=== PATIENT | female | born 1965 | race Caucasian/White ===

== ENCOUNTER 2020-05-05 21:25 | Inpatient (IN) | payer MEDICAID, SELFPAY ==
[2020-05-05 21:50] VITALS: BP 163/81; PULSE 86; RESP 20; TEMP 36.8; O2SAT 95; BMI 19.3
--- NOTE | 2020-05-05 22:06 | ECG_ITS ---
Test Reason : GI BLEED Blood Pressure : / mmHG Vent. Rate : 072 BPM Atrial Rate : 072 BPM P-R Int : 142 ms QRS Dur : 104 ms QT Int : 442 ms P-R-T Axes : 081 103 086 degrees QTc Int : 483 ms Normal sinus rhythm Rightward axis Nonspecific T wave abnormality Prolonged QT Abnormal ECG When compared with ECG of 25-SEP-2009 08:42, Nonspecific T wave abnormality now evident in Anterior leads QT has lengthened Referred By: Neeta Centeno Electronically Signed By:SELMA SANTANA MD
--- NOTE | 2020-05-05 22:18 | ED.ABDPAIN ---
HPI - Abdominal Pain General Chief Complaint: Abdominal Pain Stated Complaint: Abdominal pain/Bloody stools Time Seen by Provider: 05/05/20 22:06 Source: patient Mode of arrival: ambulatory History of Present Illness HPI narrative: This is a 54-year-old female with history of COPD and smoking crack yesterday and comes in with onset of multiple episodes of diarrhea that was brown in color this morning associated with significant amount of abdominal cramping but denies any fevers, chills, nausea, vomiting, urinary pain/burning/frequency. She states that she was finally able to go to sleep this afternoon but when she woke up she had significantly increased abdominal cramping and noted that when she used the bathroom ?it was nothing but blood?. Patient denies relief of pain on passing blood/feces and states she does not think that there is pain on passing the blood/feces. She denies any palpitations or history of irregular heartbeat and denies any anticoagulation use. She lives with her who has eaten the same foods and he is not currently having any symptoms and she denies any recent travel. Related Data Allergies Allergy/AdvReac Type Severity Reaction Status Date / Time codeine [CODEINE] Allergy Unknown RASH Verified 05/05/20 21:53 Review of Systems Review of Systems Pertinent positives and negatives as stated in HPI 10 point review of systems is otherwise negative. Physical Exam Vital Signs: Vital Signs: Last Vital Signs Temp 99.1 F 05/06/20 00:00 Pulse 86 05/05/20 21:50 Resp 16 05/06/20 00:00 BP 163/81 H 05/05/20 21:50 Pulse Ox 96 05/06/20 00:00 Body Mass Index 19.3 VITAL SIGNS: Reviewed. GENERAL: Well developed, well nourished, in no acute distress. HEAD: Normocephalic/atraumatic, EYES: PERRLA, EOMI NOSE: Nares patent bilateral OROPHARYNX: no oral lesions noted, posterior pharynx clear NECK: Supple, no adenopathy LUNGS: Normal breath sounds. SpO2<95> CARDIOVASCULAR: Regular rate and rhythm without noted murmurs ABDOMEN: Soft, tenderness crossed mid into left abdomen, non-distended with bowel sounds. ALEX: No evidence of external hemorrhoids, rectal vault empty with minimal gross blood on exam, good rectal tone NEUROLOGIC: Alert and oriented x 4. Course Course Course Narrative: This is a 54-year-old female with history and clinical presentation suggestive of ischemic, diverticular, and less likely infectious etiology for GI bleed. Review of all investigations consistent with infectious colitis with CT scan corroborating this but stating the possibility of some superimposed active hemorrhage. All results and findings were discussed with the patient at bedside, she was provided with antibiotics with blood cultures drawn prior to this. The case was discussed with the inpatient hospitalist team as well as Gastroenterology. Patient will be admitted. Reevaluation(s) Reevaluation #1: I discussed this case with gastroenterology who recommends sending a C. difficile culture and agrees with antibiotic of Zosyn. Time: 01:35 MDM - Abdominal Pain Lab Data Result diagrams: 05/06/20 01:27 05/05/20 22:25 Labs: Lab Results 05/05/20 05/05/20 05/05/20 Range/Units 22:25 22:25 22:25 WBC 13.4 H (4.8-10.8) X10*3/uL RBC 5.49 (4.20-5.50) X10*6/uL Hgb 17.5 H (12.0-16.0) g/dl Hct 51.2 H (37-47) % MCV 93.3 (80-98) fL MCH 31.9 (27.0-33.0) pg MCHC 34.2 (31.0-35.0) g/dl RDW 12.2 (11.0-16.0) % Plt Count 328 (160-400) X10*3/uL MPV 10.1 (9.4-12.3) fL Immature Gran % (Auto) 0.2 (0.0-0.4) % Neut % (Auto) 76.7 H (45-73) % Lymph % (Auto) 14.2 L (20-40) % [place] % (Auto) 7.7 (2-11) % Eos % (Auto) 0.7 (0-4) % Baso % (Auto) 0.5 (0-2) % Lymph # (Auto) 1.9 (1.2-4.9) X10*3/uL [place] # (Auto) 1.0 (0.1-1.2) X10*3/uL Eos # (Auto) 0.1 (0.0-0.4) X10*3/uL Baso # (Auto) 0.1 (0.0-0.2) X10*3/uL Abs Immat Gran (auto) 0.03 (0.00-0.03) X10*3/uL Absolute Neuts (auto) 10.3 H (2.0-8.3) X10*3/uL Absolute Nucleated RBC 0.000 (0.0-0.012) X10*3/uL Nucleated RBC % (auto) 0.0 (0.0-0.2) /100WBC PT (10.8-13.0) SEC INR (0.9-1.1) APTT (24.1-38.0) SEC Sodium 141 (135-145) mmol/L Potassium 3.9 (3.3-5.1) mmol/L Chloride 104 (96-108) mmol/L Carbon Dioxide 27 (22-29) mmol/L Anion Gap 14 (12-20) BUN 12 (9-16) mg/dL Creatinine 0.85 (0.5-1.4) mg/dL Estim Creat Clear Calc 69.1 Estimated GFR > 60 Random Glucose 112 (60-115) mg/dL Calcium 9.3 (8.4-10.2) mg/dL Magnesium 2.6 (1.6-2.6) mg/dL Total Bilirubin 0.6 (0.0-1.0) mg/dL AST 18 (5-31) U/L ALT 21 (0-31) U/L Alkaline Phosphatase 145 H (39-117) U/L Total Protein 7.4 (6.5-8.0) g/dL Albumin 4.6 (3.5-5.0) g/dL Urine Color Urine Appearance Urine pH (5.0-8.0) Ur Specific [place] (1.005-1.025) Urine Protein (NEG-TRACE) MG/DL Urine Glucose (UA) (NEG) MG/DL Urine Ketones (NEG) MG/DL Urine Blood (NEG) Urine Nitrite (NEG) Ur Leukocyte Esterase (NEG) Urine RBC (0) /HPF Urine WBC (0-4) /HPF Ur Squamous Epith Cells /LPF Amorphous Sediment /LPF Urine Bacteria /LPF Granular Casts /LPF Urine Mucus /LPF Stool Occult Blood (NEG) Stool Leukocytes, Qual (NEGATIVE) Urine Opiates Screen (Not Detect) Ur Barbiturates Screen (Not Detect) Ur Phencyclidine Scrn (Not Detect) Ur Amphetamines Screen (Not Detect) U Benzodiazepines Scrn (Not Detect) Urine Cocaine Screen (Not Detect) U Marijuana (THC) Screen (Not Detect) Ethyl Alcohol < 10 mg/dL COVID-19 (TAY) (Negative) COVID-19 Clin Com Blood Type Antibody Screen 05/05/20 05/05/20 05/05/20 Range/Units 22:25 22:25 22:30 WBC (4.8-10.8) X10*3/uL RBC (4.20-5.50) X10*6/uL Hgb (12.0-16.0) g/dl Hct (37-47) % MCV (80-98) fL MCH (27.0-33.0) pg MCHC (31.0-35.0) g/dl RDW (11.0-16.0) % Plt Count (160-400) X10*3/uL MPV (9.4-12.3) fL Immature Gran % (Auto) (0.0-0.4) % Neut % (Auto) (45-73) % Lymph % (Auto) (20-40) % [place] % (Auto) (2-11) % Eos % (Auto) (0-4) % Baso % (Auto) (0-2) % Lymph # (Auto) (1.2-4.9) X10*3/uL [place] # (Auto) (0.1-1.2) X10*3/uL Eos # (Auto) (0.0-0.4) X10*3/uL Baso # (Auto) (0.0-0.2) X10*3/uL Abs Immat Gran (auto) (0.00-0.03) X10*3/uL Absolute Neuts (auto) (2.0-8.3) X10*3/uL Absolute Nucleated RBC (0.0-0.012) X10*3/uL Nucleated RBC % (auto) (0.0-0.2) /100WBC PT 11.6 (10.8-13.0) SEC INR 1.0 (0.9-1.1) APTT 31.3 (24.1-38.0) SEC Sodium (135-145) mmol/L Potassium (3.3-5.1) mmol/L Chloride (96-108) mmol/L Carbon Dioxide (22-29) mmol/L Anion Gap (12-20) BUN (9-16) mg/dL Creatinine (0.5-1.4) mg/dL Estim Creat Clear Calc Estimated GFR Random Glucose (60-115) mg/dL Calcium (8.4-10.2) mg/dL Magnesium (1.6-2.6) mg/dL Total Bilirubin (0.0-1.0) mg/dL AST (5-31) U/L ALT (0-31) U/L Alkaline Phosphatase (39-117) U/L Total Protein (6.5-8.0) g/dL Albumin (3.5-5.0) g/dL Urine Color Urine Appearance Urine pH (5.0-8.0) Ur Specific [place] (1.005-1.025) Urine Protein (NEG-TRACE) MG/DL Urine Glucose (UA) (NEG) MG/DL Urine Ketones (NEG) MG/DL Urine Blood (NEG) Urine Nitrite (NEG) Ur Leukocyte Esterase (NEG) Urine RBC (0) /HPF Urine WBC (0-4) /HPF Ur Squamous Epith Cells /LPF Amorphous Sediment /LPF Urine Bacteria /LPF Granular Casts /LPF Urine Mucus /LPF Stool Occult Blood POS (NEG) Stool Leukocytes, Qual (NEGATIVE) Urine Opiates Screen (Not Detect) Ur Barbiturates Screen (Not Detect) Ur Phencyclidine Scrn (Not Detect) Ur Amphetamines Screen (Not Detect) U Benzodiazepines Scrn (Not Detect) Urine Cocaine Screen (Not Detect) U Marijuana (THC) Screen (Not Detect) Ethyl Alcohol mg/dL COVID-19 (TAY) Negative (Negative) COVID-19 Clin Com See Note Blood Type Antibody Screen 05/05/20 05/05/20 05/05/20 Range/Units 22:30 22:55 23:04 WBC (4.8-10.8) X10*3/uL RBC (4.20-5.50) X10*6/uL Hgb (12.0-16.0) g/dl Hct (37-47) % MCV (80-98) fL MCH (27.0-33.0) pg MCHC (31.0-35.0) g/dl RDW (11.0-16.0) % Plt Count (160-400) X10*3/uL MPV (9.4-12.3) fL Immature Gran % (Auto) (0.0-0.4) % Neut % (Auto) (45-73) % Lymph % (Auto) (20-40) % [place] % (Auto) (2-11) % Eos % (Auto) (0-4) % Baso % (Auto) (0-2) % Lymph # (Auto) (1.2-4.9) X10*3/uL [place] # (Auto) (0.1-1.2) X10*3/uL Eos # (Auto) (0.0-0.4) X10*3/uL Baso # (Auto) (0.0-0.2) X10*3/uL Abs Immat Gran (auto) (0.00-0.03) X10*3/uL Absolute Neuts (auto) (2.0-8.3) X10*3/uL Absolute Nucleated RBC (0.0-0.012) X10*3/uL Nucleated RBC % (auto) (0.0-0.2) /100WBC PT (10.8-13.0) SEC INR (0.9-1.1) APTT (24.1-38.0) SEC Sodium (135-145) mmol/L Potassium (3.3-5.1) mmol/L Chloride (96-108) mmol/L Carbon Dioxide (22-29) mmol/L Anion Gap (12-20) BUN (9-16) mg/dL Creatinine (0.5-1.4) mg/dL Estim Creat Clear Calc Estimated GFR Random Glucose (60-115) mg/dL Calcium (8.4-10.2) mg/dL Magnesium (1.6-2.6) mg/dL Total Bilirubin (0.0-1.0) mg/dL AST (5-31) U/L ALT (0-31) U/L Alkaline Phosphatase (39-117) U/L Total Protein (6.5-8.0) g/dL Albumin (3.5-5.0) g/dL Urine Color YELLOW Urine Appearance HAZY Urine pH 6.5 (5.0-8.0) Ur Specific [place] 1.010 (1.005-1.025) Urine Protein NEG (NEG-TRACE) MG/DL Urine Glucose (UA) NEG (NEG) MG/DL Urine Ketones NEG (NEG) MG/DL Urine Blood 2+ H (NEG) Urine Nitrite NEG (NEG) Ur Leukocyte Esterase NEG (NEG) Urine RBC 5-9 H (0) /HPF Urine WBC 1-4 (0-4) /HPF Ur Squamous Epith Cells 1+ /LPF Amorphous Sediment 3+ /LPF Urine Bacteria TRACE /LPF Granular Casts 1-4 /LPF Urine Mucus 2+ /LPF Stool Occult Blood (NEG) Stool Leukocytes, Qual MOD: 3-9/OIF (NEGATIVE) Urine Opiates Screen (Not Detect) Ur Barbiturates Screen (Not Detect) Ur Phencyclidine Scrn (Not Detect) Ur Amphetamines Screen (Not Detect) U Benzodiazepines Scrn (Not Detect) Urine Cocaine Screen (Not Detect) U Marijuana (THC) Screen (Not Detect) Ethyl Alcohol mg/dL COVID-19 (TAY) (Negative) COVID-19 Clin Com Blood Type B Positive Antibody Screen NEGATIVE 05/05/20 05/06/20 Range/Units 23:04 01:27 WBC 12.4 H (4.8-10.8) X10*3/uL RBC 5.31 (4.20-5.50) X10*6/uL Hgb 17.0 H (12.0-16.0) g/dl Hct 50.0 H (37-47) % MCV 94.2 (80-98) fL MCH 32.0 (27.0-33.0) pg MCHC 34.0 (31.0-35.0) g/dl RDW 12.3 (11.0-16.0) % Plt Count 282 (160-400) X10*3/uL MPV 10.1 (9.4-12.3) fL Immature Gran % (Auto) 0.2 (0.0-0.4) % Neut % (Auto) 79.7 H (45-73) % Lymph % (Auto) 13.2 L (20-40) % [place] % (Auto) 5.7 (2-11) % Eos % (Auto) 0.7 (0-4) % Baso % (Auto) 0.5 (0-2) % Lymph # (Auto) 1.6 (1.2-4.9) X10*3/uL [place] # (Auto) 0.7 (0.1-1.2) X10*3/uL Eos # (Auto) 0.1 (0.0-0.4) X10*3/uL Baso # (Auto) 0.1 (0.0-0.2) X10*3/uL Abs Immat Gran (auto) 0.03 (0.00-0.03) X10*3/uL Absolute Neuts (auto) 9.9 H (2.0-8.3) X10*3/uL Absolute Nucleated RBC 0.000 (0.0-0.012) X10*3/uL Nucleated RBC % (auto) 0.0 (0.0-0.2) /100WBC PT (10.8-13.0) SEC INR (0.9-1.1) APTT (24.1-38.0) SEC Sodium (135-145) mmol/L Potassium (3.3-5.1) mmol/L Chloride (96-108) mmol/L Carbon Dioxide (22-29) mmol/L Anion Gap (12-20) BUN (9-16) mg/dL Creatinine (0.5-1.4) mg/dL Estim Creat Clear Calc Estimated GFR Random Glucose (60-115) mg/dL Calcium (8.4-10.2) mg/dL Magnesium (1.6-2.6) mg/dL Total Bilirubin (0.0-1.0) mg/dL AST (5-31) U/L ALT (0-31) U/L Alkaline Phosphatase (39-117) U/L Total Protein (6.5-8.0) g/dL Albumin (3.5-5.0) g/dL Urine Color Urine Appearance Urine pH (5.0-8.0) Ur Specific [place] (1.005-1.025) Urine Protein (NEG-TRACE) MG/DL Urine Glucose (UA) (NEG) MG/DL Urine Ketones (NEG) MG/DL Urine Blood (NEG) Urine Nitrite (NEG) Ur Leukocyte Esterase (NEG) Urine RBC (0) /HPF Urine WBC (0-4) /HPF Ur Squamous Epith Cells /LPF Amorphous Sediment /LPF Urine Bacteria /LPF Granular Casts /LPF Urine Mucus /LPF Stool Occult Blood (NEG) Stool Leukocytes, Qual (NEGATIVE) Urine Opiates Screen Not Detected (Not Detect) Ur Barbiturates Screen Not Detected (Not Detect) Ur Phencyclidine Scrn Not Detected (Not Detect) Ur Amphetamines Screen Not Detected (Not Detect) U Benzodiazepines Scrn Not Detected (Not Detect) Urine Cocaine Screen POSITIVE H (Not Detect) U Marijuana (THC) Screen Not Detected (Not Detect) Ethyl Alcohol mg/dL COVID-19 (TAY) (Negative) COVID-19 Clin Com Blood Type Antibody Screen ECG Data Attestation: I personally reviewed and interpreted this ECG as follows: Prior ECG tracings: available for review (09/25/2009 no acute changes on comparison) Interpretation: Normal sinus rhythm, HR-72, no evidence of acute ischemia, WA within normal limits, QTC prolonged Discharge Plan Discharge Clinical Impression: Lower GI bleed, Colitis Patient Disposition: Admitted As Inpatient [facility] Past Medical History Source: nursing notes reviewed Medical History Cholecystectomy planned COPD (chronic obstructive pulmonary disease) Surgical History Previous back surgery Tubal ligation status Social History Social History Alcohol intake: never Smoking Status: Current every day smoker Use of substances other than those prescribed or required for medical reasons: Yes Substance Use Type: Crack/Cocaine Substance Use Frequency: Monthly Advance Directives: No Advance Directives Information Provided: Yes
[2020-05-05] MEDS: 0.9 % Sodium Chloride 1,000 ML 999 ML IV (22:26)
--- NOTE | 2020-05-05 22:28 | CT_ITS ---
EXAM: CT OF THE ABDOMEN AND PELVIS WITHOUT AND WITH CONTRAST GI BLEED INDICATION: GI bleed, abdominal pain COMPARISON: 09/25/2009 TECHNIQUE: 85 mL Omnipaque 350 IV contrast was utilized. Multidetector helical imaging was performed through the abdomen and pelvis prior to and following the administration of IV contrast in arterial and delayed phases. Coronal and sagittal reformatted images were created at the technologist workstation. DOSE LOWERING TECHNIQUES: This CT examination was performed using dose optimization techniques as appropriate, variously including the following: - Automated exposure control - Adjustment of mA and/or kV according to patient size (this includes techniques or standardized protocols for targeted exams were dose is matched to indication/reason for exam; i.e. extremities or head) - Use of iterative reconstruction technique DLP: 1217 mGy-cm FINDINGS: The lung bases demonstrate emphysema. The liver is homogeneous in attenuation without intrahepatic biliary ductal dilatation. There is an approximately 2.4 cm lesion in the lateral left hepatic lobe which demonstrates some peripheral nodular enhancement on the arterial phase with partial central fill-in on the delayed phase, favoring a hemangioma; this is also present in 2009. Patient is status post cholecystectomy. The spleen and pancreas appear unremarkable. There are small low-density nodules in the bilateral adrenal glands, favored to reflect benign lipid rich adenomas given their Hounsfield unit measurements. Bilateral nephrograms are symmetric. No hydronephrosis. No obstructing renal or ureteral calculi are present. The urinary bladder is nearly empty and not adequately evaluated. The uterus and adnexa are unremarkable. There is a thick-walled appearance of the colon extending from the mid transverse colon to the proximal descending colon consistent with colitis. This segment of the colon is collapsed, and in the arterial phase of postcontrast imaging there is prominent hyperattenuation along the mucosa favored to reflect enhancement in the setting of inflammation; the possibility of some superimposed active hemorrhage in this region is difficult to entirely exclude given this background abnormal enhancement. No evidence of bowel obstruction. The appendix is unremarkable. No free fluid or free air is present. Scattered atherosclerotic calcifications are present. No retroperitoneal or pelvic lymphadenopathy is seen. Intervertebral disc spacer is present in the spine at L4-L5. CT/CT gi bleed abd pel wo/w con IMPRESSION: 1. Colitis extending from the mid transverse colon to the proximal descending colon. There is prominent mucosal enhancement throughout this collapsed segment, and the possibility of some superimposed active hemorrhage in this segment would be difficult to entirely exclude. 2. Left hepatic lobe hemangioma. 3. Small adrenal nodules, favoring adenomas. 4. Emphysema at the lung bases.
--- NOTE | 2020-05-05 22:36 | PC.NURSE ---
patient a&ox3, iv inserted, labs drawn, covid swab performed, ekg being performed, pt aware we need a urine and that a type and screen will be obtained, will continue to monitor.
[2020-05-05 22:39] LABS: MANUAL DIFF FLAG NO
[2020-05-05 22:40] LABS: Basophils Absolute Auto 0.1 X10*3/uL (0.0-0.2); Basophils Percent Auto 0.5 % (0-2); Eosinophils Absolute Auto 0.1 X10*3/uL (0.0-0.4); Eosinophils Percent Auto 0.7 % (0-4); Hematocrit 51.2 % (37-47); Hemoglobin 17.5 g/dl (12.0-16.0); Imm Gran Abs Auto 0.03 X10*3/uL (0.00-0.03); Imm Gran Pct Auto 0.2 % (0.0-0.4); Lymphocytes Absolute Auto 1.9 X10*3/uL (1.2-4.9); Lymphocytes Percent Auto 14.2 % (20-40); Mean Corpuscular HGB Conc 34.2 g/dl (31.0-35.0); Mean Corpuscular Hemoglobin 31.9 pg (27.0-33.0); Mean Corpuscular Volume 93.3 fL (80-98); Mean Platelet Volume 10.1 fL (9.4-12.3); Monocytes Percent Auto 7.7 % (2-11); Neutrophils Absolute Auto 10.3 X10*3/uL (2.0-8.3); Neutrophils Percent Auto 76.7 % (45-73); Platelet Count 328 X10*3/uL (160-400); Red Blood Count 5.49 X10*6/uL (4.20-5.50); Red Cell Distribution Width 12.2 % (11.0-16.0); White Blood Count 13.4 X10*3/uL (4.8-10.8)
[2020-05-05 22:40] LABS: OBS Int Ctl Valid YES; OBS1 POS (NEG)
[2020-05-05 22:52] LABS: Prothrombin Time 11.6 SEC (10.8-13.0)
[2020-05-05 22:55] LABS: Partial Thromboplastin Time 31.3 SEC (24.1-38.0)
[2020-05-05 22:56] LABS: COVID-19 Test Negative (Negative); IDNOW Serial# 9DD0AD1C
[2020-05-05 23:05] LABS: Leukocytes Stool Qualitative MOD: 3-9/OIF (NEGATIVE)
[2020-05-05 23:05] LABS: Ethanol < 10 mg/dL
[2020-05-05 23:09] LABS: Alanine Aminotransferase 21 U/L (0-31); Albumin Level 4.6 g/dL (3.5-5.0); Alkaline Phosphatase 145 U/L (39-117); Anion Gap 14 (12-20); Aspartate Amino Transferase 18 U/L (5-31); Bilirubin Total 0.6 mg/dL (0.0-1.0); Blood Urea Nitrogen 12 mg/dL (9-16); Calcium 9.3 mg/dL (8.4-10.2); Carbon Dioxide 27 mmol/L (22-29); Chloride 104 mmol/L (96-108); Creatinine Clr Calc Pharmacy 69.1; Estimated Glomerular Filt Rate > 60; Glucose Random 112 mg/dL (60-115); Magnesium 2.6 mg/dL (1.6-2.6); Potassium 3.9 mmol/L (3.3-5.1); Sodium 141 mmol/L (135-145); Total Protein 7.4 g/dL (6.5-8.0)
[2020-05-05 23:12] LABS: Glucose Urine UA NEG (NEG); Leukocyte Esterase Urine NEG (NEG); Nitrite Urine NEG (NEG); PH 6.5 (5.0-8.0); Urine Blood 2+ (NEG); Urine Ketones NEG (NEG); Urine Protein NEG (NEG-TRACE)
[2020-05-05 23:17] LABS: Appearance Urine HAZY; Color Urine YELLOW
--- NOTE | 2020-05-05 23:20 | PC.NURSE ---
Pt ambulatory with steady gait to CT
[2020-05-05] MEDS: iohexoL 350 MG/ML 100 ML INFUS..BTL 85 ML IV (23:28)
[2020-05-05 23:30] LABS: Amorphous Sediment Urine 3+ /LPF; Bacteria Urine TRACE /LPF; Mucus Urine 2+ /LPF; Squamous Epithelial Cell Urine 1+ /LPF
--- NOTE | 2020-05-05 23:41 | PC.NURSE ---
Pt resting in bed, breathing equal and unlabored. Skin warm and well perfused. Remains with abd discomfort. States she attempted to give another stool sample as requested by unable to at this time. Warm blanket provided, requesting to eat/drink. Instructed to remain NPO until CT results. Pt aware and agreeable to plan of care at this time
[2020-05-05 23:44] LABS: Amphetamine Screen Urine Not Detected (Not Detect); Barbiturates, Urine Not Detected (Not Detect); Benzodiazepines Screen Urine Not Detected (Not Detect); Cannabinoid Screen Urine Not Detected (Not Detect); Cocaine Screen Urine POSITIVE (Not Detect); Opiate Screen Urine Not Detected (Not Detect); Phencyclidine Screen Urine Not Detected (Not Detect)
[2020-05-06] VITALS: RESP 16; TEMP 37.3; O2SAT 96
[2020-05-06] MEDS: 0.9 % Sodium Chloride 1,000 ML 999 ML IV (00:56)
[2020-05-06 01:34] LABS: Basophils Absolute Auto 0.1 X10*3/uL (0.0-0.2); Basophils Percent Auto 0.5 % (0-2); Eosinophils Absolute Auto 0.1 X10*3/uL (0.0-0.4); Eosinophils Percent Auto 0.7 % (0-4); Imm Gran Abs Auto 0.03 X10*3/uL (0.00-0.03); Imm Gran Pct Auto 0.2 % (0.0-0.4); Lymphocytes Absolute Auto 1.6 X10*3/uL (1.2-4.9); Lymphocytes Percent Auto 13.2 % (20-40); MANUAL DIFF FLAG NO; Mean Corpuscular Volume 94.2 fL (80-98); Mean Platelet Volume 10.1 fL (9.4-12.3); Monocytes Absolute Auto 0.7 X10*3/uL (0.1-1.2); Monocytes Percent Auto 5.7 % (2-11); Neutrophils Absolute Auto 9.9 X10*3/uL (2.0-8.3); Neutrophils Percent Auto 79.7 % (45-73); Platelet Count 282 X10*3/uL (160-400); Red Blood Count 5.31 X10*6/uL (4.20-5.50); Red Cell Distribution Width 12.3 % (11.0-16.0); White Blood Count 12.4 X10*3/uL (4.8-10.8)
[2020-05-06] MEDS: Piperacillin Sodium/Tazobactam 3.375 GM in 0.9 % Sodium Chloride 50 ML IV ×4 (01:39→20:20)
--- NOTE | 2020-05-06 01:54 | PC.NURSE ---
Hospitalist at bedside for eval
[2020-05-06 02:00] VITALS: BP 150/67; PULSE 84; RESP 16; TEMP 37.2; O2SAT 96
[2020-05-06 02:07] LABS: Lactic Acid 1.2 mmol/L (0.5-2.0)
--- NOTE | 2020-05-06 02:12 | PM.IMHP ---
History of Present Illness Date of Service: 05/06/20 Chief Complaint: Abd pain and bloody stools 54 year old woman presented with crapmy abd pain and bloody bowel movements that started at 5PM on the day of admission. Patient had been in her usual state of health when she began having crampy abd pain and diarrhea episodes. She stated her stools then turned bloody and she was having multiple bloody movements but could not state whether clot was within the stools. Never had any episodes like this before. Pain is diffuse and across her anterior abdomen. No nausea/vomiting. No fevers or chills. No sick contacts-lives with her and they eat the same food and he is not sick. No recent travel. States has family hx of colon cancer and has had a coloscopy in the past. Review of Systems Constitutional: Comments: No fevers, but is having some chills Eyes: Comments: Stated her vision was blurred earlier ENT: Comments: No sore throat or difficulty swallowing Cardiovascular: Comments: No chest pain Respiratory: Comments: No dyspnea or productive cough Gastrointestinal: Gastrointestinal: Reports as per HPI Musculoskeletal: Comments: No pain in joints noted Psychiatric: Comments: No agitation or anxiety Hematologic/Lymphatic: Comments: no burising PMFSH Medical History Cholecystectomy planned COPD (chronic obstructive pulmonary disease) Pertinent family history: Family hx of colon cancer in her father Surgical History (Updated 05/06/20 @ 02:18 by Edward Mcdowell MD) Hx of cholecystectomy Previous back surgery Tubal ligation status Social History Alcohol intake: never Smoking Status: Current every day smoker Use of substances other than those prescribed or required for medical reasons: Yes Substance Use Type: Crack/Cocaine Substance Use Frequency: Monthly Advance Directives: No Advance Directives Information Provided: Yes Meds Allergies Allergy/AdvReac Type Severity Reaction Status Date / Time codeine [CODEINE] Allergy Unknown RASH Verified 05/05/20 21:53 Physical Exam Vital Signs and Narrative: Vital Signs: Last Vital Signs Temp 98.9 F 05/06/20 02:00 Pulse 84 05/06/20 02:00 Resp 16 05/06/20 02:00 BP 150/67 H 05/06/20 02:00 Pulse Ox 96 05/06/20 02:00 Body Mass Index 19.3 Const: Other: Seems to be in a bit of pain General: cooperative and healthy appearing HENMT: Head: Yes normal to inspection Mouth: Normal oral and palatal mucosa present and moist mucous membranes Eyes: Other: No scleral icterus or conjunctival injections Resp: Other: No insp crackles or exp wheezing Effort & Inspection: normal respiratory effort and able to speak in complete sentences Cardio: Rate: regular rate Rhythm: regular rhythm Heart sounds: S1 normal heart sound present and S2 normal heart sound present GI: Other: Bowel sounds present, diffusely tender across lower anterior abdomen, no guarding or rebound tenderness Skin: General skin exam: no rashes or lesions noted Extrem: Other: No leg edema seen Psych: Other: Seems a little anxious Results Labs CBC and Chem 7: 05/06/20 01:27 05/05/20 22:25 Labs: Laboratory Results - last 24 hr 05/05/20 05/05/20 05/05/20 22:25 22:25 22:25 MCV 93.3 MCH 31.9 MCHC 34.2 RDW 12.2 Plt Count 328 MPV 10.1 Immature Gran % (Auto) 0.2 Neut % (Auto) 76.7 H Lymph % (Auto) 14.2 L [place] % (Auto) 7.7 Eos % (Auto) 0.7 Baso % (Auto) 0.5 Lymph # (Auto) 1.9 [place] # (Auto) 1.0 Eos # (Auto) 0.1 Baso # (Auto) 0.1 Abs Immat Gran (auto) 0.03 Absolute Neuts (auto) 10.3 H Absolute Nucleated RBC 0.000 Nucleated RBC % (auto) 0.0 PT INR APTT Anion Gap 14 Estim Creat Clear Calc 69.1 Estimated GFR > 60 Random Glucose 112 Lactic Acid Calcium 9.3 Magnesium 2.6 Total Bilirubin 0.6 AST 18 ALT 21 Alkaline Phosphatase 145 H Total Protein 7.4 Albumin 4.6 Urine Color Urine Appearance Urine pH Ur Specific [place] Urine Protein Urine Glucose (UA) Urine Ketones Urine Blood Urine Nitrite Ur Leukocyte Esterase Urine RBC Urine WBC Ur Squamous Epith Cells Amorphous Sediment Urine Bacteria Granular Casts Urine Mucus Stool Occult Blood Stool Leukocytes, Qual Urine Opiates Screen Ur Barbiturates Screen Ur Phencyclidine Scrn Ur Amphetamines Screen U Benzodiazepines Scrn Urine Cocaine Screen U Marijuana (THC) Screen Ethyl Alcohol < 10 COVID-19 (TAY) COVID-19 Clin Com Blood Type Antibody Screen 05/05/20 05/05/20 05/05/20 22:25 22:25 22:30 MCV MCH MCHC RDW Plt Count MPV Immature Gran % (Auto) Neut % (Auto) Lymph % (Auto) [place] % (Auto) Eos % (Auto) Baso % (Auto) Lymph # (Auto) [place] # (Auto) Eos # (Auto) Baso # (Auto) Abs Immat Gran (auto) Absolute Neuts (auto) Absolute Nucleated RBC Nucleated RBC % (auto) PT 11.6 INR 1.0 APTT 31.3 Anion Gap Estim Creat Clear Calc Estimated GFR Random Glucose Lactic Acid Calcium Magnesium Total Bilirubin AST ALT Alkaline Phosphatase Total Protein Albumin Urine Color Urine Appearance Urine pH Ur Specific [place] Urine Protein Urine Glucose (UA) Urine Ketones Urine Blood Urine Nitrite Ur Leukocyte Esterase Urine RBC Urine WBC Ur Squamous Epith Cells Amorphous Sediment Urine Bacteria Granular Casts Urine Mucus Stool Occult Blood POS Stool Leukocytes, Qual Urine Opiates Screen Ur Barbiturates Screen Ur Phencyclidine Scrn Ur Amphetamines Screen U Benzodiazepines Scrn Urine Cocaine Screen U Marijuana (THC) Screen Ethyl Alcohol COVID-19 (TAY) Negative COVID-19 Clin Com See Note Blood Type Antibody Screen 05/05/20 05/05/20 05/05/20 22:30 22:55 23:04 MCV MCH MCHC RDW Plt Count MPV Immature Gran % (Auto) Neut % (Auto) Lymph % (Auto) [place] % (Auto) Eos % (Auto) Baso % (Auto) Lymph # (Auto) [place] # (Auto) Eos # (Auto) Baso # (Auto) Abs Immat Gran (auto) Absolute Neuts (auto) Absolute Nucleated RBC Nucleated RBC % (auto) PT INR APTT Anion Gap Estim Creat Clear Calc Estimated GFR Random Glucose Lactic Acid Calcium Magnesium Total Bilirubin AST ALT Alkaline Phosphatase Total Protein Albumin Urine Color YELLOW Urine Appearance HAZY Urine pH 6.5 Ur Specific [place] 1.010 Urine Protein NEG Urine Glucose (UA) NEG Urine Ketones NEG Urine Blood 2+ H Urine Nitrite NEG Ur Leukocyte Esterase NEG Urine RBC 5-9 H Urine WBC 1-4 Ur Squamous Epith Cells 1+ Amorphous Sediment 3+ Urine Bacteria TRACE Granular Casts 1-4 Urine Mucus 2+ Stool Occult Blood Stool Leukocytes, Qual MOD: 3-9/OIF Urine Opiates Screen Ur Barbiturates Screen Ur Phencyclidine Scrn Ur Amphetamines Screen U Benzodiazepines Scrn Urine Cocaine Screen U Marijuana (THC) Screen Ethyl Alcohol COVID-19 (TAY) COVID-19 Clin Com Blood Type B Positive Antibody Screen NEGATIVE 05/05/20 05/06/20 05/06/20 23:04 01:27 01:27 MCV 94.2 MCH 32.0 MCHC 34.0 RDW 12.3 Plt Count 282 MPV 10.1 Immature Gran % (Auto) 0.2 Neut % (Auto) 79.7 H Lymph % (Auto) 13.2 L [place] % (Auto) 5.7 Eos % (Auto) 0.7 Baso % (Auto) 0.5 Lymph # (Auto) 1.6 [place] # (Auto) 0.7 Eos # (Auto) 0.1 Baso # (Auto) 0.1 Abs Immat Gran (auto) 0.03 Absolute Neuts (auto) 9.9 H Absolute Nucleated RBC 0.000 Nucleated RBC % (auto) 0.0 PT INR APTT Anion Gap Estim Creat Clear Calc Estimated GFR Random Glucose Lactic Acid 1.2 Calcium Magnesium Total Bilirubin AST ALT Alkaline Phosphatase Total Protein Albumin Urine Color Urine Appearance Urine pH Ur Specific [place] Urine Protein Urine Glucose (UA) Urine Ketones Urine Blood Urine Nitrite Ur Leukocyte Esterase Urine RBC Urine WBC Ur Squamous Epith Cells Amorphous Sediment Urine Bacteria Granular Casts Urine Mucus Stool Occult Blood Stool Leukocytes, Qual Urine Opiates Screen Not Detected Ur Barbiturates Screen Not Detected Ur Phencyclidine Scrn Not Detected Ur Amphetamines Screen Not Detected U Benzodiazepines Scrn Not Detected Urine Cocaine Screen POSITIVE H U Marijuana (THC) Screen Not Detected Ethyl Alcohol COVID-19 (TAY) COVID-19 Clin Com Blood Type Antibody Screen Imaging Radiologist's Impressions: Impressions Abdomen/Pelvis CT 05/05/20 22:28 IMPRESSION: 1. Colitis extending from the mid transverse colon to the proximal descending colon. There is prominent mucosal enhancement throughout this collapsed segment, and the possibility of some superimposed active hemorrhage in this segment would be difficult to entirely exclude. 2. Left hepatic lobe hemangioma. 3. Small adrenal nodules, favoring adenomas. 4. Emphysema at the lung bases. Assessment and Plan (1) Lower GI bleed: Status: Acute (2) Colitis: Status: Acute (3) COPD (chronic obstructive pulmonary disease): Status: Acute 54 year old woman with history of COPD and family history of colon cancer presented with abrupt onset of crampy abd pain and rectal bleeding. Abd pain, rectal bleeding CT abd suggests colitis and possible active bleeding, though she has not had a bloody bowel movement for a while in ED now. Stools showed some WBC which is concerning for infectious cause-stools sent for culture and vibrio screen as well as giardia and c diff. No sick contacts or recent travel. Supportive care with IV fluids and placed consult to GI for recommendations. Given Zosyn in ED out of concern for infectious colitis-continue for now. Morphine IV prn pain. COPD No exacerbation presently. Called [facility] for her med list-only Breo, Advair, Proair listed as recent ones. Albuterol prn ordered. Polycythemia H/H are elevated but chronicity is unclear. Last CBC in our system is 10 years ago. Likely due in part to her COPD but could contribute to clotting if H/H are high enough, which could put her at risk for colonic ischemia. Will monitor H/H with hydration and blood losses-no indication for transfusion. Tobacco abuse She does not want a nicotine patch. Cessation encouraged. DVT proph In light of acute bleeding will hold SC Lovenox/Heparin and encourage ambulation and use pneumoboots. Code status Full code, healthcare proxy is her Ab.
[2020-05-06] MEDS: 0.9 % Sodium Chloride 1,000 ML 100 ML IVCONT ×3 (02:52→23:37)
[2020-05-06] MEDS: Morphine Sulfate 4 MG/ML CARTRIDGE 1 MG IVPUSH ×5 (02:52→20:20)
[2020-05-06 06:00] VITALS: BP 124/53; PULSE 82; RESP 16; TEMP 37.1; O2SAT 98
[2020-05-06 06:53] LABS: MANUAL DIFF FLAG NO
[2020-05-06 06:54] LABS: Basophils Absolute Auto 0.1 X10*3/uL (0.0-0.2); Basophils Percent Auto 0.5 % (0-2); Eosinophils Absolute Auto 0.2 X10*3/uL (0.0-0.4); Eosinophils Percent Auto 1.6 % (0-4); Hematocrit 47.1 % (37-47); Hemoglobin 15.8 g/dl (12.0-16.0); Imm Gran Abs Auto 0.04 X10*3/uL (0.00-0.03); Imm Gran Pct Auto 0.3 % (0.0-0.4); Lymphocytes Absolute Auto 2.8 X10*3/uL (1.2-4.9); Lymphocytes Percent Auto 23.4 % (20-40); Mean Corpuscular HGB Conc 33.5 g/dl (31.0-35.0); Mean Corpuscular Hemoglobin 31.4 pg (27.0-33.0); Mean Corpuscular Volume 93.6 fL (80-98); Mean Platelet Volume 10.4 fL (9.4-12.3); Monocytes Absolute Auto 1.2 X10*3/uL (0.1-1.2); Monocytes Percent Auto 9.9 % (2-11); Neutrophils Absolute Auto 7.7 X10*3/uL (2.0-8.3); Neutrophils Percent Auto 64.3 % (45-73); Platelet Count 298 X10*3/uL (160-400); Red Blood Count 5.03 X10*6/uL (4.20-5.50); Red Cell Distribution Width 12.3 % (11.0-16.0)
[2020-05-06 07:25] LABS: Anion Gap 12 (12-20); Blood Urea Nitrogen 8 mg/dL (9-16); Calcium 8.1 mg/dL (8.4-10.2); Carbon Dioxide 22 mmol/L (22-29); Chloride 112 mmol/L (96-108); Creatinine Clr Calc Pharmacy 80.4; Estimated Glomerular Filt Rate > 60; Glucose Random 83 mg/dL (60-115); Potassium 3.9 mmol/L (3.3-5.1); Sodium 142 mmol/L (135-145)
--- NOTE | 2020-05-06 07:33 | PM.GICN ---
History of Present Illness Data of Consult Service Date: 05/06/20 <Loi Alba MD - Last Filed: 05/07/20 17:38> Requesting physician: Rose Padilla <Loi Alba MD - Last Filed: 05/07/20 17:38> Primary Care Provider: Unknown Physician <Loi Alba MD - Last Filed: 05/07/20 17:38> HPI Reason for consult: Lower GI bleeding <Loi Alba MD - Last Filed: 05/07/20 17:38> 54-year-old female presented to [facility] ED on evening of 05/05/20: This is a 54-year-old female with history of COPD and smoking crack yesterday and comes in with onset of multiple episodes of diarrhea that was brown in color this morning associated with significant amount of abdominal cramping but denies any fevers, chills, nausea, vomiting, urinary pain/burning/frequency. She states that she was finally able to go to sleep this afternoon but when she woke up she had significantly increased abdominal cramping and noted that when she used the bathroom ?it was nothing but blood?. Patient denies relief of pain on passing blood/feces and states she does not think that there is pain on passing the blood/feces. She denies any palpitations or history of irregular heartbeat and denies any anticoagulation use. She lives with her who has eaten the same foods and he is not currently having any symptoms and she denies any recent travel . Blood and stool cultures were obtained and patient was started on IV Zosyn and admitted for further management. Pt admits to using smoking cocaine 3 days ago. IMAGING STUDIES: ABDOMINAL CT SCAN SHOWED: 1. Colitis extending from the mid transverse colon to the proximal descending colon. There is prominent mucosal enhancement throughout this collapsed segment, and the possibility of some superimposed active hemorrhage in this segment would be difficult to entirely exclude. 2. Left hepatic lobe hemangioma. 3. Small adrenal nodules, favoring adenomas. 4. Emphysema at the lung bases. Patient complains of sudden onset of 10/10 cramping lower abdominal pain yesterday morning followed by multiple episodes of watery non-bloody diarrhea. She initially had BMs every 30 to 60 minutes. Diarrhea was followed by passage of blood mixed with stools followed by pure blood. Pt noted chills and denies fever, recent change in appetite or weight. She admits to taking some ice-cream after dinner which was ? beyond its expiration date. Pain has improved to 6/10 today and diarrhea has resolved. Patient denies major cardiac or pulmonary problems, loud snoring or sleep apnea Denies problems with anesthesia in the past. Denies being on chronic anticoagulation. Patient's Dad with colon cancer. PAST GI HISTORY BY REVIEW OF MEDICAL RECORDS: Pt reports having a Colonoscopy at [facility] [place] several years ago and is overdue for repeat colonoscopy. <Loi Alba MD - Last Filed: 05/07/20 17:38> Review of Systems Constitutional: Constitutional: Reports chills, Denies fever(s), Denies headache(s) and Denies weight loss <Loi Alba MD - Last Filed: 05/07/20 17:38> Eyes: Eyes: Denies eye discharge and Denies irritation <Loi Alba MD - Last Filed: 05/07/20 17:38> ENT: Reports Normal hearing present, Denies dysphagia, Denies dizziness and Denies headache(s) <Loi Alba MD - Last Filed: 05/07/20 17:38> Cardiovascular: Cardiovascular: Denies chest pain, Denies leg edema and Denies dyspnea on exertion <Loi Alba MD - Last Filed: 05/07/20 17:38> Respiratory: Respiratory: Reports cough (Chronic cough related to smoking) and Denies dyspnea on exertion <Loi Alba MD - Last Filed: 05/07/20 17:38> Gastrointestinal: Gastrointestinal: Reports abdominal pain, Reports hematochezia, Denies change in bowel habits, Denies dysphagia, Denies heartburn and Reports diarrhea <Loi Alba MD - Last Filed: 05/07/20 17:38> Genitourinary: Genitourinary: Denies difficulty voiding and Denies dysuria <Loi Alba MD - Last Filed: 05/07/20 17:38> Musculoskeletal: Musculoskeletal: Denies back pain and Denies arthralgias <Loi Alba MD - Last Filed: 05/07/20 17:38> Integumentary/Breasts: Skin/Breast: Denies pruritus, Denies rash and Denies jaundice <Loi Alba MD - Last Filed: 05/07/20 17:38> Neurologic: Reports Normal hearing present, Denies Abnormal speech present, Denies dizziness, Denies headache(s) and Denies seizure-like activity <Loi Alba MD - Last Filed: 05/07/20 17:38> Psychiatric: Psychiatric: Denies anxiety, Denies depression and Denies panic attacks <Loi Alba MD - Last Filed: 05/07/20 17:38> Endocrine: Endocrine: Denies cold intolerance, Denies flushing and Denies heat intolerance <Loi Alba MD - Last Filed: 05/07/20 17:38> PMFSH Past Medical History Medical History: Medical History Back pain COPD (chronic obstructive pulmonary disease) History of crack cocaine use Hx of flexible sigmoidoscopy Smoker <Loi Alba MD - Last Filed: 05/07/20 17:38> Surgical History Surgical History: Surgical History Hx of cholecystectomy Previous back surgery Tubal ligation status <Loi Alba MD - Last Filed: 05/07/20 17:38> Social History Social History: Social History Household Members: Spouse Housing: House Are you a primary child care counselor to a significant other at home: No Do you presently have visiting nurse or other home services: No Alcohol intake: never Cigarette Packs Per Day: 1 Cigarettes Per Day: 20.0 Years Smoked: 30 plus Substance Use Type: Crack/Cocaine service: No Current occupational status: unemployed <Loi Alba MD - Last Filed: 05/07/20 17:38> Meds Allergies/Adverse reactions: Allergies Allergy/AdvReac Type Severity Reaction Status Date / Time codeine [CODEINE] Allergy Unknown RASH Verified 11/06/20 13:19 <Loi Alba MD - Last Filed: 05/07/20 17:38> Home medications: Home Medications Medication Instructions Recorded Confirmed Type albuterol sulfate 90 mcg/actuation 1 puff PO Q4H PRN 06/06/20 06/06/20 History aerosol inhaler (ProAir HFA) cholecalciferol (vitamin D3) 1,250 1 cap PO QWEEK 06/06/20 06/06/20 History mcg (50,000 unit) capsule fluticasone 250 mcg-salmeterol 50 1 puff PO BID 06/06/20 06/06/20 History mcg/dose blistr powdr for inhalation (Advair Diskus) umeclidinium 62.5 mcg/actuation 1 puff PO DAILY 06/06/20 06/06/20 History blister powder for inhalation (Incruse Ellipta) <Loi Alba MD - Last Filed: 05/07/20 17:38> Physical Exam Vital Signs: Vital Signs: Last Vital Signs Temp 98.7 F 05/06/20 06:00 Pulse 82 05/06/20 06:00 Resp 16 05/06/20 06:00 BP 124/53 L 05/06/20 06:00 Pulse Ox 98 05/06/20 06:00 Body Mass Index 19.3 <Loi Alba MD - Last Filed: 05/07/20 17:38> Const: General: healthy appearing and no acute distress <Loi Alba MD - Last Filed: 05/07/20 17:38> Nutritional Appearance: average body habitus <Loi Alba MD - Last Filed: 05/07/20 17:38> Orientation/consciousness: patient oriented x3 <Loi Alba MD - Last Filed: 05/07/20 17:38> Limitations: no limitations <Loi Alba MD - Last Filed: 05/07/20 17:38> HENMT: Head: Yes normal to inspection <Loi Alba MD - Last Filed: 05/07/20 17:38> Ears: hearing grossly normal bilaterally <Loi Alba MD - Last Filed: 05/07/20 17:38> Mouth: Normal oral and palatal mucosa present <Loi Alba MD - Last Filed: 05/07/20 17:38> Eyes: Sclerae: sclerae normal <Loi Alba MD - Last Filed: 05/07/20 17:38> Pupils: Equal, round and reactive pupils present <Loi Alba MD - Last Filed: 05/07/20 17:38> Neck: Neck: Yes normal visual inspection <Loi Alba MD - Last Filed: 05/07/20 17:38> Chest: Chest palpation & inspection: normal inspection of the chest <Loi Alba MD - Last Filed: 05/07/20 17:38> Resp: Effort & Inspection: normal respiratory effort <Loi Alba MD - Last Filed: 05/07/20 17:38> Auscultation: clear to auscultation bilaterally <Loi Alba MD - Last Filed: 05/07/20 17:38> Cardio: Palpation: normal PMI <Loi Alba MD - Last Filed: 05/07/20 17:38> Rate: regular rate <Loi Alba MD - Last Filed: 05/07/20 17:38> Rhythm: regular rhythm <Loi Alba MD - Last Filed: 05/07/20 17:38> Heart sounds: S1 normal heart sound present, S2 normal heart sound present and no murmurs <Loi Alba MD - Last Filed: 05/07/20 17:38> GI: Palpation (GI): Soft to palpation, Tenderness to palpation present (GI) (LUQ and LLQ) and No hepatosplenomegaly present <Loi Alba MD - Last Filed: 05/07/20 17:38> Auscultation: normal bowel sounds <Loi Alba MD - Last Filed: 05/07/20 17:38> Rectal Exam - Female: deferred <Loi Alba MD - Last Filed: 05/07/20 17:38> Skin: General skin exam: no rashes or lesions noted <Loi Alba MD - Last Filed: 05/07/20 17:38> Neuro: General: patient oriented x3, gait normal and moves all extremities <Loi Alba MD - Last Filed: 05/07/20 17:38> Cranial nerves: Yes Equal, round and reactive pupils present and Yes Normal hearing present <Loi Alba MD - Last Filed: 05/07/20 17:38> Speech: No Abnormal speech present <Loi Alba MD - Last Filed: 05/07/20 17:38> Psych: Appearance: grossly normal <Loi Alba MD - Last Filed: 05/07/20 17:38> Mental Status: mental status grossly normal <Loi Alba MD - Last Filed: 05/07/20 17:38> Results Labs CBC & Chem 7: : 05/08/20 06:09 05/06/20 06:26 <Loi Alba MD - Last Filed: 05/07/20 17:38> Labs: Short CBC 05/05/20 05/06/20 05/06/20 Range/Units 22:25 01:27 06:26 WBC 13.4 H 12.4 H 12.0 H (4.8-10.8) X10*3/uL Hgb 17.5 H 17.0 H 15.8 (12.0-16.0) g/dl Hct 51.2 H 50.0 H 47.1 H (37-47) % Plt Count 328 282 298 (160-400) X10*3/uL BMP 05/05/20 05/06/20 22:25 06:26 Sodium 141 142 Potassium 3.9 3.9 Chloride 104 112 H Carbon Dioxide 27 22 BUN 12 8 L Creatinine 0.85 0.73 Calcium 9.3 8.1 L D Liver Function 05/05/20 Range/Units 22:25 Total Bilirubin 0.6 (0.0-1.0) mg/dL AST 18 (5-31) U/L ALT 21 (0-31) U/L Alkaline Phosphatase 145 H (39-117) U/L Albumin 4.6 (3.5-5.0) g/dL Urine 05/05/20 Range/Units 23:04 Urine Color YELLOW Urine Appearance HAZY Urine pH 6.5 (5.0-8.0) Ur Specific [place] 1.010 (1.005-1.025) Urine Protein NEG (NEG-TRACE) MG/DL Urine Glucose (UA) NEG (NEG) MG/DL <Loi Alba MD - Last Filed: 05/07/20 17:38> Assessment and Plan (1) Lower GI bleed: Status: Acute <Loi Alba MD - Last Filed: 05/07/20 17:38> (2) Colitis: Status: Acute <Loi Alba MD - Last Filed: 05/07/20 17:38> 54 year old female with the COPD admitted with the 1 day history of lower abdominal pain, diarrhea followed by rectal bleeding. Symptoms are likely due to acute gastroenteritis. She may have superimposed ischemic colitis due to dehydration from diarrhea. RECOMMENDATIONS: 1. Await stool culture results. 2. Continue IV antibiotics. 3. Start on a clear liquid diet. 4. Patient is scheduled for a flexible sigmoidoscopy (unprepped) tomorrow at 12:30 pm. <Loi Alba MD - Last Filed: 05/07/20 17:38>
[2020-05-06] MEDS: 0.9 % Sodium Chloride Flush 3 ML SYRINGE IVFLUSH (08:34)
[2020-05-06 08:38] VITALS: BP 124/74; PULSE 72; RESP 16
--- NOTE | 2020-05-06 12:25 | P.EN_ITS ---
Event Note Date of Service: 05/06/20 Event Note: 54-year-old female of COPD presented to [facility] with acute onset of lower abdominal crampy pain with bloody bowel movement patient CT abdomen showed colitis extending from mid transverse colon to proximal descending colon patient admitted to medical floor on IV antibiotics stool studies and blood cultures sent. At present patient is resting comfortably asking for food she denies nausea, no vomiting, no further stools since admit, but is still complaining of crampy lower abdominal pain On examination awake alert no distress Abdomen soft mild localized tenderness below umbilicus, no guarding no rigidity no palpable mass Extremities no edema Neuro nonfocal Acute colitis Continue current treatment with IV fluids, IV antibiotics follow stool cultures and blood cultures hematocrit remains stable, no further bloody stool, await GI input will allow ice chips. COPD no acute exacerbation strongly advised to abstain from smoking. Tobacco use disorder
--- NOTE | 2020-05-06 14:54 | MHC.CM.PN ---
PT REPORTS SHE LIVES AT HOME WITH HER AND IS FULLY INDEPENDENT WITH ALL CARE AND MOBILITY. PT REPORTS SHE HAS NO SERVICES OR DME. PT REPORTS HER PCP IS FAMILIA SALGADO. PT DOES NOT HAVE A HCP AND IS NOT INTERESTED IN COMPLETING ONE TODAY. PT REPORTS BEING IN SEVERE PAIN. PTS CURRENT DC PLAN IS HOME WITH NO SERVICES
[2020-05-07] VITALS (10 sets, daily range): BP systolic 71–142; BP diastolic 35–80; PULSE 63–79; RESP 16–18; TEMP 36.6–36.9; O2SAT 92–95
[2020-05-07] MEDS: Morphine Sulfate 4 MG/ML CARTRIDGE 1 MG IVPUSH ×4 (00:24→13:28)
[2020-05-07] MEDS: 0.9 % Sodium Chloride Flush 3 ML SYRINGE IVFLUSH (00:24)
[2020-05-07] MEDS: Piperacillin Sodium/Tazobactam 3.375 GM in 0.9 % Sodium Chloride 50 ML IV ×4 (04:07→19:26)
--- NOTE | 2020-05-07 07:00 | PC.NURSE ---
report from sss prep nurse called and given
--- NOTE | 2020-05-07 07:38 | PC.NURSE ---
report taken from yazmin rn pt sitting up in [facility] with this rn. pt awaiting inpt bed assignment and has planned sigmoid procedure this morning, npo since midnight. report given to short stay surgery.
--- NOTE | 2020-05-07 08:06 | PC.NURSE ---
report given to s3 rn
--- NOTE | 2020-05-07 10:48 | P.CONAN_ITS ---
FORMERLY [facility], [facility] Past Medical History Medical History Cholecystectomy planned COPD (chronic obstructive pulmonary disease) Surgical History Surgical History (Updated 05/06/20 @ 02:18 by Edward Mcdowell MD) Hx of cholecystectomy Previous back surgery Tubal ligation status Social History Social History Household Members: Spouse Housing: House Do you presently have visiting nurse or other home services: No Alcohol intake: never Smoking Status: Current every day smoker Tobacco Type: Cigarette Patient Interested in Nicotine Replacement: No Use of substances other than those prescribed or required for medical reasons: Yes Substance Use Type: Crack/Cocaine Substance Use Frequency: Occasionally Last Used Substance: Weeks (ago) Last Used Substance Other:: a week ago Currently Displaying Signs/Symptoms of Drug Intoxication Withdrawal: No Any prior treatment program specific to substance use: No Have you been hit, kicked, punched, or otherwise hurt by someone within the past year? If so, by whom?: No Do you feel safe in your current relationship?: Yes Is there a partner from a previous relationship who is making you feel unsafe now?: No Are you made to feel afraid or neglected: No Restorationist Healthcare Practices: hinduism Advance Directives: No Advance Directives Information Provided: Yes Do you have thoughts of harming others: None Do you have a plan to hurt others: No Plan Recently lost weight without trying: No service: No Current occupational status: unemployed Meds Allergies Allergy/AdvReac Type Severity Reaction Status Date / Time codeine [CODEINE] Allergy Unknown RASH Verified 05/05/20 21:53 Exam Exam Date and Time: May 07, 2020 1048 Height,Weight and Vital Signs: Height 5 ft 9 in Weight 59.24 kg Last Vital Signs Temp 97.9 F 05/07/20 08:00 Pulse 79 05/07/20 08:00 Resp 18 05/07/20 08:00 BP 114/64 05/07/20 08:00 Pulse Ox 93 05/07/20 08:00 Pertinent Lab Results Pertinent Lab Results: Laboratory Tests 05/05/20 05/05/20 05/05/20 22:25 22:25 22:25 WBC 13.4 H RBC 5.49 Hgb 17.5 H Hct 51.2 H MCV 93.3 MCH 31.9 MCHC 34.2 RDW 12.2 Plt Count 328 MPV 10.1 Immature Gran % (Auto) 0.2 Neut % (Auto) 76.7 H Lymph % (Auto) 14.2 L [place] % (Auto) 7.7 Eos % (Auto) 0.7 Baso % (Auto) 0.5 Lymph # (Auto) 1.9 [place] # (Auto) 1.0 Eos # (Auto) 0.1 Baso # (Auto) 0.1 Abs Immat Gran (auto) 0.03 Absolute Neuts (auto) 10.3 H Absolute Nucleated RBC 0.000 Nucleated RBC % (auto) 0.0 PT INR APTT Sodium 141 Potassium 3.9 Chloride 104 Carbon Dioxide 27 Anion Gap 14 BUN 12 Creatinine 0.85 Estim Creat Clear Calc 69.1 Estimated GFR > 60 Random Glucose 112 Lactic Acid Calcium 9.3 Magnesium 2.6 Total Bilirubin 0.6 AST 18 ALT 21 Alkaline Phosphatase 145 H Total Protein 7.4 Albumin 4.6 Urine Color Urine Appearance Urine pH Ur Specific [place] Urine Protein Urine Glucose (UA) Urine Ketones Urine Blood Urine Nitrite Ur Leukocyte Esterase Urine RBC Urine WBC Ur Squamous Epith Cells Amorphous Sediment Urine Bacteria Granular Casts Urine Mucus Stool Occult Blood Stool Leukocytes, Qual Urine Opiates Screen Ur Barbiturates Screen Ur Phencyclidine Scrn Ur Amphetamines Screen U Benzodiazepines Scrn Urine Cocaine Screen U Marijuana (THC) Screen Ethyl Alcohol < 10 COVID-19 (TAY) COVID-19 Clin Com Blood Type Antibody Screen 05/05/20 05/05/20 05/05/20 22:25 22:25 22:30 WBC RBC Hgb Hct MCV MCH MCHC RDW Plt Count MPV Immature Gran % (Auto) Neut % (Auto) Lymph % (Auto) [place] % (Auto) Eos % (Auto) Baso % (Auto) Lymph # (Auto) [place] # (Auto) Eos # (Auto) Baso # (Auto) Abs Immat Gran (auto) Absolute Neuts (auto) Absolute Nucleated RBC Nucleated RBC % (auto) PT 11.6 INR 1.0 APTT 31.3 Sodium Potassium Chloride Carbon Dioxide Anion Gap BUN Creatinine Estim Creat Clear Calc Estimated GFR Random Glucose Lactic Acid Calcium Magnesium Total Bilirubin AST ALT Alkaline Phosphatase Total Protein Albumin Urine Color Urine Appearance Urine pH Ur Specific [place] Urine Protein Urine Glucose (UA) Urine Ketones Urine Blood Urine Nitrite Ur Leukocyte Esterase Urine RBC Urine WBC Ur Squamous Epith Cells Amorphous Sediment Urine Bacteria Granular Casts Urine Mucus Stool Occult Blood POS Stool Leukocytes, Qual Urine Opiates Screen Ur Barbiturates Screen Ur Phencyclidine Scrn Ur Amphetamines Screen U Benzodiazepines Scrn Urine Cocaine Screen U Marijuana (THC) Screen Ethyl Alcohol COVID-19 (TAY) Negative COVID-19 Clin Com See Note Blood Type Antibody Screen 05/05/20 05/05/20 05/05/20 22:30 22:55 23:04 WBC RBC Hgb Hct MCV MCH MCHC RDW Plt Count MPV Immature Gran % (Auto) Neut % (Auto) Lymph % (Auto) [place] % (Auto) Eos % (Auto) Baso % (Auto) Lymph # (Auto) [place] # (Auto) Eos # (Auto) Baso # (Auto) Abs Immat Gran (auto) Absolute Neuts (auto) Absolute Nucleated RBC Nucleated RBC % (auto) PT INR APTT Sodium Potassium Chloride Carbon Dioxide Anion Gap BUN Creatinine Estim Creat Clear Calc Estimated GFR Random Glucose Lactic Acid Calcium Magnesium Total Bilirubin AST ALT Alkaline Phosphatase Total Protein Albumin Urine Color YELLOW Urine Appearance HAZY Urine pH 6.5 Ur Specific [place] 1.010 Urine Protein NEG Urine Glucose (UA) NEG Urine Ketones NEG Urine Blood 2+ H Urine Nitrite NEG Ur Leukocyte Esterase NEG Urine RBC 5-9 H Urine WBC 1-4 Ur Squamous Epith Cells 1+ Amorphous Sediment 3+ Urine Bacteria TRACE Granular Casts 1-4 Urine Mucus 2+ Stool Occult Blood Stool Leukocytes, Qual MOD: 3-9/OIF Urine Opiates Screen Ur Barbiturates Screen Ur Phencyclidine Scrn Ur Amphetamines Screen U Benzodiazepines Scrn Urine Cocaine Screen U Marijuana (THC) Screen Ethyl Alcohol COVID-19 (TAY) COVID-19 Clin Com Blood Type B Positive Antibody Screen NEGATIVE 05/05/20 05/06/20 05/06/20 23:04 01:27 01:27 WBC 12.4 H RBC 5.31 Hgb 17.0 H Hct 50.0 H MCV 94.2 MCH 32.0 MCHC 34.0 RDW 12.3 Plt Count 282 MPV 10.1 Immature Gran % (Auto) 0.2 Neut % (Auto) 79.7 H Lymph % (Auto) 13.2 L [place] % (Auto) 5.7 Eos % (Auto) 0.7 Baso % (Auto) 0.5 Lymph # (Auto) 1.6 [place] # (Auto) 0.7 Eos # (Auto) 0.1 Baso # (Auto) 0.1 Abs Immat Gran (auto) 0.03 Absolute Neuts (auto) 9.9 H Absolute Nucleated RBC 0.000 Nucleated RBC % (auto) 0.0 PT INR APTT Sodium Potassium Chloride Carbon Dioxide Anion Gap BUN Creatinine Estim Creat Clear Calc Estimated GFR Random Glucose Lactic Acid 1.2 Calcium Magnesium Total Bilirubin AST ALT Alkaline Phosphatase Total Protein Albumin Urine Color Urine Appearance Urine pH Ur Specific [place] Urine Protein Urine Glucose (UA) Urine Ketones Urine Blood Urine Nitrite Ur Leukocyte Esterase Urine RBC Urine WBC Ur Squamous Epith Cells Amorphous Sediment Urine Bacteria Granular Casts Urine Mucus Stool Occult Blood Stool Leukocytes, Qual Urine Opiates Screen Not Detected Ur Barbiturates Screen Not Detected Ur Phencyclidine Scrn Not Detected Ur Amphetamines Screen Not Detected U Benzodiazepines Scrn Not Detected Urine Cocaine Screen POSITIVE H U Marijuana (THC) Screen Not Detected Ethyl Alcohol COVID-19 (TAY) COVID-19 Clin Com Blood Type Antibody Screen 05/06/20 05/06/20 06:26 06:26 WBC 12.0 H RBC 5.03 Hgb 15.8 Hct 47.1 H MCV 93.6 MCH 31.4 MCHC 33.5 RDW 12.3 Plt Count 298 MPV 10.4 Immature Gran % (Auto) 0.3 Neut % (Auto) 64.3 Lymph % (Auto) 23.4 [place] % (Auto) 9.9 Eos % (Auto) 1.6 Baso % (Auto) 0.5 Lymph # (Auto) 2.8 [place] # (Auto) 1.2 Eos # (Auto) 0.2 Baso # (Auto) 0.1 Abs Immat Gran (auto) 0.04 H Absolute Neuts (auto) 7.7 Absolute Nucleated RBC 0.000 Nucleated RBC % (auto) 0.0 PT INR APTT Sodium 142 Potassium 3.9 Chloride 112 H Carbon Dioxide 22 Anion Gap 12 BUN 8 L Creatinine 0.73 Estim Creat Clear Calc 80.4 Estimated GFR > 60 Random Glucose 83 Lactic Acid Calcium 8.1 L D Magnesium Total Bilirubin AST ALT Alkaline Phosphatase Total Protein Albumin Urine Color Urine Appearance Urine pH Ur Specific [place] Urine Protein Urine Glucose (UA) Urine Ketones Urine Blood Urine Nitrite Ur Leukocyte Esterase Urine RBC Urine WBC Ur Squamous Epith Cells Amorphous Sediment Urine Bacteria Granular Casts Urine Mucus Stool Occult Blood Stool Leukocytes, Qual Urine Opiates Screen Ur Barbiturates Screen Ur Phencyclidine Scrn Ur Amphetamines Screen U Benzodiazepines Scrn Urine Cocaine Screen U Marijuana (THC) Screen Ethyl Alcohol COVID-19 (TAY) COVID-19 Clin Com Blood Type Antibody Screen Airway TM Dist: >3cm Neck ROM: Full Denture: Upper and Lower Heart: RRR Lungs: CTA BL Assessment and Plan Assessment Anesthesia Assessment: Anesthesia Plan Discussed and Chart Reviewed Final Anesthetic Review NPO: Yes ASA Class: II Final Preanesthetic Review: Meds/Allgs Chart Reviewed and Consent Obtained/Reviewed Patient Risk: Intermediate Anesthetic Plan Anesthetic Plan: MAC: Disposition: Standard PACU
[2020-05-07] MEDS: Lactated Ringers 1,000 ML 100 ML IVCONT ×2 (11:18→21:41)
--- NOTE | 2020-05-07 11:52 | PM.OP ---
Brief Operative Note Date of Service: 05/07/20 Pre-op diagnosis: abdominal pain, acute diarrhea, hematochezia Post-op diagnosis: other (Colon polyps, left sided colitis, diverticulosis) Procedure: FLEXIBLE SIGMIOIDOSCOPY TILL 90 CMS WITH BIOPSY AND SNARE POLYPECTOMY Consent: Indications for the procedure and potential complications of bleeding, perforation, reaction to medications and missed diagnosis were discussed with the patient and informed consent was obtained. Instrument: Olympus PCF H 190 L variable stiffness pediatric colonoscope Monitoring: Vital signs and clinical assessment, intermittent blood pressure monitoring, continuous EKG monitoring, Pulse oximetry and Carbon Dioxide monitoring were done throughout the procedure. Procedure: The patient was placed in the left lateral decubitis position and pre-procedure medications were administered. After a digital rectal examination of the ano-rectum, the video colonoscope was inserted into the rectum and advanced through the colon to 90 cms into the distal transverse colon. The colonoscope was slowly withdrawn in a retrograde panoramic fashion and the colon mucosa was carefully examined including a retroflexed view of the rectum. Findings and interventions are described below. Procedure Difficulty: Without difficulty Findings: Transverse Colon: Edema, erythema, submucosal hemorrhages and ulcerations from 30 to 50 cms involving the distal TC and DC - multiple biopsies were obtained. Descending Colon: Edema, erythema, submucosal hemorrhages and ulcerations from 30 to 50 cms involving the distal TC and DC - multiple biopsies were obtained. Sigmoid Colon: A 10 mm sessile polyp removed with a cold snare. A 15-18 mm sessile polyp at 20 cms - biopsied and not removed. Moderate diverticulosis Rectum: Normal Ano-rectum: Normal Colon preparation: Fair - there were scattered maroon clots throughout the colon which could not be flushed. Impression and Post Procedure Diagnosis: Colonoscopy Findings: Edema, erythema, submucosal hemorrhages and ulcerations from 30 to 50 cms involving the distal TC and DC - multiple biopsies were obtained. Mucosal changes are likely due to ischemic colitis and likely cause for hematochezia. One polyps removed and a 2nd polyp was biopsied. Moderate diverticulosis seen in the sigmoid colon Plan: Await pathology results OK to advance to regular diet today. Continue IV antibiotics x 24 hrs and then switch to PO x 5 days. Pt can be discharged home tomorrow if no further bleeding and H & H is stable Patient will be scheduled for a Colonoscopy as an outpatient in 4-6 weeks once colitis has resolved. Above findings were reviewed with the patient and colon polyps and diverticulosis handouts were given in the discharge area Surgeon: Loi Alba MD Anesthesia: MAC (Dr Valenzuela) Estimated blood loss (mL): 0 Pathology: other (A. SC polyp x 1, B. DC biopsies, C. SC polyp at 20 cms) Condition: stable Disposition: PACU
--- NOTE | 2020-05-07 11:53 | W.PM.OPN ---
Operative Note Operative Note Date of Service: 05/07/20 Narrative: Pre-op diagnosis: Colon cancer screening Post-op diagnosis: other (Colon polyps, diverticulosis, hemorrhoids) Procedure: FLEXIBLE SIGMOIDOSCOPY WITH BIOPSY AND SNARE POLYPECTOMY Consent: Indications for the procedure and potential complications of bleeding, perforation, reaction to medications and missed diagnosis were discussed with the patient and informed consent was obtained. Instrument: Olympus PCF H 190 L variable stiffness pediatric colonoscope Monitoring: Vital signs and clinical assessment, intermittent blood pressure monitoring, continuous EKG monitoring, Pulse oximetry and Carbon Dioxide monitoring were done throughout the procedure. Colon withdrawl time was 31 minutes. Procedure: The patient was placed in the left lateral decubitis position and pre-procedure medications were administered. After a digital rectal examination of the ano-rectum, the video colonoscope was inserted into the rectum and advanced through the colon to the cecum. The colonoscope was slowly withdrawn in a retrograde panoramic fashion and the colon mucosa was carefully examined including a retroflexed view of the rectum. Findings and interventions are described below. Procedure Difficulty: : Colon was long and tortuous and there was spasm and some formation Findings: Terminal Ileum: Not evaluated Cecum: Normal Ascending Colon: A 4-5 mm sessile polyp remove with a cold bx and moderate diverticulosis Transverse Colon: Moderate diverticulosis Descending Colon: Moderate diverticulosis Sigmoid Colon: Multiple 5-7 mm diminutive appearing polyps - two were biopsied. Two 10-12 mm sessile polyp removed with a hot snare. Moderate diverticulosis Rectum: Normal Ano-rectum: Large internal hemorrhoids Colon preparation: Good Impression and Post Procedure Diagnosis: Colonoscopy Findings: Five small to medium sized polyps removed Moderate diverticulosis seen in the entire colon Large hemorrhoids on retroflexed exam. Plan: Await pathology results Patient has an appointment on 05/30/20 in the GI Clinic with Loi Alba M.D. Repeat Colonoscopy interval based on path results - in 3-5 years if polyps are adenomatous and 10 years if polyps are hyperplastic. Above findings were reviewed with the patient and colon polyps and diverticulosis handouts were given in the discharge area Surgeon: Loi Alba MD Anesthesia: MAC (Dr Valenzuela) Estimated blood loss (mL): 0 Pathology: other (A. AC polyp x 1, B. SC polyps x 2, C. SC polyp at 50 cms x2) Condition: stable Disposition: PACU
--- NOTE | 2020-05-07 11:53 | MHC.SHP ---
Pre-Procedural Eval Section A The patient is an INPATIENT: Yes Changes since office visit: Yes New Medical Problems, Yes Changes in Medication and Yes Patient answered all questions; No Cold of Flu in the past 2 weeks The History & Physical has been completed within 30 days and I have reviewed it.: Yes Section B Chief Complaint: Abdominal pain, rectal bleeding Allergies: Allergies Allergy/AdvReac Type Severity Reaction Status Date / Time codeine [CODEINE] Allergy Unknown RASH Verified 05/05/20 21:53 Plan I have reviewed the history and physical and performed a pertinent physical examination on my patient. No changes have occurred unless specified.
--- NOTE | 2020-05-07 14:25 | HO.PM.IMPN ---
Subjective Subjective Date of Service: 05/07/20 Interval History: Patient complaining of persistent lower abdominal cramping, no further diarrhea/ bloody stools, no fever chills patient is scheduled for flexible sigmoidoscopy today. Review of Systems General no headache, no dizziness, no fever chills. CVS no chest pain, no palpitation. Respiratory no cough ,no shortness of breath Gastrointestinal no nausea, no vomiting, abdominal pain Physical Exam Vital Signs: Vital Signs: Last Vital Signs Temp 97.9 F 05/07/20 12:23 Pulse 65 05/07/20 12:53 Resp 18 05/07/20 12:53 BP 133/73 05/07/20 12:53 Pulse Ox 95 05/07/20 12:53 Body Mass Index 19.3 General patient resting comfortably in no acute distress. Neck is supple no JVD. CVS regular rate rhythm, Respiratory lungs clear to auscultation, no respiratory distress Gastrointestinal abdomen soft, mild lower abdominal discomfort to palpation, no guarding , no rigidity. Extremities no clubbing cyanosis or edema. Neuro nonfocal Skin no rash Objective Data Current Medications Generic Name Dose Route Start Last Admin Trade Name Freq PRN Reason Stop Dose Admin Albuterol Sulfate 2.5 mg 05/06/20 02:37 Albuterol Sulfate (0.083%) 2.5 Mg/3 Ml Vial.Neb INHALE QID PRN Dyspnea Sodium Chloride 1,000 mls @ 100 mls/hr 05/06/20 02:45 05/07/20 10:45 Ns IVCONT Infused .Q10H MEME Infusion Piperacillin Sod/Tazobactam 50 mls @ 100 mls/hr 05/06/20 08:00 05/07/20 13:36 Sod 3.375 gm/ Sodium Chloride IV 100 mls/hr Q6H MEME Administration Lactated Ringer's 1,000 mls @ 100 mls/hr 05/07/20 11:15 05/07/20 11:18 Lr IVCONT 100 mls/hr .Q10H MEME Administration Morphine Sulfate 1 mg 05/06/20 02:36 05/07/20 13:28 Morphine Sulfate 4 Mg/Ml Cartridge IVPUSH 1 mg Q4H PRN Administration Pain, Severe (Pain Scale 7-10) Ondansetron HCl 4 mg 05/07/20 10:48 Ondansetron Hcl 4 Mg/2 Ml Vial IVPUSH ONCE PRN Nausea and Vomiting Sodium Chloride 3 ml 05/06/20 08:00 05/07/20 07:33 0.9 % Sodium Chloride Flush 3 Ml Syringe IVFLUSH Not Given QSHIFT MEME Labs CBC & Chem 7: 05/06/20 06:26 05/06/20 06:26 Microbiology Microbiology Results: Microbiology 05/05/20 22:30 Stool Stool Culture - Preliminary Normal so far. 05/05/20 22:30 Stool Vibrio Culture - Preliminary No growth after 1 day 05/06/20 01:27 Blood - Venous Blood Culture - Preliminary No growth after 24 hours. 05/06/20 01:27 Blood - Venous Blood Culture - Preliminary No growth after 24 hours. Assessment and Plan (1) Colitis: Status: Acute (2) Lower GI bleed: Status: Acute (3) COPD (chronic obstructive pulmonary disease): Status: Acute (4) Tobacco use disorder: Status: Acute Assessment and Plan: 54 year old woman with history of COPD and family history of colon cancer presented with abrupt onset of crampy abd pain and rectal bleeding. Acute ischemic colitis No further bout of rectal bleeding, persistent abdominal cramping,CT abd suggests colitis, patient underwent sigmoidoscopy that showed edema, erythema and submucosal hemorrhage likely due to ischemic colitis case discussed with gastroenterology Dr. Alba she recommend to advance diet to regular, continue IV antibiotic for 24 hours, will follow H&H and schedule an outpatient follow-up appointment in GI clinic for colonoscopy in 2-3 months once colitis has resolved., stable hematocrit. Will DC IV fluid follow clinical course Stools showed some WBC, stool Giardia antigen is pending. Will follow results. COPD No exacerbation cont. Albuterol prn. 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 DVT proph encourage ambulation and pneumo boots. Code status Full code
--- NOTE | 2020-05-07 15:20 | MHC.CM.PN ---
ARGENIS has asked MD to contact one of Patient's Daughters/HCP- Leia @ [phone], or Linnea @ [phone]; Daughters are just asking for a clinical update. MD is agreeable.
[2020-05-07] MEDS: Acetaminophen 325 MG TABLET 650 MG PO (19:26)
--- NOTE | 2020-05-08 | XR_ITS ---
EXAMINATION: XR ABDOMEN KUB CLINICAL INDICATION: Abdominal pain. COMPARISON: CT abdomen from 05/05/2020 TECHNIQUE: AP view of the abdomen. FINDINGS: There are prominent haustral folds/mucosal thickening of the left transverse colon in this patient with known colitis. The bowel loops are normal in size. The rectum is unremarkable. No evidence of pneumatosis intestinalis or pneumoperitoneum. [id number] amount of fecal material is present within the colon. Cholecystectomy clips in the right upper quadrant. Intervertebral cage placement from spinal fusion at L4-5. No nephrolithiasis. XR/XR KUB IMPRESSION: No evidence of bowel obstruction or toxic megacolon in this patient with known colitis. There is no overt pneumoperitoneum.
[2020-05-08] MEDS: Morphine Sulfate 2 MG/ML CARTRIDGE 1 MG IVPUSH (00:09)
[2020-05-08] MEDS: 0.9 % Sodium Chloride Flush 3 ML SYRINGE IVFLUSH (00:10)
[2020-05-08] MEDS: Piperacillin Sodium/Tazobactam 3.375 GM in 0.9 % Sodium Chloride 50 ML IV ×2 (02:06→08:16)
[2020-05-08 04:00] VITALS: BP 147/71; PULSE 58; RESP 18; TEMP 36.4; O2SAT 94
[2020-05-08 06:42] LABS: MANUAL DIFF FLAG NO
[2020-05-08 06:52] LABS: Basophils Absolute Auto 0.1 X10*3/uL (0.0-0.2); Basophils Percent Auto 0.8 % (0-2); Eosinophils Absolute Auto 0.7 X10*3/uL (0.0-0.4); Eosinophils Percent Auto 7.2 % (0-4); Hematocrit 42.4 % (37-47); Hemoglobin 14.3 g/dl (12.0-16.0); Imm Gran Abs Auto 0.02 X10*3/uL (0.00-0.03); Imm Gran Pct Auto 0.2 % (0.0-0.4); Lymphocytes Absolute Auto 2.5 X10*3/uL (1.2-4.9); Mean Corpuscular HGB Conc 33.7 g/dl (31.0-35.0); Mean Corpuscular Hemoglobin 31.3 pg (27.0-33.0); Mean Corpuscular Volume 92.8 fL (80-98); Mean Platelet Volume 10.7 fL (9.4-12.3); Monocytes Absolute Auto 0.8 X10*3/uL (0.1-1.2); Monocytes Percent Auto 8.1 % (2-11); Neutrophils Absolute Auto 5.9 X10*3/uL (2.0-8.3); Neutrophils Percent Auto 58.7 % (45-73); Platelet Count 260 X10*3/uL (160-400); Red Blood Count 4.57 X10*6/uL (4.20-5.50); Red Cell Distribution Width 12.1 % (11.0-16.0)
[2020-05-08 07:38] VITALS: BP 127/76; PULSE 72; RESP 17; TEMP 36.4; O2SAT 92
[2020-05-08] MEDS: Morphine Sulfate 2 MG/ML CARTRIDGE IVPUSH (10:03)
[2020-05-08 11:10] VITALS: BP 126/84; PULSE 75; RESP 17; TEMP 36.4; O2SAT 93
--- NOTE | 2020-05-08 11:29 | MHC.CM.PN ---
Per ROUNDS discussion, Patient will be medically cleared for dc to home today, no services.
--- NOTE | 2020-05-08 13:37 | HO.POSTANES ---
Post Anesthesia Evaluation Post Anesthesia Evaluation Vital Signs: Vital Signs Temp Pulse Resp BP Pulse Ox 05/08/20 11:10 97.5 F 75 17 126/84 93 05/08/20 07:38 97.5 F 72 17 127/76 92 05/08/20 04:00 97.5 F 58 18 147/71 H 94 Anesthesia: Monitored Mental Status: Awake Pain Control: Satisfactory Nausea/Vomiting: None Hydration: Adequate Anesthesia-Related Issues: No Anes. Related Issues
--- NOTE | 2020-05-08 15:15 | PM.DS ---
DS: Providers Provider Date of Service: 05/08/20 Date of admission: 05/06/20 02:36 Primary care physician: Unknown Physician Consults: 05/06/20 02:40 Consult to Gastroenterology Routine Consulting Provider: Matthew Dickson Reason for consultation: abd pain, rectal bleeding, colitis on CT scan. Has provider been notified: No DS: Diagnosis Discharge Diagnosis (1) Lower GI bleed: Status: Acute (2) Colitis: Status: Acute DS: Medications Discharge Medications Home Medications: Previous Rx's Medication Instructions Recorded amoxicillin-pot clavulanate 1 tab PO BID #10 tab 05/08/20 [Augmentin] oxycodone 5 mg PO Q6H PRN #12 tab 05/08/20 DS: Summary Hospital Course Hospital Course: History of presenting illness Chief Complaint: Abd pain and bloody stools 54 year old woman presented with crapmy abd pain and bloody bowel movements that started at 5PM on the day of admission. Patient had been in her usual state of health when she began having crampy abd pain and diarrhea episodes. She stated her stools then turned bloody and she was having multiple bloody movements but could not state whether clot was within the stools. Never had any episodes like this before. Pain is diffuse and across her anterior abdomen. No nausea/vomiting. No fevers or chills. No sick contacts-lives with her and they eat the same food and he is not sick. No recent travel. States has family hx of colon cancer and has had a coloscopy in the past. Past medical history Cholecystectomy planned COPD (chronic obstructive pulmonary disease) Hospital course 54 year old woman with history of COPD presented with abrupt onset of crampy abd pain and rectal bleeding. Acute ischemic colitis patient admitted with crampy abdominal pain and bloody stool,CT abd suggests colitis, patient placed on IV fluids, IV antibiotic and underwent sigmoidoscopy by Dr. Alba that showed edema, erythema and submucosal hemorrhage likely due to ischemic colitis, subsequently patient diet was advanced she did not have any further bloody stools, hematocrit remains stable but she did have mild abdominal cramping , she is tolerating regular diet no nausea, no vomiting therefore she is being discharged home on 5 more days of by mouth Augmentin and oxycodone as per patient she has had rash 20 years ago, when she was treated with Tylenol with codeine, but has subsequently taken oxycodone with no allergies or rash patient has been recommended to have outpatient follow-up at GI clinic for colonoscopy in 2-3 months once colitis has resolved. COPD No exacerbation cont. Albuterol prn. Polycythemia likely related to smoking/dehydration repeat hct improved. Tobacco abuse Smoking cessation encouraged, patient declined nicotine patch. Time Spent with Patient Time attestation: Total time spent providing and/or coordinating discharge services: Discharge coordination time: Greater than 30 minutes Physical Exam Vital Signs: Vital Signs: Last Vital Signs Temp 97.5 F 05/08/20 11:10 Pulse 75 05/08/20 11:10 Resp 17 05/08/20 11:10 BP 126/84 05/08/20 11:10 Pulse Ox 93 05/08/20 11:10 Body Mass Index 19.3 General patient resting comfortably in no acute distress. Neck is supple no JVD. CVS regular rate rhythm, Respiratory lungs clear to auscultation, no respiratory distress Gastrointestinal abdomen soft, mild lower abdominal discomfort to deep palpation, no rebound, no guarding , no rigidity. Extremities no clubbing cyanosis or edema. Neuro nonfocal Skin no rash DS: Data Data Completed and Pending Completed studies during hospitalization [Text1]: Pending at discharge 05/07/20 12:03 Surgical [PTH] Routine Labs on day of discharge: Laboratory Tests 05/05/20 05/05/20 05/05/20 22:25 22:25 22:25 WBC 13.4 H RBC 5.49 Hgb 17.5 H Hct 51.2 H MCV 93.3 MCH 31.9 MCHC 34.2 RDW 12.2 Plt Count 328 MPV 10.1 Immature Gran % (Auto) 0.2 Neut % (Auto) 76.7 H Lymph % (Auto) 14.2 L [place] % (Auto) 7.7 Eos % (Auto) 0.7 Baso % (Auto) 0.5 Lymph # (Auto) 1.9 [place] # (Auto) 1.0 Eos # (Auto) 0.1 Baso # (Auto) 0.1 Abs Immat Gran (auto) 0.03 Absolute Neuts (auto) 10.3 H Absolute Nucleated RBC 0.000 Nucleated RBC % (auto) 0.0 PT INR APTT Sodium 141 Potassium 3.9 Chloride 104 Carbon Dioxide 27 Anion Gap 14 BUN 12 Creatinine 0.85 Estim Creat Clear Calc 69.1 Estimated GFR > 60 Random Glucose 112 Lactic Acid Calcium 9.3 Magnesium 2.6 Total Bilirubin 0.6 AST 18 ALT 21 Alkaline Phosphatase 145 H Total Protein 7.4 Albumin 4.6 Urine Color Urine Appearance Urine pH Ur Specific [place] Urine Protein Urine Glucose (UA) Urine Ketones Urine Blood Urine Nitrite Ur Leukocyte Esterase Urine RBC Urine WBC Ur Squamous Epith Cells Amorphous Sediment Urine Bacteria Granular Casts Urine Mucus Stool Occult Blood Stool Leukocytes, Qual Stl Giardia Antigen Urine Opiates Screen Ur Barbiturates Screen Ur Phencyclidine Scrn Ur Amphetamines Screen U Benzodiazepines Scrn Urine Cocaine Screen U Marijuana (THC) Screen Ethyl Alcohol < 10 COVID-19 ([facility]Y) COVID-19 Clin Com Blood Type Antibody Screen 05/05/20 05/05/20 05/05/20 22:25 22:25 22:30 WBC RBC Hgb Hct MCV MCH MCHC RDW Plt Count MPV Immature Gran % (Auto) Neut % (Auto) Lymph % (Auto) [place] % (Auto) Eos % (Auto) Baso % (Auto) Lymph # (Auto) [place] # (Auto) Eos # (Auto) Baso # (Auto) Abs Immat Gran (auto) Absolute Neuts (auto) Absolute Nucleated RBC Nucleated RBC % (auto) PT 11.6 INR 1.0 APTT 31.3 Sodium Potassium Chloride Carbon Dioxide Anion Gap BUN Creatinine Estim Creat Clear Calc Estimated GFR Random Glucose Lactic Acid Calcium Magnesium Total Bilirubin AST ALT Alkaline Phosphatase Total Protein Albumin Urine Color Urine Appearance Urine pH Ur Specific [place] Urine Protein Urine Glucose (UA) Urine Ketones Urine Blood Urine Nitrite Ur Leukocyte Esterase Urine RBC Urine WBC Ur Squamous Epith Cells Amorphous Sediment Urine Bacteria Granular Casts Urine Mucus Stool Occult Blood POS Stool Leukocytes, Qual Stl Giardia Antigen Urine Opiates Screen Ur Barbiturates Screen Ur Phencyclidine Scrn Ur Amphetamines Screen U Benzodiazepines Scrn Urine Cocaine Screen U Marijuana (THC) Screen Ethyl Alcohol COVID-19 (TAY) Negative COVID-19 [employer] Com See Note Blood Type Antibody Screen 05/05/20 05/05/20 05/05/20 22:30 22:30 22:55 WBC RBC Hgb Hct MCV MCH MCHC RDW Plt Count MPV Immature Gran % (Auto) Neut % (Auto) Lymph % (Auto) [place] % (Auto) Eos % (Auto) Baso % (Auto) Lymph # (Auto) [place] # (Auto) Eos # (Auto) Baso # (Auto) Abs Immat Gran (auto) Absolute Neuts (auto) Absolute Nucleated RBC Nucleated RBC % (auto) PT INR APTT Sodium Potassium Chloride Carbon Dioxide Anion Gap BUN Creatinine Estim Creat Clear Calc Estimated GFR Random Glucose Lactic Acid Calcium Magnesium Total Bilirubin AST ALT Alkaline Phosphatase Total Protein Albumin Urine Color Urine Appearance Urine pH Ur Specific [place] Urine Protein Urine Glucose (UA) Urine Ketones Urine Blood Urine Nitrite Ur Leukocyte Esterase Urine RBC Urine WBC Ur Squamous Epith Cells Amorphous Sediment Urine Bacteria Granular Casts Urine Mucus Stool Occult Blood Stool Leukocytes, Qual MOD: 3-9/OIF Stl Giardia Antigen SEE NOTE Urine Opiates Screen Ur Barbiturates Screen Ur Phencyclidine Scrn Ur Amphetamines Screen U Benzodiazepines Scrn Urine Cocaine Screen U Marijuana (THC) Screen Ethyl Alcohol COVID-19 ([place]Y) COVID-19 Clin Com Blood Type B Positive Antibody Screen NEGATIVE 05/05/20 05/05/20 05/06/20 23:04 23:04 01:27 WBC 12.4 H RBC 5.31 Hgb 17.0 H Hct 50.0 H MCV 94.2 MCH 32.0 MCHC 34.0 RDW 12.3 Plt Count 282 MPV 10.1 Immature Gran % (Auto) 0.2 Neut % (Auto) 79.7 H Lymph % (Auto) 13.2 L [place] % (Auto) 5.7 Eos % (Auto) 0.7 Baso % (Auto) 0.5 Lymph # (Auto) 1.6 [place] # (Auto) 0.7 Eos # (Auto) 0.1 Baso # (Auto) 0.1 Abs Immat Gran (auto) 0.03 Absolute Neuts (auto) 9.9 H Absolute Nucleated RBC 0.000 Nucleated RBC % (auto) 0.0 PT INR APTT Sodium Potassium Chloride Carbon Dioxide Anion Gap BUN Creatinine Estim Creat Clear Calc Estimated GFR Random Glucose Lactic Acid Calcium Magnesium Total Bilirubin AST ALT Alkaline Phosphatase Total Protein Albumin Urine Color YELLOW Urine Appearance HAZY Urine pH 6.5 Ur Specific [place] 1.010 Urine Protein NEG Urine Glucose (UA) NEG Urine Ketones NEG Urine Blood 2+ H Urine Nitrite NEG Ur Leukocyte Esterase NEG Urine RBC 5-9 H Urine WBC 1-4 Ur Squamous Epith Cells 1+ Amorphous Sediment 3+ Urine Bacteria TRACE Granular Casts 1-4 Urine Mucus 2+ Stool Occult Blood Stool Leukocytes, Qual Stl Giardia Antigen Urine Opiates Screen Not Detected Ur Barbiturates Screen Not Detected Ur Phencyclidine Scrn Not Detected Ur Amphetamines Screen Not Detected U Benzodiazepines Scrn Not Detected Urine Cocaine Screen POSITIVE H U Marijuana (THC) Screen Not Detected Ethyl Alcohol COVID-19 (TAY) COVID-19 Clin Com Blood Type Antibody Screen 05/06/20 05/06/20 05/06/20 01:27 06:26 06:26 WBC 12.0 H RBC 5.03 Hgb 15.8 Hct 47.1 H MCV 93.6 MCH 31.4 MCHC 33.5 RDW 12.3 Plt Count 298 MPV 10.4 Immature Gran % (Auto) 0.3 Neut % (Auto) 64.3 Lymph % (Auto) 23.4 [place] % (Auto) 9.9 Eos % (Auto) 1.6 Baso % (Auto) 0.5 Lymph # (Auto) 2.8 [place] # (Auto) 1.2 Eos # (Auto) 0.2 Baso # (Auto) 0.1 Abs Immat Gran (auto) 0.04 H Absolute Neuts (auto) 7.7 Absolute Nucleated RBC 0.000 Nucleated RBC % (auto) 0.0 PT INR APTT Sodium 142 Potassium 3.9 Chloride 112 H Carbon Dioxide 22 Anion Gap 12 BUN 8 L Creatinine 0.73 Estim Creat Clear Calc 80.4 Estimated GFR > 60 Random Glucose 83 Lactic Acid 1.2 Calcium 8.1 L D Magnesium Total Bilirubin AST ALT Alkaline Phosphatase Total Protein Albumin Urine Color Urine Appearance Urine pH Ur Specific [place] Urine Protein Urine Glucose (UA) Urine Ketones Urine Blood Urine Nitrite Ur Leukocyte Esterase Urine RBC Urine WBC Ur Squamous Epith Cells Amorphous Sediment Urine Bacteria Granular Casts Urine Mucus Stool Occult Blood Stool Leukocytes, Qual Stl Giardia Antigen Urine Opiates Screen Ur Barbiturates Screen Ur Phencyclidine Scrn Ur Amphetamines Screen U Benzodiazepines Scrn Urine Cocaine Screen U Marijuana (THC) Screen Ethyl Alcohol COVID-19 ([place]Y) COVID-19 Clin Com Blood Type Antibody Screen 05/08/20 06:09 WBC 10.0 RBC 4.57 Hgb 14.3 Hct 42.4 MCV 92.8 MCH 31.3 MCHC 33.7 RDW 12.1 Plt Count 260 MPV 10.7 Immature Gran % (Auto) 0.2 Neut % (Auto) 58.7 Lymph % (Auto) 25.0 [place] % (Auto) 8.1 Eos % (Auto) 7.2 H Baso % (Auto) 0.8 Lymph # (Auto) 2.5 [place] # (Auto) 0.8 Eos # (Auto) 0.7 H Baso # (Auto) 0.1 Abs Immat Gran (auto) 0.02 Absolute Neuts (auto) 5.9 Absolute Nucleated RBC 0.000 Nucleated RBC % (auto) 0.0 PT INR APTT Sodium Potassium Chloride Carbon Dioxide Anion Gap BUN Creatinine Estim Creat Clear Calc Estimated GFR Random Glucose Lactic Acid Calcium Magnesium Total Bilirubin AST ALT Alkaline Phosphatase Total Protein Albumin Urine Color Urine Appearance Urine pH Ur Specific [place] Urine Protein Urine Glucose (UA) Urine Ketones Urine Blood Urine Nitrite Ur Leukocyte Esterase Urine RBC Urine WBC Ur Squamous Epith Cells Amorphous Sediment Urine Bacteria Granular Casts Urine Mucus Stool Occult Blood Stool Leukocytes, Qual Stl Giardia Antigen Urine Opiates Screen Ur Barbiturates Screen Ur Phencyclidine Scrn Ur Amphetamines Screen U Benzodiazepines Scrn Urine Cocaine Screen U Marijuana (THC) Screen Ethyl Alcohol COVID-19 ([place]Y) COVID-19 Clin Com Blood Type Antibody Screen Preliminary micro results at discharge 05/05/20 22:30 Stool Culture - Preliminary Stool Normal so far. 05/06/20 01:27 Blood Culture - Preliminary Blood - Venous No growth after 48 hours. 05/06/20 01:27 Blood Culture - Preliminary Blood - Venous No growth after 48 hours. Discharge Plan Discharge Patient Disposition: Home, Self-Care Referrals: Physician,Unknown [Primary Care Provider] - Discharge Medications: New oxycodone 5 mg Tablet 5 mg PO Q6H PRN (Reason: Pain, Severe (Pain Scale 7-10)) Qty: 12 RF: 0 amoxicillin-pot clavulanate [Augmentin] 875-125 mg tablet 1 tab PO BID Qty: 10 RF: 0 Discharge Orders: Discharge Order (Routine); Ordered 05/08/20 Ordered By: Rose Padilla Diet: advance to usual diet Activity on Discharge: As tolerated Stand Alone Forms: Patient Portal Discharge page Visit Report Forms: Patient Portal Discharge page Care Plan Goals: Take bland diet like banana applesauce pudding Jell-O and soups for the next couple days Health Concerns: Ischemic colitis Plan of Treatment: Outpatient follow-up with primary care physician and gastroenterology Dr. Loi Alba in 4-6 weeks for colonoscopy Discharge Date/Time: 05/08/20 15:10
== END 2020-05-08 15:10 | disposition home or self-care (01) | DRG 245 ==
LOC: HO.ED 05-06 01:09 → HO.EDOVER 05-06 02:42 → HO.S3 05-07 06:58
PROVIDERS: Internal Medicine Gastroenterology; Admitting Provider Internal Medicine; Emergency Provider Student in an Organized Health Care Education/Training Program; Visit Provider Hospitalist
PROC: 0DJD8ZZ Inspection of Lower Intestinal Tract, Via Natural or Artificial Opening Endoscopic (ICD-10-PCS; CPT 45330; principal; 2020-05-07 11:40)
DX: K51.911 Ulcerative colitis, unspecified with rectal bleeding (principal); K55.9 Vascular disorder of intestine, unspecified; K57.31 Diverticulosis of large intestine without perforation or abscess with bleeding; D75.1 Secondary polycythemia; J43.8 Other emphysema; E86.0 Dehydration; K63.5 Polyp of colon; Z20.822 Contact with and (suspected) exposure to COVID-19; F17.210 Nicotine dependence, cigarettes, uncomplicated; Z71.6 Tobacco abuse counseling; Z88.5 Allergy status to narcotic agent
CPT/HCPCS: 36415; 74018; 74178; 80048; 80053; 80307; 80320; 81001; 82272; 83605; 83735; 85025; 85610; 85730; 86850; 86900; 86901; 87040; 87045; 87046; 87329; 87635; 88305; 89055; 93005; 96361; 96374; 99284; 99285; J2270; J2543; Q9967

== ENCOUNTER → 2020-06-11 08:46 | Day surgery (SDC) | payer MEDICAID, SELFPAY ==
[2020-06-06 15:49] VITALS: BMI 21.9
--- NOTE | 2020-06-10 10:44 | P.CONAN_ITS ---
HPI - Anesthesia Eval Consult details Narrative: 54yo F for Colonoscopy s/p sigmoidoscopy 05/07/20 with MAC h/o substance abuse - ? last used (+cocaine 05/05/20) Pt cx'd 06/11/20 d/t + cocaine screen PMFSH Active Problems Active Problems: All Active Problems (Updated 06/06/20 @ 15:43 by Lilli Lieberman) Lower GI bleed (Acute) Colitis (Acute) Tobacco use disorder (Acute) COPD (chronic obstructive pulmonary disease) (Acute) Past Medical History Medical History Back pain COPD (chronic obstructive pulmonary disease) History of crack cocaine use Hx of flexible sigmoidoscopy Smoker Surgical History Surgical History (Updated 06/06/20 @ 15:41 by Lilli Lieberman) Hx of cholecystectomy Previous back surgery Tubal ligation status Social History Social History Household Members: Spouse Housing: House Are you a primary health care recruiter to a significant other at home: No Do you presently have visiting nurse or other home services: No Alcohol intake: never Smoking Status: Current every day smoker Tobacco Type: Cigarette Packs Per Day: 1 Cigarettes Per Day: 20.0 Years Smoked: 30 plus Smoked in Last 30 Days: Yes Patient Interested in Nicotine Replacement: No Substance Use Type: Crack/Cocaine Substance Use Type Other:: States not using anymore Have you been hit, kicked, punched, or otherwise hurt by someone within the past year? If so, by whom?: No Advance Directives: No Advance Directives Information Provided: No Advance Directives on File: No Recently lost weight without trying: No service: No Current occupational status: unemployed Meds Allergies Allergy/AdvReac Type Severity Reaction Status Date / Time codeine [CODEINE] Allergy Unknown RASH Verified 06/06/20 15:44 Home Medications Medication Instructions Recorded Confirmed Last Taken Type albuterol sulfate [ProAir HFA] 1 puff PO Q4H PRN 06/06/20 06/06/20 Unknown History cholecalciferol (vitamin D3) 1 cap PO QWEEK 06/06/20 06/06/20 Unknown History fluticasone propion-salmeterol 1 puff PO BID 06/06/20 06/06/20 Unknown History [Advair Diskus] umeclidinium [Incruse Ellipta] 1 puff PO DAILY 06/06/20 06/06/20 Unknown History Exam Exam Date and Time: June 10, 2020 1044 Height,Weight and Vital Signs: Height 5 ft 7 in Weight 63.503 kg Pertinent Lab Results Pertinent Lab Results: Laboratory Tests 05/06/20 05/08/20 06:26 06:09 WBC 10.0 Hgb 14.3 Hct 42.4 Plt Count 260 Sodium 142 Potassium 3.9 Chloride 112 H Carbon Dioxide 22 BUN 8 L Creatinine 0.73 Assessment and Plan Assessment Anesthesia Assessment: Chart Reviewed
[2020-06-11 09:14] VITALS: BP 135/70; PULSE 62; RESP 16; TEMP 36.6; O2SAT 97
[2020-06-11] MEDS: Lactated Ringers 1,000 ML 100 ML IVCONT (09:28)
--- NOTE | 2020-06-11 09:31 | PC.NURSE ---
IV insertion on right hand attempted in pre-op. Upon insertion of needle patient pulled arm away and began yelling and swearing. Patient was encouraged to remain calm and as still as possible for IV to be placed successfully. Patient continued to move around and yell. IV insertion was unsuccessful. Preceptor Selma See came to bedside and continued to reassure patient. Gauze was applied followed by ice pack to right hand. Will continue to monitor patient and site.
--- NOTE | 2020-06-11 09:49 | PC.NURSE ---
unable to obtain urine sample right when patient arrived. bolused patient around 300cc of lr. urine obtained and sent to the lab.
--- NOTE | 2020-06-11 10:07 | PM.OP ---
Brief Operative Note Procedure: COLONOSCOPY PROCEDURE NOTE Consent: Indications for the procedure and potential complications of bleeding, perforation, reaction to medications and missed diagnosis were discussed with the patient and informed consent was obtained. Instrument: Olympus PCF H 190 L variable stiffness pediatric colonoscope Monitoring: Vital signs and clinical assessment, intermittent blood pressure monitoring, continuous EKG monitoring, Pulse oximetry and Carbon Dioxide monitoring were done throughout the procedure. Colon withdrawl time was [] minutes. Procedure: The patient was placed in the left lateral decubitis position and pre-procedure medications were administered. After a digital rectal examination of the ano-rectum, the video colonoscope was inserted into the rectum and advanced through the colon to the cecum. The colonoscope was slowly withdrawn in a retrograde panoramic fashion and the colon mucosa was carefully examined including a retroflexed view of the rectum. Findings and interventions are described below. Procedure Difficulty: [Without difficulty] [LLQ pressure applied to intubate the transverse colon/cecum] Findings: Terminal Ileum: Not evaluated Cecum: Normal Ascending Colon: Normal Transverse Colon: Normal Descending Colon: Normal Sigmoid Colon: Moderate diverticulosis Rectum: Normal Ano-rectum: Moderate internal hemorrhoids Colon preparation: [Excellent] [Good] [Fair] [poor] Impression and Post Procedure Diagnosis: Colonoscopy Findings: [] polyps removed Moderate diverticulosis seen in the []colon Moderate hemorrhoids on retroflexed exam. Plan: Await pathology results Patient has an appointment on 07/04/20 in the [facility] with Loi Alba M.D.. Repeat Colonoscopy interval based on path results - in 3-5 years if polyps are adenomatous and 10 years if polyps are hyperplastic. Above findings were reviewed with the patient and [colon polyps] and [diverticulosis] handouts were given in the discharge area Surgeon: Loi Alba MD
--- NOTE | 2020-06-11 10:07 | MHC.SHP ---
Pre-Procedural Eval Section A The patient is an INPATIENT: No The History & Physical has been completed within 30 days and I have reviewed it.: No Section B Chief Complaint: rectal bleeding Details of Present Illness: Pt scheduled for a colonoscopy today. procedure was cancelled since urine screen was positive for cocaine. Pt keep FU appt on 07/04/[address] Parth carnes with patient prior to rescheduling Relevant Social History: Tobacco Use Present Medications: see Short Stay Collaborative assessment Medical History: Significant History (COPD) History of Previous Operations: Relevant previous surgery/procedure and date(s) (Hx of cholecystectomy Previous back surgery Tubal ligation status) Allergies: Allergies Allergy/AdvReac Type Severity Reaction Status Date / Time codeine [CODEINE] Allergy Unknown RASH Verified 06/06/20 15:44 Plan Diagnosis/Plan: Change (Procedure canceled due to positive urine drug screen for cocaine) I have reviewed the history and physical and performed a pertinent physical examination on my patient. No changes have occurred unless specified.
--- NOTE | 2020-06-11 10:19 | PC.NURSE ---
LAYING ON LEFT SIDE SLEEPING. NO LONGER COMPLAINING OF IV SITE. AWAITING URINE RESULTS. PENDING.
[2020-06-11 10:27] LABS: Amphetamine Screen Urine Not Detected (Not Detect); Barbiturates, Urine Not Detected (Not Detect); Benzodiazepines Screen Urine Not Detected (Not Detect); Cannabinoid Screen Urine Not Detected (Not Detect); Cocaine Screen Urine POSITIVE (Not Detect); Opiate Screen Urine Not Detected (Not Detect); Phencyclidine Screen Urine Not Detected (Not Detect)
== END ==
PROVIDERS: Nurse Practitioner; Visit Provider Internal Medicine Gastroenterology
DX: K62.5 Hemorrhage of anus and rectum (principal); K57.30 Diverticulosis of large intestine without perforation or abscess without bleeding; K64.8 Other hemorrhoids; Z53.09 Procedure and treatment not carried out because of other contraindication; J44.9 Chronic obstructive pulmonary disease, unspecified; F17.210 Nicotine dependence, cigarettes, uncomplicated; F14.20 Cocaine dependence, uncomplicated; Z90.49 Acquired absence of other specified parts of digestive tract; Z98.51 Tubal ligation status; Z88.8 Allergy status to other drugs, medicaments and biological substances
CPT/HCPCS: 80307; J2405; J2765

== ENCOUNTER → 2020-11-06 13:17 | Outpatient (BNVA) | payer MEDICAID, SELFPAY | PROVIDERS: PCP Pediatrics; Visit Provider Physician Assistant | DX: D36.9 Benign neoplasm, unspecified site (principal) | CPT/HCPCS: 99212 ==

== ENCOUNTER 2023-12-04 17:40 | Emergency (ER) | payer OTHER, SELFPAY ==
--- NOTE | ~2023-12-04 | XR_ITS ---
EXAMINATION: XR CHEST CLINICAL INFORMATION: Shortness of breath for couple of days. COMPARISON: Chest 09/25/2009 TECHNIQUE: 2 views of the chest were obtained. FINDINGS: The lungs are well expanded and clear acute processes. The heart size and pulmonary vascularity is normal. No gross organomegaly seen. XR/XR chest 2V IMPRESSION: Unremarkable chest exam. Electronically signed by: Chapin Uriostegui MD 12/04/2023 06:56 PM EDT RP
--- NOTE | 2023-12-04 17:42 | ED.SOB ---
HPI - SOB/Dyspnea General Chief Complaint: Dyspnea Stated Complaint: difficulty breathing Time Seen by Provider: 12/04/23 18:20 Source: patient, RN notes reviewed and old records reviewed Mode of arrival: ambulatory Limitations: no limitations History of Present Illness ED Provider: Dante RICE Narrative: 57-year-old female with past medical history significant for COPD, active tobacco user who smokes 1 pack per day presents for evaluation of worsening shortness of breath, cough for the last 2 days. Patient denies any fevers but admits to subjective chills. Denies any chest pain Denies any leg swelling or history of heart failure She reports using her inhalers and nebulizers at home without any improvement in her symptoms No other complaints or concerns at this time. Denies any sick contacts or recent travel Related Data Home Medications ?Medication ?Instructions ?Recorded ?Confirmed albuterol sulfate 90 mcg/actuation 1 puff PO Q4H PRN wheezing 06/06/20 06/06/20 aerosol inhaler (ProAir HFA) cholecalciferol (vitamin D3) 1,250 1 cap PO QWEEK 06/06/20 06/06/20 mcg (50,000 unit) capsule fluticasone 250 mcg-salmeterol 50 1 puff PO BID 06/06/20 06/06/20 mcg/dose blistr powdr for inhalation (Advair Diskus) umeclidinium 62.5 mcg/actuation 1 puff PO DAILY 06/06/20 06/06/20 blister powder for inhalation (Incruse Ellipta) Previous Rx's ?Medication ?Instructions ?Recorded oxycodone 5 mg tablet 5 mg PO Q6H PRN Pain, Severe (Pain 05/08/20 Scale 7-10) #12 tabs bisacodyl 5 mg tablet,delayed 10 mg (2 x 5 mg) PO ONCE Bowel 11/06/20 release (Dulcolax (bisacodyl)) Preparation 1 day #2 tabs polyethylene glycol 3350 17 238 g PO ONCE 1 day #238 grams 11/06/20 gram/dose oral powder (Miralax) azithromycin 250 mg tablet See Rx Instructions PO .COMPLEX #6 12/04/23 tabs prednisone 20 mg tablet 40 mg (2 x 20 mg) PO DAILY #10 tabs 12/04/23 Allergies Allergy/AdvReac Type Severity Reaction Status Date / Time codeine [CODEINE] Allergy Unknown RASH Verified 12/04/23 17:47 Review of Systems Constitutional: Constitutional: Denies body ache(s), Reports chills, Denies fever(s) and Denies headache(s) Eyes: Eyes: Denies blurry vision ENT: Denies headache(s) Cardiovascular: Cardiovascular: Denies chest pain and Reports dyspnea Respiratory: Respiratory: Reports cough, Reports dyspnea and Reports wheezing Gastrointestinal: Gastrointestinal: Denies abdominal pain, Denies nausea and Denies vomiting Musculoskeletal: Musculoskeletal: Denies back pain Integumentary/Breasts: Skin/Breast: Denies rash Neurologic: Denies headache(s) Allergic/Immunologic: Allergic/Immunologic: Reports wheezing PMFSH Past Medical History Medical History (Updated 12/04/23 @ 18:49 by Yfn Howell) Hx of flexible sigmoidoscopy History of crack cocaine use Smoker Back pain COPD (chronic obstructive pulmonary disease) Surgical History Hx of cholecystectomy Previous back surgery Tubal ligation status Social History Social History Household Members: Spouse Housing: House Are you a primary anesthesiologist and critical care to a significant other at home: No Do you presently have visiting nurse or other home services: No Alcohol intake: never Comment: occaisional cramping which is preop baseline Cigarette Packs Per Day: 1 Cigarettes Per Day: 20.0 Years Smoked: 30 plus Use of substances other than those prescribed or required for medical reasons: No Substance Use Type: Crack/Cocaine Advance Directives: No Advance Directives Information Provided: No Do you have a plan to hurt others: No Plan Patient : No service: No Current occupational status: unemployed Physical Exam Vital Signs: Vital Signs: Last Vital Signs Temp 98.2 F 12/04/23 22:16 Pulse 94 12/04/23 22:16 Resp 16 12/04/23 22:16 BP 140/71 H 12/04/23 22:16 Pulse Ox 93 12/04/23 22:16 O2 Del Method Room Air 12/04/23 22:16 BMI result Body Mass Index 20.4 Const: General: healthy appearing, comfortable, no acute distress, alert and awake Nutritional Appearance: well nourished Orientation/consciousness: patient oriented x3 HEENT: Head: Yes normocephalic and Yes atraumatic Eyes: Eyelids: Yes eyelids normal Conjunctivae: conjunctivae normal Sclerae: sclerae normal Corneas: corneas normal Pupils: Equal, round and reactive pupils present EOM: EOMs intact bilaterally Neck: Neck: Yes full ROM Resp: Effort & Inspection: able to speak in complete sentences and not labored Auscultation: not clear to auscultation bilaterally and wheezes (Diffuse expiratory wheeze) Cardio: Other: No lower extremity edema Rate: regular rate Rhythm: regular rhythm Skin: General skin exam: elasticity normal Neuro: General: patient oriented x3 Cranial nerves: Yes Equal, round and reactive pupils present and Yes Bilaterally intact EOM present Cognition (Neuro): normal cognition Course Course Course Narrative: This is an RME performed by Bhargav Fernando CNP: Additional HPI, ROS, PE not included below will be deferred to primary provider. Patient is a 57-year-old female who presents emergency department for evaluation of Increasing shortness of breath over the past 2 days, dyspnea on exertion, productive cough consistent with baseline, history of COPD. Denies relief from home nebulizer and inhalers. Denies any known sick contacts. Denies fever. Has associated upper abdominal pain. Physical exam: Increased work of breathing, tachypneic, no retractions, lung sounds significantly diminished bilaterally Reevaluation(s) Reevaluation #1: Patient's oxygen saturation at rest is now 93%. She did not ambulation trial and oxygen saturation was 88-89%. She reports feeling well at the time. I offered admission for the patient and she declines, she would prefer to go home. Given that she has a chronic COPD patient, her baseline oxygen on room air is probably in the low 90s, , so I do not feel strongly that the patient needs to be admitted if she is feeling well is able to ambulate without any shortness of breath on exertion or lightheadedness. Will discharge the patient with prednisone and she will continue her home nebs. Return precautions were given Time: 22:45 Medications Administered Discontinued Medications Generic Name Dose Route Start Last Admin Trade Name Freq PRN Reason Stop Dose Admin Albuterol Sulfate 7.5 mg/ 10 mg 12/04/23 19:07 12/04/23 19:09 Albuterol Sulfate 2.5 mg INHALE 12/04/23 19:08 10 mg ONCE ONE Administration Magnesium Sulfate/Dextrose 1 gm in 100 mls @ 300 mls/hr 12/04/23 18:33 12/04/23 19:33 Magnesium Sulfate/D5w IV 12/04/23 18:52 Infused ONCE ONE Infusion Methylprednisolone Sodium Succinate 125 mg 12/04/23 18:33 12/04/23 18:46 Methylprednisolone Sod Succ 125 Mg/2 Ml Vial IVPUSH 12/04/23 18:34 125 mg ONCE ONE Administration Medical Decision Making Medical Decision Making [facility] Narrative: 57-year-old female with past medical history significant for COPD presents for evaluation of shortness of breath. She is not O2 dependent, actively smoking cigarettes daily. She reports with a 2 day history of worsening shortness of breath symptoms not an relieved by her home inhalers and nebulizers. Her exam is consistent with COPD exacerbation as she is wheezy, afebrile with no increased cough. Her chest x-ray shows no focal infiltrates. She has no lower extremity edema or history of CHF to suggest that as a cause of her symptoms. We will treat her dyspnea with ED bronchodilator protocol, nebulizers, Solu-Medrol, magnesium and re-evaluate. Viral swabs pending Differential Diagnosis Differential Diagnoses: The differential diagnosis associated with the presentation includes COPD exacerbation Pneumonia Asthma Viral syndrome CHF Admission/Observation Consideration of admission/observation: Escalation of care including admission/observation considered Patient will be considered for admission due to oxygen saturation 91%. Pending re-evaluation Lab Data [facility] Lab Attestation statement: I reviewed the patient's lab results. No leukocytosis. The patient does have an elevated hemoglobin hematocrit to 17.3 and 50.4 respectively. This does appear to be consistent with her baseline. Chemistries without any significant abnormalities 12/04/23 18:01 12/04/23 18:01 Labs: Lab Results 12/04/23 Range/Units 18:01 WBC 9.9 (4.8-10.8) X10*3/uL RBC 5.40 (4.20-5.50) X10*6/uL Hgb 17.3 H (12.0-16.0) g/dl Hct 50.4 H (37.0-47.0) % MCV 93.3 (80.0-98.0) fL MCH 32.0 (27.0-33.0) pg MCHC 34.3 (31.0-35.0) g/dl RDW 12.1 (11.0-16.0) % Plt Count 295 (160-400) X10*3/uL MPV 10.1 (9.4-12.3) fL Immature Gran % (Auto) 0.3 (0.0-0.4) % Neut % (Auto) 56.5 (45-73) % Lymph % (Auto) 30.3 (20-40) % [place] % (Auto) 8.2 (2-11) % Eos % (Auto) 3.9 (0-4) % Baso % (Auto) 0.8 (0-2) % Lymph # (Auto) 3.0 (1.2-4.9) X10*3/uL [place] # (Auto) 0.8 (0.1-1.2) X10*3/uL Eos # (Auto) 0.4 (0.0-0.4) X10*3/uL Baso # (Auto) 0.1 (0.0-0.2) X10*3/uL Abs Immat Gran (auto) 0.03 (0.00-0.03) X10*3/uL Absolute Neuts (auto) 5.6 (2.0-8.3) x10*3/uL Absolute Nucleated RBC 0.000 (0.0-0.012) X10*3/uL Nucleated RBC % (auto) 0.0 (0.0-0.2) /100WBC PT 11.1 (11.1-13.3) SEC INR 0.9 (0.9-1.1) Sodium 143 (135-145) mmol/L Potassium 3.8 (3.3-5.1) mmol/L Chloride 106 (96-108) mmol/L Carbon Dioxide 27 (22-29) mmol/L Anion Gap 14 (12-20) BUN 14 (9-16) mg/dL Creatinine 0.79 (0.5-1.4) mg/dL Estim Creat Clear Calc 71.3 Estimated GFR > 60 Random Glucose 174 H (60-115) mg/dL Calcium 9.9 D (8.4-10.2) mg/dL Total Bilirubin 0.5 (0.0-1.0) mg/dL AST 14 (5-31) U/L ALT 12 (0-31) U/L Alkaline Phosphatase 102 (39-117) U/L Troponin I High Sens < 2.7 (<3.5-17.0) ng/L Total Protein 7.3 (6.5-8.0) g/dL Albumin 4.1 (3.5-5.0) g/dL Influenza Type A (PCR) NEGATIVE (Negative) Influenza Type B (PCR) NEGATIVE (Negative) RSV RNA Qual (PCR) NEGATIVE (Negative) SARS-CoV-2 RNA (RT-PCR) NEGATIVE (Negative) Independent Interpretation I performed an independent interpretation of an: EKG and Plain X-Ray (No focal infiltrates, hyperinflated lungs) Interpretation: Normal sinus rhythm with a rate of [address] segment elevation [place]. No significant change when compared to previous from April of 2020. Discharge Plan Discharge Clinical Impression: COPD exacerbation Patient Disposition: Home, Self-Care Instructions: COPD (Chronic Obstructive Pulmonary Disease) (ED) Additional Instructions: Take the prednisone 40 mg daily for the next 5 days. Take the azithromycin as directed Continue using your inhalers and nebulizers as prescribed Follow-up with your primary doctor, return for new or worsening symptoms Prescriptions: New azithromycin 250 mg tablet See Rx Instructions .ROUTE .COMPLEX Qty: 6 0RF Rx Instructions: For 250 mg dose pack: take 500 mg today (day 1), then 250 mg for 4 days (days 2-5) prednisone 20 mg tablet 40 mg PO DAILY Qty: 10 0RF No Action oxycodone 5 mg Tablet 5 mg PO Q6H PRN (Reason: Pain, Severe (Pain Scale 7-10)) Qty: 12 0RF fluticasone propion-salmeterol [Advair Diskus] 250-50 mcg/dose blister with device 1 puff PO BID albuterol sulfate [ProAir HFA] 90 mcg/actuation HFA aerosol inhaler 1 puff PO Q4H PRN (Reason: wheezing) cholecalciferol (vitamin D3) 1,250 mcg (50,000 unit) capsule 1 cap PO QWEEK Incruse Ellipta 62.5 mcg/actuation blister with device 1 puff PO DAILY polyethylene glycol 3350 [Miralax] 17 gram/dose powder 238 g PO ONCE 1 Days Qty: 238 0RF Rx Instructions: Take as directed by mouth, bowel prep bisacodyl [Dulcolax (bisacodyl)] 5 mg tablet,delayed release (DR/EC) 10 mg PO ONCE 1 Days Qty: 2 0RF Rx Instructions: Take 2 tablets at 12:00pm the day before your procedure, bowel prep Print Language: Tongan
[2023-12-04 17:43] VITALS: BP 137/99; PULSE 90; RESP 22; TEMP 36.6; O2SAT 91; BMI 20.4
--- NOTE | 2023-12-04 17:44 | ECG_ITS ---
Test Reason : SOB Blood Pressure : / mmHG Vent. Rate : 091 BPM Atrial Rate : 091 BPM P-R Int : 130 ms QRS Dur : 100 ms QT Int : 374 ms P-R-T Axes : 086 116 074 degrees QTc Int : 460 ms Normal sinus rhythm Biatrial enlargement Right axis deviation Pulmonary disease pattern Minimal voltage criteria for LVH, may be normal variant ( Raphael product ) Junctional ST depression, probably normal Abnormal ECG When compared with ECG of 05-MAY-2020 22:29, T wave inversion less evident in Anterolateral leads Referred By: Elizabeth Fernando Electronically Signed By:YELENA DARLING
[2023-12-04 18:07] LABS: MANUAL DIFF FLAG NO
[2023-12-04 18:10] LABS: Basophils Absolute Auto 0.1 X10*3/uL (0.0-0.2); Basophils Percent Auto 0.8 % (0-2); Eosinophils Absolute Auto 0.4 X10*3/uL (0.0-0.4); Eosinophils Percent Auto 3.9 % (0-4); Hematocrit 50.4 % (37.0-47.0); Hemoglobin 17.3 g/dl (12.0-16.0); Imm Gran Abs Auto 0.03 X10*3/uL (0.00-0.03); Imm Gran Pct Auto 0.3 % (0.0-0.4); Lymphocytes Percent Auto 30.3 % (20-40); Mean Corpuscular HGB Conc 34.3 g/dl (31.0-35.0); Mean Corpuscular Volume 93.3 fL (80.0-98.0); Mean Platelet Volume 10.1 fL (9.4-12.3); Monocytes Absolute Auto 0.8 X10*3/uL (0.1-1.2); Monocytes Percent Auto 8.2 % (2-11); Neutrophils Absolute Auto 5.6 x10*3/uL (2.0-8.3); Neutrophils Percent Auto 56.5 % (45-73); Platelet Count 295 X10*3/uL (160-400); Red Cell Distribution Width 12.1 % (11.0-16.0); White Blood Count 9.9 X10*3/uL (4.8-10.8)
[2023-12-04 18:16] LABS: INTERNATIONAL NORM RATIO 0.9 (0.9-1.1); Prothrombin Time 11.1 SEC (11.1-13.3)
[2023-12-04 18:36] LABS: Alanine Aminotransferase 12 U/L (0-31); Albumin Level 4.1 g/dL (3.5-5.0); Alkaline Phosphatase 102 U/L (39-117); Anion Gap 14 (12-20); Aspartate Amino Transferase 14 U/L (5-31); Bilirubin Total 0.5 mg/dL (0.0-1.0); Blood Urea Nitrogen 14 mg/dL (9-16); Calcium 9.9 mg/dL (8.4-10.2); Carbon Dioxide 27 mmol/L (22-29); Chloride 106 mmol/L (96-108); Creatinine Clr Calc Pharmacy 71.3; Estimated Glomerular Filt Rate > 60; Glucose Random 174 mg/dL (60-115); Potassium 3.8 mmol/L (3.3-5.1); Sodium 143 mmol/L (135-145); Total Protein 7.3 g/dL (6.5-8.0)
[2023-12-04 18:44] LABS: Troponin-I High Sensitivity < 2.7 ng/L (<3.5-17.0)
[2023-12-04] MEDS: methylPREDNISolone Sod Succ 125 MG/2 ML VIAL IVPUSH (18:46)
[2023-12-04 18:52] LABS: Influenza A PCR NEGATIVE (Negative); Influenza B PCR NEGATIVE (Negative); Resp Syncy Virus RNA Qual PCR NEGATIVE (Negative); SARS COV2 PCR INHOUSE NEGATIVE (Negative)
[2023-12-04] MEDS: Albuterol Sulfate 7.5 MG, Albuterol Sulfate (0.083%) 2.5 MG 10 MG INHALE (19:09)
[2023-12-04] MEDS: Magnesium Sulfate/D5W 1 GM/100 ML PIGGYBACK IV (19:12)
[2023-12-04 19:13] VITALS: PULSE 73; RESP 16; O2SAT 90
--- NOTE | 2023-12-04 19:16 | PC.NURSE ---
assumed care of pt at 1900. pt receiving breathing tx by RT and magnesium via IV.
[2023-12-04 20:28] VITALS: BP 144/76; PULSE 90; RESP 16; TEMP 36.9; O2SAT 97
--- NOTE | 2023-12-04 21:38 | PC.NURSE ---
pt requesting to leave, states her breathing is much better and that she wants to go home, states she has rescue inhaler and nebulizers at home and that she wants to follow up with pcp. Pt informed that she is only 89-90% on room air at rest, will speak with provider AGUSTIN Pimentel.
--- NOTE | 2023-12-04 21:54 | MHC.EDTECH ---
Instructed to perform ambulation trial with O2 sat monitor. Ambulation was successful without distress however O2 sats remained 88%-90% with good pleth waveform.
[2023-12-04 22:16] VITALS: BP 140/71; PULSE 94; RESP 16; TEMP 36.8; O2SAT 93
[2023-12-04 22:58] VITALS: BP 140/71; PULSE 94; RESP 16; TEMP 36.8; O2SAT 93
== END 2023-12-04 22:59 | disposition home or self-care (01) ==
PROVIDERS: Nurse Practitioner Family; Emergency Provider Emergency Medicine Emergency Medical Services; PCP Pediatrics
DX: J44.1 Chronic obstructive pulmonary disease with (acute) exacerbation (principal); Z03.818 Encounter for observation for suspected exposure to other biological agents ruled out; R05.9 Cough, unspecified; F17.210 Nicotine dependence, cigarettes, uncomplicated; Z79.899 Other long term (current) drug therapy
CPT/HCPCS: 0241U; 71046; 80053; 84484; 85025; 85610; 93005; 94640; 96365; 96375; 99284; 99285; J2919; J3475

== ENCOUNTER 2023-12-06 17:49 | Observation (INO) | payer OTHER, SELFPAY ==
--- NOTE | 2023-12-06 | ECG_ITS ---
Test Reason : CHEST PAIN Blood Pressure : / mmHG Vent. Rate : 083 BPM Atrial Rate : 083 BPM P-R Int : 130 ms QRS Dur : 096 ms QT Int : 388 ms P-R-T Axes : 089 119 072 degrees QTc Int : 455 ms Normal sinus rhythm Biatrial enlargement Right axis deviation Pulmonary disease pattern Nonspecific ST abnormality Abnormal ECG When compared with ECG of 04-DEC-2023 17:47, No significant change was found Referred By: Generic ED Physician Electronically Signed By:YELENA DARLING
--- NOTE | ~2023-12-06 | XR_ITS ---
EXAMINATION: CHEST 2 VIEWS CLINICAL INFORMATION: worsening sob despite treatment. COMPARISON: 12/04/2023. TECHNIQUE: PA and lateral views of the chest obtained. FINDINGS: The lungs are hyperinflated. No focal infiltrate, effusion, edema, or pneumothorax. Cardiac and mediastinal silhouettes are within normal limits for technique. No acute bony abnormality seen XR/XR chest 2V IMPRESSION: Hyperinflated but otherwise no evidence of acute disease. Electronically signed by: Augie Pollard MD 12/06/2023 06:58 PM EDT
[2023-12-06 17:51] VITALS: BP 168/98; PULSE 92; RESP 20; TEMP 36.7; O2SAT 98; BMI 16.7
--- NOTE | 2023-12-06 17:54 | ED_ITS ---
HPI - SOB/Dyspnea General Chief Complaint: Dyspnea Stated Complaint: diff breathing, chest pain Time Seen by Provider: 12/06/23 20:09 Source: patient Mode of arrival: ambulatory Limitations: no limitations History of Present Illness HPI Narrative: Patient is a 57-year-old female who presents emergency department for evaluation of shortness of breath and chest discomfort. She states that she was seen in the emergency department 12/04/2023 2 nights ago for a COPD exacerbation. She admits that she was feeling somewhat better after receiving treatment but wanted to get home as her granddaughter was very upset in her absence. She states that since returning home she has only continued to feel worse. She does not feel well enough to remain home. She reports persistent shortness of breath despite the use of her nebulizer and inhalers. She has diffuse anterior chest discomfort with deep inspiration and cough. Admits to baseline O2 saturation around 90%. She has been compliant with her prednisone and azithromycin but continues to feel unwell. She denies any known sick contacts. She denies fevers, chills, nausea, vomiting, abdominal pain. Related Data Home Medications ?Medication ?Instructions ?Recorded ?Confirmed albuterol sulfate 90 mcg/actuation 1 puff PO Q4H PRN wheezing 06/06/20 12/06/23 aerosol inhaler (ProAir HFA) fluticasone 250 mcg-salmeterol 50 1 puff PO BID 06/06/20 12/06/23 mcg/dose blistr powdr for inhalation (Advair Diskus) umeclidinium 62.5 mcg/actuation 1 puff PO DAILY 06/06/20 12/06/23 blister powder for inhalation (Incruse Ellipta) albuterol sulfate 2.5 mg/3 mL 2.5 mg inhalation Q6H PRN wheezing 12/06/23 12/06/23 (0.083 %) solution for nebulization sertraline 50 mg tablet 50 mg PO DAILY 12/06/23 12/06/23 Previous Rx's ?Medication ?Instructions ?Recorded azithromycin 250 mg tablet See Rx Instructions PO .COMPLEX #6 12/04/23 tabs prednisone 20 mg tablet 40 mg (2 x 20 mg) PO DAILY #10 tabs 12/04/23 Allergies Allergy/AdvReac Type Severity Reaction Status Date / Time codeine [CODEINE] Allergy Unknown RASH Verified 12/06/23 17:56 Review of Systems 2 Review of Systems: Yes all other systems are reviewed and are negative [facility] Past Medical History Attestation statement: The following information was validated with the patient. Source: old records reviewed Medical History Hx of flexible sigmoidoscopy History of crack cocaine use Smoker Back pain COPD (chronic obstructive pulmonary disease) Surgical History Hx of cholecystectomy Previous back surgery Tubal ligation status Social History Social History Household Members: Spouse Housing: House Are you a primary foster care case manager to a significant other at home: No Do you presently have visiting nurse or other home services: No Alcohol intake: never Comment: occaisional cramping which is preop baseline Cigarette Packs Per Day: 1 Cigarettes Per Day: 20.0 Years Smoked: 30 plus Smoked in Last 30 Days: Yes Use of substances other than those prescribed or required for medical reasons: No Substance Use Type: Crack/Cocaine Advance Directives: No Advance Directives Information Provided: No Do you have a plan to hurt others: No Plan service: No Current occupational status: unemployed Physical Exam 2 Vital Signs: Vital Signs: Last Vital Signs Temp 97.9 F 12/06/23 23:36 Pulse 79 12/06/23 23:36 Resp 20 12/06/23 23:36 BP 145/68 H 12/06/23 23:36 Pulse Ox 93 12/06/23 23:36 O2 Del Method Room Air 12/06/23 23:36 BMI result Body Mass Index 16.7 Appearance: Alert.?Oriented to person, place and time. No acute distress.?Normal affect. Eyes: Pupils equal, round and reactive to light.? ENT: Pharynx normal.?? Neck: Normal inspection.? Neck supple.?? CVS: Heart sounds normal. Normal heart rate and rhythm.? Pulses normal.?? Respiratory: Increased work of breathing, tachypneic, speaking 2-3 word sentences, pursed lip breathing,? Lung sounds with expiratory wheezing at the apices, diminished at the bilateral bases Abdomen: Soft and non-tender. Normoactive bowel sounds. Skin: Skin warm and dry.? Normal skin color.? Extremities: No lower extremity edema.? No calf ttp? Neuro: Moves all extremities spontaneously. Sensation intact bilaterally. CN II- XII intact. No focal neuro deficits. Ambulates with normal steady gait. Course Course Course Narrative: This is a Rapid Medical Examination (RME) performed by Behzad Ho PA-C in triage. Full HPI, ROS, assessment and treatment plan per primary provider in the Main ED. 57 year old female hx of COPD, active tobacco user who smokes 1 ppd here for worsening sob and cough x1 week. seen here on 12/03, discharged home w/ prednisone and zpak for for COPD exacerbation. states her symptoms have not improved, taking meds as prescribed. not on O2 at baseline. admits to chest pain on coughing. no fever/ chills. + satting 89-90% (around her baseline), pursed lip breathing, decreased bs b/l. Plan: ekg, cxr, labs, viral serology Medications Administered Generic Name Dose Route Start Last Admin Trade Name Freq PRN Reason Stop Dose Admin Enoxaparin Sodium 40 mg 12/06/23 22:00 12/06/23 23:44 Enoxaparin Sodium 40 Mg/0.4 Ml Syringe SUBCUT 40 mg Q24H MEME Administration Azithromycin 500 mg/ Sodium 250 mls @ 125 mls/hr 12/06/23 22:30 12/06/23 23:43 Chloride IV 125 mls/hr Q24H MEME Administration Sodium Chloride 3 ml 12/07/23 00:00 12/06/23 23:44 0.9 % Sodium Chloride Flush 3 Ml Syringe IVFLUSH Not Given QSHIFT MEME Discontinued Medications Generic Name Dose Route Start Last Admin Trade Name Freq PRN Reason Stop Dose Admin Albuterol Sulfate 7.5 mg/ 10 mg 12/06/23 20:43 12/06/23 20:47 Albuterol Sulfate 2.5 mg INHALE 12/06/23 20:44 10 mg ONCE ONE Administration Ceftriaxone Sodium 1 gm/ 50 mls @ 100 mls/hr 12/06/23 20:38 12/06/23 21:54 Sodium Chloride IV 12/06/23 21:07 Infused ONCE ONE Infusion Methylprednisolone Sodium Succinate 80 mg 12/06/23 20:35 12/06/23 21:23 Methylprednisolone Sod Succ 125 Mg/2 Ml Vial IVPUSH 12/06/23 20:36 80 mg ONCE ONE Administration Medical Decision Making Medical Decision Making [facility] Narrative: Patient is a 57-year-old female past medical history significant for COPD presenting for persistent shortness of breath and chest discomfort as per HPI. She does not have home O2, she continues to smoke cigarettes daily, declines interest in smoking cessation at this time. Despite being on prednisone and azithromycin with her bronchodilators at home she has continued to feel unwell and feels as though she requires hospitalization at this time. She is afebrile, without tachycardia, given a recent normal chest x-ray I have a lower suspicion for pneumonia at this time however will cover with Rocephin and treat with additional Solu-Medrol 80 mg IV. Anticipate admission to medicine service Differential Diagnosis Differential Diagnoses: The differential diagnosis associated with the presentation includes (COPD, pneumonia, viral syndrome. Unlikely CHF, no edema, no past history) Admission/Observation Consideration of admission/observation: Escalation of care including admission/observation considered (See narrative above) Consult Healthcare Provider Management of the patient was discussed with: Hospitalist Lab Data [facility] Lab Attestation statement: I reviewed the patient's lab results. CBC revealing a mild leukocytosis of 11.9 with left shift, increasing from prior, chronic elevated H&H. No electrolyte derangement. No SILVINO. Viral panel is negative. 12/06/23 18:11 12/06/23 18:11 Labs: Lab Results 12/06/23 Range/Units 18:11 WBC 11.9 H (4.8-10.8) X10*3/uL RBC 5.33 (4.20-5.50) X10*6/uL Hgb 17.1 H (12.0-16.0) g/dl Hct 50.2 H (37.0-47.0) % MCV 94.2 (80.0-98.0) fL MCH 32.1 (27.0-33.0) pg MCHC 34.1 (31.0-35.0) g/dl RDW 12.3 (11.0-16.0) % Plt Count 299 (160-400) X10*3/uL MPV 9.8 (9.4-12.3) fL Immature Gran % (Auto) 0.5 H (0.0-0.4) % Neut % (Auto) 89.7 H (45-73) % Lymph % (Auto) 8.4 L (20-40) % [place] % (Auto) 0.8 L (2-11) % Eos % (Auto) 0.2 (0-4) % Baso % (Auto) 0.4 (0-2) % Lymph # (Auto) 1.0 L (1.2-4.9) X10*3/uL [place] # (Auto) 0.1 (0.1-1.2) X10*3/uL Eos # (Auto) 0.0 (0.0-0.4) X10*3/uL Baso # (Auto) 0.1 (0.0-0.2) X10*3/uL Abs Immat Gran (auto) 0.06 H (0.00-0.03) X10*3/uL Absolute Neuts (auto) 10.7 H (2.0-8.3) x10*3/uL Absolute Nucleated RBC 0.000 (0.0-0.012) X10*3/uL Nucleated RBC % (auto) 0.0 (0.0-0.2) /100WBC Sodium 142 (135-145) mmol/L Potassium 4.0 (3.3-5.1) mmol/L Chloride 104 (96-108) mmol/L Carbon Dioxide 29 (22-29) mmol/L Anion Gap 13 (12-20) BUN 15 (9-16) mg/dL Creatinine 0.79 (0.5-1.4) mg/dL Estim Creat Clear Calc 58.4 Estimated GFR > 60 Random Glucose 160 H (60-115) mg/dL Calcium 10.0 (8.4-10.2) mg/dL Magnesium 2.2 (1.6-2.6) mg/dL Total Bilirubin 0.4 (0.0-1.0) mg/dL AST 17 (5-31) U/L ALT 18 (0-31) U/L Alkaline Phosphatase 97 (39-117) U/L Total Protein 7.4 (6.5-8.0) g/dL Albumin 4.3 (3.5-5.0) g/dL Influenza Type A (PCR) NEGATIVE (Negative) Influenza Type B (PCR) NEGATIVE (Negative) RSV RNA Qual (PCR) NEGATIVE (Negative) SARS-CoV-2 RNA (RT-PCR) NEGATIVE (Negative) Independent Interpretation I performed an independent interpretation of an: EKG and Plain X-Ray (No consolidation, no infiltrate) Interpretation: Rate: 83 Rhythm:? Normal sinus rhythm Normal P waves.? Normal [place].?? Normal QRS complex.?? ST T wave :??No ST elevation, no ST depression qTC: 455 prior studies:? 12/04/2023 The study has been interpreted contemporaneously by me. Radiology Impression Discussion of test interpretation with radiology: I have reviewed the radiologist's reading. Radiologist Impression: XR/XR chest 2V IMPRESSION: Hyperinflated but otherwise no evidence of acute disease. External Record Review External record reviewed: Outpatient record Discharge Plan Discharge Clinical Impression: COPD exacerbation Patient Disposition: Admitted As Inpatient
[2023-12-06 18:16] LABS: MANUAL DIFF FLAG NO
[2023-12-06 18:17] LABS: Basophils Absolute Auto 0.1 X10*3/uL (0.0-0.2); Basophils Percent Auto 0.4 % (0-2); Eosinophils Percent Auto 0.2 % (0-4); Hematocrit 50.2 % (37.0-47.0); Hemoglobin 17.1 g/dl (12.0-16.0); Imm Gran Abs Auto 0.06 X10*3/uL (0.00-0.03); Imm Gran Pct Auto 0.5 % (0.0-0.4); Lymphocytes Percent Auto 8.4 % (20-40); Mean Corpuscular HGB Conc 34.1 g/dl (31.0-35.0); Mean Corpuscular Hemoglobin 32.1 pg (27.0-33.0); Mean Corpuscular Volume 94.2 fL (80.0-98.0); Mean Platelet Volume 9.8 fL (9.4-12.3); Monocytes Absolute Auto 0.1 X10*3/uL (0.1-1.2); Monocytes Percent Auto 0.8 % (2-11); Neutrophils Absolute Auto 10.7 x10*3/uL (2.0-8.3); Neutrophils Percent Auto 89.7 % (45-73); Platelet Count 299 X10*3/uL (160-400); Red Blood Count 5.33 X10*6/uL (4.20-5.50); Red Cell Distribution Width 12.3 % (11.0-16.0); White Blood Count 11.9 X10*3/uL (4.8-10.8)
[2023-12-06 18:35] LABS: Alanine Aminotransferase 18 U/L (0-31); Albumin Level 4.3 g/dL (3.5-5.0); Alkaline Phosphatase 97 U/L (39-117); Anion Gap 13 (12-20); Aspartate Amino Transferase 17 U/L (5-31); Bilirubin Total 0.4 mg/dL (0.0-1.0); Blood Urea Nitrogen 15 mg/dL (9-16); Carbon Dioxide 29 mmol/L (22-29); Chloride 104 mmol/L (96-108); Creatinine Clr Calc Pharmacy 58.4; Estimated Glomerular Filt Rate > 60; Glucose Random 160 mg/dL (60-115); Magnesium 2.2 mg/dL (1.6-2.6); Sodium 142 mmol/L (135-145); Total Protein 7.4 g/dL (6.5-8.0)
[2023-12-06 19:20] LABS: Influenza A PCR NEGATIVE (Negative); Influenza B PCR NEGATIVE (Negative); Resp Syncy Virus RNA Qual PCR NEGATIVE (Negative); SARS COV2 PCR INHOUSE NEGATIVE (Negative)
[2023-12-06 20:02] VITALS: BP 148/86; PULSE 87; RESP 24; O2SAT 93
--- NOTE | 2023-12-06 20:24 | PC.NURSE ---
ARRIVES C/O SOB, COUGH X 1 WK, SEEN HERE RECENTLY FOR COPD EXAC. STATES SHE HAS BEEN TAKING ZPACK AND PREDNISONE PRESCRIBED. DYSPNEIC WHILE WALKING FROM WAITING ROOM TO MAIN ED, 87% ON RA, THOUGH QUICKLY UP TO 89-92% SPO2 WHEN SHE SAT DOWN. DIFFUSE EXP WHEEZE, SLIGHTLY MORE DIMINISHED ON THE RIGHT. SPEAKING IN CLEAR FULL SENTENCES, EVEN BREATHS. NSR ON MONITOR. CURRENT SMOKER. AWAITING EVAL BY ED PROVIDER.
[2023-12-06 20:33] VITALS: BP 152/87; PULSE 93; RESP 20; TEMP 36.8; O2SAT 93
[2023-12-06] MEDS: Albuterol Sulfate 7.5 MG, Albuterol Sulfate (0.083%) 2.5 MG 10 MG INHALE (20:47)
[2023-12-06 20:48] VITALS: PULSE 79; RESP 18; O2SAT 94
[2023-12-06] MEDS: methylPREDNISolone Sod Succ 125 MG/2 ML VIAL 80 MG IVPUSH (21:23)
[2023-12-06] MEDS: cefTRIAXone sodium 1 GM in 0.9 % Sodium Chloride 50 ML IV (21:24)
--- NOTE | 2023-12-06 21:54 | PM.IMHP ---
History of Present Illness Date of Service: 12/06/23 Chief Complaint: Dyspnea This is a 57-year-old female with pertinent history of COPD not on home oxygen, tobacco use disorder who presents to the emergency department for evaluation of dyspnea. Of note, patient was seen in the ER 3 days prior to presentation for similar complaints and discharged home on p.o. prednisone. Patient states her symptoms did not improve. She has been having dyspnea which is worse with exertion. Also has been having productive cough and wheezing. Admits smoking cigarettes. No fever, chills, chest pain, palpitations, abdominal pain, changes in urinary or bowel habits. In the emergency department, patient wheezing despite multiple DuoNeb treatments and IV steroids. Review of Systems Constitutional: Constitutional: Reports no additional constitutional complaints Cardiovascular: Cardiovascular: Reports dyspnea on exertion Respiratory: Respiratory: Reports cough, Reports dyspnea on exertion and Reports wheezing Gastrointestinal: Gastrointestinal: Reports no additional gastrointestinal complaints Genitourinary: Genitourinary: Reports no additional female genitourinary complaints Allergic/Immunologic: Allergic/Immunologic: Reports wheezing [facility] Medical History Hx of flexible sigmoidoscopy History of crack cocaine use Smoker Back pain COPD (chronic obstructive pulmonary disease) Surgical History Hx of cholecystectomy Previous back surgery Tubal ligation status Social History Household Members: Spouse Housing: House Are you a primary ocular care aide to a significant other at home: No Do you presently have visiting nurse or other home services: No Alcohol intake: never Comment: occaisional cramping which is preop baseline Cigarette Packs Per Day: 1 Cigarettes Per Day: 20.0 Years Smoked: 30 plus Smoked in Last 30 Days: Yes Use of substances other than those prescribed or required for medical reasons: No Substance Use Type: Crack/Cocaine Advance Directives: No Advance Directives Information Provided: No Do you have a plan to hurt others: No Plan service: No Current occupational status: unemployed Meds Allergies Allergy/AdvReac Type Severity Reaction Status Date / Time codeine [CODEINE] Allergy Unknown RASH Verified 12/06/23 17:56 Home Medications ?Medication ?Instructions ?Recorded ?Confirmed ?Last Taken ?Type albuterol sulfate 90 mcg/actuation 1 puff PO Q4H PRN wheezing 06/06/20 06/06/20 Unknown History aerosol inhaler (ProAir HFA) cholecalciferol (vitamin D3) 1,250 1 cap PO QWEEK 06/06/20 06/06/20 Unknown History mcg (50,000 unit) capsule fluticasone 250 mcg-salmeterol 50 1 puff PO BID 06/06/20 06/06/20 Unknown History mcg/dose blistr powdr for inhalation (Advair Diskus) umeclidinium 62.5 mcg/actuation 1 puff PO DAILY 06/06/20 06/06/20 Unknown History blister powder for inhalation (Incruse Ellipta) Physical Exam Vital Signs and Narrative: Vital Signs: Last Vital Signs Temp 98.2 F 12/06/23 20:33 Pulse 79 12/06/23 20:48 Resp 18 12/06/23 20:48 BP 152/87 H 12/06/23 20:33 Pulse Ox 93 12/06/23 20:33 O2 Del Method Room Air 12/06/23 20:33 BMI result Body Mass Index 16.7 Middle-aged female lying in bed in mild distress Neck supple, no JVD Tachycardic with regular rhythm, S1-S2 heard Bilateral wheezing appreciated with tachypnea Abdomen soft nontender, no guarding, no rigidity Patient is awake, alert and oriented to self, place, time and person ; no focal motor deficit Psych: Normal mood No pedal edema Results Labs 12/06/23 18:11 12/06/23 18:11 Labs: Laboratory Results - last 24 hr 12/06/23 18:11 MCV 94.2 MCH 32.1 MCHC 34.1 RDW 12.3 Plt Count 299 MPV 9.8 Immature Gran % (Auto) 0.5 H Neut % (Auto) 89.7 H Lymph % (Auto) 8.4 L [place] % (Auto) 0.8 L Eos % (Auto) 0.2 Baso % (Auto) 0.4 Lymph # (Auto) 1.0 L [place] # (Auto) 0.1 Eos # (Auto) 0.0 Baso # (Auto) 0.1 Abs Immat Gran (auto) 0.06 H Absolute Neuts (auto) 10.7 H Absolute Nucleated RBC 0.000 Nucleated RBC % (auto) 0.0 Anion Gap 13 Estim Creat Clear Calc 58.4 Estimated GFR > 60 Random Glucose 160 H Calcium 10.0 Magnesium 2.2 Total Bilirubin 0.4 AST 17 ALT 18 Alkaline Phosphatase 97 Total Protein 7.4 Albumin 4.3 Influenza Type A (PCR) NEGATIVE Influenza Type B (PCR) NEGATIVE RSV RNA Qual (PCR) NEGATIVE SARS-CoV-2 RNA (RT-PCR) NEGATIVE Imaging Radiologist's Impressions: Impressions Chest X-Ray 12/06/23 17:53 IMPRESSION: Hyperinflated but otherwise no evidence of acute disease. Electronically signed by: Augie Pollard MD 12/06/2023 06:58 PM EDT RP Assessment and Plan (1) COPD exacerbation: Status: Acute Plan This is a 61-year-old female with pertinent history of rns-lpyahwd-epiaejtmu diabetes mellitus, hypertension, mixed hyperlipidemia, gastroesophageal reflux disease, peripheral neuropathy who presents to the emergency department for evaluation after a fall. #. Acute exacerbation of COPD: Will admit patient with systemic steroids, scheduled and p.r.n. DuoNebs. Initiating azithromycin for pleiotropic effect. Continue home inhalers #. Tobacco use disorder: Counseled regarding cessation. Refused nicotine patch Med rec pending DVT prophylaxis: Lovenox Full code Quality Stroke Does the patient have a stroke diagnosis?: No VTE Prior VTE?: No VTE Risk Level:: Medical - moderate - high VTE Device Contraindication: Treatment Not Indicated VTE Drug Contraindication: N/A - Med Ordered
[2023-12-06 22:00] VITALS: BP 124/74; PULSE 101; RESP 22; TEMP 36.5; O2SAT 93
--- NOTE | 2023-12-06 22:12 | MHC.EDTECH ---
Patient had turkey sandwich and zoë valente for snack .
[2023-12-06 22:36] LABS: VBG Base Excess -0.4 mmol/L; VBG HCO3 22 mmol/L (22-26); VBG pCO2 31 mmHg; VBG pH 7.45 (7.32-7.43); VBG pO2 98 mmHg
[2023-12-06 22:36] LABS: Venous Blood Gas Refer to POC result
[2023-12-06 23:36] VITALS: BP 145/68; PULSE 79; RESP 20; TEMP 36.6; O2SAT 93
[2023-12-06] MEDS: Azithromycin 500 MG in 0.9 % Sodium Chloride 250 ML 125 MG IV (23:43)
[2023-12-06] MEDS: Enoxaparin Sodium 40 MG/0.4 ML SYRINGE SUBCUT (23:44)
[2023-12-07] VITALS (14 sets, daily range): BP systolic 134–172; BP diastolic 59–95; PULSE 75–100; RESP 16–30; TEMP 36–37.2; O2SAT 92–97; BMI 18.4
[2023-12-07 04:18] LABS: Basophils Percent Auto 0.1 % (0-2); Hematocrit 47.4 % (37.0-47.0); Imm Gran Abs Auto 0.05 X10*3/uL (0.00-0.03); Imm Gran Pct Auto 0.5 % (0.0-0.4); Lymphocytes Absolute Auto 0.8 X10*3/uL (1.2-4.9); Mean Corpuscular HGB Conc 33.8 g/dl (31.0-35.0); Mean Corpuscular Volume 94.8 fL (80.0-98.0); Mean Platelet Volume 9.9 fL (9.4-12.3); Monocytes Absolute Auto 0.1 X10*3/uL (0.1-1.2); Monocytes Percent Auto 0.7 % (2-11); Neutrophils Percent Auto 91.7 % (45-73); Platelet Count 283 X10*3/uL (160-400); Red Cell Distribution Width 12.2 % (11.0-16.0); SCAN SMEAR FLAG 1; White Blood Count 10.9 X10*3/uL (4.8-10.8)
[2023-12-07 04:21] LABS: MANUAL DIFF FLAG SCAN
[2023-12-07 04:22] LABS: SLIDE REVIEW VERIFIED
[2023-12-07 04:32] LABS: Anion Gap 16 (12-20); Blood Urea Nitrogen 18 mg/dL (9-16); Calcium 9.7 mg/dL (8.4-10.2); Carbon Dioxide 24 mmol/L (22-29); Chloride 106 mmol/L (96-108); Creatinine Clr Calc Pharmacy 51.9; Estimated Glomerular Filt Rate > 60; Glucose Random 290 mg/dL (60-115); Potassium 4.4 mmol/L (3.3-5.1); Sodium 142 mmol/L (135-145)
--- NOTE | 2023-12-07 05:01 | PC.NURSE ---
pt coughing and reporting dyspnea. slight expiratory wheezing auscultated. RT notified for prn breathing tx. sats 94% on RA.
[2023-12-07] MEDS: Albuterol/Iprat 2.5/0.5MG 3 ML AMPUL.NEB INHALE ×5 (05:10→20:10)
[2023-12-07] MEDS: methylPREDNISolone Sod Succ 40 MG/ML VIAL IVPUSH ×2 (08:07→18:09)
--- NOTE | 2023-12-07 09:51 | PHA.MEDREC ---
Addendum entered by Slade Maharaj 12/07/23 10:07: Verified by [facility] Original Note: Pharmacy Consult ? Medication Reconciliation Pharmacy has completed the medication reconciliation. Confirmed medications with patient. Patient was able to state that she started her Prednisone 20mg tablet taking 2 together (totaling 40mg) daily for 7 days and an Azithromycin 250mg regimen. When asking about the Azithromycinregimen the patient states she is taking it twice a day and when I asked if that was for day one she states I follow what is on the box and the box said 2 daily . I kept it the normal directions on how the Z-KATELYNN regimen usually is. She confirmed she is taking Sertraline 50mg (Zoloft) daily but has not had it in 2-3 days due to not feeling well. She also confirmed she took the rest of her medications yesterday. Patient confirmed [facility] in [place].
[2023-12-07] MEDS: guaiFENesin 200 MG/10 ML 10 ML LIQUID PO ×3 (12:04→22:55)
[2023-12-07] MEDS: Loratadine 10 MG TABLET PO (12:04)
--- NOTE | 2023-12-07 12:04 | PC.NURSE ---
Pt. medicated per JUN.
--- NOTE | 2023-12-07 14:19 | MHC.CM.PN ---
Attempted to meet with patient in regards to discharge planning. Nursing care currently being provided. Will attempt to meet again. Continue to monitor for d/c needs.
[2023-12-07] MEDS: Benzonatate 100 MG CAPSULE PO ×2 (16:03→21:16)
--- NOTE | 2023-12-07 16:58 | P.PNIM_ITS ---
Subjective Subjective Date of Service: 12/07/23 Interval History: copd excerebation Review of Systems has sob with minimal excersion has aggresive cough Physical Exam 2 Vital Signs: Vital Signs: Last Vital Signs Temp 98.4 F 12/07/23 16:16 Pulse 80 12/07/23 16:16 Resp 22 H 12/07/23 16:16 BP 162/85 H 12/07/23 16:16 Pulse Ox 93 12/07/23 16:16 O2 Del Method Room Air 12/07/23 16:16 BMI result Body Mass Index 16.7 Appearance: Alert.? Oriented X3.? cvs: [id number], [id number]. res: air enrty dimished , has b/l wheezing abd: no rebound or guarding ,nt, bs present. ext pulses present , no cyanosis neuro: axo3 , nonfocal. Objective Data Active Medications Acetaminophen (Acetaminophen 325 Mg Tablet) 650 mg PO Q6H PRN PRN Reason: Pain, Mild (Pain Scale 1-3), fever or headache Albuterol/Ipratropium (Albuterol/Iprat 2.5/0.5mg 3 Ml Ampul.Neb) 3 ml INHALE RQ4H WHILE AWAKE [facility] Last Admin: 12/07/23 11:25 Dose: 3 ml Documented By: DONITA Albuterol/Ipratropium (Albuterol/Iprat 2.5/0.5mg 3 Ml Ampul.Neb) 3 ml INHALE Q4H PRN PRN Reason: Wheezing Last Admin: 12/07/23 05:10 Dose: 3 ml Documented By: PAULETTE Benzonatate (Benzonatate 100 Mg Capsule) 100 mg PO TID [facility] Last Admin: 12/07/23 16:03 Dose: 100 mg Documented By: AMBROSE Calcium Carbonate (Calcium Carbonate 750 Mg Tab.Chew) 750 mg PO Q4H PRN PRN Reason: Heartburn Enoxaparin Sodium (Enoxaparin Sodium 40 Mg/0.4 Ml Syringe) 40 mg SUBCUT Q24H [facility] Last Admin: 12/06/23 23:44 Dose: 40 mg Documented By: YONATHAN Guaifenesin (Guaifenesin 200 Mg/10 Ml 10 Ml Liquid) 10 ml PO Q6H [facility] Last Admin: 12/07/23 12:04 Dose: 10 ml Documented By: AMBROES Azithromycin 500 mg/ Sodium (Chloride) 250 mls @ 125 mls/hr IV Q24H [facility] Last Infusion: 12/07/23 01:43 Dose: Infused Documented By: YONATHAN Loratadine (Loratadine 10 Mg Tablet) 10 mg PO DAILY [facility] Last Admin: 12/07/23 12:04 Dose: 10 mg Documented By: AMBROSE Magnesium Hydroxide (Milk Of Magnesia 30 Ml Oral.Susp) 30 ml PO DAILY PRN PRN Reason: Constipation Melatonin (Melatonin 3 Mg Tablet) 6 mg PO BEDTIME PRN PRN Reason: Insomnia Methylprednisolone Sodium Succinate (Methylprednisolone Sod Succ 40 Mg/Ml Vial) 40 mg IVPUSH Q12H [facility] Last Admin: 12/07/23 08:07 Dose: 40 mg Documented By: AMBROSE Ondansetron HCl (Ondansetron Hcl 4 Mg/2 Ml Vial) 4 mg IVPUSH Q8H PRN PRN Reason: Nausea and Vomiting Sertraline HCl (Sertraline Hcl 50 Mg Tablet) 50 mg PO DAILY [facility] Sodium Chloride (0.9 % Sodium Chloride Flush 3 Ml Syringe) 3 ml IVFLUSH QSHIFT [facility] Last Admin: 12/07/23 15:16 Dose: Not Given Documented By: AMBROSE Non-Admin Reason: Previously Administered Labs 12/07/23 04:05 12/07/23 04:05 Labs: Laboratory Results - last 24 hr 12/06/23 12/06/23 12/07/23 18:11 22:31 04:05 MCV 94.2 94.8 MCH 32.1 32.0 MCHC 34.1 33.8 RDW 12.3 12.2 Plt Count 299 283 MPV 9.8 9.9 Immature Gran % (Auto) 0.5 H 0.5 H Neut % (Auto) 89.7 H 91.7 H Lymph % (Auto) 8.4 L 7.0 L [place] % (Auto) 0.8 L 0.7 L Eos % (Auto) 0.2 0.0 Baso % (Auto) 0.4 0.1 Lymph # (Auto) 1.0 L 0.8 L [place] # (Auto) 0.1 0.1 Eos # (Auto) 0.0 0.0 Baso # (Auto) 0.1 0.0 Abs Immat Gran (auto) 0.06 H 0.05 H Absolute Neuts (auto) 10.7 H 10.0 H Absolute Nucleated RBC 0.000 0.000 Nucleated RBC % (auto) 0.0 0.0 Smear Tech's Comments VERIFIED VBG pH 7.45 H VBG pCO2 31 VBG pO2 98 VBG HCO3 22 VBG O2 Saturation 99.0 VBG Base Excess -0.4 Anion Gap 13 16 Estim Creat Clear Calc 58.4 51.9 Estimated GFR > 60 > 60 Random Glucose 160 H 290 H Calcium 10.0 9.7 Magnesium 2.2 Total Bilirubin 0.4 AST 17 ALT 18 Alkaline Phosphatase 97 Total Protein 7.4 Albumin 4.3 Influenza Type A (PCR) NEGATIVE Influenza Type B (PCR) NEGATIVE RSV RNA Qual (PCR) NEGATIVE SARS-CoV-2 RNA (RT-PCR) NEGATIVE Assessment and Plan (1) COPD (chronic obstructive pulmonary disease): Status: Acute (2) Tobacco use disorder: Status: Acute Plan 61-year-old female with pertinent history of xib-bsiqaef-jyyfoztld diabetes mellitus, hypertension, mixed hyperlipidemia, gastroesophageal reflux disease, peripheral neuropathy who presents to the emergency department for evaluation after a fall. Acute exacerbation of COPD: sob with minimal excersion,aggressive cough systemic steroids, scheduled and p.r.n. DuoNebs. Initiating azithromycin for pleiotropic effect. Continue home inhalers Tobacco use disorder: Counseled regarding cessation. Refused nicotine patch substance use : cocaine snorting utox -positive for cocaine addiction consult DVT prophylaxis: Lovenox . Ongoing hospitlisation need : copd excerebation -not improving yet,need close respiratory monitering ,iv steriods ,nebs . Quality Stroke Does the patient have a stroke diagnosis?: No VTE Prior VTE?: No VTE Risk Level:: Medical - moderate - high VTE Device Contraindication: Treatment Not Indicated VTE Drug Contraindication: N/A - Med Ordered
[2023-12-07 18:37] LABS: Amphetamine Screen Urine Not Detected (Not Detect); Barbiturates, Urine Not Detected (Not Detect); Benzodiazepines Screen Urine Not Detected (Not Detect); Buprenorphine Scr Not Detected (Not Detect); Cannabinoid Screen Urine Not Detected (Not Detect); Cocaine Screen Urine POSITIVE (Not Detect); Fentanyl, urine Not Detected (Not Detect); Methadone Screen, Urine Not Detected (Not Detect); Opiate Screen Urine Not Detected (Not Detect); Oxycodone Screen Urine Not Detected (Not Detect); Phencyclidine Screen Urine Not Detected (Not Detect)
--- NOTE | 2023-12-07 19:25 | MHC.EDTECH ---
This tech took over care of patient at 1900,patient ate 75% of dinner/240MLS of fluid,rounds and vitals completed,resp.rate was at 30,RN was made aware,call choi in reach
--- NOTE | 2023-12-07 20:08 | PC.NURSE ---
pt placed on 2L at this time, feeling SOB RR >30. 02 95% but felt SOB.
--- NOTE | 2023-12-07 20:53 | PC.NURSE ---
O2 removed after breathing treatment, pt feeling better
[2023-12-07] MEDS: Enoxaparin Sodium 40 MG/0.4 ML SYRINGE SUBCUT (21:16)
[2023-12-07] MEDS: Azithromycin 500 MG in 0.9 % Sodium Chloride 250 ML 125 MG IV (22:55)
[2023-12-07] MEDS: 0.9 % Sodium Chloride Flush 3 ML SYRINGE IVFLUSH (22:56)
[2023-12-08] VITALS (7 sets, daily range): BP systolic 132–166; BP diastolic 78–90; PULSE 65–92; RESP 16–20; TEMP 36–36.6; O2SAT 92–98; BMI 18.4
[2023-12-08] MEDS: guaiFENesin 200 MG/10 ML 10 ML LIQUID PO ×4 (06:02→22:18)
[2023-12-08] MEDS: methylPREDNISolone Sod Succ 40 MG/ML VIAL IVPUSH ×2 (06:02→17:53)
[2023-12-08] MEDS: Albuterol/Iprat 2.5/0.5MG 3 ML AMPUL.NEB INHALE ×3 (08:02→20:03)
[2023-12-08] MEDS: Sertraline HCL 50 MG TABLET PO (08:13)
[2023-12-08] MEDS: 0.9 % Sodium Chloride Flush 3 ML SYRINGE IVFLUSH ×3 (08:13→22:18)
[2023-12-08] MEDS: Benzonatate 100 MG CAPSULE PO ×3 (08:13→21:40)
[2023-12-08] MEDS: Loratadine 10 MG TABLET PO (08:13)
--- NOTE | 2023-12-08 12:28 | MHC.CM.PN ---
CM MET WITH PT AT BEDSIDE. INDEPENDENT. LIVES WITH SON AND YOUNG GRANDCHILDREN. +HCP PCP DR FAMILIA SALGADO DP: HOME, NO SERVICES IS THE GOAL. PT'S SON WILL TRANSPORT HOME. CM WILL CONTINUE TO FOLLOW FOR ANY CHANGE TO DC PLAN/NEEDS.
--- NOTE | 2023-12-08 12:55 | HO.PM.IMPN ---
Subjective Subjective Date of Service: 12/08/23 Interval History: copd excerebation Review of Systems sob with minimum excersion has cough Physical Exam Vital Signs: Vital Signs: Last Vital Signs Temp 98 F 12/08/23 06:47 Pulse 85 12/08/23 08:00 Resp 18 12/08/23 08:00 BP 132/78 12/08/23 06:47 Pulse Ox 96 12/08/23 06:47 O2 Del Method Room Air 12/08/23 06:47 BMI result Body Mass Index 18.4 Appearance: Alert.? Oriented X3.? cvs: rrr, [id number]. res: air enrty dimished , has b/l wheezing abd: no rebound or guarding ,nt, bs present. ext pulses present , no cyanosis neuro: axo3 , nonfocal. Objective Data Active Medications Acetaminophen (Acetaminophen 325 Mg Tablet) 650 mg PO Q6H PRN PRN Reason: Pain, Mild (Pain Scale 1-3), fever or headache Albuterol/Ipratropium (Albuterol/Iprat 2.5/0.5mg 3 Ml Ampul.Neb) 3 ml INHALE RQ4H WHILE AWAKE [facility] Last Admin: 12/08/23 11:15 Dose: Not Given Documented By: MARION Non-Admin Reason: Patient Asleep Albuterol/Ipratropium (Albuterol/Iprat 2.5/0.5mg 3 Ml Ampul.Neb) 3 ml INHALE Q4H PRN PRN Reason: Wheezing Last Admin: 12/07/23 05:10 Dose: 3 ml Documented By: JAMASOEduardo Benzonatate (Benzonatate 100 Mg Capsule) 100 mg PO TID [facility] Last Admin: 12/08/23 08:13 Dose: 100 mg Documented By: COTEMA Calcium Carbonate (Calcium Carbonate 750 Mg Tab.Chew) 750 mg PO Q4H PRN PRN Reason: Heartburn Enoxaparin Sodium (Enoxaparin Sodium 40 Mg/0.4 Ml Syringe) 40 mg SUBCUT Q24H [facility] Last Admin: 12/07/23 21:16 Dose: 40 mg Documented By: TONYA Guaifenesin (Guaifenesin 200 Mg/10 Ml 10 Ml Liquid) 10 ml PO Q6H [facility] Last Admin: 12/08/23 12:04 Dose: 10 ml Documented By: DONNY Azithromycin 500 mg/ Sodium (Chloride) 250 mls @ 125 mls/hr IV Q24H [facility] Last Infusion: 12/08/23 00:56 Dose: Infused Documented By: TONYA Loratadine (Loratadine 10 Mg Tablet) 10 mg PO DAILY [facility] Last Admin: 12/08/23 08:13 Dose: 10 mg Documented By: BILLY Magnesium Hydroxide (Milk Of Magnesia 30 Ml Oral.Susp) 30 ml PO DAILY PRN PRN Reason: Constipation Melatonin (Melatonin 3 Mg Tablet) 6 mg PO BEDTIME PRN PRN Reason: Insomnia Methylprednisolone Sodium Succinate (Methylprednisolone Sod Succ 40 Mg/Ml Vial) 40 mg IVPUSH Q12H [facility] Last Admin: 12/08/23 06:02 Dose: 40 mg Documented By: TONYA Ondansetron HCl (Ondansetron Hcl 4 Mg/2 Ml Vial) 4 mg IVPUSH Q8H PRN PRN Reason: Nausea and Vomiting Sertraline HCl (Sertraline Hcl 50 Mg Tablet) 50 mg PO DAILY [facility] Last Admin: 12/08/23 08:13 Dose: 50 mg Documented By: BILLY Sodium Chloride (0.9 % Sodium Chloride Flush 3 Ml Syringe) 3 ml IVFLUSH QSHIFT [facility] Last Admin: 12/08/23 08:13 Dose: 3 ml Documented By: BILLY Labs 12/07/23 04:05 12/07/23 04:05 Labs: Laboratory Results - last 24 hr 12/07/23 18:18 Urine Opiates Screen Not Detected Ur Buprenorphine Scrn Not Detected Ur Oxycodone Screen Not Detected Urine Methadone Screen Not Detected Urine Fentanyl Screen Not Detected Ur Barbiturates Screen Not Detected Ur Phencyclidine Scrn Not Detected Ur Amphetamines Screen Not Detected U Benzodiazepines Scrn Not Detected Urine Cocaine Screen POSITIVE H U Marijuana (THC) Screen Not Detected Assessment and Plan (1) COPD exacerbation: Status: Acute Assessment and Plan: 61-year-old female with pertinent history of pdf-uwnvxzw-cehxwutsp diabetes mellitus, hypertension, mixed hyperlipidemia, gastroesophageal reflux disease, peripheral neuropathy who presents to the emergency department for evaluation after a fall. Acute exacerbation of COPD: sob with minimal excersion,aggressive cough systemic steroids, scheduled and p.r.n. DuoNebs. Initiating azithromycin for pleiotropic effect. Continue home inhalers Tobacco use disorder: Counseled regarding cessation. Refused nicotine patch substance use : cocaine snorting utox -positive for cocaine addiction consult DVT prophylaxis: Lovenox . Ongoing hospitlisation need : copd excerebation -not improving yet,need close respiratory monitering ,iv steriods ,nebs . Quality Stroke Does the patient have a stroke diagnosis?: No VTE Prior VTE?: No VTE Risk Level:: Medical - moderate - high VTE Device Contraindication: Treatment Not Indicated VTE Drug Contraindication: N/A - Med Ordered
--- NOTE | 2023-12-08 17:06 | PM.EVENT ---
Event Note Date of Service: 12/08/23 Event Note: Addiction consult placed for patient due to cocaine use Patient declined to meet with t/w No follow up indicated at this time Time Spent With Patient Time: Total time managing care of this patient today ____ minutes.
[2023-12-08] MEDS: Enoxaparin Sodium 40 MG/0.4 ML SYRINGE SUBCUT (21:40)
[2023-12-08] MEDS: Azithromycin 500 MG in 0.9 % Sodium Chloride 250 ML 125 MG IV (22:18)
[2023-12-09] VITALS (7 sets, daily range): BP systolic 142–168; BP diastolic 74–94; PULSE 65–92; RESP 16–18; TEMP 36–36.6; O2SAT 92–94
[2023-12-09] MEDS: methylPREDNISolone Sod Succ 40 MG/ML VIAL IVPUSH (06:20)
[2023-12-09] MEDS: guaiFENesin 200 MG/10 ML 10 ML LIQUID PO ×2 (06:21→11:29)
[2023-12-09] MEDS: Albuterol/Iprat 2.5/0.5MG 3 ML AMPUL.NEB INHALE ×2 (07:27→11:35)
[2023-12-09] MEDS: 0.9 % Sodium Chloride Flush 3 ML SYRINGE IVFLUSH (09:01)
[2023-12-09] MEDS: Sertraline HCL 50 MG TABLET PO (09:01)
[2023-12-09] MEDS: Benzonatate 100 MG CAPSULE PO (09:02)
[2023-12-09] MEDS: Loratadine 10 MG TABLET PO (09:02)
--- NOTE | 2023-12-09 11:03 | P.DS_ITS ---
DS: Providers Provider Date of Service: 12/09/23 Date of admission: 12/06/23 21:52 Date of discharge: 12/09/23 Primary care physician: Summer Olivier DO Admitting clinician: Kem Manuel Attending physician on admission: Kem Manuel Consults: 12/07/23 16:57 Addiction Medicine Routine Consulting Provider: Addiction Covering Reason for consultation: cocaine use Attending physician on discharge: Jeronimo Valladares Discharging clinician: Jeronimo Valladares DS: Diagnosis Discharge Diagnosis (1) COPD exacerbation: Status: Acute DS: Summary Hospital Course Hospital Course: 57-year-old female with pertinent history of COPD not on home oxygen, tobacco use disorder who presents to the emergency department for evaluation of dyspnea. Of note, patient was seen in the ER 3 days prior to presentation for similar complaints and discharged home on p.o. prednisone. Patient states her symptoms did not improve. She has been having dyspnea which is worse with exertion. Also has been having productive cough and wheezing. Admits smoking cigarettes. No fever, chills, chest pain, palpitations, abdominal pain, changes in urinary or bowel habits. In the emergency department, patient wheezing despite multiple DuoNeb treatments and IV steroids. Hospital course: Patient was admitted to the hospital because COPD exacerbation-chest x-ray negative for pneumonia, mild leukocytosis improving, no fever, has cough: Patient was started on nebs, steroids, antibiotics seems to be improved significantly: Patient will be going home has home steroids and antibiotic already, we added cough medications and loratadine. Patient also active smoker and cocaine use: Patient was strongly advised to abstain from both. She refused to talk to Addiction. plan: complete her prednisone and azithromycin. continue prn robitussin, loratidine ,tesslon. Above management discussed with the patient detail length she understand in agreement with the above plan, time spent 40 minute. Time Attestation Total time managing care of this patient today: 40 mintues. Discharge Coordination Time (in mins): 40 min Quality: Safe Use of Opioids Does Pt have an Active Cancer Diagnosis on the Problem List?: No Quality: Stroke Does the patient have a stroke diagnosis?: No Physical Exam Vital Signs: Vital Signs: Last Vital Signs Temp 98 F 12/09/23 07:19 Pulse 92 12/09/23 09:01 Resp 16 12/09/23 07:28 BP 156/74 H 12/09/23 09:01 Pulse Ox 94 12/09/23 07:19 O2 Del Method Room Air 12/09/23 07:19 BMI result Body Mass Index 18.4 Appearance: Alert.? Oriented X3.? cvs: rrr, [id number]. res: air enrty fair , no rales or wheezing. abd: no rebound or guarding ,nt, bs present. ext pulses present , no cyanosis neuro: axo3 , nonfocal. DS: Data Data Completed and Pending Completed studies during hospitalization [Text1]: Procedures Excision of Descending Colon, Via Natural or Artificial Opening Endoscopic, Diagnostic (05/06/20) Excision of Sigmoid Colon, Via Natural or Artificial Opening Endoscopic, Diagnostic (05/06/20) Excision of Transverse Colon, Via Natural or Artificial Opening Endoscopic, Diagnostic (05/06/20) Imaging Chest x-ray: Radiologist's impression: ITS Impressions Chest X-Ray 12/06/23 17:53 IMPRESSION: Hyperinflated but otherwise no evidence of acute disease. Electronically signed by: Augie Pollard MD 12/06/2023 06:58 PM EDT RP Discharge Plan Discharge Anticipated Discharge Date/Time: 12/09/23 10:57 Patient Disposition: Home, Self-Care Discharge Diagnosis: COPD exacerbation Referrals: Summer Olivier DO [Primary Care Provider] - 1 Week Discharge Medications: New guaifenesin 100 mg/5 mL Liquid 100 mg PO Q6H Qty: 100 0RF benzonatate 100 mg Capsule 100 mg PO TID Qty: 20 0RF loratadine 10 mg Tablet 10 mg PO DAILY Qty: 10 0RF Continued fluticasone propion-salmeterol [Advair Diskus] 250-50 mcg/dose blister with device 1 puff PO BID albuterol sulfate [ProAir HFA] 90 mcg/actuation HFA aerosol inhaler 1 puff PO Q4H PRN (Reason: wheezing) Incruse Ellipta 62.5 mcg/actuation blister with device 1 puff PO DAILY prednisone 20 mg tablet 40 mg PO DAILY Qty: 10 0RF albuterol sulfate 2.5 mg /3 mL (0.083 %) solution for nebulization 2.5 mg inhalation Q6H PRN (Reason: wheezing) sertraline 50 mg tablet 50 mg PO DAILY azithromycin 250 mg tablet See Rx Instructions .ROUTE .COMPLEX Qty: 4 0RF Rx Instructions: For 250 mg dose pack: take 500 mg today (day 1), then 250 mg for 4 days (days 2-5) Discharge Orders: Discharge Order (Routine); Ordered 12/09/23 Ordered By: Jeronimo Valladares Diet: Advance to usual diet Activity on Discharge: As tolerated Stand Alone Forms: Patient Portal Discharge page Print Language: Peruvian Care Plan Goals: Patient was admitted to the hospital because COPD exacerbation-chest x-ray negat baldo for pneumonia, mild leukocytosis improving, no fever, has cough: Patient was started on nebs, steroids, antibiotics seems to be improved significantly: Patient will be going home has home steroids and antibiotic already, we added cough medications and loratadine. Patient also active smoker and cocaine use: Patient was strongly advised to abstain from both. She refused to talk to Addiction. Health Concerns: As above. Plan of Treatment: As above. Assessment: As above.
--- NOTE | 2023-12-09 11:05 | P.CDIM_ITS ---
PROVIDER RESPONSE TEXT: To clarify, the appropriate diagnosis supported by the clinical indicators: Underweight QUERY TEXT: PHYSICIAN'S DOCUMENTATION REQUEST Date of Query: 12/09/2023 09:14 AM EDT Patient Name: AGUILA URIAS Admit Date: 12/07/2023 Dear Jeronimo Valladares MD, A review of the medical record indicates additional documentation may be needed. Please review below and update the documentation accordingly. Clinical Indicators: Height: 5ft 7in Weight: 53.2kg BMI: 18.4 Other Clinical Notes Supporting Significance of the BMI: Clinical nutrition assessment notes patient is underweight with BMI 18.4. Monitor meal intake. If possible, please provide an associated diagnosis related to the abnormal BMI, such as: Underweight Weight loss Cachexia Anorexia Other (explain) Clinically unable to determine (explain) Thank you, Chelly Razo, CCS, CDIS Use of terms such as suspected, likely, concern for, or probable (associated with a specific diagnosi s that is being evaluated, monitored, or treated as if it exists) are acceptable and can be coded in the inpatient se tting, when documented at the time of discharge. Please use your independent medical judgment in providing your response. THIS QUERY IS PART OF THE PERMANENT MEDICAL RECORD
[2023-12-09] MEDS: predniSONE 20 MG TABLET 40 MG PO (11:29)
--- NOTE | 2023-12-09 12:59 | MHC.CM.PN ---
PT WILL DC HOME TODAY WITH NO SERVICES VIA FAMILY TRANSPORT
== END 2023-12-09 12:21 | disposition home or self-care (01) ==
LOC: HO.ED 20:58 → HO.EDOVER 22:06 → HO.S3 12-07 20:03 → HO.EDOVER 12-08 13:36
PROVIDERS: Physician Assistant Medical; Admitting Provider Student in an Organized Health Care Education/Training Program; Emergency Provider Emergency Medicine; PCP Pediatrics; Visit Provider Internal Medicine
DX: J44.1 Chronic obstructive pulmonary disease with (acute) exacerbation (principal); F17.200 Nicotine dependence, unspecified, uncomplicated; R07.9 Chest pain, unspecified; R63.6 Underweight; Z68.1 Body mass index [BMI] 19.9 or less, adult; Z79.899 Other long term (current) drug therapy; F14.90 Cocaine use, unspecified, uncomplicated; Z03.818 Encounter for observation for suspected exposure to other biological agents ruled out
CPT/HCPCS: 0241U; 36415; 71046; 80048; 80053; 80307; 82803; 83735; 85025; 93005; 94640; 96365; 96366; 96367; 96372; 96375; 96376; 99221; 99285; J0456; J0696; J1650; J2919

== ENCOUNTER → 2023-12-06 21:52 | Outpatient (BNV) | payer OTHER, SELFPAY | PROVIDERS: Admitting Provider Student in an Organized Health Care Education/Training Program; Emergency Provider Emergency Medicine; PCP Pediatrics; Visit Provider Student in an Organized Health Care Education/Training Program | DX: J44.1 Chronic obstructive pulmonary disease with (acute) exacerbation (principal) | CPT/HCPCS: 99222; 99231; 99239 ==

== ENCOUNTER 2024-04-14 16:52 | Emergency (ER) | payer OTHER, SELFPAY ==
--- NOTE | ~2024-04-14 | XR_ITS ---
CLINICAL HISTORY: shortness of breath 2 view chest x-ray Comparison: CR/SR - XR CHEST 2V - 12/04/23 18:11 EDT Findings: No consolidation or effusion. Hyperinflation of the lungs. Normal size heart. No acute fracture. IMPRESSION: 1. No acute findings. This document has been electronically signed by: Nils George MD on 04/14/2024 17:44:25
[2024-04-14 17:13] VITALS: BP 160/96; PULSE 93; RESP 16; TEMP 36.6; O2SAT 93; BMI 20.8
--- NOTE | 2024-04-14 17:14 | ED_ITS ---
HPI - SOB/Dyspnea General Chief Complaint: Dyspnea Stated Complaint: diff breathing Time Seen by Provider: 04/14/24 20:35 Source: patient and old records reviewed Mode of arrival: ambulatory Limitations: no limitations History of Present Illness ED Provider: THERESE RICE Narrative: 58 yo female with COPD not on home O2, back pain here with dyspnea, cough, sore throat and not feeling well for 3 to 4 days. She has grandkids. No chest pain but doesn't feel good has had fevers/chills. She notes sputum production. She is able to eat or drink. On exam I explained we needed to give her a treatment, strep swab, PO medications but then she called her son and I believe there were ride issues so after I left she stated she had to leave no matter what. MD elicited complaint: shortness of breath and cough Pertinent past history: COPD Onset (ago): day(s) (4) Context: recent illness Timing: intermittent Severity: moderate Exacerbating factors: exertion, coughing and other (swallowing) Relieving factors: rest Known history of: COPD Associated symptoms: cough, wheezing, sputum production and other Treatment prior to arrival: none Related Data Home Medications ?Medication ?Instructions ?Recorded ?Confirmed albuterol sulfate 90 mcg/actuation 1 puff PO Q4H PRN wheezing 06/06/20 12/07/23 aerosol inhaler (ProAir HFA) fluticasone 250 mcg-salmeterol 50 1 puff PO BID 06/06/20 12/07/23 mcg/dose blistr powdr for inhalation (Advair Diskus) umeclidinium 62.5 mcg/actuation 1 puff PO DAILY 06/06/20 12/07/23 blister powder for inhalation (Incruse Ellipta) albuterol sulfate 2.5 mg/3 mL 2.5 mg inhalation Q6H PRN wheezing 12/06/23 12/07/23 (0.083 %) solution for nebulization sertraline 50 mg tablet 50 mg PO DAILY 12/07/23 12/07/23 Previous Rx's ?Medication ?Instructions ?Recorded prednisone 20 mg tablet 40 mg (2 x 20 mg) PO DAILY #10 tabs 12/04/23 azithromycin 250 mg tablet See Rx Instructions PO .COMPLEX #4 12/09/23 tabs benzonatate 100 mg capsule 100 mg PO TID #20 caps 12/09/23 guaifenesin 100 mg/5 mL oral liquid 100 mg (5 mL) PO Q6H #100 mL 12/09/23 loratadine 10 mg tablet 10 mg PO DAILY #10 tabs 12/09/23 amoxicillin 875 mg-potassium 1 tab PO BID #14 tabs 04/14/24 clavulanate 125 mg tablet azithromycin 250 mg tablet See Rx Instructions PO .COMPLEX #6 04/14/24 tabs prednisone 20 mg tablet 40 mg (2 x 20 mg) PO DAILY 5 days 04/14/24 #10 tabs Allergies Allergy/AdvReac Type Severity Reaction Status Date / Time codeine [CODEINE] Allergy Unknown RASH Verified 04/14/24 17:15 Review of Systems 2 Review of Systems: Constitutional : No Fever, pos Chills ENT/Mouth : No Hoarseness, pos sore throat, No Rhinorrhea Eyes: No Redness, No Discharge, No Vision Changes Cardiovascular : No Chest Pain, no SOB Respiratory : positive Cough, No Sputum, positive Wheezing, Gastrointestinal : No Nausea, No Vomiting, No Diarrhea, No abdominal Pain Genitourinary : no Dysuria, No Hematuria Musculoskeletal : No joint pain, No Myalgias Skin : No rash Neuro : No Weakness, No Numbness, No Headache Psych : No anxiety, depression All other systems reviewed and are negative PMFSH Past Medical History Attestation statement: The following information was validated with the patient. Source: old records reviewed Medical History Hx of flexible sigmoidoscopy History of crack cocaine use Smoker Back pain COPD (chronic obstructive pulmonary disease) Surgical History Hx of cholecystectomy Previous back surgery Tubal ligation status Social History Social History Household Members: Family Housing: House Are you a primary child adolescent care to a significant other at home: No Do you presently have visiting nurse or other home services: No Alcohol intake: never Comment: occaisional cramping which is preop baseline Patient Tobacco Use Status: Current everyday Tobacco user Tobacco use type: Cigarette Cigarette Packs Per Day: 0.75 Cigarettes Per Day: 15.0 Years Smoked: many per pt Second Hand Smoke Exposure: No Substance Use Type: Crack/Cocaine Advance Directives Date on File: 12/07/23 service: No Current occupational status: unemployed Physical Exam 2 Vital Signs: Vital Signs: Last Vital Signs Temp 97.9 F 04/14/24 17:13 Pulse 93 04/14/24 17:13 Resp 16 04/14/24 17:13 BP 160/96 H 04/14/24 17:13 Pulse Ox 93 04/14/24 17:13 O2 Del Method Room Air 04/14/24 17:13 BMI result Body Mass Index 20.8 Appearance: Alert. Oriented X3. No acute distress. Eyes: Pupils equal, round and reactive to light. ENT: Pharynx erythema but no exudates and tonsils are normal scant petechia noted on upper soft palate Neck: Normal inspection. Neck supple. CVS: Normal heart rate and rhythm. Pulses normal. Respiratory: No respiratory distress. Breath sounds wheezes and diminished throughout Abdomen: Soft and nontender. Skin: Skin warm and dry. Normal skin color. Normal skin turgor. Extremities: No lower extremity edema. No calf ttp Neuro: Oriented X 3. No motor deficit. No sensory deficit. CN2-12 intact Course Course Course Narrative: This is an RME performed by Bhargav Fernando CNP: Additional HPI, ROS, PE not included below will be deferred to primary provider. Patient is a 58-year-old female who presents emergency department for evaluation, Past few days with increased shortness of breath, dyspnea on exertion, sore throat. History of COPD. Plan: Serum labs, EKG, CXR Reevaluation(s) Reevaluation #1: patient abruptly states she has to leave due to ride issues refuses meds here and neb treatment asking to leave Medical Decision Making Medical Decision Making MDM Narrative: 58 yo female with COPD not on home O2, back pain here with with URI symptoms and sore throat at this time labs, CXR, viral panel and EKG. Suspect more infectious source at this time - started on abx and steroids. Patient is not in resp distress at this time. Differential Diagnosis Differential Diagnoses: The differential diagnosis associated with the presentation includes URI, strep, bronchitis, pneumonia Admission/Observation Consideration of admission/observation: Escalation of care including admission/observation considered states she needs to leave despite needing treatment Lab Data 04/14/24 17:39 01/10/25 17:39 Labs: Lab Results 04/14/24 Range/Units 17:39 WBC 14.9 H (4.8-10.8) X10*3/uL RBC 5.56 H (4.20-5.50) X10*6/uL Hgb 17.5 H (12.0-16.0) g/dl Hct 52.1 H (37.0-47.0) % MCV 93.7 (80.0-98.0) fL MCH 31.5 (27.0-33.0) pg MCHC 33.6 (31.0-35.0) g/dl RDW 11.8 (11.0-16.0) % Plt Count 344 (160-400) X10*3/uL MPV 10.3 (9.4-12.3) fL Immature Gran % (Auto) 0.5 H (0.0-0.4) % Neut % (Auto) 78.8 H (45-73) % Lymph % (Auto) 12.9 L (20-40) % [place] % (Auto) 5.0 (2-11) % Eos % (Auto) 2.1 (0-4) % Baso % (Auto) 0.7 (0-2) % Lymph # (Auto) 1.9 (1.2-4.9) X10*3/uL [place] # (Auto) 0.8 (0.1-1.2) X10*3/uL Eos # (Auto) 0.3 (0.0-0.4) X10*3/uL Baso # (Auto) 0.1 (0.0-0.2) X10*3/uL Abs Immat Gran (auto) 0.07 H (0.00-0.03) X10*3/uL Absolute Neuts (auto) 11.8 H (2.0-8.3) x10*3/uL Absolute Nucleated RBC 0.000 (0.0-0.012) X10*3/uL Nucleated RBC % (auto) 0.0 (0.0-0.2) /100WBC PT 10.3 L (10.9-12.4) SEC INR 0.9 (0.9-1.1) Sodium 143 (135-145) mmol/L Potassium 5.1 (3.3-5.1) mmol/L Chloride 105 (96-108) mmol/L Carbon Dioxide 31 H (22-29) mmol/L Anion Gap 12 (12-20) BUN 12 (9-16) mg/dL Creatinine 0.84 (0.5-1.4) mg/dL Estim Creat Clear Calc 63.7 Estimated GFR > 60 Random Glucose 151 H (60-115) mg/dL Calcium 9.4 (8.4-10.2) mg/dL Magnesium 2.2 (1.6-2.6) mg/dL Total Bilirubin 0.4 (0.0-1.0) mg/dL AST 21 (5-31) U/L ALT 17 (0-31) U/L Alkaline Phosphatase 107 (39-117) U/L Troponin I High Sens < 2.7 (<3.5-17.0) ng/L Total Protein 7.5 (6.5-8.0) g/dL Albumin 4.1 (3.5-5.0) g/dL Influenza Type A (PCR) NEGATIVE (Negative) Influenza Type B (PCR) NEGATIVE (Negative) RSV RNA Qual (PCR) NEGATIVE (Negative) SARS-CoV-2 RNA (RT-PCR) NEGATIVE (Negative) Independent Interpretation I performed an independent interpretation of an: EKG and Plain X-Ray (normal ) Interpretation: Rate: 91 Rhythm: left, [facility] [place]: left, [facility] Normal P waves. Normal [place]. Normal QRS complex. ST T wave : no LILIA, inverted t waves V1 and V2 qTC: 445 prior studies: no change december 2023 The study has been interpreted contemporaneously by me. . Radiology Impression Discussion of test interpretation with radiology: I have reviewed the radiologist's reading. External Record Review External record reviewed: Outpatient record Prescription Management I considered prescription management with: Antibiotic and Other Discharge Plan Discharge Clinical Impression: COPD exacerbation Pharyngitis Qualifiers: Pharyngitis/tonsillitis etiology: unspecified etiology Qualified Code(s): J02.9 - Acute pharyngitis, unspecified Patient Disposition: Home, Self-Care Instructions: Pharyngitis (ED), COPD (Chronic Obstructive Pulmonary Disease) (ED) Additional Instructions: labs reassuring negative for covid flu rsv though you would not wait for a strep test chest xray no pneumonia we wanted to give you steroids and a breathing treatment but you declined return for any worsening symptoms or concerns On amoxicillin-clavulanate, softer bowel movements are to be expected. Call your provider if you move your bowels more than 4 times a day, your bowel movements are almost all liquid, or you get a rash.? On azithromycin, call your provider if you develop new ringing in your ears, new problems hearing, dizziness, palpitations, abdominal pain, nausea, or diarrhea. follow up with your doctor if not better Prescriptions: New azithromycin 250 mg tablet See Rx Instructions .ROUTE .COMPLEX Qty: 6 0RF Rx Instructions: For 250 mg dose pack: take 500 mg today (day 1), then 250 mg for 4 days (days 2-5) prednisone 20 mg tablet 40 mg PO DAILY 5 Days Qty: 10 0RF amoxicillin-pot clavulanate 875-125 mg tablet 1 tab PO BID Qty: 14 0RF No Action fluticasone propion-salmeterol [Advair Diskus] 250-50 mcg/dose blister with device 1 puff PO BID albuterol sulfate [ProAir HFA] 90 mcg/actuation HFA aerosol inhaler 1 puff PO Q4H PRN (Reason: wheezing) Incruse Ellipta 62.5 mcg/actuation blister with device 1 puff PO DAILY prednisone 20 mg tablet 40 mg PO DAILY Qty: 10 0RF albuterol sulfate 2.5 mg /3 mL (0.083 %) solution for nebulization 2.5 mg inhalation Q6H PRN (Reason: wheezing) sertraline 50 mg tablet 50 mg PO DAILY guaifenesin 100 mg/5 mL Liquid 100 mg PO Q6H Qty: 100 0RF benzonatate 100 mg Capsule 100 mg PO TID Qty: 20 0RF azithromycin 250 mg tablet See Rx Instructions .ROUTE .COMPLEX Qty: 4 0RF Rx Instructions: For 250 mg dose pack: take 500 mg today (day 1), then 250 mg for 4 days (days 2-5) loratadine 10 mg Tablet 10 mg PO DAILY Qty: 10 0RF Interventions: ED Discharge Assessment Last Done: 04/14/24 21:32 Print Language: [place]er
--- NOTE | 2024-04-14 17:17 | ECG_ITS ---
Test Reason : SOB Blood Pressure : */* mmHG Vent. Rate : 91 BPM Atrial Rate : 91 BPM P-R Int : 130 ms QRS Dur : 94 ms QT Int : 362 ms P-R-T Axes : 87 131 83 degrees QTcB Int : 445 ms Normal sinus rhythm Biatrial enlargement Right axis deviation Left ventricular hypertrophy ( [place] product ) Abnormal ECG When compared with ECG of 06-Dec-2023 17:59, No significant change was found Referred By: Elizabeth Fernando Electronically Signed By: ISSA DAVENPORT
[2024-04-14 17:44] LABS: MANUAL DIFF FLAG NO
[2024-04-14 18:01] LABS: Basophils Absolute Auto 0.1 X10*3/uL (0.0-0.2); Basophils Percent Auto 0.7 % (0-2); Eosinophils Absolute Auto 0.3 X10*3/uL (0.0-0.4); Eosinophils Percent Auto 2.1 % (0-4); Hematocrit 52.1 % (37.0-47.0); Hemoglobin 17.5 g/dl (12.0-16.0); Imm Gran Abs Auto 0.07 X10*3/uL (0.00-0.03); Imm Gran Pct Auto 0.5 % (0.0-0.4); Lymphocytes Absolute Auto 1.9 X10*3/uL (1.2-4.9); Lymphocytes Percent Auto 12.9 % (20-40); Mean Corpuscular HGB Conc 33.6 g/dl (31.0-35.0); Mean Corpuscular Hemoglobin 31.5 pg (27.0-33.0); Mean Corpuscular Volume 93.7 fL (80.0-98.0); Mean Platelet Volume 10.3 fL (9.4-12.3); Monocytes Absolute Auto 0.8 X10*3/uL (0.1-1.2); Neutrophils Absolute Auto 11.8 x10*3/uL (2.0-8.3); Neutrophils Percent Auto 78.8 % (45-73); Platelet Count 344 X10*3/uL (160-400); Red Blood Count 5.56 X10*6/uL (4.20-5.50); Red Cell Distribution Width 11.8 % (11.0-16.0); White Blood Count 14.9 X10*3/uL (4.8-10.8)
[2024-04-14 18:04] LABS: INTERNATIONAL NORM RATIO 0.9 (0.9-1.1); Prothrombin Time 10.3 SEC (10.9-12.4)
[2024-04-14 18:08] LABS: Alanine Aminotransferase 17 U/L (0-31); Albumin Level 4.1 g/dL (3.5-5.0); Alkaline Phosphatase 107 U/L (39-117); Anion Gap 12 (12-20); Aspartate Amino Transferase 21 U/L (5-31); Bilirubin Total 0.4 mg/dL (0.0-1.0); Blood Urea Nitrogen 12 mg/dL (9-16); Calcium 9.4 mg/dL (8.4-10.2); Carbon Dioxide 31 mmol/L (22-29); Chloride 105 mmol/L (96-108); Creatinine Clr Calc Pharmacy 63.7; Estimated Glomerular Filt Rate > 60; Glucose Random 151 mg/dL (60-115); Magnesium 2.2 mg/dL (1.6-2.6); Potassium 5.1 mmol/L (3.3-5.1); Sodium 143 mmol/L (135-145); Total Protein 7.5 g/dL (6.5-8.0); Troponin-I High Sensitivity < 2.7 ng/L (<3.5-17.0)
[2024-04-14 18:21] LABS: Influenza A PCR NEGATIVE (Negative); Influenza B PCR NEGATIVE (Negative); Resp Syncy Virus RNA Qual PCR NEGATIVE (Negative); SARS COV2 PCR INHOUSE NEGATIVE (Negative)
--- NOTE | 2024-04-14 21:08 | PC.RT ---
pt refusing neb and or mdi tx. says she wants to leave now. Dr. Fernandez aware
[2024-04-14] MEDS: predniSONE 20 MG TABLET 40 MG PO (21:22)
[2024-04-14] MEDS: Azithromycin 500 MG TABLET PO (21:22)
[2024-04-14 21:32] VITALS: BP 149/88; PULSE 89; RESP 16; TEMP 36.7; O2SAT 94
== END 2024-04-14 21:32 | disposition home or self-care (01) ==
PROVIDERS: Nurse Practitioner Family; Emergency Provider Emergency Medicine; PCP Pediatrics
DX: J44.1 Chronic obstructive pulmonary disease with (acute) exacerbation (principal); R06.02 Shortness of breath; R05.9 Cough, unspecified; F17.210 Nicotine dependence, cigarettes, uncomplicated; Z03.818 Encounter for observation for suspected exposure to other biological agents ruled out; Z79.899 Other long term (current) drug therapy
CPT/HCPCS: 0241U; 71046; 80053; 83735; 84484; 85025; 85610; 93005; 99284

== ENCOUNTER → 2024-04-14 17:17 | Outpatient (BNV) | payer OTHER, SELFPAY | PROVIDERS: Emergency Provider Emergency Medicine; PCP Pediatrics; Visit Provider Internal Medicine | DX: R94.31 Abnormal electrocardiogram [ECG] [EKG] (principal) | CPT/HCPCS: 93010 ==

== ENCOUNTER → 2024-04-14 17:17 | Outpatient (BNV) | payer OTHER, SELFPAY | PROVIDERS: Visit Provider Nuclear Medicine | DX: R06.02 Shortness of breath (principal) | CPT/HCPCS: 71046 ==

== ENCOUNTER 2024-05-03 04:35 | Emergency (ER) | payer OTHER, SELFPAY ==
--- NOTE | ~2024-05-03 | XR_ITS ---
CLINICAL HISTORY: shortness of breath 1 view chest x-ray Comparison: CR - XR CHEST 2V - 04/14/24 17:30 EST CR/SR - XR CHEST 2V - 12/06/23 18:14 EDT Findings: Hyperexpanded lungs with apical changes suggestive of emphysema. No consolidation, effusion or pneumothorax. Normal size heart. No acute fracture. IMPRESSION: 1. Emphysema without superimposed acute cardiopulmonary disease. This document has been electronically signed by: Christelle White MD on 05/03/2024 05:18:03
[2024-05-03 04:41] VITALS: BP 155/91; BP 160/94; PULSE 80; PULSE 82; RESP 30; TEMP 37; O2SAT 95; O2SAT 96; BMI 17.9
--- NOTE | 2024-05-03 04:45 | ECG_ITS ---
Test Reason : DYSPNEA Blood Pressure : */* mmHG Vent. Rate : 73 BPM Atrial Rate : 73 BPM P-R Int : 138 ms QRS Dur : 100 ms QT Int : 414 ms P-R-T Axes : 88 113 90 degrees QTcB Int : 456 ms Normal sinus rhythm with sinus arrhythmia Biatrial enlargement Right axis deviation Nonspecific ST and T wave abnormality Abnormal ECG When compared with ECG of 14-Apr-2024 17:32, T wave inversion more evident in Anterolateral leads Referred By: Generic ED Physician Electronically Signed By: ISSA DAVENPORT
[2024-05-03 05:10] LABS: Basophils Absolute Auto 0.1 X10*3/uL (0.0-0.2); Basophils Percent Auto 0.5 % (0-2); Imm Gran Abs Auto 0.03 X10*3/uL (0.00-0.03); Imm Gran Pct Auto 0.3 % (0.0-0.4); Mean Platelet Volume 10.4 fL (9.4-12.3); Monocytes Absolute Auto 0.9 X10*3/uL (0.1-1.2); Monocytes Percent Auto 8.3 % (2-11); PLT CLUMP 1; Red Cell Distribution Width 12.2 % (11.0-16.0); SCAN SMEAR FLAG 1
[2024-05-03 05:12] LABS: Eosinophils Percent Auto 0.1 % (0-4); Hematocrit 50.7 % (37.0-47.0); Hemoglobin 17.6 g/dl (12.0-16.0); Lymphocytes Absolute Auto 1.3 X10*3/uL (1.2-4.9); Lymphocytes Percent Auto 12.1 % (20-40); Mean Corpuscular HGB Conc 34.7 g/dl (31.0-35.0); Mean Corpuscular Hemoglobin 31.5 pg (27.0-33.0); Mean Corpuscular Volume 90.7 fL (80.0-98.0); Neutrophils Absolute Auto 8.7 x10*3/uL (2.0-8.3); Neutrophils Percent Auto 78.7 % (45-73); Red Blood Count 5.59 X10*6/uL (4.20-5.50)
[2024-05-03 05:27] LABS: MANUAL DIFF FLAG SCAN
[2024-05-03 05:28] LABS: Platelet Count 217 X10*3/uL (160-400); SLIDE REVIEW VERIFIED
[2024-05-03 05:37] LABS: Troponin-I High Sensitivity 5.5 ng/L (<3.5-17.0)
[2024-05-03 05:38] LABS: Anion Gap 15 (12-20); Blood Urea Nitrogen 13 mg/dL (9-16); Calcium 9.8 mg/dL (8.4-10.2); Carbon Dioxide 24 mmol/L (22-29); Chloride 105 mmol/L (96-108); Creatinine Clr Calc Pharmacy 61.6; Estimated Glomerular Filt Rate > 60; Glucose Random 174 mg/dL (60-115); Potassium 3.7 mmol/L (3.3-5.1); Sodium 140 mmol/L (135-145)
[2024-05-03 05:47] LABS: Influenza A PCR NEGATIVE (Negative); Influenza B PCR NEGATIVE (Negative); Resp Syncy Virus RNA Qual PCR NEGATIVE (Negative); SARS COV2 PCR INHOUSE NEGATIVE (Negative)
[2024-05-03 06:00] VITALS: BP 126/84; PULSE 68; RESP 26; TEMP 36.4; O2SAT 93
--- NOTE | 2024-05-03 06:44 | ED_ITS ---
HPI - General Adult General Chief complaint: Dyspnea Stated complaint: 5 Time Seen by Provider: 05/03/24 06:40 Source: patient and EMS Mode of arrival: EMS Limitations: no limitations History of Present Illness ED Provider: Yue Shah PA-C HPI narrative: Patient is a 58 year old assigned female at with a history of COPD and tobacco use presenting to the emergency department today with shortness of breath and a cough. Patient states that she was having increased shortness of breath and a worsening cough over the last few days. Patient denies any dizziness, lightheadedness, abdominal pain, nausea, vomiting, fever, chills, blurry vision, double vision, loss of vision, chest pain, back pain, night sweats, pain with urination, increased urinary frequency, increased urinary urgency, blood in her urine or stool, syncope or a near syncopal episode, recent trauma or falls, bowel incontinence, bladder incontinence, or any other complaints at this time. Onset (ago): day(s) Relieving factors: none Exacerbating factors: none Associated symptoms: cough and shortness of breath Treatments prior to arrival: other (patient was given solu-medrol and duoneb via EMS prior to arrival) Related Data Home Medications ?Medication ?Instructions ?Recorded ?Confirmed albuterol sulfate 90 mcg/actuation 1 puff PO Q4H PRN wheezing 06/06/20 12/07/23 aerosol inhaler (ProAir HFA) fluticasone 250 mcg-salmeterol 50 1 puff PO BID 06/06/20 12/07/23 mcg/dose blistr powdr for inhalation (Advair Diskus) umeclidinium 62.5 mcg/actuation 1 puff PO DAILY 06/06/20 12/07/23 blister powder for inhalation (Incruse Ellipta) albuterol sulfate 2.5 mg/3 mL 2.5 mg inhalation Q6H PRN wheezing 12/06/23 12/07/23 (0.083 %) solution for nebulization sertraline 50 mg tablet 50 mg PO DAILY 12/07/23 12/07/23 Previous Rx's ?Medication ?Instructions ?Recorded prednisone 20 mg tablet 40 mg (2 x 20 mg) PO DAILY #10 tabs 12/04/23 azithromycin 250 mg tablet See Rx Instructions PO .COMPLEX #4 12/09/23 tabs benzonatate 100 mg capsule 100 mg PO TID #20 caps 12/09/23 guaifenesin 100 mg/5 mL oral liquid 100 mg (5 mL) PO Q6H #100 mL 12/09/23 loratadine 10 mg tablet 10 mg PO DAILY #10 tabs 12/09/23 amoxicillin 875 mg-potassium 1 tab PO BID #14 tabs 04/14/24 clavulanate 125 mg tablet azithromycin 250 mg tablet See Rx Instructions PO .COMPLEX #6 04/14/24 tabs prednisone 20 mg tablet 40 mg (2 x 20 mg) PO DAILY 5 days 04/14/24 #10 tabs azithromycin 250 mg tablet See Rx Instructions PO .COMPLEX #6 05/03/24 tabs prednisone 20 mg tablet See Rx Instructions .Route 05/03/24 .COMPLEX 12 days #26 tabs Allergies Allergy/AdvReac Type Severity Reaction Status Date / Time codeine [CODEINE] Allergy Unknown RASH Verified 05/03/24 04:44 Review of Systems 2 Constitutional: Constitutional: Reports no additional constitutional complaints, Denies chills, Denies fever(s) and Denies night sweats Eyes: Eyes: Reports no additional eye complaints, Denies blurry vision, Denies change in vision, Denies diplopia, Denies eye discharge, Denies loss of vision and Denies eye pain ENT: Denies dizziness Cardiovascular: Cardiovascular: Reports no additional cardiovascular complaints, Denies chest pain, Denies lightheadedness, Denies Loss of Consciousness and Reports dyspnea Respiratory: Respiratory: Reports no additional respiratory complaints, Reports cough and Reports dyspnea Gastrointestinal: Gastrointestinal: Reports no additional gastrointestinal complaints, Denies abdominal pain, Denies melena, Denies hematochezia, Denies change in bowel habits and Denies change in stool character Genitourinary: Genitourinary: Denies hematuria, Denies urinary frequency, Denies dysuria, Denies urinary incontinence, Denies urinary hesitancy and Denies urinary urgency Musculoskeletal: Musculoskeletal: Reports no additional musculoskeletal complaints, Denies numbness and Denies tingling Neurologic: Denies dizziness, Denies loss of vision, Denies numbness and Denies tingling Psychiatric: Psychiatric: Reports no additional psychiatric complaints Endocrine: Endocrine: Reports no additional endocrine complaints Hematologic/Lymphatic: Hematologic/Lymphatic: Reports no additional hematologic/lymphatic complaints Allergic/Immunologic: Allergic/Immunologic: Reports no additional allergic/immunologic complaints PMFSH Past Medical History Attestation statement: The following information was validated with the patient. Source: old records reviewed and nursing notes reviewed Medical History Hx of flexible sigmoidoscopy History of crack cocaine use Smoker Back pain COPD (chronic obstructive pulmonary disease) Surgical History Hx of cholecystectomy Previous back surgery Tubal ligation status Social History Social History Household Members: Family Housing: House Are you a primary wound care coordinator to a significant other at home: No Do you presently have visiting nurse or other home services: No Alcohol intake: never Comment: occaisional cramping which is preop baseline Patient Tobacco Use Status: Current everyday Tobacco user Tobacco use type: Cigarette Cigarette Packs Per Day: 0.75 Cigarettes Per Day: 15.0 Years Smoked: many per pt Second Hand Smoke Exposure: No Substance Use Type: Crack/Cocaine Advance Directives: Yes Advance Directives on File: Yes Advance Directives Date on File: 12/07/23 service: No Current occupational status: unemployed Physical Exam ED Vital Signs: Vital Signs - 24 hr 05/03/24 04:41 05/03/24 06:00 05/03/24 07:11 Temperature 98.6 F 97.6 F Pulse Rate 82 68 69 Respiratory Rate 30 H 26 H 16 Blood Pressure 160/94 H 126/84 Pulse Oximetry 95 93 Oxygen Delivery Method Room Air Room Air 05/03/24 07:32 05/03/24 08:49 Temperature 98.7 F 97 F Pulse Rate 80 65 Respiratory Rate 18 20 Blood Pressure 119/76 122/76 Pulse Oximetry 96 95 Oxygen Delivery Method Room Air Room Air BMI result Body Mass Index 17.9 Const General: cooperative, no acute distress, alert and awake Nutritional Appearance: well nourished Orientation/consciousness: patient oriented x3 Limitations: no limitations HENMT Head: Yes normal to inspection and Yes atraumatic Ears: hearing grossly normal bilaterally and external ears normal General nose exam: Normal external nose present, no nasal discharge noted and no epistaxis Face and sinus: Yes normal facial exam, No abrasion and No laceration Mouth: Normal oral and palatal mucosa present, no drooling and no muffled voice Eyes General: appearance normal, both eyes and all related structures Periorbital: periorbital findings normal Eyelids: Yes eyelids normal Conjunctivae: conjunctivae normal Pupils: Equal, round and reactive pupils present EOM: EOMs intact bilaterally Neck Neck: Yes normal visual inspection, Yes full ROM and Yes no lymphadenopathy Chest Chest palpation & inspection: normal inspection of the chest Resp Effort & Inspection: normal respiratory effort and able to speak in complete sentences Auscultation: diminished lung sounds bilateral in the lower lung garcia GI Inspection: Yes normal to inspection Neuro General: patient oriented x3 and moves all extremities Cranial nerves: Yes Equal, round and reactive pupils present Cognition (Neuro): normal cognition Extrem General: Yes normal to inspection, Yes full ROM and Yes capillary refill normal Psych Appearance: grossly normal Mental Status: mental status grossly normal Affect: normal affect Attitude: cooperative Thought process: Normal thought process present Thought content: Normal thought content present Insight: Good insight present (Psych) Medications Administered Discontinued Medications Generic Name Dose Route Start Last Admin Trade Name Freq PRN Reason Stop Dose Admin Albuterol Sulfate 2.5 mg/ 0 mg 05/03/24 07:06 05/03/24 07:11 Albuterol/Ipratropium 3 ml INHALE 05/03/24 07:07 1 dose ONCE ONE Administration Medical Decision Making Medical Decision Making [facility] Narrative: Patient is a 58 year old assigned female at with a history of COPD and tobacco use presenting to the emergency department today with shortness of breath and a cough. Patient's physical exam was unremarkable. Patient's blood work showed a WBC count of 11 however this appears to be chronic for the patient. Patient's EKG was unremarkable. Patient's chest x-ray showed emphysema with no evidence of acute infection. Patient's clinical presentation is most consistent with a COPD exacerbation. Patient was not hypoxic or requiring oxygenation while in the department. Patient was given solu-medrol and a duoneb which helped her symptoms significantly. I explained my physical exam findings as well as all test results to the patient. I answered all questions asked by the patient. I stressed the importance of the patient taking her medication as directed (either prescribed or as the over the counter packaging recommends). I stressed the importance of the patient following up with her primary care provider. I stressed the importance of the patient returning to the emergency department immediately if her symptoms were to worsen or if she were to develop any dizziness, shortness of breath, difficulty breathing, chest pain, blurry vision, loss of vision, nausea, vomiting, abdominal pain, fever, chills, back pain, or any other complaints. Patient verbalized agreement and understanding with this treatment plan and discharge. Differential Diagnosis Differential Diagnoses: The differential diagnosis associated with the presentation includes COPD exacerbation Cough SOB Viral illness COVID-19 Influenza RSV Admission/Observation Consideration of admission/observation: Escalation of care including admission/observation considered Patient would have been admitted to the hospital had her work up had any findings where hospital admission was appropriate and her clinical presentation warranted hospital admission. Lab Data [facility] Lab Attestation statement: I reviewed the patient's lab results. My interpretation of these results are in the [facility] Rationale portion of this note. 05/03/24 05:04 05/03/24 05:04 Labs: Lab Results 05/03/24 05/03/24 05/03/24 Range/Units 05:04 07:44 08:03 WBC 11.0 H (4.8-10.8) X10*3/uL RBC 5.59 H (4.20-5.50) X10*6/uL Hgb 17.6 H (12.0-16.0) g/dl Hct 50.7 H (37.0-47.0) % MCV 90.7 (80.0-98.0) fL MCH 31.5 (27.0-33.0) pg MCHC 34.7 (31.0-35.0) g/dl RDW 12.2 (11.0-16.0) % Plt Count 217 D (160-400) X10*3/uL MPV 10.4 (9.4-12.3) fL Immature Gran % (Auto) 0.3 (0.0-0.4) % Neut % (Auto) 78.7 H (45-73) % Lymph % (Auto) 12.1 L (20-40) % [place] % (Auto) 8.3 (2-11) % Eos % (Auto) 0.1 (0-4) % Baso % (Auto) 0.5 (0-2) % Lymph # (Auto) 1.3 (1.2-4.9) X10*3/uL [place] # (Auto) 0.9 (0.1-1.2) X10*3/uL Eos # (Auto) 0.0 (0.0-0.4) X10*3/uL Baso # (Auto) 0.1 (0.0-0.2) X10*3/uL Abs Immat Gran (auto) 0.03 (0.00-0.03) X10*3/uL Absolute Neuts (auto) 8.7 H (2.0-8.3) x10*3/uL Absolute Nucleated RBC 0.000 (0.0-0.012) X10*3/uL Nucleated RBC % (auto) 0.0 (0.0-0.2) /100WBC Smear Tech's Comments VERIFIED VBG pH 7.41 (7.32-7.43) VBG pCO2 43 mmHg VBG pO2 37 mmHg VBG HCO3 28 H (22-26) mmol/L VBG O2 Saturation 61.0 % VBG Base Excess 3.3 mmol/L Sodium 140 (135-145) mmol/L Potassium 3.7 D (3.3-5.1) mmol/L Chloride 105 (96-108) mmol/L Carbon Dioxide 24 (22-29) mmol/L Anion Gap 15 (12-20) BUN 13 (9-16) mg/dL Creatinine 0.77 (0.5-1.4) mg/dL Estim Creat Clear Calc 61.6 Estimated GFR > 60 Random Glucose 174 H (60-115) mg/dL Calcium 9.8 (8.4-10.2) mg/dL Troponin I High Sens 5.5 D 3.8 (<3.5-17.0) ng/L Influenza Type A (PCR) NEGATIVE (Negative) Influenza Type B (PCR) NEGATIVE (Negative) RSV RNA Qual (PCR) NEGATIVE (Negative) SARS-CoV-2 RNA (RT-PCR) NEGATIVE (Negative) Independent Interpretation I performed an independent interpretation of an: EKG and Plain X-Ray Interpretation: My interpretation is in agreement with the radiologist's impression of this imaging study. L CLINICAL HISTORY: shortness of breath 1 view chest x-ray Comparison: CR - XR CHEST 2V - 04/14/24 17:30 EST CR/SR - XR CHEST 2V - 12/06/23 18:14 EDT Findings: Hyperexpanded lungs with apical changes suggestive of emphysema. No consolidation, effusion or pneumothorax. Normal size heart. No acute fracture. IMPRESSION: 1. Emphysema without superimposed acute cardiopulmonary disease. This document has been electronically signed by: Christelle White MD on 05/03/2024 05:18:03 Dictated By: Christelle White MD Signed By: Electronically signed by Christelle White MD 05/03/24 0518 Vent. Rate: 73 BPM Atrial Rate: 73 BPM P-R Int: 138 ms QRS Dur: 100 ms QT Int: 414 ms P-R-T Axes: 88 113 90 degrees QTcB Int: 456 ms Normal sinus rhythm with sinus arrhythmia Biatrial enlargement Right axis deviation Pulmonary disease pattern Nonspecific ST and T wave abnormality When compared with ECG of 14-Apr-2024 17:32, T wave inversion more evident in Anterolateral leads DD/ 0448 Radiology Impression Discussion of test interpretation with radiology: I have reviewed the radiologist's reading. Independent Historian Clinical information obtained from an independent historian. History obtained from or confirmed by: EMS (EMS provided additional history and confirmed the history provided by the patient.) Prescription Management I considered prescription management with: Antibiotic (patient given azithromycin for COPD exacerbation) Discharge Plan Discharge Clinical Impression: COPD exacerbation Patient Disposition: Home, Self-Care Instructions: COPD (Chronic Obstructive Pulmonary Disease) (DC) Additional Instructions: Follow up with your primary care provider. Return to the emergency department immediately if your symptoms worsen or if you develop any dizziness, shortness of breath, difficulty breathing, chest pain, blurry vision, loss of vision, nausea, vomiting, abdominal pain, fever, chills, back pain, or any other complaints. Prescriptions: New azithromycin 250 mg tablet See Rx Instructions .ROUTE .COMPLEX Qty: 6 0RF Rx Instructions: For 250 mg dose pack: take 500 mg today (day 1), then 250 mg for 4 days (days 2-5) prednisone 20 mg tablet See Rx Instructions .ROUTE .COMPLEX 12 Days Qty: 26 0RF Rx Instructions: 20 mg orally, Take 3 tablets for 5 days THEN; Take 2 tablets for 4 days THEN; Take 1 tablet for 3 days No Action fluticasone propion-salmeterol [Advair Diskus] 250-50 mcg/dose blister with device 1 puff PO BID albuterol sulfate [ProAir HFA] 90 mcg/actuation HFA aerosol inhaler 1 puff PO Q4H PRN (Reason: wheezing) Incruse Ellipta 62.5 mcg/actuation blister with device 1 puff PO DAILY prednisone 20 mg tablet 40 mg PO DAILY Qty: 10 0RF azithromycin 250 mg tablet See Rx Instructions .ROUTE .COMPLEX Qty: 6 0RF Rx Instructions: For 250 mg dose pack: take 500 mg today (day 1), then 250 mg for 4 days (days 2-5) prednisone 20 mg tablet 40 mg PO DAILY 5 Days Qty: 10 0RF amoxicillin-pot clavulanate 875-125 mg tablet 1 tab PO BID Qty: 14 0RF albuterol sulfate 2.5 mg /3 mL (0.083 %) solution for nebulization 2.5 mg inhalation Q6H PRN (Reason: wheezing) sertraline 50 mg tablet 50 mg PO DAILY guaifenesin 100 mg/5 mL Liquid 100 mg PO Q6H Qty: 100 0RF benzonatate 100 mg Capsule 100 mg PO TID Qty: 20 0RF azithromycin 250 mg tablet See Rx Instructions .ROUTE .COMPLEX Qty: 4 0RF Rx Instructions: For 250 mg dose pack: take 500 mg today (day 1), then 250 mg for 4 days (days 2-5) loratadine 10 mg Tablet 10 mg PO DAILY Qty: 10 0RF Referrals: Summer Olivier DO [Primary Care Provider] - Stand Alone Forms: Work/School Release Interventions: ED Discharge Assessment Last Done: 05/03/24 08:49 Discharge Date/Time: 05/03/24 08:49 Print Language: [place] Verdean
[2024-05-03 07:11] VITALS: PULSE 69; RESP 16; O2SAT 94
[2024-05-03] MEDS: Albuterol Sulfate 2.5 MG, Albuterol/Iprat 2.5/0.5MG 3 ML 3 ML INHALE (07:11)
[2024-05-03 07:32] VITALS: BP 119/76; PULSE 80; RESP 18; TEMP 37.1; O2SAT 96
[2024-05-03 07:49] LABS: VBG Base Excess 3.3 mmol/L; VBG HCO3 28 mmol/L (22-26); VBG pCO2 43 mmHg; VBG pH 7.41 (7.32-7.43); VBG pO2 37 mmHg
[2024-05-03 07:49] LABS: Venous Blood Gas Refer to POC result
[2024-05-03 08:29] LABS: Troponin-I High Sensitivity 3.8 ng/L (<3.5-17.0)
[2024-05-03 08:49] VITALS: BP 122/76; PULSE 65; RESP 20; TEMP 36.1; O2SAT 95
== END 2024-05-03 08:49 | disposition home or self-care (01) ==
PROVIDERS: Physician Assistant Medical; Emergency Provider Student in an Organized Health Care Education/Training Program; PCP Pediatrics
DX: J44.1 Chronic obstructive pulmonary disease with (acute) exacerbation (principal); R06.02 Shortness of breath; R05.9 Cough, unspecified; I49.8 Other specified cardiac arrhythmias; Z03.818 Encounter for observation for suspected exposure to other biological agents ruled out; Z79.899 Other long term (current) drug therapy
CPT/HCPCS: 0241U; 36415; 71045; 80048; 82803; 84484; 85025; 93005; 94640; 99284

== ENCOUNTER → 2024-05-03 04:45 | Outpatient (BNV) | payer OTHER, SELFPAY | PROVIDERS: PCP Pediatrics; Visit Provider Radiology Diagnostic Radiology | DX: J43.9 Emphysema, unspecified (principal) | CPT/HCPCS: 71045 ==

== ENCOUNTER → 2024-05-03 04:45 | Outpatient (BNV) | payer OTHER, SELFPAY | PROVIDERS: Emergency Provider Student in an Organized Health Care Education/Training Program; PCP Pediatrics; Visit Provider Internal Medicine | DX: R94.31 Abnormal electrocardiogram [ECG] [EKG] (principal) | CPT/HCPCS: 93010 ==

== ENCOUNTER 2024-05-03 18:15 | Inpatient (IN) | payer OTHER, SELFPAY ==
--- NOTE | 2024-05-03 18:28 | ED_ITS ---
HPI - SOB/Dyspnea General Chief Complaint: Dyspnea Stated Complaint: expiratory wheezing, duo neb given, seen yesterday Time Seen by Provider: 05/03/24 18:28 Source: patient Limitations: no limitations History of Present Illness ED Provider: Hetal Rowland PA-C HPI Narrative: 58-year-old female with a history of COPD, ongoing tobacco abuse presents with shortness of breath. Patient was seen in the emergency department this morning for COPD exacerbation, she was treated, discharged with steroid and azithromycin. Patient returns this evening given her symptoms are markedly improved. EMS reports that the patient is 98% on room air, that she was administering herself an albuterol updraft within her home. EMS gave an additional treatment of ipratropium. Related Data Home Medications ?Medication ?Instructions ?Recorded ?Confirmed albuterol sulfate 90 mcg/actuation 1 puff PO Q4H PRN wheezing 06/06/20 12/07/23 aerosol inhaler (ProAir HFA) fluticasone 250 mcg-salmeterol 50 1 puff PO BID 06/06/20 12/07/23 mcg/dose blistr powdr for inhalation (Advair Diskus) umeclidinium 62.5 mcg/actuation 1 puff PO DAILY 06/06/20 12/07/23 blister powder for inhalation (Incruse Ellipta) albuterol sulfate 2.5 mg/3 mL 2.5 mg inhalation Q6H PRN wheezing 12/06/23 12/07/23 (0.083 %) solution for nebulization sertraline 50 mg tablet 50 mg PO DAILY 12/07/23 12/07/23 Previous Rx's ?Medication ?Instructions ?Recorded prednisone 20 mg tablet 40 mg (2 x 20 mg) PO DAILY #10 tabs 12/04/23 azithromycin 250 mg tablet See Rx Instructions PO .COMPLEX #4 12/09/23 tabs benzonatate 100 mg capsule 100 mg PO TID #20 caps 12/09/23 guaifenesin 100 mg/5 mL oral liquid 100 mg (5 mL) PO Q6H #100 mL 12/09/23 loratadine 10 mg tablet 10 mg PO DAILY #10 tabs 12/09/23 amoxicillin 875 mg-potassium 1 tab PO BID #14 tabs 04/14/24 clavulanate 125 mg tablet azithromycin 250 mg tablet See Rx Instructions PO .COMPLEX #6 04/14/24 tabs prednisone 20 mg tablet 40 mg (2 x 20 mg) PO DAILY 5 days 04/14/24 #10 tabs azithromycin 250 mg tablet See Rx Instructions PO .COMPLEX #6 05/03/24 tabs prednisone 20 mg tablet See Rx Instructions .Route 05/03/24 .COMPLEX 12 days #26 tabs Allergies Allergy/AdvReac Type Severity Reaction Status Date / Time codeine [CODEINE] Allergy Unknown RASH Verified 05/03/24 18:47 Review of Systems Review of Systems: Yes all other systems are reviewed and are negative Constitutional: Constitutional: Denies fatigue and Denies fever(s) Cardiovascular: Cardiovascular: Denies chest pain and Reports dyspnea Respiratory: Respiratory: Reports cough, Reports dyspnea and Reports wheezing Endocrine: Endocrine: Denies fatigue Allergic/Immunologic: Allergic/Immunologic: Reports wheezing PMFSH Past Medical History Attestation statement: The following information was validated with the patient. Medical History Hx of flexible sigmoidoscopy History of crack cocaine use Smoker Back pain COPD (chronic obstructive pulmonary disease) Surgical History Hx of cholecystectomy Previous back surgery Tubal ligation status Social History Social History Household Members: Family Housing: House Are you a primary residential care officer to a significant other at home: No Do you presently have visiting nurse or other home services: No Alcohol intake: never Comment: occaisional cramping which is preop baseline Patient Tobacco Use Status: Current everyday Tobacco user Tobacco use type: Cigarette Cigarette Packs Per Day: 0.75 Cigarettes Per Day: 15.0 Years Smoked: many per pt Second Hand Smoke Exposure: No Substance Use Type: Crack/Cocaine Advance Directives: Yes Advance Directives on File: Yes Advance Directives Date on File: 12/07/23 service: No Current occupational status: unemployed Physical Exam Vital Signs: Vital Signs: Last Vital Signs Temp 98 F 05/03/24 18:45 Pulse 92 05/03/24 18:45 Resp 20 05/03/24 18:45 BP 150/92 H 05/03/24 18:45 Pulse Ox 95 05/03/24 18:45 O2 Del Method Room Air 05/03/24 18:45 BMI result Body Mass Index 21.0 Const: Other: Awake, appears older than stated age Orientation/consciousness: patient oriented x3 Resp: Other: Nonlabored respirations, active bronchospasm cough, no wheezing at this time Cardio: Other: Normal peripheral perfusion Skin: Other: Warm dry no rash Neuro: General: patient oriented x3, no focal motor deficits and CN's II-XI intact bilaterally Psych: Other: Hostile belligerent Course Reevaluation(s) Reevaluation #1: Patient was ambulated and she did drop her oxygen saturation to 78 to 81%, we will be admitting the patient Medical Decision Making Medical Decision Making MDM Narrative: 58-year-old female with a history of COPD, ongoing tobacco abuse presents with shortness of breath. Patient was seen in the emergency department this morning for COPD exacerbation, she was treated, discharged with steroid and azithromycin. Patient returns this evening given her symptoms are markedly improved. EMS reports that the patient is 98% on room air, that she was administering herself an albuterol updraft within her home. EMS gave an additional treatment of ipratropium. Problem: COPD ongoing tobacco abuse History: Per patient I have considered the following differential diagnoses: COPD exacerbation , sepsis Plan: Patient had a full assessment this morning and was discharged with the appropriate medication. I will ambulate the patient to be sure she does not drop her oxygen saturation. She did drop her oxygen saturation markedly, I see blood cultures from I have obtained earlier, given her sepsis protocol for COPD, adding blood cultures, lactic, giving magnesium, she already had azithromycin today, we will give ceftriaxone. She just had an updraft I will put in the bronchodilator protocol I have independently reviewed the following tests: Labs: Slight leukocytosis, left shift noted, not anemic, viral panel negative, no electrolyte abnormalities, troponins flat Chest x-ray:Findings: Hyperexpanded lungs with apical changes suggestive of emphysema. No consolidation, effusion or pneumothorax. Normal size heart. No acute fracture. IMPRESSION: 1. Emphysema without superimposed acute cardiopulmonary disease. This document has been electronically signed by: Christelle White MD on 05/03/2024 05:18:03 Discharge Plan Discharge Clinical Impression: COPD exacerbation, Hypoxia Patient Disposition: Admitted As Inpatient Print Language: Latvian
[2024-05-03 18:45] VITALS: BP 150/92; PULSE 92; RESP 20; TEMP 36.6; O2SAT 95; BMI 21.0
--- NOTE | 2024-05-03 18:50 | MHC.EDTECH ---
Ambulated patient as provider ordered 02 dropped to 78 room air while walking. Patient was put on 2 liters of oxygen when brought back to bed and 02 went up to 92 on nasal cannula.
--- NOTE | 2024-05-03 19:13 | P.HPHOSP_ITS ---
History of Present Illness Date of Service: 05/03/24 Attending physician on admission: Yogi Singh Chief Complaint: SOB Pt is a -year-old female with a PMH significant for COPD not on home O2, currently smoking a few cigarettes daily who presents to the ED with?increasing SOB and difficulty breathing especially with exertion. Pt reports has been experiencing symptoms for the past few days and becoming severely short of breath with minimal exertion, such as ambulating to the kitchen or the bathroom. Subjective fever and chills, as well as chest tightness associated with cough and inspiration. Chronic occasionally productive cough at baseline. Symptoms became unbearable this morning and were not alleviated by home inhalers or nebulizer treatments, so pt came to the ED in the morning and was treated with Solu-Medrol and breathing treatments. Pt was not noted to be hypoxic and felt much better after treatments, so was sent home on prednisone and azithromycin. Pt reports initially felt much better at home and took a nap, however upon waking pt ambulated to the bathroom and symptoms returned. Pt was satting at 95% on RA, though noted to be desatting into the upper 70s during ambulation. Denies chest pain/pressure, palpitations. No nausea, vomiting, abdominal pain. In the ED pt with elevatd HR of 92 and hypertensive up to 150/92, satting at 95% on RA at rest, but desatting to 78% with ambulation. Labs from this morning's ED visit largely unremarkable and around baseline for pt. Mild leukocytosis of 11.0. Stable H&H. No significant electrolyte abnormalities. Renal function baseline. Troponin WNL at 3.8. Tested negative for flu, COVID, and RSV. CXR showed emphysema without superimposed acute cardiopulmonary disease. EKG demonstrated normal sinus rhythm with T-wave inversions in anteriolateral leads. Pt was treated with magnesium sulfate and ceftriaxone. Pt will be admitted to the hospital for treatment and further evaluation of acute hypoxic respiratory failure in the setting of COPD exacerbation. Review of Systems Review of Systems: Negative except for that which is stated in the [facility] Medical History Hx of flexible sigmoidoscopy History of crack cocaine use Smoker Back pain COPD (chronic obstructive pulmonary disease) Surgical History Hx of cholecystectomy Previous back surgery Tubal ligation status Social History Household Members: Family Housing: House Are you a primary patient care director to a significant other at home: No Do you presently have visiting nurse or other home services: No Alcohol intake: never Comment: occaisional cramping which is preop baseline Patient Tobacco Use Status: Current everyday Tobacco user Tobacco use type: Cigarette Cigarette Packs Per Day: 0.75 Cigarettes Per Day: 15.0 Years Smoked: many per pt Second Hand Smoke Exposure: No Substance Use Type: Crack/Cocaine Advance Directives: Yes Advance Directives on File: Yes Advance Directives Date on File: 12/07/23 service: No Current occupational status: unemployed Meds Allergies Allergy/AdvReac Type Severity Reaction Status Date / Time codeine [CODEINE] Allergy Unknown RASH Verified 05/03/24 18:47 Active Medications: Current Medications Magnesium Sulfate (Magnesium Sulfate/H2o) 2 gm in 50 mls @ 25 mls/hr IV ONCE ONE Stop: 05/03/24 21:01 Home Medications ?Medication ?Instructions ?Recorded ?Confirmed ?Last Taken ?Type albuterol sulfate 2.5 mg/3 mL 2.5 mg inhalation Q6H PRN wheezing 12/06/23 05/03/24 05/03/24 History (0.083 %) solution for nebulization albuterol sulfate 90 mcg/actuation 2 puff inhalation Q6H PRN wheezing 05/03/24 05/03/24 05/03/24 History aerosol inhaler (Ventolin HFA) Physical Exam Vital Signs and Narrative: Vital Signs: Last Vital Signs Temp 98 F 05/03/24 18:45 Pulse 92 05/03/24 18:45 Resp 20 05/03/24 18:45 BP 150/92 H 05/03/24 18:45 Pulse Ox 95 05/03/24 18:45 O2 Del Method Room Air 05/03/24 18:45 BMI result Body Mass Index 21.0 General: AOx3, no acute distress Resp: Diffuse wheezing and rhonchi bilaterally with prolonged expiratory wheezing noted. CVS: S1, S2, RRR GI: +BS, NT, no distention Skin: Warm, dry Neuro: Cranial nerves II-XII grossly intact bilaterally. Motor grossly intact bilaterally Extremities: No edema Psych: Appropriate affect Assessment and Plan (1) Hypoxia: Status: Acute (2) COPD exacerbation: Status: Acute Plan Pt is a -year-old female with a PMH significant for COPD not on home O2, currently smoking a few cigarettes daily who presents to the ED with?increasing SOB and difficulty breathing especially with exertion. Pt will be admitted to the hospital for treatment and further evaluation of acute hypoxic respiratory failure in the setting of COPD exacerbation. Acute hypoxic respiratory failure in the setting of COPD exacerbation Pt with SOB, MCKEON, wheezing and rhonchi upon examination, not alleviated by home inhalers or ED treatments Pt noted to be desatting into the 70s with ambulation, not on home O2 Presented earlier in the day to the ED with similar symptoms and sent home feeling better after treatments, recalled EMS after symptoms returned No sepsis: Elevated HR, but no tachypnea, fever, or leukocytosis; CXR negative for pneumonia Will treat with Solu-Medrol, DuoNebs, guaifenesin Cover empirically cover with azithromycin for pleiotropic effects Titrate supplemental O2 >92, wean as tolerated Monitor respiratory status Nicotine dependence Nicotine replacement therapy Encourage smoking cessation Full Code Attending:?Dr. Singh DVT Prophylaxis: Lovenox Pt will require a hospitalization of at least two nights for treatment of?acute hypoxic respiratory failure in the setting of COPD exacerbation. Given that pt failed both ED and outpatient therapies, pt will require hospital level of care for administration of IV steroids, breathing treatments, and supplemental oxygen. Quality Stroke Does the patient have a stroke diagnosis?: No VTE Prior VTE?: No VTE Risk Level:: Medical - moderate - high VTE Device Contraindication: Treatment Not Indicated VTE Drug Contraindication: N/A - Med Ordered
--- NOTE | 2024-05-03 19:52 | PHA.MEDREC ---
Addendum entered by Augie Mcdaniels [facility] 05/03/24 20:05: med rec reviewed Original Note: Pharmacy Consult ? Medication Reconciliation Pharmacy has completed the medication reconciliation. Spoke to patient to confirm med list. Patient states she is only on albterol HFA inhaler and nebulizer. Patient is not taking Azithromycin 20 mg or prednisone that was prescribed when patient was discharged from [facility].
[2024-05-03] MEDS: cefTRIAXone sodium 2 GM VIAL IVPUSH (19:55)
[2024-05-03] MEDS: Magnesium Sulfate/H2O 2 GM/50 ML PIGGYBACK IV (19:56)
[2024-05-03 20:11] LABS: Lactic Acid 1.9 mmol/L (0.5-2.0)
[2024-05-03 20:19] LABS: Creatinine Clr Calc Pharmacy 74.2; Estimated Glomerular Filt Rate > 60
[2024-05-03] MEDS: methylPREDNISolone Sod Succ 40 MG/ML VIAL IVPUSH (20:44)
[2024-05-03] MEDS: Enoxaparin Sodium 40 MG/0.4 ML SYRINGE SUBCUT (20:44)
--- NOTE | 2024-05-03 21:00 | PC.NURSE ---
Requested and offered food and fluids.
[2024-05-03 21:59] VITALS: BP 135/76; PULSE 92; RESP 18; TEMP 36.6; O2SAT 94
--- NOTE | 2024-05-03 22:00 | MHC.EDTECH ---
Patient did not want to change in to hospital attire. prefers to be in her own pajamas.
[2024-05-04] VITALS (10 sets, daily range): BP systolic 116–145; BP diastolic 64–87; PULSE 68–104; RESP 16–22; TEMP 36.3–37.2; O2SAT 90–98
[2024-05-04] MEDS: 0.9 % Sodium Chloride Flush 3 ML SYRINGE IVFLUSH ×3 (02:09→20:00)
[2024-05-04] MEDS: Albuterol/Iprat 2.5/0.5MG 3 ML AMPUL.NEB INHALE ×4 (03:00→18:51)
--- NOTE | 2024-05-04 06:11 | PC.NURSE ---
sleeping now, respirations non labored, remains on 2L/NC. commode at bedside to relieve respiratory burden. waiting for bed assignment.
[2024-05-04] MEDS: guaiFENesin 200 MG/10 ML 10 ML LIQUID PO ×2 (06:49→19:59)
[2024-05-04] MEDS: Azithromycin 500 MG in 0.9 % Sodium Chloride 250 ML 125 MG IV (08:44)
[2024-05-04] MEDS: methylPREDNISolone Sod Succ 40 MG/ML VIAL IVPUSH ×2 (08:45→19:59)
--- NOTE | 2024-05-04 11:46 | HO.PM.IMPN ---
Subjective Subjective Date of Service: 05/04/24 Interval History: Complaining of persistent cough and shortness of breath, denies fever, no chills, no other acute events overnight. Tolerating diet no nausea, no vomiting or abdominal pain. Review of Systems All other system reviewed and are negative. Physical Exam Vital Signs: Vital Signs: Last Vital Signs Temp 98.5 F 05/04/24 09:17 Pulse 97 05/04/24 09:17 Resp 20 05/04/24 09:17 BP 117/67 05/04/24 09:17 Pulse Ox 98 05/04/24 09:17 O2 Del Method Nasal Cannula 05/04/24 09:17 O2 Flow Rate 2 05/04/24 09:17 BMI result Body Mass Index 21.0 Const: Other: General resting comfortably in no acute distress. Neck supple no JVD. CVS regular rate rhythm, Respiratory lungs bilateral expiratory wheeze, no respiratory distress. Gastrointestinal abdomen soft, non tender, bowel sounds audible, no guarding , no rigidity. Extremities no edema. Neuro non focal . Skin no rash Appropriate affect Objective Data Active Medications Acetaminophen (Acetaminophen 325 Mg Tablet) 650 mg PO Q6H PRN PRN Reason: Pain, Mild 1-3,fever,headache Albuterol/Ipratropium (Albuterol/Iprat 2.5/0.5mg 3 Ml Ampul.Neb) 3 ml INHALE RQ4H WHILE AWAKE [facility] Last Admin: 05/04/24 09:01 Dose: 3 ml Documented By: YEE Albuterol/Ipratropium (Albuterol/Iprat 2.5/0.5mg 3 Ml Ampul.Neb) 3 ml INHALE RQ4H WHILE AWAKE PRN PRN Reason: Shortness of Breath/Wheezing Last Admin: 05/04/24 03:00 Dose: 3 ml Documented By: PAULETTE Calcium Carbonate (Calcium Carbonate 750 Mg Tab.Chew) 750 mg PO Q4H PRN PRN Reason: Heartburn Enoxaparin Sodium (Enoxaparin Sodium 40 Mg/0.4 Ml Syringe) 40 mg SUBCUT Q24H [facility] Last Admin: 05/03/24 20:44 Dose: 40 mg Documented By: LETHA Guaifenesin (Guaifenesin 200 Mg/10 Ml 10 Ml Liquid) 10 ml PO Q4H PRN PRN Reason: Cough Last Admin: 05/04/24 06:49 Dose: 10 ml Documented By: DUARTE-MISHA Azithromycin 500 mg/ Sodium (Chloride) 250 mls @ 125 mls/hr IV Q24H [facility] Last Infusion: 05/04/24 10:52 Dose: Infused Documented By: LONNY Magnesium Hydroxide (Milk Of Magnesia 30 Ml Oral.Susp) 30 ml PO DAILY PRN PRN Reason: Constipation Melatonin (Melatonin 3 Mg Tablet) 6 mg PO BEDTIME PRN PRN Reason: Insomnia Methylprednisolone Sodium Succinate (Methylprednisolone Sod Succ 40 Mg/Ml Vial) 40 mg IVPUSH Q12H [facility] Last Admin: 05/04/24 08:45 Dose: 40 mg Documented By: LONNY Nicotine (Nicotine 14 Mg Patch.Td24) 14 mg TRANSDERMA DAILY [facility] Last Admin: 05/04/24 08:40 Dose: Not Given Documented By: LONNY Non-Admin Reason: Patient Refused Ondansetron HCl (Ondansetron Hcl 4 Mg/2 Ml Vial) 4 mg IVPUSH Q8H PRN PRN Reason: Nausea and Vomiting Sodium Chloride (0.9 % Sodium Chloride Flush 3 Ml Syringe) 3 ml IVFLUSH QSHIFT [facility] Last Admin: 05/04/24 08:04 Dose: Not Given Documented By: LONNY Non-Admin Reason: Patient Asleep Labs 05/03/24 20:03 Labs: Laboratory Results - last 24 hr 05/03/24 05/03/24 19:47 20:03 Estim Creat Clear Calc 74.2 Estimated GFR > 60 Lactic Acid 1.9 Assessment and Plan (1) Hypoxia: Status: Acute (2) COPD exacerbation: Status: Acute Plan 58 -year-old female with a PMH significant for COPD not on home O2, currently smoking a few cigarettes daily who presents to the ED with?increasing SOB and difficulty breathing especially with exertion. Pt will be admitted to the hospital for treatment and further evaluation of acute hypoxic respiratory failure in the setting of COPD exacerbation. Acute hypoxic respiratory failure in the setting of acute COPD exacerbation Complaining of persistent shortness of breath, worse with exertion No sepsis, CXR negative for pneumonia Continue IV Solu-Medrol, DuoNebs, guaifenesin azithromycin for pleiotropic effects Titrate supplemental O2 >92, wean as tolerated, not on home oxygen Monitor respiratory status Nicotine dependence Nicotine replacement therapy, Encourage smoking cessation Full Code DVT Prophylaxis: Lovenox Pt will require continued inpatient hospitalization for treatment of?acute hypoxic respiratory failure in the setting of COPD exacerbation. Given that pt failed both ED and outpatient therapies. Quality Stroke Does the patient have a stroke diagnosis?: No VTE Prior VTE?: No VTE Risk Level:: Medical - moderate - high VTE Device Contraindication: Treatment Not Indicated VTE Drug Contraindication: N/A - Med Ordered
--- NOTE | 2024-05-04 13:29 | MHC.CM.PN ---
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
[2024-05-04] MEDS: Enoxaparin Sodium 40 MG/0.4 ML SYRINGE SUBCUT (19:59)
[2024-05-05] MEDS: guaiFENesin 200 MG/10 ML 10 ML LIQUID PO ×3 (02:22→11:47)
[2024-05-05 03:48] VITALS: BP 134/84; PULSE 78; RESP 20; TEMP 36.4; O2SAT 96
[2024-05-05 07:04] VITALS: BP 139/78; PULSE 68; RESP 18; TEMP 36.7; O2SAT 98
[2024-05-05] MEDS: 0.9 % Sodium Chloride Flush 3 ML SYRINGE IVFLUSH (07:12)
[2024-05-05] MEDS: methylPREDNISolone Sod Succ 40 MG/ML VIAL IVPUSH (07:12)
[2024-05-05] MEDS: Azithromycin 500 MG in 0.9 % Sodium Chloride 250 ML 200 MG IV (09:07)
[2024-05-05 09:14] VITALS: PULSE 68; RESP 18
[2024-05-05 09:16] VITALS: PULSE 68; RESP 18
[2024-05-05] MEDS: Albuterol/Iprat 2.5/0.5MG 3 ML AMPUL.NEB INHALE ×2 (09:16→11:31)
[2024-05-05 11:32] VITALS: PULSE 68; RESP 18
[2024-05-05 12:07] VITALS: PULSE 102; PULSE 112; O2SAT 93; O2SAT 94
--- NOTE | 2024-05-05 12:29 | MHC.CM.PN ---
PER ROUNDS PT WILL NEED HOME 02 DC PLAN REMAINS FOR HOME
--- NOTE | 2024-05-05 13:36 | P.DS_ITS ---
DS: Providers Provider Date of Service: 05/05/24 Date of admission: 05/03/24 19:43 Date of discharge: 05/05/24 Primary care physician: Summer Olivier DO DS: Diagnosis Discharge Diagnosis (1) Hypoxia: Status: Acute (2) COPD exacerbation: Status: Acute DS: Summary Hospital Course Hospital Course: History of presenting illness.: Date of Service: 05/03/24 Attending physician on admission: Yogi Singh Chief Complaint: SOB Pt is a -year-old female with a PMH significant for COPD not on home O2, currently smoking a few cigarettes daily who presents to the ED with?increasing SOB and difficulty breathing especially with exertion. Pt reports has been experiencing symptoms for the past few days and becoming severely short of breath with minimal exertion, such as ambulating to the kitchen or the bathroom. Subjective fever and chills, as well as chest tightness associated with cough and inspiration. Chronic occasionally productive cough at baseline. Symptoms became unbearable this morning and were not alleviated by home inhalers or nebulizer treatments, so pt came to the ED in the morning and was treated with Solu-Medrol and breathing treatments. Pt was not noted to be hypoxic and felt much better after treatments, so was sent home on prednisone and azithromycin. Pt reports initially felt much better at home and took a nap, however upon waking pt ambulated to the bathroom and symptoms returned. Pt was satting at 95% on RA, though noted to be desatting into the upper 70s during ambulation. Denies chest pain/pressure, palpitations. No nausea, vomiting, abdominal pain. In the ED pt with elevatd HR of 92 and hypertensive up to 150/92, satting at 95% on RA at rest, but desatting to 78% with ambulation. Labs from this morning's ED visit largely unremarkable and around baseline for pt. Mild leukocytosis of 11.0. Stable H&H. No significant electrolyte abnormalities. Renal function baseline. Troponin WNL at 3.8. Tested negative for flu, COVID, and RSV. CXR showed emphysema without superimposed acute cardiopulmonary disease. EKG demonstrated normal sinus rhythm with T-wave inversions in anteriolateral leads. Pt was treated with magnesium sulfate and ceftriaxone. Pt will be admitted to the hospital for treatment and further evaluation of acute hypoxic respiratory failure in the setting of COPD exacerbation. Hospital course: 58 -year-old female with a PMH significant for COPD not on home O2, currently smoking a few cigarettes daily who presents to the ED with?increasing SOB and difficulty breathing especially with exertion, admitted to the hospital for treatment and further evaluation of acute hypoxic respiratory failure in the setting of COPD exacerbation. Acute hypoxic respiratory failure in the setting of acute COPD exacerbation, admitted to medical floor chest x-ray showed no acute infiltrate treated with IV Solu-Medrol DuoNeb guaifenesin and azithromycin for pleiotropic effect, hypoxia resolved patient currently feeling significantly better and is eager to be discharged home prior to discharge home O2 eval was obtained patient does not qualify for home O2 will discharge her on tapering dose of steroids recommend to use home inhalers cough medications scheduled and as needed recommend to rest plenty of fluids and strongly recommend to abstain from smoking nicotine patch 14 mg given counseling done. Time Attestation Discharge Coordination Time (in mins): 40 Quality: Safe Use of Opioids Does Pt have an Active Cancer Diagnosis on the Problem List?: No Quality: Stroke Does the patient have a stroke diagnosis?: No Physical Exam Vital Signs: Vital Signs: Last Vital Signs Temp 98.0 F 05/05/24 07:04 Pulse 68 05/05/24 11:32 Resp 18 05/05/24 11:32 BP 139/78 05/05/24 07:04 Pulse Ox 98 05/05/24 07:04 O2 Del Method Nasal Cannula 05/05/24 07:04 O2 Flow Rate 2 05/05/24 07:04 BMI result Body Mass Index 21.0 Const: Other: General resting comfortably in no acute distress, intermittent coughing. Neck supple no JVD. CVS regular rate rhythm, Respiratory lungs clear to auscultation,, no respiratory distress. Gastrointestinal abdomen soft, non tender, bowel sounds audible, no guarding , no rigidity. Extremities no edema. Neuro non focal . Skin no rash Appropriate affect DS: Data Data Completed and Pending Completed studies during hospitalization [Text1]: Procedures Excision of Descending Colon, Via Natural or Artificial Opening Endoscopic, Diagnostic (05/06/20) Excision of Sigmoid Colon, Via Natural or Artificial Opening Endoscopic, Diagnostic (05/06/20) Excision of Transverse Colon, Via Natural or Artificial Opening Endoscopic, Diagnostic (05/06/20) Labs on day of discharge: Preliminary micro results at discharge 05/03/24 19:47 Blood Culture - Preliminary Blood - Venous No growth after 24 hours. 05/03/24 19:47 Blood Culture - Preliminary Blood - Venous No growth after 24 hours. Discharge Plan Discharge Anticipated Discharge Date/Time: 05/05/24 13:28 Patient Disposition: Home, Self-Care Discharge Diagnosis: Acute hypoxic respiratory failure due to COPD exacerbation Referrals: Summer Olivier DO [Primary Care Provider] - 1 Week Discharge Medications: New nicotine 14 mg/24 hr Patch 24 Hour 14 mg transdermal DAILY Qty: 30 0RF prednisone 10 mg tablet 10 mg PO DIRECTED Qty: 30 0RF Rx Instructions: see taper instructions; 40 mg Daily x3 days, 30 mg daily x3 days, 20 mg daily x3 days, 10 mg daily x3 days dextromethorphan-guaifenesin 10-100 mg/5 mL Syrup 10 ml PO QID Qty: 237 0RF Continued albuterol sulfate 2.5 mg /3 mL (0.083 %) solution for nebulization 2.5 mg inhalation Q6H PRN (Reason: wheezing) albuterol sulfate [Ventolin HFA] 90 mcg/actuation HFA aerosol inhaler 2 puff INHALATION Q6H PRN (Reason: wheezing) Discharge Orders: Discharge Order (Routine); Ordered 05/05/24 Ordered By: Rose Padilla Diet: Advance to usual diet Activity on Discharge: As tolerated Stand Alone Forms: Patient Portal Discharge page Print Language: Kinyarwanda Care Plan Goals: Hypoxia resolved For COPD exacerbation take tapering dose of prednisone, albuterol updraft 4 times a day for next 2-3 days and use albuterol inhaler 2-4 puffs every 3-4 hours as needed Take cough medication 4 times a day for next 3-4 days then as needed Rest drink plenty of fluids avoid crowded places Health Concerns: Tobacco use disorder strongly recommend to abstain from smoking use nicotine patch Plan of Treatment: Follow-up with primary care physician call for appointment Assessment: As above
--- NOTE | 2024-05-05 14:21 | MHC.CM.PN ---
pt dcd home self care
== END 2024-05-05 14:09 | disposition home or self-care (01) | DRG 140 ==
LOC: HO.ED 18:57 → HO.EDOVER 19:55 → HO.S3 05-04 11:12
PROVIDERS: Physician Assistant Medical; Admitting Provider Student in an Organized Health Care Education/Training Program; Emergency Provider Emergency Medicine Emergency Medical Services; PCP Pediatrics; Visit Provider Hospitalist
DX: J44.1 Chronic obstructive pulmonary disease with (acute) exacerbation (principal); J96.01 Acute respiratory failure with hypoxia; F17.210 Nicotine dependence, cigarettes, uncomplicated; Z71.6 Tobacco abuse counseling; Z79.899 Other long term (current) drug therapy
CPT/HCPCS: 36415; 82565; 83605; 87040; 94640; 99285; J0456; J0696; J1650; J2919; J3475

== ENCOUNTER → 2024-05-03 19:43 | Outpatient (BNV) | payer OTHER, SELFPAY | PROVIDERS: Admitting Provider Student in an Organized Health Care Education/Training Program; Emergency Provider Emergency Medicine Emergency Medical Services; Visit Provider Student in an Organized Health Care Education/Training Program | DX: R09.02 Hypoxemia (principal); J44.1 Chronic obstructive pulmonary disease with (acute) exacerbation | CPT/HCPCS: 99233 ==

== ENCOUNTER 2024-05-31 10:34 | Inpatient (IN) | payer OTHER, SELFPAY ==
[2024-05-31] VITALS (8 sets, daily range): BP systolic 128–174; BP diastolic 57–91; PULSE 82–99; RESP 17–35; TEMP 36.4–37.1; O2SAT 88–96; BMI 18.6
--- NOTE | ~2024-05-31 | XR_ITS ---
EXAMINATION: XR CHEST 1 VIEW HISTORY: CHEST PAIN COMPARISON: Comparison is made with the prior examination dated 05/03/2024. FINDINGS: A single AP portable view of the chest performed at 11:12 AM is submitted. The lungs remain hyperinflated, consistent with COPD. There are increased interstitial markings in the lower lung zones with associated Tereza B-lines, consistent with congestion. The heart is normal in size. The bones are intact. XR/XR chest 1V IMPRESSION: COPD. Mild pulmonary vascular congestion. Electronically signed by: Julius Maurice MD 05/31/2024 11:28 AM [facility] [place]
--- NOTE | 2024-05-31 11:08 | ECG_ITS ---
Test Reason : CHEST PAIN Blood Pressure : */* mmHG Vent. Rate : 78 BPM Atrial Rate : 78 BPM P-R Int : 130 ms QRS Dur : 100 ms QT Int : 298 ms P-R-T Axes : 88 104 84 degrees QTcB Int : 339 ms Normal sinus rhythm Possible Left atrial enlargement Rightward axis Nonspecific T wave abnormality Abnormal ECG When compared with ECG of 03-May-2024 04:48, Nonspecific T wave abnormality has replaced inverted T waves in Anterior leads QT has shortened Referred By: Artemio Garcia Electronically Signed By: Renny Morelos
--- NOTE | 2024-05-31 11:10 | ED_ITS ---
HPI - SOB/Dyspnea General Chief Complaint: Dyspnea Stated Complaint: SOB 88% RA, DUONEB 97%,?FLU,WARM PER EMS Time Seen by Provider: 05/31/24 11:05 Source: patient Mode of arrival: ambulatory History of Present Illness HPI Narrative: THIS IS A 58 YEARS OLD THE PATIENT WITH A HISTORY OF COPD NOT ON OXYGEN PRESENTE TO EMERGENCY ROOM COMPLAINING OF SHORTNESS OF BREATH SHE WAS GIVEN NEBULIZER BY THE BUSINESS PARTNER SHE WAS PLACED ON OXYGEN. DENIES ANY MD elicited complaint: shortness of breath and cough Pertinent past history: COPD Onset (ago): hour(s) (2) Context: recent illness Timing: constant Severity: moderate Exacerbating factors: nothing Relieving factors: oxygen Known history of: COPD Associated symptoms: denies other symptoms Related Data Home oxygen amount: none Home Medications ?Medication ?Instructions ?Recorded ?Confirmed albuterol sulfate 2.5 mg/3 mL 2.5 mg inhalation Q6H PRN wheezing 12/06/23 05/03/24 (0.083 %) solution for nebulization albuterol sulfate 90 mcg/actuation 2 puff inhalation Q6H PRN wheezing 05/03/24 05/03/24 aerosol inhaler (Ventolin HFA) Previous Rx's ?Medication ?Instructions ?Recorded dextromethorphan-guaifenesin 10 10 ml PO QID #237 mL 05/05/24 mg-100 mg/5 mL oral syrup nicotine 14 mg/24 hr daily 14 mg transdermal DAILY #30 ea 05/05/24 transdermal patch prednisone 10 mg tablet 10 mg PO DIRECTED #30 tabs 05/05/24 Allergies Allergy/AdvReac Type Severity Reaction Status Date / Time codeine [CODEINE] Allergy Unknown RASH Verified 05/31/24 11:07 Review of Systems 2 Constitutional: Constitutional: Reports no additional constitutional complaints Cardiovascular: Cardiovascular: Reports no additional cardiovascular complaints PMFSH Past Medical History Attestation statement: The following information was validated with the patient. Medical History Hx of flexible sigmoidoscopy History of crack cocaine use Smoker Back pain COPD (chronic obstructive pulmonary disease) Surgical History Hx of cholecystectomy Previous back surgery Tubal ligation status Social History Social History Household Members: Children Household Members Other:: grandchildren Housing: House Are you a primary animal caretaker supervisor to a significant other at home: No Do you presently have visiting nurse or other home services: No Alcohol intake: never Comment: occaisional cramping which is preop baseline Patient Tobacco Use Status: Current everyday Tobacco user Tobacco use type: Cigarette Cigarette Packs Per Day: 0.75 Cigarettes Per Day: 5 Years Smoked: 45 Smoked in Last 30 Days: Yes e-Cigarette/Vaping Use: Never Used Second Hand Smoke Exposure: No Use of substances other than those prescribed or required for medical reasons: Yes Substance Use Type: Crack/Cocaine Advance Directives: Yes Advance Directives on File: Yes Advance Directives Date on File: 12/07/23 Do you have a plan to hurt others: No Plan service: No Current occupational status: unemployed Physical Exam 2 Vital Signs: Vital Signs: Last Vital Signs Temp 97.5 F 05/31/24 11:02 Pulse 92 05/31/24 11:35 Resp 35 H 05/31/24 11:35 BP 162/91 H 05/31/24 11:24 Pulse Ox 93 05/31/24 11:24 O2 Del Method Nasal Cannula 05/31/24 11:24 O2 Flow Rate 4 05/31/24 11:24 Oxygen Flow Rate 4 05/31/24 11:02 BMI result Body Mass Index 18.6 MILD DISTRESS Const: General: cooperative Orientation/consciousness: patient oriented x3 HEENT: Head: Yes normal to inspection General nose exam: Normal external nose present Face and sinus: Yes normal facial exam Neck: Neck: Yes normal visual inspection and Yes full ROM Chest: Chest palpation & inspection: normal inspection of the chest Resp: Effort & Inspection: Actively coughing Auscultation: rhonchi Cardio: Jugular venous distension: no JVD Rate: regular rate Rhythm: r egular rhythm GI: Inspection: Yes normal to inspection Palpation (GI): Soft to palpation, not firm and nontender Auscultation: normal bowel sounds Skin: General skin exam: no rashes or lesions noted Lesions: no lesions Rashes: no rashes Neuro: General: patient oriented x3 Extrem: General: Yes normal to inspection and Yes full ROM Course Reevaluation(s) Reevaluation #1: doing better discussed with hospitalist the patient will be admitted IMC level of care Time: 14:06 Medications Administered Discontinued Medications Generic Name Dose Route Start Last Admin Trade Name Freq PRN Reason Stop Dose Admin Albuterol/Ipratropium 3 ml 05/31/24 11:31 05/31/24 11:34 Albuterol/Iprat 2.5/0.5mg 3 Ml Ampul.Neb INHALE 05/31/24 11:32 3 ml ONCE ONE Administration Methylprednisolone Sodium Succinate 125 mg 05/31/24 11:07 05/31/24 11:20 Methylprednisolone Sod Succ 125 Mg/2 Ml Vial IVPUSH 05/31/24 11:08 125 mg ONCE ONE Administration Medical Decision Making Medical Decision Making [facility] Narrative: PATIENT PRESENTED TO THE ED COMPLAINING OF SHORTNESS A BREATH WE WILL ADMINISTER BRONCH DILATOR STEROID Differential Diagnosis Differential Diagnoses: The differential diagnosis associated with the presentation includes PNEUMONIA/COPD EXACERBATION Admission/Observation Consideration of admission/observation: Escalation of care including admission/observation considered Lab Data MDM Lab Attestation statement: I reviewed the patient's lab results. 05/31/24 11:41 05/31/24 11:40 Labs: Lab Results 05/31/24 05/31/24 05/31/24 Range/Units 11:40 11:41 11:47 WBC 11.1 H (4.8-10.8) X10*3/uL RBC 5.04 (4.20-5.50) X10*6/uL Hgb 15.7 (12.0-16.0) g/dl Hct 47.8 H (37.0-47.0) % MCV 94.8 (80.0-98.0) fL MCH 31.2 (27.0-33.0) pg MCHC 32.8 (31.0-35.0) g/dl RDW 13.2 (11.0-16.0) % Plt Count 280 D (160-400) X10*3/uL MPV 9.9 (9.4-12.3) fL Immature Gran % (Auto) 0.5 H (0.0-0.4) % Neut % (Auto) 73.1 H (45-73) % Lymph % (Auto) 18.2 L (20-40) % [place] % (Auto) 7.1 (2-11) % Eos % (Auto) 0.7 (0-4) % Baso % (Auto) 0.4 (0-2) % Lymph # (Auto) 2.0 (1.2-4.9) X10*3/uL [place] # (Auto) 0.8 (0.1-1.2) X10*3/uL Eos # (Auto) 0.1 (0.0-0.4) X10*3/uL Baso # (Auto) 0.0 (0.0-0.2) X10*3/uL Abs Immat Gran (auto) 0.05 H (0.00-0.03) X10*3/uL Absolute Neuts (auto) 8.1 (2.0-8.3) x10*3/uL Absolute Nucleated RBC 0.000 (0.0-0.012) X10*3/uL Nucleated RBC % (auto) 0.0 (0.0-0.2) /100WBC VBG pH 7.34 (7.32-7.43) VBG pCO2 60 mmHg VBG pO2 28 mmHg VBG HCO3 33 H (22-26) mmol/L VBG O2 Saturation 39.0 % VBG Base Excess 5.7 mmol/L Sodium 145 (135-145) mmol/L Potassium 3.6 (3.3-5.1) mmol/L Chloride 106 (96-108) mmol/L Carbon Dioxide 29 (22-29) mmol/L Anion Gap 14 (12-20) BUN 16 (9-16) mg/dL Creatinine 0.69 (0.5-1.4) mg/dL Estim Creat Clear Calc 71.6 Estimated GFR > 60 Random Glucose 116 H (60-115) mg/dL Calcium 9.8 (8.4-10.2) mg/dL Total Bilirubin 0.3 (0.0-1.0) mg/dL AST 17 (5-31) U/L ALT 16 (0-31) U/L Alkaline Phosphatase 87 (39-117) U/L Troponin I High Sens 5.3 (<3.5-17.0) ng/L B-Natriuretic Peptide 94 (<100) pg/mL Total Protein 7.4 (6.5-8.0) g/dL Albumin 4.0 (3.5-5.0) g/dL Influenza Type A (PCR) (Negative) Influenza Type B (PCR) (Negative) RSV RNA Qual (PCR) (Negative) SARS-CoV-2 RNA (RT-PCR) (Negative) 05/31/24 Range/Units 13:07 WBC (4.8-10.8) X10*3/uL RBC (4.20-5.50) X10*6/uL Hgb (12.0-16.0) g/dl Hct (37.0-47.0) % MCV (80.0-98.0) fL MCH (27.0-33.0) pg MCHC (31.0-35.0) g/dl RDW (11.0-16.0) % Plt Count (160-400) X10*3/uL MPV (9.4-12.3) fL Immature Gran % (Auto) (0.0-0.4) % Neut % (Auto) (45-73) % Lymph % (Auto) (20-40) % [place] % (Auto) (2-11) % Eos % (Auto) (0-4) % Baso % (Auto) (0-2) % Lymph # (Auto) (1.2-4.9) X10*3/uL [place] # (Auto) (0.1-1.2) X10*3/uL Eos # (Auto) (0.0-0.4) X10*3/uL Baso # (Auto) (0.0-0.2) X10*3/uL Abs Immat Gran (auto) (0.00-0.03) X10*3/uL Absolute Neuts (auto) (2.0-8.3) x10*3/uL Absolute Nucleated RBC (0.0-0.012) X10*3/uL Nucleated RBC % (auto) (0.0-0.2) /100WBC VBG pH (7.32-7.43) VBG pCO2 mmHg VBG pO2 mmHg VBG HCO3 (22-26) mmol/L VBG O2 Saturation % VBG Base Excess mmol/L Sodium (135-145) mmol/L Potassium (3.3-5.1) mmol/L Chloride (96-108) mmol/L Carbon Dioxide (22-29) mmol/L Anion Gap (12-20) BUN (9-16) mg/dL Creatinine (0.5-1.4) mg/dL Estim Creat Clear Calc Estimated GFR Random Glucose (60-115) mg/dL Calcium (8.4-10.2) mg/dL Total Bilirubin (0.0-1.0) mg/dL AST (5-31) U/L ALT (0-31) U/L Alkaline Phosphatase (39-117) U/L Troponin I High Sens (<3.5-17.0) ng/L B-Natriuretic Peptide (<100) pg/mL Total Protein (6.5-8.0) g/dL Albumin (3.5-5.0) g/dL Influenza Type A (PCR) NEGATIVE (Negative) Influenza Type B (PCR) NEGATIVE (Negative) RSV RNA Qual (PCR) NEGATIVE (Negative) SARS-CoV-2 RNA (RT-PCR) NEGATIVE (Negative) Independent Interpretation I performed an independent interpretation of an: Plain X-Ray Radiology Impression Discussion of test interpretation with radiology: I have reviewed the radiologist's reading. Radiologist Impression: HISTORY: CHEST PAIN COMPARISON: Comparison is made with the prior examination dated 05/03/2024. FINDINGS: A single AP portable view of the chest performed at 11:12 AM is submitted. The lungs remain hyperinflated, consistent with COPD. There are increased interstitial markings in the lower lung zones with associated Tereza B-lines, consistent with congestion. The heart is normal in size. The bones are intact. XR/XR chest 1V IMPRESSION: COPD. Mild pulmonary vascular congestion. Electronically signed by: Julius Maurice MD 05/31/2024 11:28 AM [facility] [place] Dictated By: Julius Maurice MD Signed By: <Electronically signed by Julius Maurice MD in OV> 05/31/24 1128 External Record Review External record reviewed: Inpatient record Chronic Conditions Patient?s care impacted by: Other (copd) Critical Care Time Critical Care Time Critical Care Time: Yes Total Critical Care Time: 60 Attestation: taking care of the patient, multiple nebs [id number]-pvil Discharge Plan Discharge Clinical Impression: COPD exacerbation Patient Disposition: Admitted As Inpatient Print Language: Citizen Of [place]
[2024-05-31] MEDS: methylPREDNISolone Sod Succ 125 MG/2 ML VIAL IVPUSH (11:20)
--- NOTE | 2024-05-31 11:25 | PC.NURSE ---
pt is alert and oriented, skin pwd, respirations labored breathing about 35 per min, ls very diminished, with a dry cough for the last couple of days, sating 93% on the 4l, pt is reporting right sided neck pain, pt reports feeling extremely sob with exertion at home, no peding edema in the lower extremeties
[2024-05-31] MEDS: Albuterol/Iprat 2.5/0.5MG 3 ML AMPUL.NEB INHALE (11:34)
[2024-05-31 11:46] LABS: MANUAL DIFF FLAG NO
[2024-05-31 11:50] LABS: Basophils Percent Auto 0.4 % (0-2); Eosinophils Absolute Auto 0.1 X10*3/uL (0.0-0.4); Eosinophils Percent Auto 0.7 % (0-4); Hematocrit 47.8 % (37.0-47.0); Hemoglobin 15.7 g/dl (12.0-16.0); Imm Gran Abs Auto 0.05 X10*3/uL (0.00-0.03); Imm Gran Pct Auto 0.5 % (0.0-0.4); Lymphocytes Percent Auto 18.2 % (20-40); Mean Corpuscular HGB Conc 32.8 g/dl (31.0-35.0); Mean Corpuscular Hemoglobin 31.2 pg (27.0-33.0); Mean Corpuscular Volume 94.8 fL (80.0-98.0); Mean Platelet Volume 9.9 fL (9.4-12.3); Monocytes Absolute Auto 0.8 X10*3/uL (0.1-1.2); Monocytes Percent Auto 7.1 % (2-11); Neutrophils Absolute Auto 8.1 x10*3/uL (2.0-8.3); Neutrophils Percent Auto 73.1 % (45-73); Platelet Count 280 X10*3/uL (160-400); Red Blood Count 5.04 X10*6/uL (4.20-5.50); Red Cell Distribution Width 13.2 % (11.0-16.0); White Blood Count 11.1 X10*3/uL (4.8-10.8)
[2024-05-31 11:53] LABS: VBG Base Excess 5.7 mmol/L; VBG HCO3 33 mmol/L (22-26); VBG pCO2 60 mmHg; VBG pH 7.34 (7.32-7.43); VBG pO2 28 mmHg
[2024-05-31 11:53] LABS: Venous Blood Gas Refer to POC result
[2024-05-31 12:12] LABS: B Type Natriuretic Peptide 94 pg/mL (<100); Troponin-I High Sensitivity 5.3 ng/L (<3.5-17.0)
[2024-05-31 12:14] LABS: Alanine Aminotransferase 16 U/L (0-31); Anion Gap 14 (12-20); Aspartate Amino Transferase 17 U/L (5-31); Bilirubin Total 0.3 mg/dL (0.0-1.0); Blood Urea Nitrogen 16 mg/dL (9-16); Calcium 9.8 mg/dL (8.4-10.2); Carbon Dioxide 29 mmol/L (22-29); Chloride 106 mmol/L (96-108); Creatinine Clr Calc Pharmacy 71.6; Estimated Glomerular Filt Rate > 60; Glucose Random 116 mg/dL (60-115); Potassium 3.6 mmol/L (3.3-5.1); Sodium 145 mmol/L (135-145); Total Protein 7.4 g/dL (6.5-8.0)
[2024-05-31 12:19] LABS: Alkaline Phosphatase 87 U/L (39-117)
--- NOTE | 2024-05-31 13:28 | PC.RT ---
Pt reassessed for bronch protocol. Pt states she does not want anymore txs because this will be her 5th today. RT educated pt on how often she can take albuterol txs without negative effects. Pt refused and stated she doesn't want one now.
[2024-05-31 13:50] LABS: Influenza A PCR NEGATIVE (Negative); Influenza B PCR NEGATIVE (Negative); Resp Syncy Virus RNA Qual PCR NEGATIVE (Negative); SARS COV2 PCR INHOUSE NEGATIVE (Negative)
--- NOTE | 2024-05-31 13:50 | P.HPHOSP_ITS ---
History of Present Illness Date of Service: 05/31/24 Attending physician on admission: Naty Beavers Chief Complaint: SOB Pt is a 58-year-old female with a PMH significant for?COPD not on home O2, currently smoking half a pack daily who presents to the ED with? increased SOB, MCKEON, and cough x2-3 days. Pt recently admitted to the hospital from 05/03-05/05 with similar symptoms and treated for COPD exacerbation. Pt was not sent home on O2. Reports initially felt okay for awhile but SOB and MCKEON soon returned. pt reports has been especially fatigued with walking, and has to rest after ambulating for only a short distance. Reports subjective fever and chills as well as nonproductive cough. No nausea, vomiting, abdominal pain. No chest pain /pressure, palpitations. Denies lower leg edema. Pt currently smoking around half a pack of cigarettes daily. In the ED pt was Tachycardic up to 95, tachypneic up to 35, hypertensive up to 162/91, and satting at 93% on 4 L NC. Labs were Grossly unremarkable around baseline for pt. Mild leukocytosis of 11.1. Stable H&H. No significant electrolyte abnormalities. Renal and hepatic function WNL troponin 5.3. BNP WNL at 94. Tested negative for flu, RSV, and COVID. CXR showed COPD and mild pulmonary vascular congestion, similar to previous. EKG demonstrated Normal sinus rhythm with nonspecific T-wave abnormality. Pt was treated with Solu- Medrol and DuoNebs. Pt will be admitted to the hospital for treatment and further evaluation of acute hypoxic respiratory failure in the setting COPD exacerbation. Review of Systems 2 Review of Systems: Negative except for that which is stated in the [facility] Medical History Hx of flexible sigmoidoscopy History of crack cocaine use Smoker Back pain COPD (chronic obstructive pulmonary disease) Surgical History Hx of cholecystectomy Previous back surgery Tubal ligation status Social History Household Members: Children Household Members Other:: grandchildren Housing: House Are you a primary long term acute care registered nurse to a significant other at home: No Do you presently have visiting nurse or other home services: No Alcohol intake: never Comment: occaisional cramping which is preop baseline Patient Tobacco Use Status: Current everyday Tobacco user Tobacco use type: Cigarette Cigarette Packs Per Day: 0.75 Cigarettes Per Day: 5 Years Smoked: 45 Smoked in Last 30 Days: Yes e-Cigarette/Vaping Use: Never Used Second Hand Smoke Exposure: No Use of substances other than those prescribed or required for medical reasons: Yes Substance Use Type: Crack/Cocaine Advance Directives: Yes Advance Directives on File: Yes Advance Directives Date on File: 12/07/23 Do you have a plan to hurt others: No Plan service: No Current occupational status: unemployed Meds Allergies Allergy/AdvReac Type Severity Reaction Status Date / Time codeine [CODEINE] Allergy Unknown RASH Verified 05/31/24 11:07 Home Medications ?Medication ?Instructions ?Recorded ?Confirmed ?Last Taken ?Type albuterol sulfate 2.5 mg/3 mL 2.5 mg inhalation Q6H PRN wheezing 12/06/23 05/03/24 05/03/24 History (0.083 %) solution for nebulization albuterol sulfate 90 mcg/actuation 2 puff inhalation Q6H PRN wheezing 05/03/24 05/03/24 05/03/24 History aerosol inhaler (Ventolin HFA) Physical Exam 2 Vital Signs and Narrative: Vital Signs: Last Vital Signs Temp 97.5 F 05/31/24 11:02 Pulse 92 05/31/24 11:35 Resp 35 H 05/31/24 11:35 BP 162/91 H 05/31/24 11:24 Pulse Ox 93 05/31/24 11:24 O2 Del Method Nasal Cannula 05/31/24 11:24 O2 Flow Rate 4 05/31/24 11:24 Oxygen Flow Rate 4 05/31/24 11:02 BMI result Body Mass Index 18.6 General: AOx3, no acute distress Resp: CTA bilaterally though diminished CVS: S1, S2, RRR GI: +BS, NT, no distention Skin: Warm, dry Neuro: Cranial nerves II-XII grossly intact bilaterally. Motor grossly intact bilaterally Extremities: No edema Psych: Appropriate affect Results Labs 05/31/24 11:41 05/31/24 11:40 Labs: Laboratory Results - last 24 hr 05/31/24 05/31/24 05/31/24 11:40 11:41 11:47 MCV 94.8 MCH 31.2 MCHC 32.8 RDW 13.2 Plt Count 280 D MPV 9.9 Immature Gran % (Auto) 0.5 H Neut % (Auto) 73.1 H Lymph % (Auto) 18.2 L [place] % (Auto) 7.1 Eos % (Auto) 0.7 Baso % (Auto) 0.4 Lymph # (Auto) 2.0 [place] # (Auto) 0.8 Eos # (Auto) 0.1 Baso # (Auto) 0.0 Abs Immat Gran (auto) 0.05 H Absolute Neuts (auto) 8.1 Absolute Nucleated RBC 0.000 Nucleated RBC % (auto) 0.0 VBG pH 7.34 VBG pCO2 60 VBG pO2 28 VBG HCO3 33 H VBG O2 Saturation 39.0 VBG Base Excess 5.7 Anion Gap 14 Estim Creat Clear Calc 71.6 Estimated GFR > 60 Random Glucose 116 H Calcium 9.8 Total Bilirubin 0.3 AST 17 ALT 16 Alkaline Phosphatase 87 B-Natriuretic Peptide 94 Total Protein 7.4 Albumin 4.0 Imaging Radiologist's Impressions: Impressions Chest X-Ray 05/31/24 11:08 IMPRESSION: COPD. Mild pulmonary vascular congestion. Electronically signed by: Julius Maurice MD 05/31/2024 11:[address] [facility] [place] Assessment and Plan (1) COPD exacerbation: Status: Acute (2) Hypoxia: Status: Resolved Plan Pt is a 58-year-old female with a PMH significant for?COPD not on home O2, currently smoking half a pack daily who presents to the ED with? increased SOB, MCKEON, and cough x2-3 days. Pt will be admitted to the hospital for treatment and further evaluation of acute hypoxic respiratory failure in the setting COPD exacerbation. Acute hypoxic respiratory failure in the setting of COPD exacerbation Pt with SOB, MCKEON, non-productive cough, not alleviated by home inhalers or ED treatments Pt requiring 4L NC to sat at 91%, not on home O2 No sepsis: Elevated HR secondary to albuterol use; no fever or leukocytosis; CXR negative for pneumonia Will treat with Solu-Medrol, DuoNebs, guaifenesin Cover with azithromycin for pleiotropic effects Titrate supplemental O2 >92, wean as tolerated Consider home O2 trial as this is pt's second admission in past month Monitor respiratory status Nicotine dependence Nicotine replacement therapy Encourage smoking cessation Full Code Attending:?Dr. Beavers DVT Prophylaxis: Lovenox Pt will require a hospitalization of at least two nights for treatment of? acute hypoxic respiratory in the setting of COPD exacerbation require administration IV steroids, breathing treatments, and supplemental oxygen. Quality Stroke Does the patient have a stroke diagnosis?: No VTE Prior VTE?: No VTE Risk Level:: Medical - moderate - high VTE Device Contraindication: Treatment Not Indicated VTE Drug Contraindication: N/A - Med Ordered
--- OUTSIDE RECORDS SUMMARY | 2024-05-31 14:21 | XMS_ITS | Continuity of Care Document ---
Author Organization [facility] Address [address] [place] [address]- Care Team Providers Care Power Press Tender Name Role Phone Summer Olivier DO Primary Care Physician ( [phone] Encounter [facility] Date(s): 04/27/24 - 05/27/24 [facility] [address] [place], [place] [address] Encounter Type: Triage Allergies, Adverse Reactions, Alerts Substance Criticality Severity Reaction Reaction Severity Status codeine rash Active Immunizations Given and Recorded Vaccine Date Status Refusal Reason [id number] 12y+ bivalent booster vax 06/20/22 Recorded SARS-CoV-2 mRNA ([id number]) vax 07/18/21 Recorded SARS-CoV-2 (COVID-19) mRNA BNT-162b2 vac 03/19/21 Recorded SARS-CoV-2 (COVID-19) mRNA BNT-162b2 vac 06/28/20 Recorded SARS-CoV-2 (COVID-19) mRNA BNT-162b2 vac 06/07/20 Recorded tetanus/diphtheria/pertussis, acel(Tdap) 05/02/20 Given tetanus/diphtheria/pertussis, acel(Tdap) 03/14/12 Recorded pneumococcal 23-valent vaccine 05/02/20 Given pneumococcal 23-valent vaccine 03/14/12 Recorded influenza virus vaccine, inactivated 01/27/18 Give n Medications Advair Diskus 250 mcg-50 mcg inhalation powder 1, puffs, Inhalation, 2 times a day, # 1 each, Refills 11, Tot. Refills 11, Maintenance, 05/25/24 1:22:00 PM EST, Powder, Route to Pharmacy Electronically, [facility]_[id number], [facility] #[id number], 162, cm, 05/25/24 12:54:00 EST, Height, 52, kg, 05/17/24 13:06:00 EST, Dry Weight Start Date: 05/25/24 Status: Ordered Quantity: 1.0 Unit: each Repeat number: 12 Albuterol (Eqv-ProAir HFA) 90 mcg/inh inhalation aerosol 2 puffs, Inhalation, Every 6 hours, PRN Wheezing/Shortness of Breath, # 6.7 Gm, 11 Refills, Maintenance, 05/25/24 1:22:00 PM EST, [facility] #[id number], Partial fill upon patient request if the prescription is for a schedule II opioid drug., 2 puffs Inhalation Every 6 hours,PRN:Wheezing/Shortness of Breath, 162, cm, 05/25/24 12:54:00 EST, Height, 52, kg, 05/17/24 13:06:00 EST, Dry Weight Start Date: 05/25/24 Status: Ordered Quantity: 6.7 Unit: g Repeat number: 12 albuterol 0.083% inhalation solution 3 mL = 2.5 mg, Inhalation, Every 6 hours, PRN for wheezing, # 360 mL, 11 Refills, Maintenance, 05/25/24 1:22:00 PM EST, Solution, [facility] #[id number], 162, cm, 05/25/24 12:54:00 EST, Height, 52, kg, 05/17/24 13:06:00 EST, Dry Weight Start Date: 05/25/24 Status: Ordered Quantity: 360.0 Unit: mL Repeat number: 12 amLODIPine 5 mg oral tablet 5 mg, 1, tablet, By Mouth, Daily, # 30 tablet, Refills 0, Tot. Refills 0, Maintenance, 05/17/24 1:50:00 PM EST, Route to Pharmacy Electronically, [facility] #[id number], Partial fill upon patientrequest if the prescription is for a schedule II opioid drug., 162, cm, 05/17/24 13:40:00 EST, Height, 52, kg, 05/17/24 13:06:00 EST, Dry Weight Start Date: 05/17/24 Status: Ordered Quantity: 30.0 Unit: tablet Repeat number: 1 Indication: Essential (primary) hypertension azithromycin 250 mg oral tablet 1 pack/packet, By Mouth, Once, # 6 tablet, 0 Refills, Maintenance, 05/17/24 1:42:00 PM EST, Tablet, Partial fill upon patient request if the prescription is for a schedule II opioid drug. Start Date: 05/17/24 Stop Date: 05/22/24 Status: Ordered Quantity: 6.0 Unit: tablet Repeat number: 1 BP monitor BP monitor, See Instructions, # 1 each, Refills 0, Tot. Refills 0, Maintenance, Monitor BP twice a day Diagnosis: I 10, 05/19/24 3:53:00 PM EST, Supply, 162, cm, 05/17/24 13:40:00 EST, Height, 52, kg,05/17/24 13:06:00 EST, Dry Weight Start Date: 05/19/24 Status: Ordered Quantity: 1.0 Unit: each Repeat number: 1 Indication: Essential (primary) hypertension Claritin 10 mg oral tablet 10 mg, 1, tablet, By Mouth, Daily, # 90 tablet, Refills 0, Maintenance, 01/03/24 11:04:00 AM EDT, Partial fill upon patient request if the prescription is for a schedule II opioid drug. Start Date: 01/03/24 Status: Ordered Quantity: 90.0 Unit: tablet Repeat number: 1 cock up wrist splint R G56.01 cock up wrist splint R G56.01, See Instructions, # 1 each, Refills 0, Tot. Refills 0, Maintenance, use at bedtime, 08/25/19 5:05:00 PM EDT, Compound Start Date: 08/25/19 Status: Ordered Quantity: 1.0 Unit: each Repeat number: 1 Indication: Carpal tunnel syndrome, right upper limb dextromethorphan-guaifenesin 10 mg-100 mg/5 mL oral liquid 10 mL, By Mouth, Every 4 hours, PRN for cough, # 240 mL, 0 Refills, Maintenance, 05/17/24 1:46:00 PMEST, Liquid, [facility] #[id number], Partial fill upon patient request if the prescription is for a schedule II opioid drug., 10 mL By Mouth Every 4 hours,x7 days,PRN:for cough, 162, cm, 05/17/24 13:40:00 EST, Height, 52, kg, 05/17/24 13:06:00 EST, Dry Weight Start Date: 05/17/24 Stop Date: 05/24/24 Status: Ordered Quantity: 240.0 Unit: mL Repeat number: 1 Incruse Ellipta 62.5 mcg/inh inhalation powder 1 inhalation = 62.5 mcg, Inhalation, Every 24 hours, doses should be taken at least 24 hours apart,# 1 each, 11 Refills, Maintenance, 05/25/24 1:22:00 PM EST, Powder, [facility] #[id number], Partial fill upon patient request if the prescription is for a schedule II opioid drug., 162, cm, 05/25/24 12:54:00 EST, Height, 52, kg, 05/17/24 13:06:00 EST, Dry Weight Start Date: 05/25/24 Status: Ordered Quantity: 1.0 Unit: each Repeat number: 12 naproxen 500 mg oral tablet 1 tablet = 500 mg, By Mouth, 2 times a day, take regularly for 2 wks then as needed, # 30 tablet, 1Refills, Maintenance, 10/05/19 2:52:00 PM EDT, Tablet, [facility] #[id number], 157, cm, 06/18/2013:52:00 EDT, Height, 61.8, kg, 06/19/19 14:52:00 EDT, Dry Weight Start Date: 10/05/19 Status: Ordered Quantity: 30.0 Unit: tablet Repeat number: 2 Nebulizer/Compressor See Instructions, # 1 each, Maintenance, dx: asthma; for use with albuterol, 10/28/17 11:11:43 AM EDT, Compound Start Date: 10/28/17 Status: Ordered Quantity: 1.0 Unit: each Repeat number: 1 Indication: Unspecified asthma, uncomplicated sertraline 50 mg oral tablet 1 tablet = 50 mg, By Mouth, Daily, # 30 tablet, 1 Refills, Maintenance, 10/29/23 3:54:00 PM EDT, Tablet, [facility] #[id number], Partial fill upon patient request if the prescription is for a schedule II opioid drug., 162, cm, 10/29/23 15:19:00 EDT, Height, 49.6, kg, 10/29/23 15:13:00 EDT, Dry Weight Start Date: 10/29/23 Status: Ordered Quantity: 30.0 Unit: tablet Repeat number: 2 Problem List Condition Confirmation Course Effective Dates Status H ealth Status Informant Allergic rhinitis Confirmed Active Asthma with COPD Confirmed Active Carpal tunnel syndrome Confirmed Active Cavernous hemangioma Confirmed Active Chronic low back pain Confirmed Active Polycythemia Confirmed Active Stress incontinence, female Confirmed Active History of ischemic colitis Confirmed Active Adrenal myelolipoma Confirmed Active Onychomycosis of great toe Confirmed Active Failed back syndrome Confirmed Active Prediabetes Confirmed Active Tobacco dependence Confirmed Active Tremor Confirmed Active Low vitamin D level Confirmed Active Social History Social History Type Response Smoking Status 10 or more cigarette s (1/2 pack or more)/day in last 30 days; Interested in cessation: No; Patient wants NRT during admission No entered on: 05/25/24 Sex Sex Representation Female (finding) Patient Care team information Care Team Personnel Name: Summer Olivier DO Position: [facility] Physician - Primary Care Member Role: PCP Address: [address] [place] [address] Adult [facility] Pediatric [facility] [address] Telecom: Care Team Related Persons Name: MARK DAMON Name: UZMA URIAS Name: CHARLOTTE URIAS Insurance Providers Guarantor name: AGUILA URIAS Health Plan Information #: 1 Payer: [employer] Member Number: NA Policy Number: NA Group Number: NA
--- OUTSIDE RECORDS SUMMARY | 2024-05-31 14:21 | XMS_ITS | Continuity of Care Document ---
Author Organization [facility] Address [address] [place] [address]- Care Team Providers Care Copy Lathe Tender Name Role Phone Summer Olivier DO Primary Care Physician [facility] [id number] Date(s): 05/17/24 - 05/24/24 [facility] [address] [place], [place] [address] Encounter Diagnosis COPD exacerbation resolved, Apr 2024, [facility](Discharge Diagnosis) - 05/17/24 Stage 2 hypertension(Discharge Diagnosis) - 05/17/24 Attending Physician: Niharika Aguayo MD Referring Physician: Summer Olivier DO Encounter Type: Office Visit Allergies, Adverse Reactions, Alerts Substance Criticality Severity Reaction Reaction Severity Status codeine rash Active Immunizations Given and Recorded Vaccine Date Status Refusal Reason [id number] 12y+ bivalent booster vax 06/20/22 Recorded SARS-CoV-2 mRNA (imqenjx-xagu-sypzq) vax 07/18/21 Recorded SARS-CoV-2 (COVID-19) mRNA BNT-162b2 vac 03/19/21 Recorded SARS-CoV-2 (COVID-19) mRNA BNT-162b2 vac 06/28/20 Recorded SARS-CoV-2 (COVID-19) mRNA BNT-162b2 vac 06/07/20 Recorded tetanus/diphtheria/pertussis, acel(Tdap) 05/02/20 Given tetanus/diphtheria/pertussis, acel(Tdap) 03/14/12 Recorded pneumococcal 23-valent vaccine 1/28/21 Given pneumococcal 23-valent vaccine 03/14/12 Recorded influenza virus vaccine, inactivated 01/27/18 Give n Medications Advair Diskus 250 mcg-50 mcg inhalation powder 1, puffs, Inhalation, 2 times a day, # 60 each, Refills 11, Tot. Refills 11, Maintenance, 01/03/24 11:07:00 AM EDT, Powder, [id number], 162, cm, 01/03/24 10:46:00 EDT, Height, 51, kg, 01/03/24 10:46:00 EDT, Dry Weight Start Date: 01/03/24 Status: Ordered Quantity: 60.0 Unit: each Repeat number: 12 Albuterol (Eqv-ProAir HFA) 90 mcg/inh inhalation aerosol 2 puffs, Inhalation, Every 6 hours, PRN Wheezing/Shortness of Breath, # 6.7 Gm, 11 Refills, Maintenance, 01/26/23 9:59:00 AM EDT, [facility] #[id number], Partial fill upon patient request if theprescription is for a schedule II opioid drug., 2 puffs Inhalation Every 6 hours,PRN:Wheezing/Shortness of Breath, 162, cm, 01/26/23 9:45:00 EDT, Height Start Date: 01/26/23 Status: Ordered Quantity: 6.7 Unit: g Repeat number: 12 albuterol 0.083% inhalation solution 3 mL = 2.5 mg, Inhalation, Every 6 hours, PRN for wheezing, # 360 mL, 11 Refills, Maintenance, 10/29/23 3:53:00 PM EDT, Solution, [facility] #[id number], 162, cm, 10/29/23 15:19:00 EDT, Height, 49.6, kg, 10/29/23 15:13:00 EDT, Dry Weight Start Date: 10/29/23 Status: Ordered Quantity: 360.0 Unit: mL Repeat number: 12 amLODIPine 5 mg oral tablet 5 mg, 1, tablet, By Mouth, Daily, # 30 tablet, Refills 0, Tot. Refills 0, Maintenance, 05/17/24 1:50:00 PM EST, Route to Pharmacy Electronically, [facility] #[id number], Partial fill upon patientrequest if the prescription [...] 0 Refills, Maintenance, 05/17/24 1:46:00 PMEST, Liquid, [facility] #[id number], Partial fill upon patient request if the [...] hours apart,# 1 each, 11 Refills, Maintenance, 01/26/23 9:59:00 AM EDT, Powder, [facility] #[id number], Partial fill upon patient request if the prescription is for a schedule II opioid drug., 162, cm, 01/26/23 9:45:00 EDT, Height Start Date: 01/26/23 Status: Ordered Quantity: 1.0 Unit: each Repeat number: 12 naproxen 500 mg oral tablet 1 tablet = 500 mg, By Mouth, 2 times a day, take regularly for 2 wks then as needed, # 30 tablet, 1Refills, Maintenance, 10/05/19 2:52:00 PM EDT, Tablet, [facility] #[id number], 157, cm, 06/18/2013:52:00 EDT, Height, 61.8, kg, 06/19/19 14:52:00 EDT, Dry Weight Start Date: 10/05/19 Status: Ordered Quantity: 30.0 Unit: tablet Repeat number: 2 Nebulizer/Compressor See Instructions, # 1 each, Maintenance, dx: asthma; for use with albuterol, 10/28/17 11:11:43 AM EDT, Compound Start Date: 10/28/17 Status: Ordered Quantity: 1.0 Unit: each Repeat number: 1 Indication: Unspecified asthma, uncomplicated predniSONE 10 mg oral tablet 0 Refills, Maintenance, 05/17/24 1:42:00 PM EST, Partial fill upon patient request if the prescription is for a schedule II opioid drug. Start Date: 05/17/24 Status: Ordered Repeat number: 1 predniSONE 20 mg oral tablet TAKE 3 TABLETS BY MOUTH FOR 5 DAYS THEN 2 TABLETS FOR 4 DAYS AND 1 TABLET FOR 3 DAYS Start Date: 05/17/24 Status: Ordered Repeat number: 1 sertraline 50 mg oral tablet 1 tablet = 50 mg, By Mouth, Daily, # 30 tablet, 1 Refills, Maintenance, 10/29/23 3:54:00 PM EDT, Tablet, [facility] #[id number], Partial fill upon patient request if the [...] Active Low vitamin D level Confirmed Active Diagnosis Diagnosis Type Effective Dates Health Status Clinical Service Informant COPD exacerbation resolved, Apr 2024, [facility] Discharge Diagnosis 05/17/24 Non-Specified Stage 2 hypertension Discharge Diagnosis 05/17/24 Vital Signs Most recent to oldest [Reference Range]: 1 2 Height 162 cm (05/17/24 1:40 PM) 162 cm (05/17/24 1:06 PM) Weight 52 kg (05/17/24 1:06 PM) Oxygen Saturation [94-100 %] 94 % (05/17/24 1:06 PM) Pulse Rate [55-90 bpm] 96 bpm *H* (05/17/24 1:06 PM) Body Mass Index [18.5-24.99 kg/m2] 19.81 kg/m2 (05/17/24 1:06 PM) Blood Pressure [90-138/55-84 mm Hg] 160/ 90mm Hg *H* (05/17/24 1:40 PM) 164/98mm Hg *H* (05/17/24 1:06 PM) Temperature [96.8-100.4 DegF] 98.1 DegF (05/17/24 1:06 PM) Mode of Delivery (Oxygen) Room air (05/17/24 1:06 PM) Blood pressure sites Arm, left (05/17/24 1:40 PM) Arm, left (05/17/24 1:06 PM) Temperature Route Oral (05/17/24 1:06 PM) Dry Weight 52 kg (05/17/24 1:06 PM) Weight Obtained Via Standing scale (05/17/24 1:06 PM) Dry Weight Obtained Via Standing scale (05/17/24 1:06 PM) Social History Social History Type Response Smoking Status Current every day quinten anderson; Number of years: 40; entered on: 10/28/17 Sex Sex Representation Female (finding) Note * Anay Bhatti: PERFORM Event Display: Patient Education/Instruction Authored Date: Ambulatory Adult Visit Summary [facility] [address] [place] [address] Name: AGUILA URIAS : 1965?? Visit: 05/17/2024 12:53?? Ambulatory Visit Instructions ?? Your Care Team Primary Care Provider Summer Olivier DO? This Visit Provider Dede SANDERS, Niharika Your Diagnosis COPD exacerbation Stage 2 hypertension Vitals Signs Temperature: 98.1 DegF Height: 162 cm Pulse Rate:??96 bpm??High Weight: 52 kg Systolic Blood Pressure:??160 mm Hg??High Body Mass Index: 19.81 kg/m2 Diastolic Blood Pressure:??90 mm Hg??High Body surface area: 1.53 Oxygen Saturation: 94 % ?? What to do next Instructions From Your Provider BP log for 2-3 weeks, Follow up in office for??BP check and adjust Amlodipine dose. No Amlodipine if BP <100/60 Scheduled Follow-Up Appointments 2024 1:00 PM EST ?? With: Micky Keene MD, Chiquita Sebastian Where: [facility] [address] [place] [address]- Status: Pending Follow-Up Appointments Follow Up with??Summer Olivier DO When:??Within 2 to 3 weeks Why: Bp check Paperwork for [employer] to take care of Grand daughter for court/custody of child Where: [address] [facility] [place] [address]- Future Orders Vitamin D 25 Hydroxy Level (25 [place] Vitamin D Level) - Routine, Once, 10/29/23 15:44:00 EDT, Order for Today, [facility], Blood?? CBC w/ Differential - Routine, Once, 10/29/23 15:44:00 EDT, Order for Today, [facility], Blood?? Hemoglobin A1C (Monitoring) - Routine, Once, 10/29/23 15:44:00 EDT, Order for Today, [facility], Blood?? Lipid Panel - Routine, Once, 10/29/23 15:44:00 EDT, Order for Today, [facility], Blood?? Comprehensive Metabolic Panel - Routine, Once, 10/29/23 15:45:00 EDT, Order for Today, [facility], Blood?? Dexamethasone Level - Routine, Once, at 8am after taking dexamethasone the night before, 10/29/23 16:09:00 EDT, Order for Today, [facility], Blood?? Metanephrines Urine 24 Hr (Urine Metanephrines 24 Hr) - Routine, Once, 10/29/23 16:10:00 EDT, [facility], Urine 24 Hour?? Creatinine Urine 24 Hr - Routine, Once, 10/29/23 16:10:00 EDT, [facility], Urine 24 Hour?? Medications The list below reflects the information in our records and provided by you today along with any changes made during this visit. Please continue your medications until treatment is completed or stopped by your provider. If this is different from the information you have or there are other questions,please contact the prescribing provider. What How Much When Why Instructions New Amlodipine (amLODIPine 5 mg oral tablet) 1 tab(s) Oral Daily Stage 2 hypertension Pickup at [facility] #[id number] Changed PredniSONE (predniSONE 10 mg oral tablet) Changed PredniSONE (predniSONE 20 mg oral tablet) TAKE 3 TABLETS BY MOUTH FOR 5 DAYS THEN 2 TABLETS FOR 4 DAYS AND 1 TABLET FOR 3 DAYS ?? Changed PredniSONE (predniSONE 20 mg oral tablet) 2 tab(s) Oral Daily COPD exacerbation resolved, Apr 2024, [facility] Duration: 5 Days with food or milk Use for copd Excacerbation and call to schedule appointment ot go to closest ER ?? Pickup at [facility] #[id number] Unchanged Albuterol (Albuterol (Eqv-ProAir HFA) 90 mcg/ inh inhalation aerosol) 2 puff(s) Inhalation Every 6 hours as needed for Wheezing/Shortness of Breath Unchanged Albuterol (albuterol 0.083% inhalation solution) 3 Milliliter Inhalation Every 6 hours as needed for for wheezing Unchanged Azithromycin (azithromycin 250 mg oral tablet) 1 pack/packet Oral Once Duration: 5 Days Unchanged Durable Medical Equipment (cock up wrist splint R G56.01) See instructions Carpal tunnel syndrome of right wrist use at bedtime ?? Unchanged Durable Medical Equipment (Nebulizer/ Compressor) See instructions Asthma dx: asthma; for use with albuterol ?? Unchanged Fluticasone-Salmeterol (Advair Diskus 250 mcg-50 mcg inhalation powder) 1 puff(s) Inhalation Twice a day Unchanged Guaifenesin/ Dextromethorphan (dextromethorphan-guaifenesin 10 mg-100 mg/ 5 mL oral liquid) 10 Milliliter Oral Every 4 hours as needed for for cough Duration: 7 Days Pickup at [facility][id number] Unchanged Loratadine (Claritin 10 mg oral tablet) 1 tab(s) Oral Daily Unchanged Naproxen (naproxen 500 mg oral tablet) 1 tab(s) Oral Twice a day take regularly for 2 wks then as needed ?? Unchanged Sertraline (sertraline 50 mg oral tablet) 1 tab(s) Oral Daily Unchanged umeclidinium (Incruse Ellipta 62.5 mcg/ inh inhalation powder) 1 inhalation Inhalation Every 24 hours doses should be taken at least 24 hours apart ?? Pharmacy Information [facility] #[id number]: [address], [place] [id number] [phone] ?? What How Much When Why Comments Stop Taking Acyclovir (acyclovir 400 mg oral tablet) 1 tab(s) Oral 3 times a day Duration: 5 Days Stop Taking Benzonatate (benzonatate 100 mg oral capsule) See instructions TAKE 1 CAPSULE BY MOUTH THREE TIMES DAILY ?? Stop Taking Cholecalciferol (Vitamin D3 2000 intl units oral capsule) 1 capsule Oral Daily Duration: 30 Days Stop Taking Dexamethasone (dexamethasone 1 mg oral tablet) 1 tab(s) Oral Once Adrenal myelolipoma Take at 11 pm the night prior to blood test. Ensure 8 am blood test to be done ?? Medications and Immunizations Administered Medications Given During Visit No medications given during this visit.?? Allergies (NKA means No Known Allergies) codeine??(rash) Common Emergency Awareness Tips IS IT A STROKE? Act FAST and Check for these signs: FACE Does the face look uneven? ARM Does one arm drift down? SPEECH Does their speech sound strange? TIME Call at any sign of stroke ?? Heart Attack Signs Chest discomfort: Most heart attacks involve discomfort in the center of the chest and lasts more than a few minutes, or goes away and comes back. It can feel like uncomfortable pressure, squeezing, fullness or pain. Discomfort in upper body: Symptoms can include pain or discomfort in one or both arms, back, neck, jaw or stomach. Shortness of breath: With or without discomfort. Other signs: Breaking out in a cold sweat, nausea, or lightheaded. Remember, MINUTES DO MATTER. If you experience any of these heart attack warning signs, call to get immediate medical attention! ?? Smoking can increase your chances of developing chronic health problems and can cause harmful effects to other family members in your house. If you smoke, you are strongly encouraged to quit. Please call [employer] at [phone] or [phone] ([phone]) or log in to [email or web address] for referrals to smoking cessation programs. ?? The National Suicide Prevention Hotline is available 26/10 if you or someone you know needs to find a reason to keep living. By calling 9-820-285-[facility] (8872) you'll be connected to a skilled, trained counselor at a crisis center in your area. [facility] Online Portal You can view and manage your care through the patient portal or by using a health care tsering of your choosing. [employer] is a website that allows you to securely view your medical information including your hospital discharge summary, office visit summaries, medications and follow-up visits. You can also request appointments, renew medications, and request access to your medical information using a health care tsering of your choosing, or just ask a question. You can enroll at [email or web address] or register during your next office visit. [facility], in keeping with [facility] guidance, no longer requires face masks for staff, patientsor visitors in most situations. Similiar to time spent indoors at other locations, there is the chance that you were exposed to repiratory viruses during your time with us (such as flu or COVID-19). If you develop symptoms concerning for a viral respiratory infection, please seek testing (and treatment if indicated) from your medical provider or home test kit. ?? Disclaimer: The information provided is of a general nature and is intended to be used in conjunction with the recommendations and advice of your health care practitioner. Every effort has been made to ensure that the information provided is accurate and complete at the time it is provided to you however, as your needs change, or, as new information becomes available, different or additional instructions may be required. ?? If you have questions, please consult with your primary care provider or pharmacist, as appropriate. This information is not intended to serve as substitution for assessment and evaluation by a qualified health care provider. If you do not have a primary care provider, you may find a [facility] provider by calling [facility] Link at [phone]. Patient Care team information Care Team Personnel Name: Summer Olivier DO Position: [facility] Physician - Primary Care Member Role: PCP Address: [address] [place] [address] Adult & Pediatric Medicine [place], [place] [address] Telecom: Care Team Related Persons Name: MARK DAMON Name: UZMA URIAS Name: CHARLOTTE URIAS Insurance Providers Guarantor name: AGUILA URIAS Health Plan Information #: 1 Payer: [employer] [facility] [employer] Member Number: [id number] Policy Number: NA Group Number: [id number] Health Plan Information #: 2 Payer: [employer] [facility] [employer] Member Number: [id number] Policy Number: NA Group Number: NA
--- NOTE | 2024-05-31 14:40 | PHA.MEDREC ---
Pharmacy Consult ? Medication Reconciliation Pharmacy has completed the medication reconciliation. Spoke to patient to confirm medication list. Per patient she is taking prednisone 20 mg 2 tablets daily. Last dose of medications was yesterday 05/30/24.
[2024-05-31] MEDS: Azithromycin 500 MG in 0.9 % Sodium Chloride 250 ML 125 MG IV (15:03)
[2024-05-31] MEDS: 0.9 % Sodium Chloride Flush 3 ML SYRINGE IVFLUSH (15:04)
[2024-05-31] MEDS: Enoxaparin Sodium 40 MG/0.4 ML SYRINGE SUBCUT (15:04)
--- NOTE | 2024-05-31 19:47 | PC.NURSE ---
this rn assumed care of pt, pt a&ox4, respirations even and unlabored, vss, no acute distress noted.
[2024-05-31] MEDS: methylPREDNISolone Sod Succ 40 MG/ML VIAL IVPUSH (21:19)
[2024-06-01] VITALS (12 sets, daily range): BP systolic 134–171; BP diastolic 70–102; PULSE 58–116; RESP 18–29; TEMP 36.4–37.1; O2SAT 90–97; BMI 17.9
[2024-06-01] MEDS: 0.9 % Sodium Chloride Flush 3 ML SYRINGE IVFLUSH ×4 (00:24→21:17)
[2024-06-01] MEDS: amLODIPine Besylate 5 MG TABLET PO (07:24)
[2024-06-01] MEDS: methylPREDNISolone Sod Succ 40 MG/ML VIAL IVPUSH ×2 (07:26→21:17)
[2024-06-01] MEDS: Albuterol/Iprat 2.5/0.5MG 3 ML AMPUL.NEB INHALE ×4 (08:24→19:45)
--- NOTE | 2024-06-01 12:26 | MHC.CLN ---
PT IS MODERATELY MALNOURISHED PT WITH MILDLY DEPLETED SUBCUTANEOUS FAT AND MUSCLE MASS WITH BMI 18 AND 11% SIGNIFICANT WT LOSS X6 MONTHS REGULAR DIET RECOMMEND ADDING ENSURE BID TO PROMOTE PO INTAKE SUPP TO PROVIDE 700KCALS, 40G PROTEIN MONITOR PO INTAKE SEE ALSO FULL CLINICAL NUTRITION ASSESSMENT
--- NOTE | 2024-06-01 12:36 | P.PNIM_ITS ---
Subjective Subjective Date of Service: 06/01/24 Interval History: Seen and examined this morning Follow-up for COPD exacerbation Persistent dry cough Review of Systems Review of Systems: Yes all other systems are reviewed and are negative Constitutional Constitutional: Denies chills and Denies fever(s) Physical Exam 2 Vital Signs: Vital Signs: Last Vital Signs Temp 98.2 F 06/01/24 10:34 Pulse 91 06/01/24 12:08 Resp 20 06/01/24 12:08 BP 140/76 H 06/01/24 10:34 Pulse Ox 90 L 06/01/24 10:34 O2 Del Method Nasal Cannula 06/01/24 10:34 O2 Flow Rate 4 06/01/24 10:34 Oxygen Flow Rate 4 05/31/24 11:02 BMI result Body Mass Index 17.9 Const: General: cooperative, comfortable, no acute distress, alert and awake Nutritional Appearance: thin Orientation/consciousness: patient oriented x3 Resp: Other: diminished breath sounds b/l wheeze Effort & Inspection: normal respiratory effort, able to speak in complete sentences, no respiratory distress and no use of accessory muscles Cardio: Rate: regular rate GI: Inspection: No distended Palpation (GI): Soft to palpation and nontender Neuro: General: patient oriented x3 Extrem: General: Yes no pedal edema Objective Data Active Medications Acetaminophen (Acetaminophen 325 Mg Tablet) 650 mg PO Q6H PRN PRN Reason: Pain, Mild 1-3,fever,headache Albuterol/Ipratropium (Albuterol/Iprat 2.5/0.5mg 3 Ml Ampul.Neb) 3 ml INHALE RQ4H WHILE AWAKE [facility] Last Admin: 06/01/24 12:08 Dose: 3 ml Documented By: YEE Albuterol/Ipratropium (Albuterol/Iprat 2.5/0.5mg 3 Ml Ampul.Neb) 3 ml INHALE RQ4H WHILE AWAKE PRN PRN Reason: Shortness of Breath/Wheezing Amlodipine Besylate (Amlodipine Besylate 5 Mg Tablet) 5 mg PO DAILY [facility]; Protocol Last Admin: 06/01/24 07:24 Dose: 5 mg Documented By: BABAK Calcium Carbonate (Calcium Carbonate 750 Mg Tab.Chew) 750 mg PO Q4H PRN PRN Reason: Heartburn Enoxaparin Sodium (Enoxaparin Sodium 40 Mg/0.4 Ml Syringe) 40 mg SUBCUT Q24H [facility] Last Admin: 05/31/24 15:04 Dose: 40 mg Documented By: ADONAY Azithromycin 500 mg/ Sodium (Chloride) 250 mls @ 125 mls/hr IV Q24H [facility] Last Infusion: 05/31/24 17:30 Dose: Infused Documented By: ADONAY Magnesium Hydroxide (Milk Of Magnesia 30 Ml Oral.Susp) 30 ml PO DAILY PRN PRN Reason: Constipation Melatonin (Melatonin 3 Mg Tablet) 6 mg PO BEDTIME PRN PRN Reason: Insomnia Methylprednisolone Sodium Succinate (Methylprednisolone Sod Succ 40 Mg/Ml Vial) 40 mg IVPUSH Q12H [facility] Last Admin: 06/01/24 07:26 Dose: 40 mg Documented By: BABAK Sodium Chloride (0.9 % Sodium Chloride Flush 3 Ml Syringe) 3 ml IVFLUSH QSHIFT [facility] Last Admin: 06/01/24 07:27 Dose: 3 ml Documented By: BABAK Labs 05/31/24 11:41 05/31/24 11:40 Labs: Laboratory Results - last 24 hr 05/31/24 13:07 Influenza Type A (PCR) NEGATIVE Influenza Type B (PCR) NEGATIVE RSV RNA Qual (PCR) NEGATIVE SARS-CoV-2 RNA (RT-PCR) NEGATIVE Assessment and Plan (1) COPD exacerbation: Status: Acute Plan This is a 58-year-old female with a PMH significant for?COPD not on home O2, currently smoking half a pack daily who presents to the ED with? increased SOB, MCKEON, and cough x2-3 days admitted for mangement of acute hypoxic respiratory failure in the setting COPD exacerbation. Acute hypoxic respiratory failure due to COPD exacerbation requiring 4L NC to sat at 91%, not on home O2 No sepsis: Elevated HR secondary to albuterol use; no fever or leukocytosis; CXR negative for pneumonia Flu, RSV, Covid 19 negative continue IV Solu-Medrol, DuoNebs, guaifenesin Cover with azithromycin for pleiotropic effects Titrate supplemental O2 >92, wean as tolerated Nicotine dependence declines NRT Encourage smoking cessation HTN continue amlodipine Full Code DVT Prophylaxis: Lovenox patient requires ongoing inpatient hospitalization for management of acute hypoxic respiratory in the setting of COPD exacerbation require administration IV steroids, breathing treatments, and supplemental oxygen. Quality Stroke Does the patient have a stroke diagnosis?: No VTE Prior VTE?: No VTE Risk Level:: Medical - moderate - high VTE Device Contraindication: Treatment Not Indicated VTE Drug Contraindication: N/A - Med Ordered
[2024-06-01] MEDS: guaiFENesin DM 100/10/5 ML 5 ML SYRUP PO ×2 (13:19→21:17)
[2024-06-01] MEDS: Azithromycin 500 MG in 0.9 % Sodium Chloride 250 ML 125 MG IV (13:20)
[2024-06-01] MEDS: Enoxaparin Sodium 40 MG/0.4 ML SYRINGE SUBCUT (13:27)
--- NOTE | 2024-06-01 16:25 | MHC.CM.PN ---
PT REPORTS SHE LIVES WITH HER GRAND KIDS, AGES 1 AND 5 SHE IS INDEPENDENT WITH CARE AND USES A NEBULIZER HCP ON FILE PCP: FAMILIA SALGADO (NOT DR GASPAR) DCP: HOME NO SERVICES SON TO TRANSPORT
[2024-06-01 16:51] LABS: Amphetamine Screen Urine Not Detected (Not Detect); Barbiturates, Urine Not Detected (Not Detect); Benzodiazepines Screen Urine Not Detected (Not Detect); Buprenorphine Scr Not Detected (Not Detect); Cannabinoid Screen Urine Not Detected (Not Detect); Cocaine Screen Urine POSITIVE (Not Detect); Fentanyl, urine Not Detected (Not Detect); Methadone Screen, Urine Not Detected (Not Detect); Opiate Screen Urine Not Detected (Not Detect); Oxycodone Screen Urine Not Detected (Not Detect); Phencyclidine Screen Urine Not Detected (Not Detect)
[2024-06-02] VITALS (11 sets, daily range): BP systolic 131–173; BP diastolic 70–91; PULSE 76–102; RESP 16–20; TEMP 36.1–36.6; O2SAT 91–97
[2024-06-02] MEDS: guaiFENesin DM 100/10/5 ML 5 ML SYRUP PO ×3 (03:46→15:59)
[2024-06-02] MEDS: amLODIPine Besylate 5 MG TABLET PO (07:49)
[2024-06-02] MEDS: methylPREDNISolone Sod Succ 40 MG/ML VIAL IVPUSH ×2 (07:49→20:38)
[2024-06-02] MEDS: 0.9 % Sodium Chloride Flush 3 ML SYRINGE IVFLUSH ×3 (07:52→20:38)
[2024-06-02] MEDS: Albuterol/Iprat 2.5/0.5MG 3 ML AMPUL.NEB INHALE ×3 (08:28→19:45)
--- NOTE | 2024-06-02 08:57 | MHC.CLN ---
F/U DIET=REGULAR. ENSURE BID TO PROMOTE PO INTAKE. SUPPLEMENT PROVIDES 700KCALS, 40G PROTEIN. INTAKE 100% X 2 MEALS. MONITOR PO INTAKE.
--- NOTE | 2024-06-02 11:41 | HO.PM.IMPN ---
Subjective Subjective Date of Service: 06/02/24 Interval History: seen and examined this morning follow up for copd exacerbation breathing easier but reporting frequent cough Review of Systems Review of Systems: Yes all other systems are reviewed and are negative Constitutional Constitutional: Denies chills and Denies fever(s) Cardiovascular Cardiovascular: Denies chest pain and Denies palpitations Respiratory Respiratory: Reports cough Endocrine Endocrine: Denies palpitations Physical Exam Vital Signs: Vital Signs: Last Vital Signs Temp 97.3 F 06/02/24 11:04 Pulse 91 06/02/24 11:04 Resp 18 06/02/24 11:04 BP 147/71 H 06/02/24 11:04 Pulse Ox 93 06/02/24 11:04 O2 Del Method Nasal Cannula 06/02/24 11:04 O2 Flow Rate 4 06/02/24 11:04 Oxygen Flow Rate 4 05/31/24 11:02 BMI result Body Mass Index 17.9 Const: General: cooperative, comfortable, no acute distress, alert and awake Nutritional Appearance: thin Orientation/consciousness: patient oriented x3 Resp: Other: diminished breath sounds b/l wheeze Effort & Inspection: normal respiratory effort, able to speak in complete sentences, no respiratory distress and no use of accessory muscles Cardio: Rate: regular rate GI: Inspection: No distended Palpation (GI): Soft to palpation and nontender Neuro: General: patient oriented x3 Extrem: General: Yes no pedal edema Objective Data Active Medications Acetaminophen (Acetaminophen 325 Mg Tablet) 650 mg PO Q6H PRN PRN Reason: Pain, Mild 1-3,fever,headache Albuterol/Ipratropium (Albuterol/Iprat 2.5/0.5mg 3 Ml Ampul.Neb) 3 ml INHALE RQ4H WHILE AWAKE [facility] Last Admin: 06/02/24 11:33 Dose: Not Given Documented By: MADI Non-Admin Reason: Patient Refused Albuterol/Ipratropium (Albuterol/Iprat 2.5/0.5mg 3 Ml Ampul.Neb) 3 ml INHALE RQ4H WHILE AWAKE PRN PRN Reason: Shortness of Breath/Wheezing Amlodipine Besylate (Amlodipine Besylate 5 Mg Tablet) 5 mg PO DAILY [facility]; Protocol Last Admin: 06/02/24 07:49 Dose: 5 mg Documented By: AMARA Calcium Carbonate (Calcium Carbonate 750 Mg Tab.Chew) 750 mg PO Q4H PRN PRN Reason: Heartburn Enoxaparin Sodium (Enoxaparin Sodium 40 Mg/0.4 Ml Syringe) 40 mg SUBCUT Q24H [facility] Last Admin: 06/01/24 13:27 Dose: 40 mg Documented By: MILAN Guaifenesin/Dextromethorphan (Guaifenesin Dm 100/10/5 Ml 5 Ml Syrup) 5 ml PO Q6H PRN PRN Reason: Cough Last Admin: 06/02/24 11:16 Dose: 5 ml Documented By: AMARA Azithromycin 500 mg/ Sodium (Chloride) 250 mls @ 125 mls/hr IV Q24H [facility] Last Infusion: 06/01/24 16:10 Dose: Infused Documented By: MILAN Magnesium Hydroxide (Milk Of Magnesia 30 Ml Oral.Susp) 30 ml PO DAILY PRN PRN Reason: Constipation Melatonin (Melatonin 3 Mg Tablet) 6 mg PO BEDTIME PRN PRN Reason: Insomnia Methylprednisolone Sodium Succinate (Methylprednisolone Sod Succ 40 Mg/Ml Vial) 40 mg IVPUSH Q12H [facility] Last Admin: 06/02/24 07:49 Dose: 40 mg Documented By: AMARA Sodium Chloride (0.9 % Sodium Chloride Flush 3 Ml Syringe) 3 ml IVFLUSH QSHIFT [facility] Last Admin: 06/02/24 07:52 Dose: 3 ml Documented By: AMARA Labs 05/31/24 11:41 05/31/24 11:40 Labs: Laboratory Results - last 24 hr 06/01/24 14:00 Urine Opiates Screen Not Detected Ur Buprenorphine Scrn Not Detected Ur Oxycodone Screen Not Detected Urine Methadone Screen Not Detected Urine Fentanyl Screen Not Detected Ur Barbiturates Screen Not Detected Ur Phencyclidine Scrn Not Detected Ur Amphetamines Screen Not Detected U Benzodiazepines Scrn Not Detected Urine Cocaine Screen POSITIVE H U Marijuana (THC) Screen Not Detected Assessment and Plan (1) COPD exacerbation: Status: Acute Plan This is a 58-year-old female with a PMH significant for?COPD not on home O2, currently smoking half a pack daily who presents to the ED with? increased SOB, MCKEON, and cough x2-3 days admitted for mangement of acute hypoxic respiratory failure in the setting COPD exacerbation. Acute hypoxic respiratory failure due to COPD exacerbation requiring 4L NC to sat at 91%, not on home O2 No sepsis: Elevated HR secondary to albuterol use; no fever or leukocytosis; CXR negative for pneumonia Flu, RSV, Covid 19 negative continue IV Solu-Medrol, DuoNebs, guaifenesin and azithromycin Titrate supplemental O2 >92, wean as tolerated BNP low tox screen + for cocaine Nicotine dependence declines NRT Encourage smoking cessation HTN continue amlodipine Full Code DVT Prophylaxis: Lovenox patient requires ongoing inpatient hospitalization for management of acute hypoxic respiratory in the setting of COPD exacerbation require administration IV steroids, breathing treatments, and supplemental oxygen. Quality Stroke Does the patient have a stroke diagnosis?: No VTE Prior VTE?: No VTE Risk Level:: Medical - moderate - high VTE Device Contraindication: Treatment Not Indicated VTE Drug Contraindication: N/A - Med Ordered
[2024-06-02] MEDS: Enoxaparin Sodium 40 MG/0.4 ML SYRINGE SUBCUT (13:37)
[2024-06-02] MEDS: Azithromycin 500 MG in 0.9 % Sodium Chloride 250 ML 125 MG IV (13:38)
--- NOTE | 2024-06-02 14:31 | P.CDIM_ITS ---
PROVIDER RESPONSE TEXT: To clarify, the appropriate diagnosis supported by the clinical indicators: Moderate Protein Calorie Malnutrition QUERY TEXT: PHYSICIAN'S DOCUMENTATION REQUEST Date of Query: 06/02/2024 01:05 PM EST Patient Name: AGUILA URIAS Admit Date: 05/31/2024 Dear Albina Beasley PA, A review of the medical record indicates additional documentation may be needed. Please review below and update the documentation accordingly. Clinical Indicators: Height: ( ) 5'6 Weight: ( ) 50.2 kg BMI: ( ) 17.9 Other Clinical Notes Supporting Significance of the BMI: Per Clinical Nutrition Assessment 06/01/24: patient with mildly depleted subcutaneous fat and muscle mass with BMI 18 and 11% significant weight loss x 6 months patient is moderately malnourished regular diet recommend adding Ensure BID to promote po intake If possible, please provide an associated diagnosis related to the abnormal BMI, such as: Underweight Weight loss Cachexia Anorexia Moderate Protein Calorie Malnutrition Other (explain) Clinically unable to determine (explain) Thank you, Nellie Chacko RN Use of terms such as suspected, likely, concern for, or probable (associated with a specific diagnosi s that is being evaluated, monitored, or treated as if it exists) are acceptable and can be coded in the inpatient se tting, when documented at the time of discharge. Please use your independent medical judgment in providing your response. THIS QUERY IS PART OF THE PERMANENT MEDICAL RECORD
--- NOTE | 2024-06-02 15:25 | MHC.CM.PN ---
pt discussed at rounds is not medically clear for dc dc plan remains for home
[2024-06-03 02:07] VITALS: BP 156/80; PULSE 90; RESP 17; TEMP 36.8; O2SAT 92
[2024-06-03 07:09] VITALS: BP 128/98; PULSE 91; RESP 16; TEMP 36.9; O2SAT 93
[2024-06-03] MEDS: methylPREDNISolone Sod Succ 40 MG/ML VIAL IVPUSH (07:43)
[2024-06-03] MEDS: amLODIPine Besylate 5 MG TABLET PO (07:44)
[2024-06-03 07:55] VITALS: PULSE 91; RESP 16; O2SAT 93
[2024-06-03] MEDS: Albuterol/Iprat 2.5/0.5MG 3 ML AMPUL.NEB INHALE (07:55)
--- NOTE | 2024-06-03 09:30 | PM.DS ---
DS: Providers Provider Date of Service: 06/03/24 Date of admission: 05/31/24 14:07 Date of discharge: 06/03/24 Primary care physician: Summer Olivier DO DS: Diagnosis Discharge Diagnosis (1) COPD exacerbation: Status: Acute DS: Summary Hospital Course Hospital Course: History and physical as per admitting provider. Pt is a 58-year-old female with a PMH significant for?COPD not on home O2, currently smoking half a pack daily who presents to the ED with? increased SOB, MCKEON, and cough x2-3 days. Pt recently admitted to the hospital from 05/03-05/05 with similar symptoms and treated for COPD exacerbation. Pt was not sent home on O2. Reports initially felt okay for awhile but SOB and MCKEON soon returned. pt reports has been especially fatigued with walking, and has to rest after ambulating for only a short distance. Reports subjective fever and chills as well as nonproductive cough. No nausea, vomiting, abdominal pain. No chest pain /pressure, palpitations. Denies lower leg edema. Pt currently smoking around half a pack of cigarettes daily. In the ED pt was Tachycardic up to 95, tachypneic up to 35, hypertensive up to 162/91, and satting at 93% on 4 L NC. Labs were Grossly unremarkable around baseline for pt. Mild leukocytosis of 11.1. Stable H&H. No significant electrolyte abnormalities. Renal and hepatic function WNL troponin 5.3. BNP WNL at 94. Tested negative for flu, RSV, and COVID. CXR showed COPD and mild pulmonary vascular congestion, similar to previous. EKG demonstrated Normal sinus rhythm with nonspecific T-wave abnormality. Pt was treated with Solu-Medrol and DuoNebs. Pt will be admitted to the hospital for treatment and further evaluation of acute hypoxic respiratory failure in the setting COPD exacerbation. Acute hypoxic respiratory failure due to COPD exacerbation requiring 4L NC to sat at 91%, not on home O2. No sepsis: Elevated HR secondary to albuterol use; no fever or leukocytosis; CXR negative for pneumonia. Flu, RSV, Covid 19 negative . continue IV Solu-Medrol, DuoNebs, guaifenesin and azithromycin . Titrate supplemental O2 >92, wean as tolerated. BNP low . tox screen + for cocaine. Home with steroid taper and albuterol nebs refill Nicotine dependence. declined NRT. Encouraged smoking cessation HTN. continue amlodipine Time Attestation Discharge Coordination Time (in mins): 40 Quality: Safe Use of Opioids Does Pt have an Active Cancer Diagnosis on the Problem List?: No Quality: Stroke Does the patient have a stroke diagnosis?: No Physical Exam Vital Signs: Vital Signs: Last Vital Signs Temp 98.5 F 06/03/24 07:09 Pulse 91 06/03/24 07:55 Resp 16 06/03/24 07:55 BP 128/98 H 06/03/24 07:09 Pulse Ox 93 06/03/24 07:09 O2 Del Method Room Air 06/03/24 07:09 O2 Flow Rate 2 06/02/24 15:09 Oxygen Flow Rate 4 05/31/24 11:02 BMI result Body Mass Index 17.9 Appearing in no acute distress head is normocephalic atraumatic eyes pupils are PERRLA sclera is anicteric mouth throat mucous membranes are intact and moist neck is supple no lymphadenopathy, no JVD noted lung sounds mild exp wheezing with air movement throughout heart regular rate rhythm, clear S1, S2 positive bowel sounds, abdomen is soft, nontender neuro patient is alert x3, no focal deficits DS: Data Data Completed and Pending Completed studies during hospitalization [Text1]: Procedures Excision of Descending Colon, Via Natural or Artificial Opening Endoscopic, Diagnostic (05/06/20) Excision of Sigmoid Colon, Via Natural or Artificial Opening Endoscopic, Diagnostic (05/06/20) Excision of Transverse Colon, Via Natural or Artificial Opening Endoscopic, Diagnostic (05/06/20) Discharge Plan Discharge Anticipated Discharge Date/Time: 06/03/24 09:27 Patient Disposition: Home, Self-Care Discharge Diagnosis: COPD exacerbation Referrals: Summer Olivier DO [Primary Care Provider] - 1 Week Discharge Medications: New prednisone 10 mg tablet See Taper PO DIRECTED Qty: 20 0RF Taper: Prednisone 40 mg daily for 2 Days and 0 Hour 30 mg daily for 2 Days and 0 Hour 20 mg daily for 2 Days and 0 Hour 10 mg daily for 2 Days and 0 Hour Rx Instructions: see taper instructions dextromethorphan polistirex [Robitussin ER] 30 mg/5 mL suspension,extended rel 12 hr 10 ml PO Q12H PRN (Reason: cough) Qty: 89 0RF Continued albuterol sulfate [Ventolin HFA] 90 mcg/actuation HFA aerosol inhaler 2 puff INHALATION Q6H PRN (Reason: wheezing) prednisone 20 mg tablet 40 mg PO DAILY amlodipine 5 mg tablet 5 mg PO DAILY Incruse Ellipta 62.5 mcg/actuation blister with device 1 inh inhalation DAILY fluticasone propion-salmeterol [Advair Diskus] 250-50 mcg/dose blister with device 1 ea INHALATION BID albuterol sulfate 2.5 mg /3 mL (0.083 %) solution for nebulization 2.5 mg inhalation Q6H PRN (Reason: wheezing) Qty: 180 0RF Discharge Orders: Discharge Order (Routine); Ordered 06/03/24 Ordered By: Keira Padgett Diet: Advance to usual diet Activity on Discharge: As tolerated Stand Alone Forms: Patient Portal Discharge page Print Language: Estonian Care Plan Goals: Complete steroid taper Health Concerns: Copd exacerbation Plan of Treatment: Follow up with primary care provider as needed Take all medications as prescribed Assessment: See discharge summary Patient Instructions: COPD (Chronic Obstructive Pulmonary Disease) (DC)
[2024-06-03] MEDS: guaiFENesin DM 100/10/5 ML 5 ML SYRUP PO (09:39)
--- NOTE | 2024-06-03 09:50 | MHC.CM.PN ---
PT TO DC HOME TODAY WITH NO SERVICES VIA PRIVATE TRANSPORT
[2024-06-03 10:31] VITALS: BP 165/104; PULSE 114; RESP 24; TEMP 36.3; O2SAT 92
== END 2024-06-03 10:34 | disposition home or self-care (01) | DRG 140 ==
LOC: HO.ED 12:46 → HO.EDOVER 14:18 → HO.S3 06-01 07:39
PROVIDERS: Physician Assistant Medical; Admitting Provider Student in an Organized Health Care Education/Training Program; Emergency Provider Emergency Medicine; PCP Pediatrics; Visit Provider Nurse Practitioner Acute Care
DX: J44.1 Chronic obstructive pulmonary disease with (acute) exacerbation (principal); J96.01 Acute respiratory failure with hypoxia; E44.0 Moderate protein-calorie malnutrition; F17.210 Nicotine dependence, cigarettes, uncomplicated; I10 Essential (primary) hypertension; Z20.822 Contact with and (suspected) exposure to COVID-19; Z71.6 Tobacco abuse counseling; Z68.1 Body mass index [BMI] 19.9 or less, adult; Z79.51 Long term (current) use of inhaled steroids; Z79.52 Long term (current) use of systemic steroids; Z79.899 Other long term (current) drug therapy
CPT/HCPCS: 0241U; 36415; 71045; 80053; 80307; 82803; 83880; 84484; 85025; 93005; 94640; 99285; J0456; J1650; J2919

== ENCOUNTER → 2024-05-31 11:08 | Outpatient (BNV) | payer OTHER, SELFPAY | PROVIDERS: Emergency Provider Emergency Medicine; PCP Internal Medicine; Visit Provider Radiology Diagnostic Radiology | DX: J81.1 Chronic pulmonary edema (principal) | CPT/HCPCS: 71045 ==

== ENCOUNTER → 2024-05-31 11:08 | Outpatient (BNV) | payer OTHER, SELFPAY | PROVIDERS: Admitting Provider Student in an Organized Health Care Education/Training Program; Emergency Provider Emergency Medicine; PCP Internal Medicine; Visit Provider Internal Medicine Cardiovascular Disease | DX: R94.31 Abnormal electrocardiogram [ECG] [EKG] (principal); R07.9 Chest pain, unspecified | CPT/HCPCS: 93010 ==

== ENCOUNTER → 2024-05-31 14:07 | Outpatient (BNV) | payer OTHER, SELFPAY | PROVIDERS: Admitting Provider Student in an Organized Health Care Education/Training Program; Emergency Provider Emergency Medicine; PCP Internal Medicine; Visit Provider Physician Assistant Medical | DX: J44.1 Chronic obstructive pulmonary disease with (acute) exacerbation (principal) | CPT/HCPCS: 99233 ==

== ENCOUNTER 2024-12-26 16:44 | Inpatient (IN) | payer OTHER, SELFPAY ==
--- NOTE | 2024-12-26 | ECG_ITS ---
Test Reason : SOB Blood Pressure : */* mmHG Vent. Rate : 55 BPM Atrial Rate : 55 BPM P-R Int : 150 ms QRS Dur : 96 ms QT Int : 420 ms P-R-T Axes : 85 109 93 degrees QTcB Int : 401 ms Sinus bradycardia Possible Left atrial enlargement Rightward axis Nonspecific T wave abnormality Abnormal ECG When compared with ECG of 31-May-2024 11:31, Nonspecific T wave abnormality, worse in Lateral leads QT has lengthened Referred By: Generic ED Physician Electronically Signed By: Renny Morelos
--- NOTE | ~2024-12-26 | XR_ITS ---
CLINICAL HISTORY: SOB EXAM: Two views of the chest. COMPARISON: CR/SR - XR CHEST 1 VIEW - 05/31/24 11:12 EST FINDINGS: Normal cardiac, mediastinal, and hilar contours. Normal heart size. No pleural effusion or pneumothorax. Lungs are clear. No acute bone finding. IMPRESSION: 1. No acute cardiopulmonary process demonstrated. This document has been electronically signed by: Tiago Fan MD on 12/26/2024 19:10:10
[2024-12-26 16:54] VITALS: BP 132/93; BP 170/84; PULSE 66; PULSE 67; RESP 20; TEMP 36.8; O2SAT 99; BMI 19.4
[2024-12-26 17:29] LABS: MANUAL DIFF FLAG NO
[2024-12-26 17:32] LABS: Hematocrit 47.6 % (37.0-47.0); Hemoglobin 16.1 g/dl (12.0-16.0); Imm Gran Abs Auto 0.02 X10*3/uL (0.00-0.03); Imm Gran Pct Auto 0.2 % (0.0-0.4); Lymphocytes Absolute Auto 1.9 X10*3/uL (1.2-4.9); Mean Corpuscular HGB Conc 33.8 g/dl (31.0-35.0); Mean Corpuscular Hemoglobin 31.3 pg (27.0-33.0); Mean Corpuscular Volume 92.6 fL (80.0-98.0); NRBC Abs Auto 0.000 X10*3/uL (0.0-0.012); NRBC Pct Auto 0.0 /100WBC (0.0-0.2); Platelet Count 251 X10*3/uL (160-400); Red Blood Count 5.14 X10*6/uL (4.20-5.50); White Blood Count 8.2 X10*3/uL (4.8-10.8)
[2024-12-26 17:44] LABS: Anion Gap 10 (12-20); Blood Urea Nitrogen 25 mg/dL (9-16); Calcium 9.2 mg/dL (8.4-10.2); Carbon Dioxide 26 mmol/L (22-29); Chloride 110 mmol/L (96-108); Creatinine Clr Calc Pharmacy 67.7; Estimated Glomerular Filt Rate > 60; Potassium 4.1 mmol/L (3.3-5.1); Sodium 142 mmol/L (135-145)
[2024-12-26 18:07] LABS: COVID-19 Test Negative (Negative); IDNOW Serial# 08D9AD1C; IDNOW Serial# 6674DD1D; Influenza B2 Negative (Negative)
--- NOTE | 2024-12-26 21:34 | ED.SOB ---
HPI - SOB/Dyspnea General Chief Complaint: Dyspnea Stated Complaint: SOB hx COPD 91%RA , 96%on 2L albuterol Time Seen by Provider: 12/26/24 21:09 Source: patient, EMS, RN notes reviewed and old records reviewed Mode of arrival: EMS Limitations: no limitations History of Present Illness ED Provider: Dr. Val Hanson HPI Narrative: 59-year-old female with a history of COPD, continued tobacco use presenting by EMS with reported shortness of breath that has been ongoing for the last couple of days and worsening over the last several hours. Reports that she woke up from sleep with worse shortness of breath and a cough productive of green, sometimes black colored sputum. Feels as though her nebulizer treatments are not helping. Received a DuoNeb by EMS which only helped slightly. Denies associated fever, chest pain, abdominal pain, nausea, vomiting, bowel changes or urinary complaints. No lower extremity edema or pain. No use of exogenous estrogens. She does not use oxygen at home. Related Data Home Medications ?Medication ?Instructions ?Recorded ?Confirmed albuterol sulfate 90 mcg/actuation 2 puff inhalation Q6H PRN wheezing 05/03/24 05/31/24 aerosol inhaler (Ventolin HFA) amlodipine 5 mg tablet 5 mg PO DAILY 05/31/24 05/31/24 fluticasone 250 mcg-salmeterol 50 1 ea inhalation BID 05/31/24 05/31/24 mcg/dose blistr powdr for inhalation (Advair Diskus) prednisone 20 mg tablet 40 mg PO DAILY 05/31/24 05/31/24 umeclidinium 62.5 mcg/actuation 1 inh inhalation DAILY 05/31/24 05/31/24 blister powder for inhalation (Incruse Ellipta) Previous Rx's ?Medication ?Instructions ?Recorded albuterol sulfate 2.5 mg/3 mL 2.5 mg (3 mL) inhalation Q6H PRN 06/03/24 (0.083 %) solution for nebulization wheezing #180 mL dextromethorphan polistirex 30 10 ml PO Q12H PRN cough #89 mL 06/03/24 mg/5 mL oral susp ext.release 12hr (Robitussin ER) prednisone 10 mg tablet See Taper PO DIRECTED #20 tabs 06/03/24 Allergies Allergy/AdvReac Type Severity Reaction Status Date / Time codeine (CODEINE) Allergy Unknown RASH Verified 12/26/24 16:57 Review of Systems Review of Systems: as per HPI, full review of systems performed and negative but for the above mentioned pertinent positives and negatives. [facility] Past Medical History Medical History Hx of flexible sigmoidoscopy History of crack cocaine use Smoker Back pain COPD (chronic obstructive pulmonary disease) Surgical History Hx of cholecystectomy Previous back surgery Tubal ligation status Social History Social History Household Members: Children Household Members Other:: grandchildren Housing: House Are you a primary healthcare project manager to a significant other at home: No Do you presently have visiting nurse or other home services: No Alcohol intake: never Comment: occaisional cramping which is preop baseline Patient Tobacco Use Status: Current everyday Tobacco user Tobacco use type: Cigarette Cigarette Packs Per Day: 0.75 Cigarettes Per Day: 10 Years Smoked: 45 Smoked in Last 30 Days: Yes e-Cigarette/Vaping Use: Never Used Second Hand Smoke Exposure: No Substance Use Type: Crack/Cocaine Advance Directives: Yes Advance Directives on File: Yes Advance Directives Date on File: 12/07/23 Do you have a plan to hurt others: No Plan service: No Current occupational status: unemployed Physical Exam Exam: Exam: GENERAL: Ill-appearing, chronically ill-appearing, moderate respiratory distress. SKIN: Normal skin color for ethnicity, warm, dry, no rashes noted. HEENT: Normocephalic, atraumatic, no stridor, EOMI. NECK: Soft, supple, full ROM, midline structures nontender, no step-offs, no deformities, no lymphadenopathy. CHEST: Heart regular tachycardia, barrel chest, symmetric chest rise and fall. PULMONARY: Diffuse, faint, wheezes throughout, tachypnea, diminished air movement bilaterally R>L, moderate respiratory distress. ABDOMINAL: Soft,nontender, quiet bowel sounds in all quadrants. : Deferred. MUSCULOSKELETAL: Normal tone, full range of motion, no deformities, no peripheral edema. NEURO: Alert and oriented to person, CN II through XII intact, no focal neurologic deficits. PSYCHIATRIC: Anxious affect, appropriate demeanor. Vital Signs: Vital Signs: Last Vital Signs Temp 98.3 F 12/27/24 00:29 Pulse 70 12/27/24 00:29 Resp 20 12/27/24 00:29 BP 163/84 H 12/27/24 00:29 Pulse Ox 93 12/27/24 00:29 O2 Del Method Room Air 12/27/24 00:29 Oxygen Flow Rate 2 12/26/24 16:54 BMI result Body Mass Index 19.4 Medications Administered Discontinued Medications Generic Name Dose Route Start Last Admin Trade Name Tonoq PRN Reason Stop Dose Admin Albuterol Sulfate 2.5 mg/ 0 mg 12/26/24 22:21 12/26/24 22:26 Albuterol/Ipratropium 3 ml INHALE 12/26/24 22:22 1 dose ONCE ONE Administration Doxycycline Hyclate 100 mg/ 250 mls @ 166.67 mls/hr 12/26/24 21:26 12/26/24 23:37 Sodium Chloride IV 12/26/24 22:55 Infused ONCE ONE Infusion Methylprednisolone Sodium Succinate 60 mg 12/26/24 21:26 12/26/24 22:01 Methylprednisolone Sod Succ 125 Mg/2 Ml Vial IVPUSH 12/26/24 21:27 60 mg ONCE ONE Administration Medical Decision Making Medical Decision Making MDM Narrative: Patient presents today with chief complaint of shortness of breath. Differential diagnosis includes, but is not limited to, upper respiratory infection, pneumonia, COPD exacerbation, asthma exacerbation, CHF, pneumothorax, pleural effusion, pulmonary embolism, ACS. Broad-based work-up will be initiated to evaluate for etiology of patient's symptoms. 9:38 PM 12/26/2024 (Dr. Val Hanson, D.O.) patient continues to have wheeze and shortness of breath even with minor movement in the bed. No fever to suggest pneumonia however, given her longstanding history of COPD and change in her sputum color, we will treat for COPD exacerbation with doxycycline. Added on a cardiac enzyme and BNP to her workup. She has no history of ACS but even minor movement in the bed causes her to be severely short of breath. Oxygen saturation dropped to the high 80s while I talked to her and examined her. We will give a breathing treatment as well. 1:57 AM 12/27/2024 (Theo [email or web address]) patient with continued dyspnea despite breathing treatment. Ambulatory pulse ox down to 88%. Plan for admission for further care and evaluation of COPD exacerbation. Differential Diagnosis Differential Diagnoses: The differential diagnosis associated with the presentation includes (As above) Admission/Observation Consideration of admission/observation: Escalation of care including admission/observation considered Consult Healthcare Provider Management of the patient was discussed with: Hospitalist Lab Data MDM Lab Attestation statement: I reviewed the patient's lab results. 12/26/24 17:22 12/26/24 17:22 Labs: Lab Results 12/26/24 12/26/24 12/26/24 Range/Units 17:22 17:38 21:59 WBC 8.2 (4.8-10.8) X10*3/uL RBC 5.14 (4.20-5.50) X10*6/uL Hgb 16.1 H (12.0-16.0) g/dl Hct 47.6 H (37.0-47.0) % MCV 92.6 (80.0-98.0) fL MCH 31.3 (27.0-33.0) pg MCHC 33.8 (31.0-35.0) g/dl RDW 12.1 (11.0-16.0) % Plt Count 251 (160-400) X10*3/uL MPV 10.1 (9.4-12.3) fL Immature Gran % (Auto) 0.2 (0.0-0.4) % Neut % (Auto) 61.9 (45-73) % Lymph % (Auto) 22.7 (20-40) % Harrison % (Auto) 8.6 (2-11) % Eos % (Auto) 5.6 H (0-4) % Baso % (Auto) 1.0 (0-2) % Lymph # (Auto) 1.9 (1.2-4.9) X10*3/uL Harrison # (Auto) 0.7 (0.1-1.2) X10*3/uL Eos # (Auto) 0.5 H (0.0-0.4) X10*3/uL Baso # (Auto) 0.1 (0.0-0.2) X10*3/uL Abs Immat Gran (auto) 0.02 (0.00-0.03) X10*3/uL Absolute Neuts (auto) 5.1 (2.0-8.3) x10*3/uL Absolute Nucleated RBC 0.000 (0.0-0.012) X10*3/uL Nucleated RBC % (auto) 0.0 (0.0-0.2) /100WBC Sodium 142 (135-145) mmol/L Potassium 4.1 (3.3-5.1) mmol/L Chloride 110 H (96-108) mmol/L Carbon Dioxide 26 (22-29) mmol/L Anion Gap 10 L (12-20) BUN 25 H (9-16) mg/dL Creatinine 0.75 (0.5-1.4) mg/dL Estim Creat Clear Calc 67.7 Estimated GFR > 60 Random Glucose 132 H (60-115) mg/dL Calcium 9.2 D (8.4-10.2) mg/dL Troponin I High Sens < 2.7 (<3.5-17.0) ng/L NT-Pro-B Natriuret Pep 126.1 (<300) pg/mL COVID-19 ([place]) Negative (Negative) COVID-19 Clin Com See Note Influenza Type A ([place]) Negative (Negative) Influenza Type B ([place]) Negative (Negative) Influenza A & B Note See Note Independent Interpretation I performed an independent interpretation of an: EKG Interpretation: My independent interpretation of the ECG reveals normal sinus bradycardia with rate of 55, extreme right axis deviation, normal intervals, no ST elevations or depressions to suggest ischemic changes, relatively unchanged from previous on 05/31/2024. Radiology Impression Discussion of test interpretation with radiology: I have reviewed the radiologist's reading. Radiologist Impression: EXAM: Two views of the chest. COMPARISON: CR/SR - XR CHEST 1 VIEW - 05/31/24 11:12 EST FINDINGS: Normal cardiac, mediastinal, and hilar contours. Normal heart size. No pleural effusion or pneumothorax. Lungs are clear. No acute bone finding. IMPRESSION: 1. No acute cardiopulmonary process demonstrated. This document has been electronically signed by: Tiago Fan MD on 12/26/2024 19:10:10 Independent Historian Clinical information obtained from an independent historian. History obtained from or confirmed by: EMS External Record Review External record reviewed: Inpatient record Chronic Conditions Patient?s care impacted by: Other (COPD) Social Determinants Patient?s care significantly limited by Social Determinants of Health including: Problems related to primary support group and Other Social Determinant of Health Discharge Plan Discharge Clinical Impression: Acute exacerbation of chronic obstructive airways disease, Dyspnea on exertion Patient Disposition: Admitted As Inpatient
[2024-12-26] MEDS: Albuterol Sulfate 2.5 MG, Albuterol/Iprat 2.5/0.5MG 3 ML 3 ML INHALE (22:26)
[2024-12-26 22:27] VITALS: PULSE 62; RESP 18; O2SAT 100
[2024-12-26 22:27] LABS: NT Pro B Type Natriuretic Pept 126.1 pg/mL (<300)
[2024-12-26 22:29] LABS: Troponin-I High Sensitivity < 2.7 ng/L (<3.5-17.0)
[2024-12-27] VITALS (7 sets, daily range): BP systolic 143–164; BP diastolic 80–88; PULSE 64–86; RESP 18–27; TEMP 36.5–36.8; O2SAT 93–98; BMI 18.0
--- NOTE | 2024-12-27 00:31 | PC.NURSE ---
ambulated patient, sats before walking 91-93% RA while walking 88-90%, heart rate 70s. pt did report sob and dizziness while walking
--- NOTE | 2024-12-27 03:00 | P.HPHOSP_ITS ---
History of Present Illness Date of Service: 12/27/24 Chief Complaint: sob 59-year-old female with a past medical history of COPD, tobacco dependence presented to the hospital with a chief complaint of cough and shortness of breath. Patient reports over the past day she has been having shortness of breath which has been gradually worsening. Reports having greenish sputum production. Denies any chest pain or palpitations. Denies any fevers and chills. Denies any sick contacts. Review of all other systems is negative except mentioned above ER course: Per ER team, patient on presentation noted to be mildly hypoxic; placed on supplemental oxygen; chest x-ray showed no acute cardiopulmonary process; has bilateral wheezing; concerning for acute COPD exacerbation. Given nebulizers and steroids. [facility] Medical History Hx of flexible sigmoidoscopy History of crack cocaine use Smoker Back pain COPD (chronic obstructive pulmonary disease) Surgical History Hx of cholecystectomy Previous back surgery Tubal ligation status Social History Household Members: Children Household Members Other:: grandchildren Housing: House Are you a primary intensive care unit registered nurse to a significant other at home: No Do you presently have visiting nurse or other home services: No Alcohol intake: never Comment: occaisional cramping which is preop baseline Patient Tobacco Use Status: Current everyday Tobacco user Tobacco use type: Cigarette Cigarette Packs Per Day: 0.75 Cigarettes Per Day: 10 Years Smoked: 45 Smoked in Last 30 Days: Yes e-Cigarette/Vaping Use: Never Used Second Hand Smoke Exposure: No Substance Use Type: Crack/Cocaine Advance Directives: Yes Advance Directives on File: Yes Advance Directives Date on File: 12/07/23 Do you have a plan to hurt others: No Plan Nutrition Risks: No Nutritional Risk service: No Current occupational status: unemployed Meds Allergies Allergy/AdvReac Type Severity Reaction Status Date / Time codeine (CODEINE) Allergy Unknown RASH Verified 12/26/24 16:57 Home Medications ?Medication ?Instructions ?Recorded ?Confirmed ?Last Taken ?Type albuterol sulfate 90 mcg/actuation 2 puff inhalation Q 6H PRN wheezing 05/03/24 05/31/24 05/03/24 History aerosol inhaler (Ventolin HFA) amlodipine 5 mg tablet 5 mg PO DAILY 05/31/2405/3105/30/24 History fluticasone 250 mcg-salmeterol 50 1 ea inhalation BID 05/31/24 05/31/24 05/30/24 History mcg/dose blistr powdr for inhalation (Advair Diskus) prednisone 20 mg tablet 40 mg PO DAILY 05/31/24/09/2705/30/24 History umeclidinium 62.5 mcg/actuation 1 inh inhalation DAILY 05/31/24 05/31/24 05/30/24 History blister powder for inhalation (Incruse Ellipta) Physical Exam 2 Vital Signs and Narrative: Vital Signs: Last Vital Signs Temp 98.3 F 12/27/24 00:29 Pulse 70 12/27/24 00:29 Resp 20 12/27/24 00:29 BP 163/84 H 12/27/24 00:29 Pulse Ox 93 12/27/24 00:29 O2 Del Method Room Air 12/27/24 00:29 Oxygen Flow Rate 2 12/26/24 16:54 BMI result Body Mass Index 19.4 Gen: Appears be in no acute distress. Speaks in full sentences. Not in respiratory distress. HEENT: NCAT, Moist mucosa. Pulmonary: Bilateral wheezing present. CVS: Normal S1-S2 Abdomen: BS+, Soft, Nontender Extremities: Warm well perfused Neuro: Alert and awake. Results Labs 12/27/24 04:09 12/27/24 04:09 Labs: Laboratory Results - last 24 hr 12/26/24 12/26/24 12/26/24 17:22 17:38 21:59 MCV 92.6 MCH 31.3 MCHC 33.8 RDW 12.1 Plt Count 251 MPV 10.1 Immature Gran % (Auto) 0.2 Neut % (Auto) 61.9 Lymph % (Auto) 22.7 [place] % (Auto) 8.6 Eos % (Auto) 5.6 H Baso % (Auto) 1.0 Lymph # (Auto) 1.9 [place] # (Auto) 0.7 Eos # (Auto) 0.5 H Baso # (Auto) 0.1 Abs Immat Gran (auto) 0.02 Absolute Neuts (auto) 5.1 Absolute Nucleated RBC 0.000 Nucleated RBC % (auto) 0.0 Anion Gap 10 L Estim Creat Clear Calc 67.7 Estimated GFR > 60 Random Glucose 132 H Calcium 9.2 D Troponin I High Sens < 2.7 NT-Pro-B Natriuret Pep 126.1 COVID-19 ([place]) Negative COVID-19 Clin Com See Note Influenza Type A ([place]) Negative Influenza Type B ([place]) Negative Influenza A & B Note See Note Assessment and Plan (1) COPD (chronic obstructive pulmonary disease): Qualifiers: COPD type: unspecified COPD Qualified Code(s): J44.9 - Chronic obstructive pulmonary disease, unspecified Status: Acute Plan 59-year-old female with a past medical history of COPD, tobacco dependence presented to the hospital with a chief complaint of cough and shortness of breath. Noted to be in acute COPD exacerbation. Acute COPD exacerbation: Acute hypoxic respiratory failure: D-dimer negative Chest x-ray showed no acute cardiopulmonary process Continue supplemental oxygen p.r.n. with a goal oxygen saturation of 88-93%. Continue nebulizations standing and p.r.n. Continue Solu-Medrol Azithromycin Trending pulse oximetry when ready for discharge Tobacco dependence: Counseled on smoking cessation. DVT prophylaxis: Lovenox Code status: Full code Quality Stroke Does the patient have a stroke diagnosis?: No VTE Prior VTE?: No VTE Risk Level:: Medical - moderate - high VTE Device Contraindication: Treatment Not Indicated VTE Drug Contraindication: N/A - Med Ordered
[2024-12-27 04:36] LABS: MANUAL DIFF FLAG NO
[2024-12-27 04:37] LABS: Hematocrit 48.5 % (37.0-47.0); Hemoglobin 16.8 g/dl (12.0-16.0); Imm Gran Abs Auto 0.03 X10*3/uL (0.00-0.03); Imm Gran Pct Auto 0.4 % (0.0-0.4); Lymphocytes Absolute Auto 0.7 X10*3/uL (1.2-4.9); Mean Corpuscular HGB Conc 34.6 g/dl (31.0-35.0); Mean Corpuscular Hemoglobin 31.5 pg (27.0-33.0); Mean Corpuscular Volume 90.8 fL (80.0-98.0); NRBC Abs Auto 0.000 X10*3/uL (0.0-0.012); NRBC Pct Auto 0.0 /100WBC (0.0-0.2); Platelet Count 265 X10*3/uL (160-400); Red Blood Count 5.34 X10*6/uL (4.20-5.50); White Blood Count 6.8 X10*3/uL (4.8-10.8)
[2024-12-27 04:47] LABS: D Dimer High Sensitivity 198 NG/ML
[2024-12-27 04:53] LABS: Alanine Aminotransferase 17 U/L (0-31); Albumin Level 4.4 g/dL (3.5-5.0); Alkaline Phosphatase 101 U/L (39-117); Anion Gap 13 (12-20); Aspartate Amino Transferase 17 U/L (5-31); Blood Urea Nitrogen 17 mg/dL (9-16); Calcium 9.5 mg/dL (8.4-10.2); Carbon Dioxide 27 mmol/L (22-29); Chloride 106 mmol/L (96-108); Creatinine Clr Calc Pharmacy 59.7; Estimated Glomerular Filt Rate > 60; Potassium 4.1 mmol/L (3.3-5.1); Sodium 142 mmol/L (135-145); Total Protein 6.9 g/dL (6.5-8.0)
--- NOTE | 2024-12-27 06:59 | PC.NURSE ---
This RN assumed care of patient at 0700 Patient resting comfortably in bed O2 96% RA, no signs of distress noted Patient admitted for COPD Awaiting bed placement
[2024-12-27] MEDS: 0.9 % Sodium Chloride Flush 3 ML SYRINGE IVFLUSH ×3 (08:05→21:59)
--- NOTE | 2024-12-27 08:42 | PM.EVENT ---
Event Note Date of Service: 12/27/24 Time Spent With Patient Time: Total time managing care of this patient today ____ minutes.
--- NOTE | 2024-12-27 09:08 | MHC.CM.PN ---
Addendum entered by Darline Lopez 12/27/24 09:31: CM received a return call from Miriam(Kenan/Oscar is the HCP/the listed primary Agent/Bhupinder has ). 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 Per Son, he questions if Patient needs O2 at home. CM has initiated and will follow for dc planning. PCP is Dr. Summer Olivier and Son will transport to home at dc. Original Note: CM met with Patient at bedside in the ED. Per Patient's request/preference, CM called Miriam at listed #, but was only able to leave a detailed message. CM awaits a return call from Son.
--- NOTE | 2024-12-27 10:34 | PHA.MEDREC ---
Pharmacy Consult ? Medication Reconciliation Pharmacy has completed the medication reconciliation. Spoke to patient to confirm med list. Patient confirmed her dose of amlodipine has been increased to 10 mg daily. She also confirmed she is still using advair diskus bid and incruse ellipta daily. She has not taken prednisone in months. Last dose of medications was wednesday12/25/24.
[2024-12-27] MEDS: Albuterol/Iprat 2.5/0.5MG 3 ML AMPUL.NEB INHALE ×2 (11:18→21:36)
--- NOTE | 2024-12-27 19:16 | PM.EVENT ---
Event Note Date of Service: 12/27/24 Event Note: The pt is a 59-year-old female admitted to the hospital for acute COPD exacerbation. Pt reports she feels much better after treatments. No longer requiring supplemental oxygen, satting at 94% on RA at rest. Reports it still had significant SOB/MCKEON with ambulation. Pt seen and examined where she is resting comfortably in bed. Nontoxic looking. Denies N/V/D. No chest pain or pressure. Physical exam: General: AOx3, no acute distress Resp: CTA bilaterally though significantly diminished with poor airflow CVS: S1, S2, RRR GI: +BS, NT, no distention Skin: Warm, dry Neuro: Cranial nerves II-XII grossly intact bilaterally. Motor grossly intact bilaterally Extremities: No edema Psych: Appropriate affect Time Spent With Patient Time: Total time managing care of this patient today ____ minutes.
[2024-12-28] VITALS: BP 141/68; PULSE 82; RESP 18; TEMP 36.5; O2SAT 93
[2024-12-28 03:44] VITALS: BP 138/85; PULSE 89; RESP 16; TEMP 36.2; O2SAT 92
[2024-12-28 07:25] VITALS: BP 145/73; PULSE 78; RESP 20; TEMP 36.6; O2SAT 94
[2024-12-28] MEDS: Albuterol/Iprat 2.5/0.5MG 3 ML AMPUL.NEB INHALE (07:31)
[2024-12-28 07:32] VITALS: PULSE 84; RESP 16; O2SAT 94
[2024-12-28] MEDS: 0.9 % Sodium Chloride Flush 3 ML SYRINGE IVFLUSH (08:27)
--- NOTE | 2024-12-28 09:25 | MHC.CLN ---
PT IS MODERATELY MALNOURISHED PT WITH MILDLY DEPLETED SUBCUTANEOUS FAT AND MUSCLE MASS WITH BMI 18 AND 5% NON-SIGNIFICANT WT LOSS X1 YEAR REGULAR DIET RECOMMEND ADDING ENSURE BID TO PROMOTE PO INTAKE SUPP TO PROVIDE 700KCALS, 40G PROTEIN MONITOR PO INTAKE FULL NUTRITION ASSESSMENT TO FOLLOW
--- NOTE | 2024-12-28 09:53 | P.DS_ITS ---
DS: Providers Provider Date of Service: 12/28/24 Date of admission: 12/27/24 02:57 Date of discharge: 12/28/24 Primary care physician: Summer Olivier DO DS: Diagnosis Discharge Diagnosis (1) COPD (chronic obstructive pulmonary disease): Status: Acute DS: Summary Hospital Course Hospital Course: from initial hpi: 59-year-old female with a past medical history of COPD, tobacco dependence presented to the hospital with a chief complaint of cough and shortness of breath. Patient reports over the past day she has been having shortness of breath which has been gradually worsening. Reports having greenish sputum production. Denies any chest pain or palpitations. Denies any fevers and chills. Denies any sick contacts. Review of all other systems is negative except mentioned above ER course: Per ER team, patient on presentation noted to be mildly hypoxic; placed on supplemental oxygen; chest x-ray showed no acute cardiopulmonary process; has bilateral wheezing; concerning for acute COPD exacerbation. Given nebulizers a nd steroids. hospital course: Patient was admitted for COPD with acute decompensation. Was treated with steroids, DuoNebs, azithromycin. Over the next couple days symptoms improved. Patient is no longer wheezing and is able to ambulate with minimal shortness of breath. will be discharged home on 5 more days of prednisone and azithromycin. for hypertension continued on amlodipine. Time Attestation Discharge Coordination Time (in mins): 34 Quality: Safe Use of Opioids Does Pt have an Active Cancer Diagnosis on the Problem List?: No Quality: Stroke Does the patient have a stroke diagnosis?: No Physical Exam Exam: Exam: General: AO X 3, no acute distress Resp: somewhat diminished air movement, but no wheezes bilateral, no accessory muscles used CVS: S1,S2,RRR GI: soft, non tender, non distended Neuro: motor grossly intact, alert Psych: appropriate affect, appropriate insight Vital Signs: Vital Signs: Last Vital Signs Temp 97.9 F 12/28/24 07:25 Pulse 84 12/28/24 07:32 Resp 16 12/28/24 07:32 BP 145/73 H 12/28/24 07:25 Pulse Ox 94 12/28/24 07:25 O2 Del Method Room Air 12/28/24 07:25 Oxygen Flow Rate 2 12/26/24 16:54 BMI result Body Mass Index 18.0 DS: Data Data Completed and Pending Completed studies during hospitalization [Text1]: Procedures Excision of Descending Colon, Via Natural or Artificial Opening Endoscopic, Diagnostic (05/06/20) Excision of Sigmoid Colon, Via Natural or Artificial Opening Endoscopic, Diagnostic (05/06/20) Excision of Transverse Colon, Via Natural or Artificial Opening Endoscopic, Diagnostic (05/06/20) Discharge Plan Discharge Anticipated Discharge Date/Time: 12/28/24 09:51 Patient Disposition: Home, Self-Care Discharge Diagnosis: copd Referrals: Summer Olivier DO [Primary Care Provider, Internal Medicine] - 1 Week Discharge Medications: New azithromycin 500 mg Tablet 500 mg PO Q24H Qty: 10 0RF prednisone 20 mg tablet 40 mg PO DAILY Qty: 10 0RF Continued albuterol sulfate [Ventolin HFA] 90 mcg/actuation HFA aerosol inhaler 2 puff INHALATION Q6H PRN (Reason: wheezing) amlodipine 5 mg tablet 10 mg PO DAILY Incruse Ellipta 62.5 mcg/actuation blister with device 1 inh inhalation DAILY fluticasone propion-salmeterol [Advair Diskus] 250-50 mcg/dose blister with device 1 ea INHALATION BID albuterol sulfate 2.5 mg /3 mL (0.083 %) solution for nebulization 2.5 mg inhalation Q6H PRN (Reason: wheezing) Qty: 180 0RF Discharge Orders: Discharge Order (Routine); Ordered 12/28/24 Ordered By: Yogi Singh Diet: Advance to usual diet Activity on Discharge: As tolerated Stand Alone Forms: Patient Portal Discharge page Print Language: Unable To Collect Care Plan Goals: recovery Health Concerns: copd Plan of Treatment: 5 days prednisone, azitrho Assessment: see above
--- NOTE | 2024-12-28 10:24 | MHC.CM.PN ---
Patient has been medically cleared for dc to home today, self care.
== END 2024-12-28 11:22 | disposition home or self-care (01) | DRG 140 ==
LOC: HO.ED 21:09 → HO.EDOVER 12-27 03:03 → HO.IMC 12-27 19:38
PROVIDERS: Admitting Provider Hospitalist; Emergency Provider Emergency Medicine; PCP Pediatrics; Visit Provider Internal Medicine
DX: J44.1 Chronic obstructive pulmonary disease with (acute) exacerbation (principal); J96.01 Acute respiratory failure with hypoxia; F17.210 Nicotine dependence, cigarettes, uncomplicated; Z20.822 Contact with and (suspected) exposure to COVID-19; Z71.6 Tobacco abuse counseling; Z79.51 Long term (current) use of inhaled steroids; Z79.899 Other long term (current) drug therapy
CPT/HCPCS: 36415; 71046; 80048; 80053; 83880; 84484; 85025; 85379; 87502; 87635; 93005; 94640; 99285; J1271; J1650; J2919

== ENCOUNTER → 2024-12-26 17:31 | Outpatient (BNV) | payer OTHER, SELFPAY | PROVIDERS: Admitting Provider Hospitalist; Emergency Provider Emergency Medicine; PCP Pediatrics; Visit Provider Internal Medicine Cardiovascular Disease | DX: R00.1 Bradycardia, unspecified (principal) | CPT/HCPCS: 93010 ==

== ENCOUNTER → 2024-12-26 18:35 | Outpatient (BNV) | payer OTHER, SELFPAY | PROVIDERS: PCP Pediatrics; Visit Provider Radiology Diagnostic Radiology | DX: R06.02 Shortness of breath (principal) | CPT/HCPCS: 71046 ==

== ENCOUNTER → 2024-12-27 02:57 | Outpatient (BNV) | payer OTHER, SELFPAY | PROVIDERS: Admitting Provider Hospitalist; Emergency Provider Emergency Medicine; PCP Pediatrics; Visit Provider Hospitalist | DX: J44.9 Chronic obstructive pulmonary disease, unspecified (principal) | CPT/HCPCS: 99223; 99499 ==

== ENCOUNTER 2025-01-21 14:51 | Inpatient (IN) | payer OTHER, SELFPAY ==
[2025-01-21] VITALS (7 sets, daily range): BP systolic 128–161; BP diastolic 62–86; PULSE 96–110; RESP 20–32; TEMP 36.7; O2SAT 86–95; BMI 17.1
--- NOTE | ~2025-01-21 | XR_ITS ---
CLINICAL HISTORY: dyspnea 1 view chest x-ray Comparison: CR - XR CHEST 2V - 12/26/24 18:42 EDT Findings: Emphysema. No consolidation or effusion. Normal size heart. No acute fracture. Bilateral nipple shadows are noted. IMPRESSION: Emphysema without consolidation. This document has been electronically signed by: Juli Lee MD on 01/21/2025 16:24:44
--- NOTE | 2025-01-21 14:56 | ED_ITS ---
HPI - SOB/Dyspnea General Chief Complaint: Dyspnea Stated Complaint: DIFF BREATHING,WHEEZE/ALL RAYGOZA,DUONEB GIVEN Time Seen by Provider: 01/21/25 14:55 Source: patient and EMS Mode of arrival: EMS Limitations: no limitations History of Present Illness ED Provider: HPI Narrative: 59-year-old woman unfortunately continues to be a tobacco user, presenting with shortness of breath she states it has been working up to this for awhile she did not specify but worse today, had some steroids left over from prior admissions and took a dose of steroids yesterday, had cough, did not have any chest pain no fevers or chills no hemoptysis reported. Did not express interest in quitting smoking. Related Data Home Medications ?Medication ?Instructions ?Recorded ?Confirmed albuterol sulfate 90 mcg/actuation 2 puff inhalation Q 6H PRN wheezing 05/03/24 01/21/25 aerosol inhaler (Ventolin HFA) fluticasone 250 mcg-salmeterol 50 1 ea inhalation BID 05/31/24 01/21/25 mcg/dose blistr powdr for inhalation (Advair Diskus) umeclidinium 62.5 mcg/actuation 1 inh inhalation DAILY 05/31/24 01/21/25 blister powder for inhalation (Incruse Ellipta) amlodipine 10 mg tablet 10 mg PO DAILY 01/21/2501/03 Previous Rx's ?Medication ?Instructions ?Recorded albuterol sulfate 2.5 mg/3 mL 2.5 mg (3 mL) inhalation QID PRN 01/21/25 (0.083 %) solution for nebulization shortness of breat h or wheezing #90 mL azithromycin 500 mg tablet 500 mg PO DAILY 5 days #5 t abs 01/21/25 prednisone 20 mg tablet 40 mg (2 x 20 mg) PO DAILY 5 days 01/21/25 #10 tabs Allergies Allergy/AdvReac Type Severity Reaction Status Date / Time codeine (CODEINE) Allergy Unknown RASH Verified 01/21/25 15:03 Review of Systems 2 Constitutional: Constitutional: Reports as per HPI [facility] Past Medical History Medical History Hx of flexible sigmoidoscopy History of crack cocaine use Smoker Back pain COPD (chronic obstructive pulmonary disease) Surgical History Hx of cholecystectomy Previous back surgery Tubal ligation status Social History Social History Household Members: Family Household Members Other:: granddaughters Housing: House Are you a primary caregiver assisted living to a significant other at home: No Do you presently have visiting nurse or other home services: No Alcohol intake: never Comment: occaisional cramping which is preop baseline Patient Tobacco Use Status: Never used Tobacco Tobacco use type: Cigarette Cigarette Packs Per Day: 0.5 Cigarettes Per Day: 10.0 Years Smoked: 45 Smoked in Last 30 Days: No e-Cigarette/Vaping Use: Never Used Second Hand Smoke Exposure: No Use of substances other than those prescribed or required for medical reasons: No Substance Use Type: Crack/Cocaine Advance Directives: Yes Advance Directives on File: Yes Advance Directives Date on File: 12/07/23 Do you have a plan to hurt others: No Plan Nutrition Risks: No Nutritional Risk Patient : No service: No Current occupational status: unemployed Physical Exam 2 Exam: Exam: General: ?Appears older than stated age ? ?PERRLA, EOMI, MMM, ? Neck: Supple, no LAD ? ?CV: RRR, no obvious murmurs appreciated ? ?Resp: ?Dyspneic, expiratory wheezing throughout, tachypneic ? Skin: Warm, dry, intact, ? ?Neuro: ?Alert and oriented x3, moving upper and lower extremities symmetrically, no obvious facial asymmetry noted, cranial nerves 2-12 intact Vital Signs: Vital Signs: Last Vital Signs Temp 97.9 F 01/22/25 06:04 Pulse 92 01/22/25 07:28 Resp 30 H 01/22/25 07:28 BP 142/71 H 01/22/25 06:04 Pulse Ox 97 01/22/25 07:29 O2 Del Method Oxymask 01/22/25 07:29 O2 Flow Rate 2 01/22/25 07:29 BMI result Body Mass Index 17.1 Medications Administered Generic Name Dose Route Start Last Admin Trade Name Freq PRN Reason Stop Dose Admin Albuterol/Ipratropium 3 ml 01/21/25 20:00 01/22/25 07:32 Albuterol/Iprat 2.5/0.5mg 3 Ml Ampul.Neb INHALE Not Given RQ4H MEME Amlodipine Besylate 10 mg 01/22/25 09:00 01/22/25 09:52 Amlodipine Besylate 10 Mg Tablet PO 10 mg DAILY MEME Administration Protocol Enoxaparin Sodium 40 mg 01/21/25 18:00 01/21/25 19:14 Enoxaparin Sodium 40 Mg/0.4 Ml Syringe SUBCUT 40 mg Q24H MEME Administration Guaifenesin 10 ml 01/21/25 18:00 01/22/25 09:52 Guaifenesin 200 Mg/10 Ml 10 Ml Liquid PO 10 ml QID MEME Administration Sodium Chloride 1,000 mls @ 50 mls/hr 01/21/25 18:30 01/21/25 19:16 Sodium Chloride 0.45 % IVCONT 50 mls/hr .Q20H MEME Administration Loratadine 10 mg 01/21/25 17:45 01/22/25 09:52 Loratadine 10 Mg Tablet PO 10 mg DAILY MEME Administration Methylprednisolone Sodium Succinate 40 mg 01/21/25 21:00 01/22/25 09:52 Methylprednisolone Sod Succ 40 Mg/Ml Vial IVPUSH 40 mg BID MEME Administration Sodium Chloride 3 ml 01/22/25 00:00 01/22/25 07:37 0.9 % Sodium Chloride Flush 3 Ml Syringe IVFLUSH Not Given QSHIFT MEME Discontinued Medications Generic Name Dose Route Start Last Admin Trade Name Freq PRN Reason Stop Dose Admin Albuterol Sulfate 7.5 mg/ 0 mg 01/21/25 14:58 01/21/25 15:01 Albuterol/Ipratropium 3 ml INHALE 01/21/25 14:59 1 each ONCE ONE Administration Sodium Chloride 1,000 mls @ 999 mls/hr 01/21/25 15:45 01/21/25 19:10 Ns IV 01/21/25 16:45 Infused .Q1H1M MEME Infusion Magnesium Sulfate 2 gm in 50 mls @ 25 mls/hr 01/21/25 15:44 01/21/25 19:09 Magnesium Sulfate/H2o IV 01/21/25 17:43 Infused ONCE ONE Infusion Methylprednisolone Sodium Succinate 60 mg 01/21/25 15:14 01/21/25 15:30 Methylprednisolone Sod Succ 125 Mg/2 Ml Vial IVPUSH 01/21/25 15:15 60 mg ONCE ONE Administration Medical Decision Making Medical Decision Making [facility] Narrative: 3:22 PM 01/21/2025 (Dr. Kashmir Bowen): On initial evaluation quite dyspneic and tachypneic patient, with a history of COPD, continues to be a tobacco user, had cough, but no chest pain no pleurisy, chest x-ray to evaluate for blebs, pneumothorax, consolidations, does not appear to be in fluid overload due to CHF, we will initiate treatment with steroids, nebulizer treatments, we will re-evaluate, disposition to be determined 3:43 PM 01/21/2025 (Dr. Kashmir Bowen): Re-evaluated, continues to be quite dyspneic, we will get in touch with the RT we will see how she does not high-flow in the additional neb treatments, patient's care will be signed out to incoming provider pending re-evaluation and disposition, she is not improved we will plan for admission Patient was hypoxic at 86%. On room air. She does not use supplemental O2 at home. IV magnesium given. Patient is still feels short of breath and wheezing. We will plan to admit patient for COPD exacerbation. Differential Diagnosis Differential Diagnoses: The differential diagnosis associated with the presentation includes (CHF, COPD exacerbation, pneumonia, pneumothorax, ACS, PE,) Admission/Observation Consideration of admission/observation: Escalation of care including admission/observation considered Lab Data [facility] Lab Attestation statement: I reviewed the patient's lab results. 01/21/25 15:30 01/22/25 09:25 Labs: Lab Results 01/21/25 01/21/25 Range/Units 15:30 16:39 WBC 8.8 (4.8-10.8) X10*3/uL RBC 5.48 (4.20-5.50) X10*6/uL Hgb 16.9 H (12.0-16.0) g/dl Hct 50.9 H (37.0-47.0) % MCV 92.9 (80.0-98.0) fL MCH 30.8 (27.0-33.0) pg MCHC 33.2 (31.0-35.0) g/dl RDW 12.0 (11.0-16.0) % Plt Count 245 (160-400) X10*3/uL MPV 9.8 (9.4-12.3) fL Immature Gran % (Auto) 0.2 (0.0-0.4) % Neut % (Auto) 59.8 (45-73) % Lymph % (Auto) 29.0 (20-40) % [place] % (Auto) 9.3 (2-11) % Eos % (Auto) 1.1 (0-4) % Baso % (Auto) 0.6 (0-2) % Lymph # (Auto) 2.6 (1.2-4.9) X10*3/uL [place] # (Auto) 0.8 (0.1-1.2) X10*3/uL Eos # (Auto) 0.1 (0.0-0.4) X10*3/uL Baso # (Auto) 0.1 (0.0-0.2) X10*3/uL Abs Immat Gran (auto) 0.02 (0.00-0.03) X10*3/uL Absolute Neuts (auto) 5.3 (2.0-8.3) x10*3/uL Absolute Nucleated RBC 0.000 (0.0-0.012) X10*3/uL Nucleated RBC % (auto) 0.0 (0.0-0.2) /100WBC VBG pH 7.31 L (7.32-7.43) VBG pCO2 54 mmHg VBG pO2 50 mmHg VBG HCO3 27 H (22-26) mmol/L VBG O2 Saturation 76.0 % VBG Base Excess 0.5 mmol/L Sodium 146 H (135-145) mmol/L Potassium 3.4 (3.3-5.1) mmol/L Chloride 106 (96-108) mmol/L Carbon Dioxide 28 (22-29) mmol/L Anion Gap 15 (12-20) BUN 12 (9-16) mg/dL Creatinine 0.77 (0.5-1.4) mg/dL Estim Creat Clear Calc 63.5 Estimated GFR > 60 Random Glucose 156 H (60-115) mg/dL Calcium 9.5 (8.4-10.2) mg/dL Magnesium 2.3 (1.6-2.6) mg/dL Total Bilirubin 0.5 (0.0-1.0) mg/dL AST 22 (5-31) U/L ALT 13 (0-31) U/L Alkaline Phosphatase 98 (39-117) U/L Total Protein 7.2 (6.5-8.0) g/dL Albumin 4.5 (3.5-5.0) g/dL Independent Interpretation I performed an independent interpretation of an: Plain X-Ray (Emphysematous changes, hyperinflation, no pneumothorax noted, no obvious consolidations) Radiology Impression Discussion of test interpretation with radiology: I have reviewed the radiologist's reading. Independent Historian Clinical information obtained from an independent historian. History obtained from or confirmed by: EMS Prescription Management I considered prescription management with: Antibiotic Chronic Conditions Patient?s care impacted by: Other (COPD) Critical Care Time Critical Care Time Critical Care Time: Yes Total Critical Care Time: 35 Attestation: Time is exclusive of separately billable procedures. Time includes: direct patient care, patient reassessment, coordination of patient care, interpretation of data (laboratory data, pulse oximetry, arterial blood gases and chest xrays), review of patient's medical records, medical consultation and documentation of patient care. Procedures excluded from critical care time: central intravenous line placement and electrocardiography. Discharge Plan Discharge Clinical Impression: Acute exacerbation of chronic obstructive pulmonary disease Respiratory failure Qualifiers: Chronicity: acute Respiratory failure complication: hypoxia Qualified Code(s): J96.01 - Acute respiratory failure with hypoxia Patient Disposition: Admitted As Inpatient
[2025-01-21] MEDS: Albuterol Sulfate 7.5 MG, Albuterol/Iprat 2.5/0.5MG 3 ML 3 ML INHALE (15:01)
[2025-01-21 15:35] LABS: MANUAL DIFF FLAG NO
[2025-01-21 15:37] LABS: Hematocrit 50.9 % (37.0-47.0); Hemoglobin 16.9 g/dl (12.0-16.0); Imm Gran Abs Auto 0.02 X10*3/uL (0.00-0.03); Imm Gran Pct Auto 0.2 % (0.0-0.4); Lymphocytes Absolute Auto 2.6 X10*3/uL (1.2-4.9); Mean Corpuscular HGB Conc 33.2 g/dl (31.0-35.0); Mean Corpuscular Hemoglobin 30.8 pg (27.0-33.0); Mean Corpuscular Volume 92.9 fL (80.0-98.0); NRBC Abs Auto 0.000 X10*3/uL (0.0-0.012); NRBC Pct Auto 0.0 /100WBC (0.0-0.2); Platelet Count 245 X10*3/uL (160-400); Red Blood Count 5.48 X10*6/uL (4.20-5.50); White Blood Count 8.8 X10*3/uL (4.8-10.8)
--- NOTE | 2025-01-21 15:45 | ECG_ITS ---
Test Reason : sob Blood Pressure : */* mmHG Vent. Rate : 100 BPM Atrial Rate : 100 BPM P-R Int : 136 ms QRS Dur : 106 ms QT Int : 382 ms P-R-T Axes : 87 110 79 degrees QTcB Int : 492 ms Normal sinus rhythm Possible Left atrial enlargement Left posterior fascicular block Prolonged QT Abnormal ECG When compared with ECG of 26-Dec-2024 17:31, Vent. rate has increased by 45 bpm Nonspecific T wave abnormality has replaced inverted T waves in Anterior leads QT has lengthened Referred By: Kashmir Bowen Electronically Signed By: SELMA SANTANA MD
[2025-01-21] MEDS: Magnesium Sulfate/H2O 2 GM/50 ML PIGGYBACK IV (15:55)
[2025-01-21 16:04] LABS: Alanine Aminotransferase 13 U/L (0-31); Albumin Level 4.5 g/dL (3.5-5.0); Anion Gap 15 (12-20); Aspartate Amino Transferase 22 U/L (5-31); Blood Urea Nitrogen 12 mg/dL (9-16); Calcium 9.5 mg/dL (8.4-10.2); Carbon Dioxide 28 mmol/L (22-29); Chloride 106 mmol/L (96-108); Creatinine Clr Calc Pharmacy 63.5; Estimated Glomerular Filt Rate > 60; Magnesium 2.3 mg/dL (1.6-2.6); Potassium 3.4 mmol/L (3.3-5.1); Sodium 146 mmol/L (135-145); Total Protein 7.2 g/dL (6.5-8.0)
--- NOTE | 2025-01-21 16:09 | PC.NURSE ---
O2 st decreased to 86% on RA while sleeping. Pt placed on 2L O2 NC- sats improved to 93-95%. MD Joe
[2025-01-21 16:36] LABS: Alkaline Phosphatase 98 U/L (39-117)
[2025-01-21 16:44] LABS: VBG HCO3 27 mmol/L (22-26); VBG O2 % Saturation 76.0 %
[2025-01-21 16:45] LABS: Venous Blood Gas Refer to POC result
--- NOTE | 2025-01-21 17:44 | P.HPHOSP_ITS ---
History of Present Illness Date of Service: 01/21/25 Attending physician on admission: Jeronimo Valladares Chief Complaint: sob/hypoxia 58-year-old female with a PMH significant for?COPD not on home O2, currently smoking half a pack daily who presents to the ED with? increased SOB for 2-3 days' duration, patient is saying shortness of breath is progressively worsening, she is also active smoker and still uses occasionally cocaine(snorting), denies any sick contacts or recent travel.had some steroids left over from prior admissions and took a dose of steroids yesterday. She says she has cough with phlegm and yellow sputum which is not new. Denies any fever or chills or chest pain or any abdominal pain or nausea or vomiting . She is saying that her appetite is also low from 1-2 days, denies any rhinorrhea or ear pain In the emergency room as per ED physician found to have hypoxic even after nebs and steroids, sats were 88 range, started on oxygen, given nebs and steroids and requested admission for COPD exacerbation. Review of Systems 2 Review of Systems: as above. Yes all other systems are reviewed and are negative [facility] Medical History Hx of flexible sigmoidoscopy History of crack cocaine use Smoker Back pain COPD (chronic obstructive pulmonary disease) Surgical History Hx of cholecystectomy Previous back surgery Tubal ligation status Social History Household Members: Family Household Members Other:: granddaughters Housing: House Are you a primary career coordinator to a significant other at home: No Do you presently have visiting nurse or other home services: No Alcohol intake: never Comment: occaisional cramping which is preop baseline Patient Tobacco Use Status: Current everyday Tobacco user Tobacco use type: Cigarette Cigarette Packs Per Day: 0.5 Cigarettes Per Day: 10.0 Years Smoked: 45 e-Cigarette/Vaping Use: Never Used Second Hand Smoke Exposure: No Substance Use Type: Crack/Cocaine Advance Directives: Yes Advance Directives on File: Yes Advance Directives Date on File: 12/07/23 Do you have a plan to hurt others: No Plan service: No Current occupational status: unemployed Meds Allergies Allergy/AdvReac Type Severity Reaction Status Date / Time codeine (CODEINE) Allergy Unknown RASH Verified 01/21/25 15:03 Active Medications: Current Medications Acetaminophen (Acetaminophen 325 Mg Tablet) 650 mg PO Q6H PRN PRN Reason: Pain, Mild 1-3,fever,headache Albuterol/Ipratropium (Albuterol/Iprat 2.5/0.5mg 3 Ml Ampul.Neb) 3 ml INHALE Q4H MEME Calcium Carbonate (Calcium Carbonate 750 Mg Tab.Chew) 750 mg PO Q4H PRN PRN Reason: Heartburn Enoxaparin Sodium (Enoxaparin Sodium 40 Mg/0.4 Ml Syringe) 40 mg SUBCUT DAILY MEME Guaifenesin (Guaifenesin 200 Mg/10 Ml 10 Ml Liquid) 10 ml PO Q6H MEME Loratadine (Loratadine 10 Mg Tablet) 10 mg PO DAILY MEME Magnesium Hydroxide (Milk Of Magnesia 30 Ml Oral.Susp) 30 ml PO DAILY PRN PRN Reason: Constipation Melatonin (Melatonin 3 Mg Tablet) 6 mg PO BEDTIME PRN PRN Reason: Insomnia Methylprednisolone Sodium Succinate (Methylprednisolone Sod Succ 40 Mg/Ml Vial) 40 mg IVPUSH BID [facility] Sodium Chloride (0.9 % Sodium Chloride Flush 3 Ml Syringe) 3 ml IVFLUSH QSHIFT [facility] Home Medications ?Medication ?Instructions ?Recorded ?Confirmed ?Last Taken ?Type albuterol sulfate 90 mcg/actuation 2 puff inhalation Q 6H PRN wheezing 05/03/24 01/21/25 05/03/24 History aerosol inhaler (Ventolin HFA) fluticasone 250 mcg-salmeterol 50 1 ea inhalation BID 05/31/24 01/21/25 01/20/25 History mcg/dose blistr powdr for inhalation (Advair Diskus) umeclidinium 62.5 mcg/actuation 1 inh inhalation DAILY 05/31/24 01/21/25 01/20/25 History blister powder for inhalation (Incruse Ellipta) amlodipine 10 mg tablet 10 mg PO DAILY 01/21/2501/0301/20/25 History Physical Exam 2 Vital Signs and Narrative: Vital Signs: Last Vital Signs Temp 98.0 F 01/21/25 15:02 Pulse 96 01/21/25 16:04 Resp 25 H 01/21/25 16:04 BP 128/64 01/21/25 16:04 Pulse Ox 92 01/21/25 16:04 O2 Del Method Nasal Cannula 01/21/25 16:04 O2 Flow Rate 2 01/21/25 16:04 BMI result Body Mass Index 17.1 Appearance: Alert.? Oriented X3.? not in distress.? Eyes: Pupils equal, round and reactive to light.? Sclera nonicteric.? ENT: Pharynx normal.? Moist mucous membranes. cvs: rrr, [id number] , no murmur res: Air entry diminished, bilateral expiratory wheezing abd: no rebound or guarding ,nt, bs present. ext pulses present , no cyanosis . neuro: axo3 , nonfocal. Results Labs 01/21/25 15:30 01/21/25 15:30 Labs: Laboratory Results - last 24 hr 01/21/25 01/21/25 15:30 16:39 MCV 92.9 MCH 30.8 MCHC 33.2 RDW 12.0 Plt Count 245 MPV 9.8 Immature Gran % (Auto) 0.2 Neut % (Auto) 59.8 Lymph % (Auto) 29.0 [place] % (Auto) 9.3 Eos % (Auto) 1.1 Baso % (Auto) 0.6 Lymph # (Auto) 2.6 [place] # (Auto) 0.8 Eos # (Auto) 0.1 Baso # (Auto) 0.1 Abs Immat Gran (auto) 0.02 Absolute Neuts (auto) 5.3 Absolute Nucleated RBC 0.000 Nucleated RBC % (auto) 0.0 VBG pH 7.31 L VBG pCO2 54 VBG pO2 50 VBG HCO3 27 H VBG O2 Saturation 76.0 VBG Base Excess 0.5 Anion Gap 15 Estim Creat Clear Calc 63.5 Estimated GFR > 60 Random Glucose 156 H Calcium 9.5 Magnesium 2.3 Total Bilirubin 0.5 AST 22 ALT 13 Alkaline Phosphatase 98 Total Protein 7.2 Albumin 4.5 Imaging Radiologist's Impressions: cxr:Emphysema without consolidation. Assessment and Plan (1) COPD (chronic obstructive pulmonary disease): Qualifiers: COPD type: unspecified COPD Qualified Code(s): J44.9 - Chronic obstructive pulmonary disease, unspecified Status: Acute Plan 59-year-old female with a PMH significant for?COPD not on home O2, currently smoking half a pack daily who presents to the ED with? increased SOB, [place], and cough x2-3 days admitted for mangement of acute hypoxic respiratory failure in the setting COPD exacerbation. Acute hypoxic respiratory failure due to COPD exacerbation requiring 2L NC to sat at 91-92 %, not on home O2 urine drug screen, res panel No sepsis: Elevated HR secondary to albuterol use; no fever or leukocytosis; CXR negative for pneumonia continue IV Solu-Medrol, DuoNebs, guaifenesin Cover with azithromycin for pleiotropic effects Titrate supplemental O2 >92, wean as tolerated Mild hypernatremia : due to dec po intake. ivf 1/2 ns 60ml/hr Nicotine dependence declines NRT Encourage smoking cessation HTN continue amlodipine Full Code DVT Prophylaxis: Lovenox Patient will require at least observation level of care considering acute hypoxic respiratory in the setting of COPD exacerbation require administration IV steroids, breathing treatments, and supplemental oxygen. Quality Stroke Does the patient have a stroke diagnosis?: No VTE Prior VTE?: No VTE Risk Level:: Medical - moderate - high VTE Device Contraindication: N/A - Device Ordered VTE Drug Contraindication: N/A - Med Ordered
--- NOTE | 2025-01-21 18:19 | PHA.MEDREC ---
Pharmacy Consult ? Medication Reconciliation Pharmacy has completed the medication reconciliation. Spoke with patient in the ED who knew all medications. Last took medications yesterday
--- NOTE | 2025-01-21 19:19 | PC.NURSE ---
this rn assumed care of pt, pt resting in stretcher, vss, oxymax in place for comfort at 2L and sating 98%. pt medicated per jun and given food per request.
[2025-01-21] MEDS: Albuterol/Iprat 2.5/0.5MG 3 ML AMPUL.NEB INHALE (20:04)
[2025-01-21] MEDS: guaiFENesin 200 MG/10 ML 10 ML LIQUID PO (21:32)
--- NOTE | 2025-01-21 21:34 | PC.NURSE ---
pt medicated per mar, tolerated whole well , pt offers no complaints at this time,vss
[2025-01-22] VITALS (12 sets, daily range): BP systolic 122–148; BP diastolic 69–85; PULSE 77–99; RESP 20–30; TEMP 36.4–36.9; O2SAT 91–100; BMI 18.7; BMI 17.9
[2025-01-22] MEDS: Albuterol/Iprat 2.5/0.5MG 3 ML AMPUL.NEB INHALE ×4 (03:48→23:35)
--- NOTE | 2025-01-22 03:48 | PC.NURSE ---
pt assisted to bedside commode at this time, pt maintained sats of 95-98%, but became tachypneic. RT at bedside administering breathing treatment and pt assisted back into bed
[2025-01-22 06:08] LABS: Cannabinoid Screen Urine Not Detected (Not Detect)
--- NOTE | 2025-01-22 07:50 | HO.NURTONUR ---
Erika is a 59 F full code who presented to the ED with increased sob x2-3days. patient is a current every day smoker, with occasional cocaine use. patient has hx of copd not on home o2. admit for copd exacerbation with hypoxic resp failure goal o2 90-92% with titration of supplemental o2 iv steroids breathing treatment cough medicine patient is alert and oriented x3, currently normal sinus on the monitor, wearing 2L on oxymask has 50ml/hr .45 NS running, #22 in the LAC.
--- NOTE | 2025-01-22 07:53 | PC.NURSE ---
assumed care of patient at 0700, patient is awake and alert, sitting up and eating breakfast not wearing nay supplemental o2, patient not on tele monitor. patient placed back on tele, noted to be in normal sinus rate in the 90s, tachypneic, original sat 98% on 4l oxymask when she put it back on, titrated down to 2L oxymask because she stated she wanted to go back to sleep. patient has audible wheezing, resp at bedside for treatment. patient had .45% NS running at 50ml/hr, IV flushed and patent. patient denies any pain or needs at this point.
[2025-01-22] MEDS: guaiFENesin 200 MG/10 ML 10 ML LIQUID PO ×4 (09:52→20:42)
[2025-01-22 10:04] LABS: Anion Gap 12 (12-20); Blood Urea Nitrogen 15 mg/dL (9-16); Calcium 8.9 mg/dL (8.4-10.2); Carbon Dioxide 31 mmol/L (22-29); Chloride 104 mmol/L (96-108); Creatinine Clr Calc Pharmacy 77.6; Estimated Glomerular Filt Rate > 60; Potassium 3.8 mmol/L (3.3-5.1); Sodium 143 mmol/L (135-145)
[2025-01-22 10:36] LABS: Chlamydia pneumoniae PCR Not Detected (Not Detect.); Coronavirus 229E PCR Not Detected (Not Detect.); Coronavirus HKU1 PCR Not Detected (Not Detect.); Coronavirus NL63 PCR Not Detected (Not Detect.); Coronavirus OC43 PCR Not Detected (Not Detect.); RSV PCR Not Detected (Not Detect.); Rhino/Enterovirus PCR Detected (Not Detect.)
[2025-01-22 11:03] LABS: Influenza A H1 PCR Not Detected (Not Detect.); Influenza A H1-2009 PCR Not Detected (Not Detect.); Influenza A H3 PCR Not Detected (Not Detect.); SARS-CoV-2 PCR Not Detected (Not Detect.)
--- NOTE | 2025-01-22 15:22 | P.PNIM_ITS ---
Subjective Subjective Date of Service: 01/22/25 Interval History: copd excerebation Entero/rhinovirus URI Review of Systems Units of breaths with minimal exertion Aggressive cough Review of Systems: Yes all other systems are reviewed and are negative Physical Exam 2 Exam: Exam: Appearance: Alert.? Oriented X3.sob with minimal excersion talks in dslow sentences cvs: rrr, [id number] , no murmur res: air entry diminshed ,d/l exp wheezing abd: no rebound or guarding ,nt, bs present. ext pulses present , no cyanosis neuro: axo3 , nonfocal. Vital Signs: Vital Signs: Last Vital Signs Temp 97.8 F 01/22/25 13:13 Pulse 77 01/22/25 13:13 Resp 20 01/22/25 13:13 BP 148/78 H 01/22/25 13:13 Pulse Ox 98 01/22/25 13:13 O2 Del Method Oxymask 01/22/25 13:13 O2 Flow Rate 1 01/22/25 13:13 BMI result Body Mass Index 18.7 Objective Data Active Medications Acetaminophen (Acetaminophen 325 Mg Tablet) 650 mg PO Q6H PRN PRN Reason: Pain, Mild 1-3,fever,headache Albuterol/Ipratropium (Albuterol/Iprat 2.5/0.5mg 3 Ml Ampul.Neb) 3 ml INHALE RQ4H [facility] Last Admin: 01/22/25 11:38 Dose: Not Given Documented By: YEE Non-Admin Reason: Patient Asleep Amlodipine Besylate (Amlodipine Besylate 10 Mg Tablet) 10 mg PO DAILY [facility]; Protocol Last Admin: 01/22/25 09:52 Dose: 10 mg Documented By: YAHAIRA Calcium Carbonate (Calcium Carbonate 750 Mg Tab.Chew) 750 mg PO Q4H PRN PRN Reason: Heartburn Enoxaparin Sodium (Enoxaparin Sodium 40 Mg/0.4 Ml Syringe) 40 mg SUBCUT Q24H [facility] Last Admin: 01/21/25 19:14 Dose: 40 mg Documented By: EDMUND Guaifenesin (Guaifenesin 200 Mg/10 Ml 10 Ml Liquid) 10 ml PO QID [facility] Last Admin: 01/22/25 13:15 Dose: 10 ml Documented By: YAHAIRA Sodium Chloride (Sodium Chloride 0.45 %) 1,000 mls @ 50 mls/hr IVCONT .Q20H [facility] Last Admin: 01/21/25 19:16 Dose: 50 mls/hr Documented By: EDMUND Comments: dual RN confirmed dose Loratadine (Loratadine 10 Mg Tablet) 10 mg PO DAILY [facility] Last Admin: 01/22/25 09:52 Dose: 10 mg Documented By: YAHAIRA Magnesium Hydroxide (Milk Of Magnesia 30 Ml Oral.Susp) 30 ml PO DAILY PRN PRN Reason: Constipation Melatonin (Melatonin 3 Mg Tablet) 6 mg PO BEDTIME PRN PRN Reason: Insomnia Methylprednisolone Sodium Succinate (Methylprednisolone Sod Succ 40 Mg/Ml Vial) 40 mg IVPUSH BID [facility] Last Admin: 01/22/25 09:52 Dose: 40 mg Documented By: YAHAIRA Sodium Chloride (0.9 % Sodium Chloride Flush 3 Ml Syringe) 3 ml IVFLUSH QSHIFT [facility] Last Admin: 01/22/25 07:37 Dose: Not Given Documented By: YAHAIRA Non-Admin Reason: IV Running Labs 01/21/25 15:30 01/22/25 09:25 Labs: Laboratory Results - last 24 hr 01/21/25 01/21/25 01/21/25 15:30 16:39 19:07 MCV 92.9 MCH 30.8 MCHC 33.2 RDW 12.0 Plt Count 245 MPV 9.8 Immature Gran % (Auto) 0.2 Neut % (Auto) 59.8 Lymph % (Auto) 29.0 [place] % (Auto) 9.3 Eos % (Auto) 1.1 Baso % (Auto) 0.6 Lymph # (Auto) 2.6 [place] # (Auto) 0.8 Eos # (Auto) 0.1 Baso # (Auto) 0.1 Abs Immat Gran (auto) 0.02 Absolute Neuts (auto) 5.3 Absolute Nucleated RBC 0.000 Nucleated RBC % (auto) 0.0 VBG pH 7.31 L VBG pCO2 54 VBG pO2 50 VBG HCO3 27 H VBG O2 Saturation 76.0 VBG Base Excess 0.5 Anion Gap 15 Estim Creat Clear Calc 63.5 Estimated GFR > 60 Random Glucose 156 H Calcium 9.5 Magnesium 2.3 Total Bilirubin 0.5 AST 22 ALT 13 Alkaline Phosphatase 98 Total Protein 7.2 Albumin 4.5 Urine Opiates Screen Ur Buprenorphine Scrn Ur Oxycodone Screen Urine Methadone Screen Urine Fentanyl Screen Ur Barbiturates Screen Ur Phencyclidine Scrn Ur Amphetamines Screen U Benzodiazepines Scrn Urine Cocaine Screen U Marijuana (THC) Screen Respiratory Panel [place]ell See Note Adenovirus (Rapid PCR) Not Detected B.pert (TEM-PCR) Not Detected B.parapertussis DNA PCR Not Detected C. pneumoniae DNA (PCR) Not Detected Coronavirus OC43 (PCR) Not Detected Coronavirus HKU1 (PCR) Not Detected Coronavirus 229E (PCR) Not Detected Coronavirus NL63 (PCR) Not Detected Human Metapneumovir PCR Not Detected Influenza A (RT-PCR) Not Detected Influenza A (H1) PCR Not Detected Influ A (H1/09) PCR Not Detected Influenza A (H3) PCR Not Detected Influenza B (RT-PCR) Not Detected M. pneumoniae (PCR) Not Detected Parainfluenza 1 (PCR) Not Detected Parainfluenza 2 (PCR) Not Detected Parainfluenza 3 (PCR) Not Detected Parainfluenza 4 (PCR) Not Detected RSV (PCR) Not Detected Entero/Rhino (PCR) Detected A SARS-CoV-2 RNA (RT-PCR) Not Detected 01/22/25 01/22/25 05:41 09:25 MCV MCH MCHC RDW Plt Count MPV Immature Gran % (Auto) Neut % (Auto) Lymph % (Auto) [place] % (Auto) Eos % (Auto) Baso % (Auto) Lymph # (Auto) [place] # (Auto) Eos # (Auto) Baso # (Auto) Abs Immat Gran (auto) Absolute Neuts (auto) Absolute Nucleated RBC Nucleated RBC % (auto) VBG pH VBG pCO2 VBG pO2 VBG HCO3 VBG O2 Saturation VBG Base Excess Anion Gap 12 Estim Creat Clear Calc 77.6 Estimated GFR > 60 Random Glucose 149 H Calcium 8.9 D Magnesium Total Bilirubin AST ALT Alkaline Phosphatase Total Protein Albumin Urine Opiates Screen Not Detected Ur Buprenorphine Scrn Not Detected Ur Oxycodone Screen Not Detected Urine Methadone Screen Not Detected Urine Fentanyl Screen Not Detected Ur Barbiturates Screen Not Detected Ur Phencyclidine Scrn Not Detected Ur Amphetamines Screen Not Detected U Benzodiazepines Scrn Not Detected Urine Cocaine Screen POSITIVE H U Marijuana (THC) Screen Not Detected Respiratory Panel [place] Adenovirus (Rapid PCR) B.pert (TEM-PCR) B.parapertussis DNA PCR C. pneumoniae DNA (PCR) Coronavirus OC43 (PCR) Coronavirus HKU1 (PCR) Coronavirus 229E (PCR) Coronavirus NL63 (PCR) Human Metapneumovir PCR Influenza A (RT-PCR) Influenza A (H1) PCR Influ A (H1/09) PCR Influenza A (H3) PCR Influenza B (RT-PCR) M. pneumoniae (PCR) Parainfluenza 1 (PCR) Parainfluenza 2 (PCR) Parainfluenza 3 (PCR) Parainfluenza 4 (PCR) RSV (PCR) Entero/Rhino (PCR) SARS-CoV-2 RNA (RT-PCR) Assessment and Plan (1) COPD exacerbation: Status: Resolved Plan 58-year-old female with a PMH significant for?COPD not on home O2, currently smoking half a pack daily who presents to the ED with? increased SOB, MCKEON, and cough x2-3 days admitted for mangement of acute hypoxic respiratory failure in the setting COPD exacerbation. Acute hypoxic respiratory failure due to COPD exacerbation,also viral uri(entro/rhino virus) Units of breaths with minimal exertion No sepsis: Elevated HR secondary to albuterol use; no fever or leukocytosis; CXR negative for pneumonia Flu, RSV, Covid 19 negative continue IV Solu-Medrol, DuoNebs, guaifenesin and azithromycin Titrate supplemental O2 >92, wean as tolerated,taper oxygen BNP low tox screen + for cocaine Hypernatremia: Given IV fluids, improved. Nicotine dependence declines NRT Encourage smoking cessation HTN continue amlodipine Full Code DVT Prophylaxis: Lovenox ongoing need for management of acute hypoxic respiratory in the setting of COPD exacerbation require administration IV steroids, breathing treatments, and supplemental oxygen. Quality Stroke Does the patient have a stroke diagnosis?: No VTE Prior VTE?: No VTE Risk Level:: Medical - moderate - high VTE Device Contraindication: N/A - Device Ordered VTE Drug Contraindication: N/A - Med Ordered
[2025-01-22 16:10] LABS: Hemoglobin A1C 199.4626 umol/L; Total Hemoglobin (HGBA1C) 4354.0500 umol/L
[2025-01-22] MEDS: 0.9 % Sodium Chloride Flush 3 ML SYRINGE IVFLUSH (16:35)
--- NOTE | 2025-01-22 16:47 | PC.NURSE ---
Normal Saline 0.45% has not been infusing for unknown amount of time. 600mL remains in IV bag. Per previous RN Claudia, IV has been positional. This RN flushed IV with ease, fluids restarted at 50 mL/hr. 1L was supposed to be completely infused at this time, but due to infusion being stopped, documented 'next dose' as 'not done' due to remaining 600mL in IV bag. Pt refused nasal cannula due to nasal congestion. Face mask applied at 2LPM. Cough with thick mucous auscultated with cough. Medicated with ordered cough syrup. Remains on continuous cardiac monitoring. Care ongoing by this RN.
--- NOTE | 2025-01-22 19:10 | PC.NURSE ---
this RN assumed care of this pt @1900, pt noted to be laying on left side, eyes closed, respirations even and unlabored, connected to cardiac monitoring, HR 95, RR 25, Call light within reach for safety
--- NOTE | 2025-01-22 19:12 | PC.NURSE ---
0.45 NS running @50mL/hr approximately 500mL in current bag
[2025-01-23] VITALS (10 sets, daily range): BP systolic 130–159; BP diastolic 66–90; PULSE 77–98; RESP 16–22; TEMP 36–37; O2SAT 92–100; BMI 17.9
[2025-01-23] MEDS: Albuterol/Iprat 2.5/0.5MG 3 ML AMPUL.NEB INHALE ×5 (07:43→23:19)
[2025-01-23] MEDS: 0.9 % Sodium Chloride Flush 3 ML SYRINGE IVFLUSH ×3 (08:15→20:07)
[2025-01-23] MEDS: guaiFENesin 200 MG/10 ML 10 ML LIQUID PO ×3 (08:15→20:06)
[2025-01-23 09:24] LABS: Anion Gap 13 (12-20); Blood Urea Nitrogen 19 mg/dL (9-16); Calcium 9.3 mg/dL (8.4-10.2); Carbon Dioxide 27 mmol/L (22-29); Chloride 104 mmol/L (96-108); Creatinine Clr Calc Pharmacy 71.1; Estimated Glomerular Filt Rate > 60; Potassium 3.9 mmol/L (3.3-5.1); Sodium 140 mmol/L (135-145)
--- NOTE | 2025-01-23 10:35 | PC.NURSE ---
PCT attempted to ambulate patient to bathroom, patient became tachycardic in 140's, tachypneic 24 and increased work of breathing, complaining of SOB but able to talk in complete sentences, spO2 - 86%. Patient returned to bed. Patient placed on 2L and encouraged to take slow breaths. Patient recovered, RR 20, HR 90, 95% 2L. Patient placed on continuous spO2 monitoring. Provider Blaine notified via [email or web address].
--- NOTE | 2025-01-23 12:12 | MHC.CLN ---
PT IS MODERATELY MALNOURISHED-QUALIFIES FOR NON-SEVERE MALNUTRITION IN CONTEXT OF CHRONIC ILLNESS PT WITH MILDLY DEPLETED SUBCUTANEOUS FAT AND MUSCLE MASS WITH 5% NONSIGNIFICANT WT LOSS X1 YEAR AND DECREASED APPETITE R/T COCAINE ABUSE REGULAR DIET IN PLACE FAMILIAR WITH PT WITH PREVIOUS ADMISSION LAST MONTH RECOMMEND ADDING ENSURE BID TO INCREASE KCALS SUPPLEMENT PROVIDES 700KCALS, 40G PROTEIN MONITOR PO INTAKE AND ENCOURAGE SUPPLEMENT SEE FULL ASSESSMENT
--- NOTE | 2025-01-23 12:37 | MHC.CM.PN ---
DX COPD Exacerbation Lives with other family members Independent with all functional mobility No DME HCP on File PCP [facility] home self care. Patient will arrange for private transport home.
--- NOTE | 2025-01-23 14:52 | HO.PM.IMPN ---
Subjective Subjective Date of Service: 01/23/25 Interval History: COPD exacerbation, hypoxia Review of Systems Patient's sats go into 86 range with little in exertion, she gets very short of breath and tachycardic. Has cough. Physical Exam Exam: Exam: Appearance: Alert.? Oriented X3.? Looks shows short of breath. cvs: rrr, [id number] , no murmur res: Air entry diminished, bilateral expiratory wheezing abd: no rebound or guarding ,nt, bs present. ext pulses present , no cyanosis . neuro: axo3 , nonfocal. Vital Signs: Vital Signs: Last Vital Signs Temp 98 F 01/23/25 11:01 Pulse 78 01/23/25 11:17 Resp 16 01/23/25 11:17 BP 133/66 01/23/25 11:01 Pulse Ox 94 01/23/25 11:01 O2 Del Method Nasal Cannula 01/23/25 11:01 O2 Flow Rate 2 01/23/25 11:01 BMI result Body Mass Index 17.9 Objective Data Active Medications Acetaminophen (Acetaminophen 325 Mg Tablet) 650 mg PO Q6H PRN PRN Reason: Pain, Mild 1-3,fever,headache Albuterol/Ipratropium (Albuterol/Iprat 2.5/0.5mg 3 Ml Ampul.Neb) 3 ml INHALE RQ4H [facility] Last Admin: 01/23/25 11:16 Dose: 3 ml Documented By: DEBBIE Amlodipine Besylate (Amlodipine Besylate 10 Mg Tablet) 10 mg PO DAILY [facility]; Protocol Last Admin: 01/23/25 08:15 Dose: 10 mg Documented By: GIUSEPPE Benzonatate (Benzonatate 100 Mg Capsule) 100 mg PO TID [facility] Calcium Carbonate (Calcium Carbonate 750 Mg Tab.Chew) 750 mg PO Q4H PRN PRN Reason: Heartburn Enoxaparin Sodium (Enoxaparin Sodium 40 Mg/0.4 Ml Syringe) 40 mg SUBCUT Q24H [facility] Last Admin: 01/22/25 18:30 Dose: 40 mg Documented By: ELIZABETH Glipizide (Glipizide 5 Mg Tablet) 2.5 mg PO DAILY [facility] Last Admin: 01/23/25 13:32 Dose: 2.5 mg Documented By: GIUSEPPE Guaifenesin (Guaifenesin 200 Mg/10 Ml 10 Ml Liquid) 10 ml PO QID [facility] Last Admin: 01/23/25 13:32 Dose: 10 ml Documented By: GIUSEPPE Loratadine (Loratadine 10 Mg Tablet) 10 mg PO DAILY [facility] Last Admin: 01/23/25 08:15 Dose: 10 mg Documented By: GIUSEPPE Magnesium Hydroxide (Milk Of Magnesia 30 Ml Oral.Susp) 30 ml PO DAILY PRN PRN Reason: Constipation Melatonin (Melatonin 3 Mg Tablet) 6 mg PO BEDTIME PRN PRN Reason: Insomnia Prednisone (Prednisone 20 Mg Tablet) 40 mg PO DAILY [facility] Last Admin: 01/23/25 10:09 Dose: Not Given Documented By: GIUSEPPE Non-Admin Reason: Previously Administered Comments: hold per Provider Valladares via [employer] - IV Solumedrol already administered. Sodium Chloride (0.9 % Sodium Chloride Flush 3 Ml Syringe) 3 ml IVFLUSH QSHIFT [facility] Last Admin: 01/23/25 08:15 Dose: 3 ml Documented By: GIUSEPPE Labs 01/21/25 15:30 01/23/25 08:52 Labs: Laboratory Results - last 24 hr 01/22/25 01/23/25 15:30 08:52 Anion Gap 13 Estim Creat Clear Calc 71.1 Estimated GFR > 60 Random Glucose 110 Estimat Average Glucose 134 Hemoglobin A1c % 6.3 H Calcium 9.3 Assessment and Plan (1) COPD exacerbation: Status: Resolved Plan 58-year-old female with a PMH significant for?COPD not on home O2, currently smoking half a pack daily who presents to the ED with? increased SOB, MCKEON, and cough x2-3 days admitted for mangement of acute hypoxic respiratory failure in the setting COPD exacerbation. Acute hypoxic respiratory failure due to COPD exacerbation,also viral uri(entro/rhino virus) Units of breaths with minimal exertion, still hypoxic requiring oxygen Placed in 2 L oxygen-to bring sats above 90's goal oxygen is 89-91% No sepsis: Elevated HR secondary to albuterol use; no fever or leukocytosis; CXR negative for pneumonia Flu, RSV, Covid 19 negative continue IV Solu-Medrol, DuoNebs, guaifenesin and azithromycin Titrate supplemental O2 >92, wean as tolerated,taper oxygen BNP low tox screen + for cocaine Hypernatremia: Given IV fluids, improved. Nicotine dependence declines NRT Encourage smoking cessation HTN continue amlodipine Full Code DVT Prophylaxis: Lovenox ongoing need for management of acute hypoxic respiratory in the setting of COPD exacerbation require administration IV steroids, breathing treatments, and supplemental oxygen. Quality Stroke Does the patient have a stroke diagnosis?: No VTE Prior VTE?: No VTE Risk Level:: Medical - moderate - high VTE Device Contraindication: N/A - Device Ordered VTE Drug Contraindication: N/A - Med Ordered
[2025-01-24] VITALS (7 sets, daily range): BP systolic 119–150; BP diastolic 70–84; PULSE 76–105; RESP 17–21; TEMP 36.6–37.1; O2SAT 91–98
[2025-01-24] MEDS: Albuterol/Iprat 2.5/0.5MG 3 ML AMPUL.NEB INHALE ×4 (08:14→23:32)
[2025-01-24] MEDS: guaiFENesin 200 MG/10 ML 10 ML LIQUID PO ×3 (09:02→20:54)
[2025-01-24] MEDS: 0.9 % Sodium Chloride Flush 3 ML SYRINGE IVFLUSH ×3 (09:02→20:54)
--- NOTE | 2025-01-24 09:42 | HO.PM.IMPN ---
Subjective Subjective Date of Service: 01/24/25 Interval History: ongoing sob Physical Exam Exam: Exam: examined during O2 weaning trial alert oriented times 3, dyspneic, tachypneic, accessory muscles, poor air movement, exp wheeze Vital Signs: Vital Signs: Last Vital Signs Temp 97.9 F 01/24/25 06:59 Pulse 76 01/24/25 08:14 Resp 17 01/24/25 08:14 BP 150/70 H 01/24/25 06:59 Pulse Ox 97 01/24/25 06:59 O2 Del Method Nasal Cannula 01/24/25 06:59 O2 Flow Rate 2 01/24/25 06:59 BMI result Body Mass Index 17.9 Objective Data Active Medications Acetaminophen (Acetaminophen 325 Mg Tablet) 650 mg PO Q6H PRN PRN Reason: Pain, Mild 1-3,fever,headache Albuterol/Ipratropium (Albuterol/Iprat 2.5/0.5mg 3 Ml Ampul.Neb) 3 ml INHALE RQ4H [facility] Last Admin: 01/24/25 08:14 Dose: 3 ml Documented By: YEE Amlodipine Besylate (Amlodipine Besylate 10 Mg Tablet) 10 mg PO DAILY [facility]; Protocol Last Admin: 01/24/25 09:02 Dose: 10 mg Documented By: MARTA Benzonatate (Benzonatate 100 Mg Capsule) 100 mg PO TID [facility] Last Admin: 01/24/25 09:02 Dose: 100 mg Documented By: MARTA Calcium Carbonate (Calcium Carbonate 750 Mg Tab.Chew) 750 mg PO Q4H PRN PRN Reason: Heartburn Enoxaparin Sodium (Enoxaparin Sodium 40 Mg/0.4 Ml Syringe) 40 mg SUBCUT Q24H [facility] Last Admin: 01/23/25 17:08 Dose: 40 mg Documented By: COLKAREN Glipizide (Glipizide 5 Mg Tablet) 2.5 mg PO DAILY [facility] Last Admin: 01/24/25 09:01 Dose: 2.5 mg Documented By: MARTA Guaifenesin (Guaifenesin 200 Mg/10 Ml 10 Ml Liquid) 10 ml PO QID [facility] Last Admin: 01/24/25 09:02 Dose: 10 ml Documented By: MARTA Loratadine (Loratadine 10 Mg Tablet) 10 mg PO DAILY [facility] Last Admin: 01/24/25 09:02 Dose: 10 mg Documented By: MARTA Magnesium Hydroxide (Milk Of Magnesia 30 Ml Oral.Susp) 30 ml PO DAILY PRN PRN Reason: Constipation Melatonin (Melatonin 3 Mg Tablet) 6 mg PO BEDTIME PRN PRN Reason: Insomnia Prednisone (Prednisone 20 Mg Tablet) 40 mg PO DAILY [facility] Last Admin: 01/24/25 09:02 Dose: 40 mg Documented By: MARTA Sodium Chloride (0.9 % Sodium Chloride Flush 3 Ml Syringe) 3 ml IVFLUSH QSHIFT [facility] Last Admin: 01/24/25 09:02 Dose: 3 ml Documented By: MARTA Labs 01/21/25 15:30 01/23/25 08:52 Assessment and Plan (1) Dyspnea on exertion: Status: Acute Plan 58F PMH COPD, HTN, cocaine dependence, active smoker presented with shortness of breath Acute hypoxic respiratory failure due to COPD with acute decompensation due to recent rhino virus and cocaine use Off oxygen still desaturating to mid 80s with severe dyspnea Continue steroids, DuoNebs acute hypernatremia resolved cocaine and nicotine dependence advised to stop HTN amlodipine DVT prophylaxis with Lovenox Full code reason for continued hospitalization: Still weaning O2, short of breath Quality Stroke Does the patient have a stroke diagnosis?: No VTE Prior VTE?: No VTE Risk Level:: Medical - moderate - high VTE Device Contraindication: N/A - Device Ordered VTE Drug Contraindication: N/A - Med Ordered
--- NOTE | 2025-01-24 12:02 | MHC.CLN ---
F/U DIET RX: REGULAR. ENSURE BID TO INCREASE NUTRITIONAL INTAKE. SUPPLEMENT PROVIDES 700KCALS, 40G PROTEIN. PO INTAKE 2 MEALS X 100%. MONITOR PO INTAKE AND ENCOURAGE SUPPLEMENT ABLE.
--- NOTE | 2025-01-24 16:06 | MHC.CM.PN ---
PER ROUNDS PT REMAINS ACUTE LEVEL OF CARE DC PLAN REMANS HOME SELF CARE
[2025-01-25 03:13] VITALS: BP 117/74; PULSE 82; RESP 20; TEMP 36.2; O2SAT 94
[2025-01-25 07:53] VITALS: BP 120/78; PULSE 86; RESP 20; TEMP 36.1; O2SAT 95
[2025-01-25] MEDS: Albuterol/Iprat 2.5/0.5MG 3 ML AMPUL.NEB INHALE ×2 (08:01→11:23)
[2025-01-25 08:02] VITALS: PULSE 81; RESP 20; O2SAT 96
[2025-01-25] MEDS: guaiFENesin 200 MG/10 ML 10 ML LIQUID PO (08:15)
--- NOTE | 2025-01-25 09:14 | P.PNIM_ITS ---
Subjective Subjective Date of Service: 01/25/25 Interval History: improved but still sob Physical Exam 2 Exam: Exam: alert oriented times 3, still dyspneic but better than yesterday, tachypneic, poor air movement, exp wheeze Vital Signs: Vital Signs: Last Vital Signs Temp 96.9 F 01/25/25 07:53 Pulse 81 01/25/25 08:02 Resp 20 01/25/25 08:02 BP 120/78 01/25/25 07:53 Pulse Ox 95 01/25/25 07:53 O2 Del Method Nasal Cannula 01/25/25 07:53 O2 Flow Rate 2 01/25/25 07:53 BMI result Body Mass Index 17.9 Objective Data Active Medications Acetaminophen (Acetaminophen 325 Mg Tablet) 650 mg PO Q6H PRN PRN Reason: Pain, Mild 1-3,fever,headache Albuterol/Ipratropium (Albuterol/Iprat 2.5/0.5mg 3 Ml Ampul.Neb) 3 ml INHALE RQ4H [facility] Last Admin: 01/25/25 08:01 Dose: 3 ml Documented By: MACKENZIE Amlodipine Besylate (Amlodipine Besylate 10 Mg Tablet) 10 mg PO DAILY [facility]; Protocol Last Admin: 01/25/25 08:15 Dose: 10 mg Documented By: HERVE Benzocaine (Throat Lozenge, Medicated Lozenge) 1 lozenge MUCOUS MEM Q2H PRN PRN Reason: Sore Throat Benzonatate (Benzonatate 100 Mg Capsule) 100 mg PO TID [facility] Last Admin: 01/25/25 08:15 Dose: 100 mg Documented By: HERVE Calcium Carbonate (Calcium Carbonate 750 Mg Tab.Chew) 750 mg PO Q4H PRN PRN Reason: Heartburn Enoxaparin Sodium (Enoxaparin Sodium 40 Mg/0.4 Ml Syringe) 40 mg SUBCUT Q24H [facility] Last Admin: 01/24/25 18:05 Dose: 40 mg Documented By: MARY Guaifenesin (Guaifenesin 200 Mg/10 Ml 10 Ml Liquid) 10 ml PO QID [facility] Last Admin: 01/25/25 08:15 Dose: 10 ml Documented By: HERVE Loratadine (Loratadine 10 Mg Tablet) 10 mg PO DAILY [facility] Last Admin: 01/25/25 08:15 Dose: 10 mg Documented By: HERVE Magnesium Hydroxide (Milk Of Magnesia 30 Ml Oral.Susp) 30 ml PO DAILY PRN PRN Reason: Constipation Melatonin (Melatonin 3 Mg Tablet) 6 mg PO BEDTIME PRN PRN Reason: Insomnia Last Admin: 01/24/25 20:54 Dose: 6 mg Documented By: MARY Prednisone (Prednisone 20 Mg Tablet) 40 mg PO DAILY [facility] Last Admin: 01/25/25 08:15 Dose: 40 mg Documented By: HERVE Sodium Chloride (0.9 % Sodium Chloride Flush 3 Ml Syringe) 3 ml IVFLUSH QSHIFT [facility] Last Admin: 01/25/25 07:38 Dose: Not Given Documented By: HERVE Non-Admin Reason: Previously Administered Labs 01/21/25 15:30 01/23/25 08:52 Assessment and Plan (1) Dyspnea on exertion: Status: Acute Plan 58F PMH COPD, HTN, cocaine dependence, active smoker presented with shortness of breath Acute hypoxic respiratory failure due to COPD with acute decompensation due to recent rhino virus and cocaine use weaned to room air, now satting 92% but still tight and wheezy Continue steroids, DuoNebs acute hypernatremia resolved cocaine and nicotine dependence advised to stop HTN amlodipine DVT prophylaxis with Lovenox Full code reason for continued hospitalization: Still tight and wheezing, short of breath Quality Stroke Does the patient have a stroke diagnosis?: No VTE Prior VTE?: No VTE Risk Level:: Medical - moderate - high VTE Device Contraindication: N/A - Device Ordered VTE Drug Contraindication: N/A - Med Ordered
[2025-01-25] MEDS: Throat Lozenge, Medicated LOZENGE 1 LOZENGE MUCOUS MEM (11:21)
[2025-01-25 11:24] VITALS: PULSE 87; RESP 20; O2SAT 99
--- NOTE | 2025-01-25 13:51 | PM.DS ---
DS: Providers Provider Date of Service: 01/25/25 Date of admission: 01/21/25 17:38 Date of discharge: 01/25/25 Primary care physician: Summer Olivier DO DS: Diagnosis Discharge Diagnosis (1) Dyspnea on exertion: Status: Acute DS: Summary Hospital Course Hospital Course: from initial hpi: 58-year-old female with a PMH significant for?COPD not on home O2, currently smoking half a pack daily who presents to the ED with? increased SOB for 2-3 days' duration, patient is saying shortness of breath is progressively worsening, she is also active smoker and still uses occasionally cocaine(snorting), denies any sick contacts or recent travel.had some steroids left over from prior admissions and took a dose of steroids yesterday.She says she has cough with phlegm and yellow sputum which is not new. Denies any fever or chills or chest pain or any abdominal pain or nausea or vomiting . She is saying that her appetite is also low from 1-2 days, denies any rhinorrhea or ear pain In the emergency room as per ED physician found to have hypoxic even after nebs and steroids, sats were 88 range, started on oxygen, given nebs and steroids and requested admission for COPD exacerbation. hospital course: Patient was admitted for acute hypoxic respiratory failure due to COPD with acute decompensation due to recent coronavirus and cocaine use. Was treated with steroids, DuoNebs and eventually weaned to room air. She is encouraged to stop smoking and cocaine. She will be discharged on 5 more days of prednisone azithromycin. Acute hypernatremia resolved. For hypertension was continued on amlodipine. Time Attestation Discharge Coordination Time (in mins): 33 Quality: Safe Use of Opioids Does Pt have an Active Cancer Diagnosis on the Problem List?: No Quality: Stroke Does the patient have a stroke diagnosis?: No Physical Exam Exam: Exam: General: AO X 3, no acute distress Resp: some exp wheezing bilateral, no accessory muscles used CVS: S1,S2,RRR GI: soft, non tender, non distended Neuro: motor grossly intact, alert Psych: appropriate affect, appropriate insight Vital Signs: Vital Signs: Last Vital Signs Temp 96.9 F 01/25/25 07:53 Pulse 87 01/25/25 11:24 Resp 20 01/25/25 11:24 BP 120/78 01/25/25 07:53 Pulse Ox 95 01/25/25 07:53 O2 Del Method Nasal Cannula 01/25/25 07:53 O2 Flow Rate 2 01/25/25 07:53 BMI result Body Mass Index 17.9 DS: Data Data Completed and Pending Completed studies during hospitalization [Text1]: Procedures Excision of Descending Colon, Via Natural or Artificial Opening Endoscopic, Diagnostic (05/06/20) Excision of Sigmoid Colon, Via Natural or Artificial Opening Endoscopic, Diagnostic (05/06/20) Excision of Transverse Colon, Via Natural or Artificial Opening Endoscopic, Diagnostic (05/06/20) Discharge Plan Discharge Anticipated Discharge Date/Time: 01/25/25 13:49 Patient Disposition: Home, Self-Care Discharge Diagnosis: copd, cocaine, rhinovirus Referrals: Summer Olivier DO [Primary Care Provider, Internal Medicine] - 1 Week Discharge Medications: New prednisone 20 mg tablet 40 mg PO DAILY 5 Days Qty: 10 0RF albuterol sulfate 2.5 mg /3 mL (0.083 %) solution for nebulization 2.5 mg inhalation QID PRN (Reason: shortness of breath or wheezing) Qty: 90 0RF azithromycin 500 mg tablet 500 mg PO DAILY 5 Days Qty: 5 0RF Continued albuterol sulfate [Ventolin HFA] 90 mcg/actuation HFA aerosol inhaler 2 puff INHALATION Q6H PRN (Reason: wheezing) Incruse Ellipta 62.5 mcg/actuation blister with device 1 inh inhalation DAILY fluticasone propion-salmeterol [Advair Diskus] 250-50 mcg/dose blister with device 1 ea INHALATION BID amlodipine 10 mg tablet 10 mg PO DAILY Discharge Orders: Discharge Order (Routine); Ordered 01/25/25 Ordered By: Yogi Singh Diet: Advance to usual diet Activity on Discharge: As tolerated Stand Alone Forms: Patient Portal Discharge page Print Language: Unable To Collect Activity Restrictions/Additional Instructions: If you do not quit smoking you will end up being oxygen dependent, quitting smoking right now is the only thing that is going to stop but not reverse the process of damage you have done to a lungs Continue steroids starting tomorrow Use albuterol nebulizer and if you need to albuterol inhaler 2 puffs every 4 hours for the rest of the day or 1 treatment every 4 hours for the rest of the day Continue using inhaled steroids And azithromycin as an antibiotic but I use it in smokers on patient's with a COPD to help with the inflammation Follow up with the PCP cocaine is also contributing to your symptoms Care Plan Goals: recovery Health Concerns: see above Plan of Treatment: see above Assessment: see above Patient Instructions: COPD (Chronic Obstructive Pulmonary Disease) (DC)
--- NOTE | 2025-01-25 14:08 | MHC.CM.PN ---
Patient is discharged to home today self care. She has arranged for her son to provide transportation home.
[2025-01-25 14:15] VITALS: BP 124/77; PULSE 99; RESP 20; TEMP 36.6; O2SAT 93
--- NOTE | 2025-01-26 07:11 | P.CDIM_ITS ---
PROVIDER RESPONSE TEXT: To clarify, the appropriate diagnosis supported by the clinical indicators: Malnutrition: moderate QUERY TEXT: PHYSICIAN'S DOCUMENTATION REQUEST Date of Query: 01/24/2025 10:06 AM EDT Patient Name: AGUILA URIAS Admit Date: 01/21/2025 Dear Yogi Singh MD, A review of the medical record indicates additional documentation may be needed. Please review below and update the documentation accordingly. Clinical Indicators: Height: 5ft 6in Weight: 50.3kg BMI: 17.9 Other Clinical Notes Supporting Significance of the BMI: Clinical nutrition notes dated 01/23/25 - Patient is moderately malnourished-qualifies for non-severe malnutrition in context of chronic illness. Mildly depleted subcutaneous fat and muscle mass. Recommend adding Ensure BID to increase KCALS. If possible, please provide an associated diagnosis related to the abnormal BMI, such as: Underweight Malnutrition mild, moderate, severe Cachexia Anorexia Other (explain) Clinically unable to determine (explain) Thank you, Chelly Razo, CCS, CDIS Use of terms such as suspected, likely, concern for, or probable (associated with a specific diagnosis that is being evaluated, monitored, or treated as if it exists) are acceptable and can be coded in the inpatient setting, when documented at the time of discharge. Please use your independent medical judgment in providing your response. THIS QUERY IS PART OF THE PERMANENT MEDICAL RECORD
== END 2025-01-25 14:59 | disposition home or self-care (01) | DRG 816 ==
LOC: HO.ED 16:58 → HO.EDOVER 17:45 → HO.S3 01-22 19:28
PROVIDERS: Emergency Medicine; Admitting Provider Internal Medicine; Emergency Provider Student in an Organized Health Care Education/Training Program; PCP Pediatrics; Visit Provider Internal Medicine
DX: T40.5X1A Poisoning by cocaine, accidental (unintentional), initial encounter (principal); J96.01 Acute respiratory failure with hypoxia; E44.0 Moderate protein-calorie malnutrition; J44.1 Chronic obstructive pulmonary disease with (acute) exacerbation; E87.0 Hyperosmolality and hypernatremia; F14.20 Cocaine dependence, uncomplicated; B97.89 Other viral agents as the cause of diseases classified elsewhere; Z68.1 Body mass index [BMI] 19.9 or less, adult; I10 Essential (primary) hypertension; F17.210 Nicotine dependence, cigarettes, uncomplicated; Z71.6 Tobacco abuse counseling; Z79.51 Long term (current) use of inhaled steroids; Z79.899 Other long term (current) drug therapy
CPT/HCPCS: 36415; 71045; 80048; 80053; 80307; 82803; 83036; 83735; 85025; 87633; 93005; 94640; 99285; J1650; J2919; J3475

== ENCOUNTER → 2025-01-21 15:14 | Outpatient (BNV) | payer OTHER, SELFPAY | PROVIDERS: Emergency Provider Student in an Organized Health Care Education/Training Program; PCP Pediatrics; Visit Provider Radiology Diagnostic Radiology | DX: R06.00 Dyspnea, unspecified (principal) | CPT/HCPCS: 71045 ==

== ENCOUNTER → 2025-01-21 15:45 | Outpatient (BNV) | payer OTHER, SELFPAY | PROVIDERS: Admitting Provider Internal Medicine; Emergency Provider Student in an Organized Health Care Education/Training Program; PCP Pediatrics; Visit Provider Internal Medicine Cardiovascular Disease | DX: I44.5 Left posterior fascicular block (principal) | CPT/HCPCS: 93010 ==

== ENCOUNTER → 2025-01-21 17:38 | Outpatient (BNV) | payer OTHER, SELFPAY | PROVIDERS: Admitting Provider Internal Medicine; Emergency Provider Student in an Organized Health Care Education/Training Program; PCP Pediatrics; Visit Provider Internal Medicine | DX: J44.1 Chronic obstructive pulmonary disease with (acute) exacerbation (principal) | CPT/HCPCS: 99222; 99231; 99232; 99239; 99499 ==